=== PATIENT | female | born 1935 | race Caucasian/White ===

== ENCOUNTER 2018-11-26 12:53 | Inpatient (IN) | payer MEDICARE, OTHER ==
--- NOTE | 2018-11-26 13:36 | ED ---
General Adult HPI - General Source: patient, EMS, RN notes reviewed Mode of arrival: EMS Limitations: no limitations <Tomás Cohen - Last Filed: 11/26/18 17:27> <Juanito Mary - Last Filed: 11/26/18 17:36> - General Chief complaint: Fall Stated complaint: Fall, knee pain Time Seen by Provider: 11/26/18 13:15 - History of Present Illness Initial comments: 82-year-old female with a past medical history of colon cancer presents to the emergency department for a chief complaint of fall. Patient had a trip and fall earlier today. She states that she caught the right side of her foot and fell onto her right knee. States that the knee is painful and she was not able to ambulate on it. Patient called EMS to be brought to the emergency department. Patient denies any back pains. States she maybe is a little bit of right hip pain but it is not significant. Denies hitting her head. Patient has no other complaints at this time including shortness of breath, chest pain, abdominal pain, nausea or vomiting, headache, or visual changes. (Tomás Cohen) - Related Data Home Medications Medication Instructions Recorded Confirmed No Known Home Medications 11/26/18 11/26/18 Allergies Allergy/AdvReac Type Severity Reaction Status Date / Time ciprofloxacin [From Cipro] Allergy Unknown Verified 11/26/18 13:40 Penicillins Allergy Unknown Verified 11/26/18 13:40 Childhood Review of Systems ROS Other: All systems not noted in ROS Statement are negative. <Tomás Cohen - Last Filed: 11/26/18 17:27> ROS Other: All systems not noted in ROS Statement are negative. <Juanito Mary - Last Filed: 11/26/18 17:36> ROS Statement: Those systems with pertinent positive or pertinent negative responses have been documented in the HPI. Past Medical History Additional Past Medical History / Comment(s): colon ca, History of Any Multi-Drug Resistant Organisms: None Reported Past Surgical History: Appendectomy, Section Additional Past Surgical History / Comment(s): colostomy Past Psychological History: No Psychological Hx Reported Smoking Status: Never smoker Past Alcohol Use History: None Reported Past Drug Use History: None Reported <Tomás Cohen - Last Filed: 11/26/18 17:27> General Exam Limitations: no limitations General appearance: alert, in no apparent distress Head exam: Present: atraumatic, normocephalic, normal inspection Eye exam: Present: normal appearance, PERRL, EOMI. Absent: scleral icterus, conjunctival injection, periorbital swelling ENT exam: Present: normal exam, mucous membranes moist Neck exam: Present: normal inspection, full ROM. Absent: tenderness, meningismus, lymphadenopathy Respiratory exam: Present: normal lung sounds bilaterally. Absent: respiratory distress, wheezes, rales, rhonchi, stridor Cardiovascular Exam: Present: regular rate, normal rhythm, normal heart sounds. Absent: systolic murmur, diastolic murmur, rubs, gallop, clicks Extremities exam: Present: tenderness (Generalized anterior right knee tenderness.), normal capillary refill (Capillary refill less than, DP pulse 2+ in the right lower extremities.), joint swelling (Edema present of the right anterior knee.). Absent: full ROM (Patient has limited range of motion of the right knee secondary to pain but can flex to about 90.), pedal edema, calf tenderness Neurological exam: Present: alert <Tomás Cohen - Last Filed: 11/26/18 17:27> Course <Tomás Cohen - Last Filed: 11/26/18 17:27> Vital Signs 11/26/18 11/26/18 11/26/18 12:58 14:47 16:21 Temperature 97.0 F L Pulse Rate 89 86 87 Respiratory 16 16 16 Rate Blood Pressure 129/91 130/84 108/61 O2 Sat by Pulse 93 L 96 95 Oximetry 11/26/18 17:11 Temperature Pulse Rate 63 Respiratory 16 Rate Blood Pressure 105/67 O2 Sat by Pulse 99 Oximetry - Reevaluation(s) Reevaluation #1: 11/26/18 13:36 Refused pain medications (Tomás Cohen) Medical Decision Making - Lab Data Result diagrams: 11/26/18 17:00 <Tomás Cohen - Last Filed: 11/26/18 17:27> - Lab Data Result diagrams: 11/26/18 17:00 11/26/18 17:00 <Juanito Mary - Last Filed: 11/26/18 17:36> - Medical Decision Making 82-year-old female presents to the emergency department for a chief complaint of right knee pain. Patient had a fall earlier today. His was mechanical. Patient did not hit her head. On exam patient has significant edema noted of the right knee. Patient is able to flex the knee to 30. No significant pain in the right hip however fracture was obtained which was negative. X-ray of the right knee shows a moderate joint effusion without fractures. However given degree of swelling and pain CT was obtained which showed a vague area of cortical disruption lateral tibial plateau anteriorly. Nondisplaced, nondepressed. I did correlate with point tenderness and patient is tender in this area. Case Discussed with Abbe FRANCOIS orthopedics. States patient can go home however if she is unable to go home socially to put her in a knee immobilizer and admitted to medicine, consult orthopedics. I did talk with patient as well as Dr. Mary. At this time patient cannot remain nonweightbearing on the right knee. Patient will be kept in the hospital for orthopedic evaluation and possible placement. (Tomás Cohen) The patient was seen and examined. All diagnostics are reviewed. The case is discussed with ALESSANDRO and I agree with findings as documented. The case will be discussed with internal medicine and patient will be admitted for further treatment with orthopedic's to consult. (Juanito Mary) - Lab Data Lab Results 11/26/18 11/26/18 Range/Units 17:00 17:00 WBC 10.2 (3.8-10.6) k/uL RBC 3.61 L (3.80-5.40) m/uL Hgb 11.4 (11.4-16.0) gm/dL Hct 32.6 L (34.0-46.0) % MCV 90.5 (80.0-100.0) fL MCH 31.5 (25.0-35.0) pg MCHC 34.8 (31.0-37.0) g/dL RDW 12.3 (11.5-15.5) % Plt Count 203 (150-450) k/uL Neutrophils % 83 % Lymphocytes % 7 % Monocytes % 6 % Eosinophils % 0 % Basophils % 0 % Neutrophils # 8.5 H (1.3-7.7) k/uL Lymphocytes # 0.7 L (1.0-4.8) k/uL Monocytes # 0.6 (0-1.0) k/uL Eosinophils # 0.0 (0-0.7) k/uL Basophils # 0.0 (0-0.2) k/uL Sodium 138 (137-145) mmol/L Potassium 4.1 (3.5-5.1) mmol/L Chloride 106 (98-107) mmol/L Carbon Dioxide 25 (22-30) mmol/L Anion Gap 7 mmol/L BUN 22 H (7-17) mg/dL Creatinine 0.77 (0.52-1.04) mg/dL Est GFR (CKD-EPI)AfAm 83 (>60 ml/min/1.73 sqM) Est GFR (CKD-EPI)NonAf 72 (>60 ml/min/1.73 sqM) Glucose 117 H (74-99) mg/dL Calcium 9.3 (8.4-10.2) mg/dL Total Bilirubin 1.8 H (0.2-1.3) mg/dL AST 36 (14-36) U/L ALT 32 (9-52) U/L Alkaline Phosphatase 70 (38-126) U/L Total Protein 6.0 L (6.3-8.2) g/dL Albumin 3.5 (3.5-5.0) g/dL Disposition Is patient prescribed a controlled substance at d/c from ED?: No Time of Disposition: 17:27 <Tomás Cohen - Last Filed: 11/26/18 17:27> <Juanito Mary - Last Filed: 11/26/18 17:36> Clinical Impression: Tibial plateau fracture, Inability to bear weight Disposition: ADMITTED IP TO THIS HOSP Condition: Fair Referrals: Harish Nuñez MD [Primary Care Provider] - 1-2 days
--- NOTE | 2018-11-26 14:33 | XR ---
EXAMINATION TYPE: XR knee 4V RT DATE OF EXAM: 11/26/2018 COMPARISON: None HISTORY: Fall, pain TECHNIQUE: 4 view right knee FINDINGS: Medial and lateral joint space spurring is noted. Tibial plateau and femoral condylar spurr ing is present. Patellofemoral joint space degenerative changes are present. Moderate joint effusion is evident. There may be calcification within the distal medial quadriceps tendon. IMPRESSION: 1. Moderate joint effusion. 2. No acute fractures. 3. Moderate degenerative changes greatest within the patellofemoral joint space.
--- NOTE | 2018-11-26 14:34 | XR ---
EXAMINATION TYPE: XR Hip RT and AP Pelvis DATE OF EXAM: 11/26/2018 COMPARISON: None HISTORY: Fall, pain TECHNIQUE: Single AP pelvis FINDINGS: Femoral heads articulate with the acetabulum. Symphysis pubis is normal. Sacroiliac joints are normal. Normal bowel gas is present. Multiple surgical clips are present. Exam is supplemented with 2 views of the right hip. No acute fractures or dislocations are evident. IMPRESSION: 1. Normal right hip and pelvis
[2018-11-26] MEDS ORDERED: MORPHINE SULFATE 4 MG/ML SYRINGE IVP STA ×2 (14:42→16:23)
--- NOTE | 2018-11-26 16:00 | CT ---
EXAMINATION TYPE: CT knee RT wo con DATE OF EXAM: 11/26/2018 COMPARISON: None HISTORY: Right knee pain post fall CT DLP: 160.6 mGycm Automated exposure control for dose reduction was used. Unenhanced CT of the right knee was performed in the axial coronal and sagittal planes. Bone and soft tissue window settings are reviewed. FINDINGS: Extremely vague area of cortical disruption suggested lateral tibial plateau anteriorly seen best on the sagittal data set image 30 of 75 series 203. Nondisplaced nondepressed fracture is difficult to e xclude. Correlate clinically with point tenderness. No additional fracture suspected. Moderate joint effusion identified. Moderate degenerative joint space narrowing medial and lateral tibial femoral elo int spaces as well as severe degenerative narrowing of the patellofemoral joint space. Associated cho ndromalacia patella. Spur formation noted throughout. No soft tissue masses identified. Loose body no aidee within suprapatellar joint effusion measuring 1.7 cm. IMPRESSION: 1.Extremely vague area of cortical disruption suggested lateral tibial plateau anteriorly seen best o n the sagittal data set image 30 of 75 series 203. Nondisplaced nondepressed fracture is difficult to exclude. Correlate clinically with point tenderness.
[2018-11-26] MEDS ORDERED: HYDROcodone/APAP 5-325MG 1 EACH TAB PO STA (16:34)
[2018-11-26] MEDS ORDERED: SODIUM CHLORIDE 0.9% 500 ML 500 ML IV STA (16:40)
[2018-11-26 17:18] LABS: Basophils % (A) 0 %; Eosinophils % (A) 0 %; HCT 32.6 % (34.0-46.0); HGB 11.4 gm/dL (11.4-16.0); Lymphocytes # (A) 0.7 k/uL (1.0-4.8); Lymphocytes % (A) 7 %; MCH 31.5 pg (25.0-35.0); MCHC 34.8 g/dL (31.0-37.0); MCV 90.5 fL (80.0-100.0); Mean Platelet Volume 5.8; Monocytes # (A) 0.6 k/uL (0-1.0); Monocytes % (A) 6 %; Neutrophils # (A) 8.5 k/uL (1.3-7.7); Neutrophils % (A) 83 %; Platelet Count 203 k/uL (150-450); RBC 3.61 m/uL (3.80-5.40); RDW 12.3 % (11.5-15.5); WBC 10.2 k/uL (3.8-10.6)
[2018-11-26] MEDS ORDERED: NALOXONE 0.4 MG/ML 1 ML VIAL IV PRN (17:24)
[2018-11-26 17:28] LABS: Albumin 3.5 g/dL (3.5-5.0); Calcium 9.3 mg/dL (8.4-10.2); Potassium 4.1 mmol/L (3.5-5.1); Total Bilirubin 1.8 mg/dL (0.2-1.3)
[2018-11-26 17:35] LABS: INR 1.1 (<1.2); Partial Thromboplastin Time 22.3 sec (22.0-30.0); Prothrombin Time 11.4 sec (9.0-12.0)
[2018-11-26] MEDS: SODIUM CHLORIDE 0.9% 1,000 ML IV SCH (19:45)
[2018-11-26 21:09] VITALS: BMI 25.2
[2018-11-26] MEDS: HYDROcodone/APAP 5-325MG 1 EACH TAB PO PRN (21:13)
[2018-11-27] MEDS: HYDROcodone/APAP 5-325MG 1 EACH TAB PO PRN ×4 (03:26→20:42)
[2018-11-27] MEDS: SODIUM CHLORIDE 0.9% 1,000 ML IV SCH ×2 (07:19→20:41)
--- NOTE | 2018-11-27 10:11 | P.HPIM ---
History of Present Illness H&P Date: 11/27/18 Chief Complaint: Fall with right knee pain This is an 82-year-old female patient of Dr. Nuñez. Patient presented after sustaining a fall at home. Patient reports that she was changing the cat litter when she tripped and fell over her purse on the floor landing on her right leg. Patient was unable to bear weight on her right leg and called EMS for assistance. Patient has a known past medical history of colon cancer in 1993 appendectomy and . Knee x-ray completed showing moderate joint effusion no acute fractures moderate degenerative changes greatest within the patellofemoral joint space. Right hip x-ray completed showing normal right hip and pelvis. CT the remaining completed showing extremely vague area of cortical disruption suggested lateral tibial plateau [id number] seen best on the sagittal data set image 30 of 75 series 203 nondisplaced non-depressed fracture is difficult to exclude. Orthopedic services have been consulted. [place] and morphine for pain control. Heparin for DVT prophylaxis. PT OT consult placed. Patient denies any significant cardiac history. Patient denies history of heart attacks congestive heart failure or pulmonary embolism. At this time patient denies chest pain or shortness of breath. Patient denies nausea vomiting or diarrhea. Patient denies any urinary burning or frequency. Review of Systems Please refer to HPI otherwise unremarkable Past Medical History Past Medical History: Deep Vein Thrombosis (DVT) Additional Past Medical History / Comment(s): colon cancer (1991 diagnosed), slip disc in back History of Any Multi-Drug Resistant Organisms: None Reported Past Surgical History: Appendectomy, Section Additional Past Surgical History / Comment(s): ileostomy Past Anesthesia/Blood Transfusion Reactions: No Reported Reaction Past Psychological History: No Psychological Hx Reported Smoking Status: Never smoker Past Alcohol Use History: None Reported Past Drug Use History: None Reported - Past Family History Father Family Medical History: CVA/TIA Mother Family Medical History: CVA/TIA Medications and Allergies Home Medications Medication Instructions Recorded Confirmed Type No Known Home Medications 11/26/18 11/26/18 History Allergies Allergy/AdvReac Type Severity Reaction Status Date / Time ciprofloxacin [From Cipro] Allergy Unknown Verified 11/26/18 13:40 Penicillins Allergy Unknown Verified 11/26/18 13:40 Childhood Physical Exam Vitals: Vital Signs Temp Pulse Pulse Resp BP BP Pulse Ox 11/27/18 07:16 98.3 F 70 16 111/67 92 L 11/27/18 01:46 99.1 F 75 14 107/67 92 L 11/26/18 19:31 98.0 F 83 20 135/76 92 L 11/26/18 17:11 63 16 105/67 99 11/26/18 16:21 87 16 108/61 95 11/26/18 14:47 86 16 130/84 96 11/26/18 12:58 97.0 F L 89 16 129/91 93 L Intake and Output 11/26/18 11/27/18 11/27/18 22:59 06:59 14:59 Output Total 100 Balance -100 Output: Stool 100 Other: Voiding Method Bedpan Bedpan # Voids 1 1 Head normocephalic Neck supple Lungs clear to auscultation bilaterally no wheezing or crackles Heart regular rate and rhythm S1-S2, no rub or gallop Abdomen is soft nontender nondistended positive bowel sounds no hepatosplenomegaly Extremities no edema Neuro alert and orientated to 3 Results CBC & Chem 7: 11/26/18 17:00 11/26/18 17:00 Labs: Abnormal Lab Results - Last 24 Hours (Table) 11/26/18 11/26/18 Range/Units 17:00 17:00 RBC 3.61 L (3.80-5.40) m/uL Hct 32.6 L (34.0-46.0) % Neutrophils # 8.5 H (1.3-7.7) k/uL Lymphocytes # 0.7 L (1.0-4.8) k/uL BUN 22 H (7-17) mg/dL Glucose 117 H (74-99) mg/dL Total Bilirubin 1.8 H (0.2-1.3) mg/dL Total Protein 6.0 L (6.3-8.2) g/dL Thrombosis Risk Factor Assmnt - Choose All That Apply Each Factor Represents 1 point: Obesity (BMI >25), Varicose veins Each Risk Factor Represents 3 Points: Age 75 years or older Thrombosis Risk Factor Assessment Total Risk Factor Score: 5 Thrombosis Risk Factor Assessment Level: High Risk Assessment and Plan Assessment: 1. Right leg pain status post fall possible tibial plateau fracture. Hip x-ray completed showing normal right hip and pelvis. Technique completed showing extremely vague area of cortical disruption suggested lateral tibial plateau anteriorly seen best on the sagittal data set image 30 of 75 series 203 nondisplaced nondepressed fracture is difficult to exclude. Orthopedic services have been consulted. [place] and morphine for pain control. 2. History of colon cancer in 1993 3. History of appendectomy 4. History of 5. History of DVT in 1993 after prolonged hospitalization DVT prophylaxis heparin. GI prophylaxis Pepcid PT OT consult placed Time with Patient: Greater than 30 (Greater than 60% of the total time spent in counseling and coordination of care. I performed an examination of the patient and discussed their management with the Nurse Practitioner. I have reviewed the Nurse Practitioner's notes and agree with the documented findings and plan of care)
[2018-11-27] MEDS ORDERED: ACETAMINOPHEN TAB 325 MG TAB PO PRN (11:22)
[2018-11-27] MEDS ORDERED: ONDANSETRON 4 MG/2 ML VIAL IVP PRN (11:22)
--- NOTE | 2018-11-27 17:58 | P.CNOR ---
History of Present Illness - [facility] Consult date: 11/27/18 Requesting physician: Arnoldo Deshpande Consult reason: joint pain History of present illness: Patient is a 82-year-old female seen at bedside this afternoon in consultation for right knee pain. She was admitted through the emergency department yesterday 11/26/2018 after a fall at home resulted in knee pain. She states that she caught the right side of her foot and fell onto her right knee. States that the knee is painful and she was not able to ambulate on it. Patient called EMS to be brought to the emergency department. Patient denies any back pains. States she maybe is a little bit of right hip pain but it is not significant. Denies hitting her head. Patient has no other complaints at this time including shortness of breath, chest pain, abdominal pain, nausea or vomiting, headache, or visual changes. Review of Systems All systems: negative Constitutional: Denies chills, Denies fever Eyes: denies blurred vision, denies pain Ears, nose, mouth and throat: Denies headache, Denies sore throat Cardiovascular: Denies chest pain, Denies shortness of breath Respiratory: Denies cough Gastrointestinal: Denies abdominal pain, Denies diarrhea, Denies nausea, Denies vomiting Genitourinary: Denies dysuria, Denies hematuria Musculoskeletal: Denies myalgias Integumentary: Denies pruritus, Denies rash Neurological: Denies numbness, Denies weakness Psychiatric: Denies anxiety, Denies depression Endocrine: Denies fatigue, Denies weight change Past Medical History Past Medical History: Deep Vein Thrombosis (DVT) Additional Past Medical History / Comment(s): colon cancer (1992 diagnosed), slip disc in back History of Any Multi-Drug Resistant Organisms: None Reported Past Surgical History: Appendectomy, Section Additional Past Surgical History / Comment(s): ileostomy Past Anesthesia/Blood Transfusion Reactions: No Reported Reaction Past Psychological History: No Psychological Hx Reported Smoking Status: Never smoker Past Alcohol Use History: None Reported Past Drug Use History: None Reported - Past Family History Father Family Medical History: CVA/TIA Mother Family Medical History: CVA/TIA Medications and Allergies Home Medications Medication Instructions Recorded Confirmed Type No Known Home Medications 11/26/18 11/26/18 History Allergies Allergy/AdvReac Type Severity Reaction Status Date / Time ciprofloxacin [From Cipro] Allergy Unknown Verified 11/26/18 13:40 Penicillins Allergy Unknown Verified 11/26/18 13:40 Childhood Physical Examination Inspection of the right knee shows no deformity. There is no erythema. There are no wounds. She is tender at the lateral joint line. She has pain with passive range of motion of flexion to 90. She has full extension. The knee is ligamentously stable. It is not hot to touch. There is mild patellar apprehension. There is mild effusion. The calf is soft and nontender. 2+ dorsalis pedis pulses present and less than 2 second capillary refill is present. Motor and sensation are grossly intact throughout the right lower extremity. Results CT of the right knee shows possible subtle tibial plateau fracture with minimal depression. There is also degenerative joint disease and osteoarthritis as expected. - Labs Labs: H & H 11/26/18 Range/Units 17:00 Hgb 11.4 (11.4-16.0) gm/dL Hct 32.6 L (34.0-46.0) % Coagulation 11/26/18 Range/Units 17:00 INR 1.1 (<1.2) Result Diagrams: 11/26/18 17:00 11/26/18 17:00 - Diagnostic results Knee x-ray: report reviewed, image reviewed Knee CT: report reviewed, image reviewed Assessment and Plan (1) Tibial plateau fracture Narrative/Plan: There is no immediate plans for surgical intervention. We have recommended further conservative measures including utilizing a knee immobilizer and be nonweightbearing with the right lower extremity. She'll need assistance with crutches or walker. She may also utilize ice when necessary. Would recommend pain management per primary team. She may follow-up as an outpatient in 1 week for repeat x-rays and further recommendations. Current Visit: Yes Status: Acute Code(s): S82.143A - DISPLACED BICONDYLAR FRACTURE OF UNSP TIBIA, INIT SNOMED Code(s): 844875799 Time with Patient: Less than 30
[2018-11-27] MEDS: HEPARIN SODIUM,PORCINE 5,000 UNIT/ML 1 ML VIAL SQ SCH (20:40)
[2018-11-28 08:40] LABS: ALT 22 U/L (9-52); AST 27 U/L (14-36); African American GFR (CKD) >90 (>60 ml/min/1.73 sqM); Alkaline Phosphatase 53 U/L (38-126); Anion Gap 3 mmol/L; Blood Urea Nitrogen 18 mg/dL (7-17); Calcium 8.3 mg/dL (8.4-10.2); Carbon Dioxide 25 mmol/L (22-30); Chloride 107 mmol/L (98-107); Glucose 95 mg/dL (74-99); Potassium 3.8 mmol/L (3.5-5.1); Sodium 135 mmol/L (137-145); Total Bilirubin 2.3 mg/dL (0.2-1.3); Total Protein 5.4 g/dL (6.3-8.2)
[2018-11-28 08:49] LABS: HCT 30.9 % (34.0-46.0); HGB 10.6 gm/dL (11.4-16.0); MCHC 34.2 g/dL (31.0-37.0); MCV 93.6 fL (80.0-100.0); Mean Platelet Volume 6.1; Platelet Count 163 k/uL (150-450); RDW 12.6 % (11.5-15.5); WBC 5.6 k/uL (3.8-10.6)
[2018-11-28] MEDS: FAMOTIDINE 20 MG TAB PO SCH (09:29)
[2018-11-28] MEDS: HYDROcodone/APAP 5-325MG 1 EACH TAB PO PRN ×2 (09:29→18:09)
[2018-11-28] MEDS: HEPARIN SODIUM,PORCINE 5,000 UNIT/ML 1 ML VIAL SQ SCH ×2 (09:29→20:18)
[2018-11-28 09:47] LABS: Band Neutrophils % 1 %; Basophils # (M) 0.06 k/uL (0-0.2); Lymphocytes # (M) 0.45 k/uL (1.0-4.8); Monocytes # (M) 0.67 k/uL (0-1.0); Neutrophils % (M) 78 %; Nucleated Red Blood Cells 0 /100 WBC (0-0); Poikilocytosis (M) Present; Total Cells Counted 100
--- NOTE | 2018-11-28 12:44 | ECHOF ---
Referral Reason:abdnormal EKG MEASUREMENTS -------- HEIGHT: 160.0 cm WEIGHT: 64.4 kg BP: 111/67 RVIDd: 3.8 cm (< 3.3) IVSd: 1.3 cm (0.6 - 1.1) LVIDd: 3.8 cm (3.9 - 5.3) LVPWd: 1.5 cm (0.6 - 1.1) IVSs: 1.9 cm LVIDs: 2.6 cm LVPWs: 1.5 cm LAESV Index (A-L): 40.57 ml/m Ao Diam: 3.1 cm (2.0 - 3.7) AV Cusp: 2.0 cm (1.5 - 2.6) LA Diam: 3.3 cm (2.7 - 3.8) TAPSE: 3.5 cm EPSS: 0.5 cm MV E John: 0.96 m/s MV DecT: 162 ms MV A John: 1.43 m/s MV E/A Ratio: 0.67 RAP: 15.00 mmHg RVSP: 47.08 mmHg MV EF SLOPE: 106.82 mm/s (70 - 150) MV EXCURSION: 1.76 cm (> 18.000) FINDINGS -------- Sinus rhythm. The left ventricular size is normal. There is mild concentric left ventricular hypertrophy. Overa ll left ventricular systolic function is normal with, an EF between 55 - 60 %. Mitral Doppler inflo w pattern suggests diastolic filling abnormality. Grade II. The right ventricle is moderately enlarged. Left atrium is severely dilated by volume. The right atrial size is normal. Interatrial and interventricular septum intact. The aortic valve is trileaflet and appears structurally normal. There is no evidence of aortic regu rgitation. There is no evidence of aortic stenosis. Mild mitral annular calcification present. [id number] mitral regurgitation is present. Mild tricuspid regurgitation present. There is mild pulmonary hypertension. The right ventricular systolic pressure, as measured by Doppler, is 47.08mmHg. Trace/mild (physiologic) pulmonic regurgitation. The aortic root size is normal. The inferior vena cava is dilated with poor inspiratory collapse which is consistent with estimated r ight atrial pressure of 20 mmHg. There is no pericardial effusion. CONCLUSIONS -------- 1. Sinus rhythm. 2. The left ventricular size is normal. 3. There is mild concentric left ventricular hypertrophy. 4. Overall left ventricular systolic function is normal with, an EF between 55 - 60 %. 5. Mitral Doppler inflow pattern suggests diastolic filling abnormality. Grade II. 6. The right ventricle is moderately enlarged. 7. Left atrium is severely dilated by volume. 8. The right atrial size is normal. 9. Interatrial and interventricular septum intact. 10. The aortic valve is trileaflet and appears structurally normal. 11. There is no evidence of aortic regurgitation. 12. There is no evidence of aortic stenosis. 13. Mild mitral annular calcification present. 14. [id number] mitral regurgitation is present. 15. Mild tricuspid regurgitation present. 16. There is mild pulmonary hypertension. 17. The right ventricular systolic pressure, as measured by Doppler, is 47.08mmHg. 18. Trace/mild (physiologic) pulmonic regurgitation. 19. The aortic root size is normal. 20. The inferior vena cava is dilated with poor inspiratory collapse which is consistent with estimat ed right atrial pressure of 20 mmHg. 21. There is no pericardial effusion. MISSILEMAN: Ilana Razo RDCS
--- NOTE | 2018-11-28 15:06 | P.PN ---
Subjective Progress Note Date: 11/28/18 This is an 82-year-old female patient of Dr. Nuñez. Patient presented after sustaining a fall at home. Patient reports that she was changing the cat litter when she tripped and fell over her purse on the floor landing on her right leg. Patient was unable to bear weight on her right leg and called EMS for assistance. Patient has a known past medical history of colon cancer in 1993 appendectomy and . Knee x-ray completed showing moderate joint effusion no acute fractures moderate degenerative changes greatest within the patellofemoral joint space. Right hip x-ray completed showing normal right hip and pelvis. CT the remaining completed showing extremely vague area of cortical disruption suggested lateral tibial plateau [id number] seen best on the sagittal data set image 30 of 75 series 203 nondisplaced non-depressed fracture is difficult to exclude. Orthopedic services have been consulted. [place] and morphine for pain control. Heparin for DVT prophylaxis. PT OT consult placed. Patient denies any significant cardiac history. Patient denies history of heart attacks congestive heart failure or pulmonary embolism. At this time patient denies chest pain or shortness of breath. Patient denies nausea vomiting or diarrhea. Patient denies any urinary burning or frequency. On 11/28/2018 patient alert and oriented 3. Patient is having increased pain to right knee. Patient was evaluated by orthopedic services no plans for surgical intervention at this time. PT OT recommending rehab. Patient denies chest pain or shortness of breath. Patient denies nausea vomiting or diarrhea. Patient denies any urinary burning or frequency Objective - Vital Signs Vital signs: Vital Signs Temp 98.8 F 11/28/18 07:00 Pulse 76 11/28/18 07:00 Resp 16 11/28/18 07:00 BP 130/73 11/28/18 07:00 Pulse Ox 90 L 11/28/18 07:00 Intake & Output 11/27/18 11/28/18 11/28/18 18:59 06:59 18:59 Intake Total 600 10 Output Total 200 Balance 600 -190 Intake: IV 600 Sodium Chloride 0.9% 1, 600 000 ml @ 75 mls/hr IV . [id number] [facility] Rx#:[id number] Oral 10 Output: Stool 200 Other: Voiding Method Bedpan # Voids 1 1 - Exam Head normocephalic Neck supple Lungs clear to auscultation bilaterally no wheezing or crackles Heart regular rate and rhythm S1-S2, no rub or gallop Abdomen is soft nontender nondistended positive bowel sounds no hepatosplenomegaly Extremities no edema Neuro alert and orientated to 3 - Labs CBC & Chem 7: 11/28/18 07:21 11/28/18 07:21 Labs: Abnormal Lab Results - Last 24 Hours (Table) 11/28/18 11/28/18 Range/Units 07:21 07:21 RBC 3.30 L (3.80-5.40) m/uL Hgb 10.6 L (11.4-16.0) gm/dL Hct 30.9 L (34.0-46.0) % Lymphocytes # (Manual) 0.45 L (1.0-4.8) k/uL Sodium 135 L (137-145) mmol/L BUN 18 H (7-17) mg/dL Calcium 8.3 L (8.4-10.2) mg/dL Total Bilirubin 2.3 H (0.2-1.3) mg/dL Total Protein 5.4 L (6.3-8.2) g/dL Albumin 3.0 L (3.5-5.0) g/dL Assessment and Plan Assessment: 1. Right leg pain status post fall possible tibial plateau fracture. Hip x-ray completed showing normal right hip and pelvis. Technique completed showing extremely vague area of cortical disruption suggested lateral tibial plateau anteriorly seen best on the sagittal data set image 30 of 75 series 203 nondisplaced nondepressed fracture is difficult to exclude. [place] and morphine for pain control. Per orthopedic services no immediate plans for surgical intervention recommend conservative measures including utilizing knee immobilizer and nonweightbearing with right lower extremity. Patient follow-up in one week for repeat x-rays and further recommendations. PTOT recommending rehab 2. History of colon cancer in 1993 3. History of appendectomy 4. History of 5. History of DVT in 1993 after prolonged hospitalization 6. Abnormal EKG. EKG completed showing normal sinus rhythm possible left atrial enlargement left anterior fascicular block left ventricular hypertrophy with QRS widening. 2-D echo completed showing EF of 55-60%. No further workup at this time DVT prophylaxis heparin. GI prophylaxis Pepcid PT OT consult placed Recommendations for rehab. Possible discharge Keagan to rehab [facility] I performed an examination of the patient and discussed their management with the Nurse Practitioner. I have reviewed the Nurse Practitioner's notes and agree with the documented findings and plan of care
[2018-11-29] MEDS: HYDROcodone/APAP 5-325MG 1 EACH TAB PO PRN ×3 (04:38→21:22)
[2018-11-29 06:36] LABS: Albumin 2.9 g/dL (3.5-5.0); Calcium 8.7 mg/dL (8.4-10.2); Potassium 3.6 mmol/L (3.5-5.1); Total Bilirubin 1.5 mg/dL (0.2-1.3); Total Protein 5.3 g/dL (6.3-8.2)
[2018-11-29 06:41] LABS: HCT 31.9 % (34.0-46.0); HGB 10.6 gm/dL (11.4-16.0); MCH 32.4 pg (25.0-35.0); MCHC 33.2 g/dL (31.0-37.0); MCV 97.5 fL (80.0-100.0); Mean Platelet Volume 6.8; Platelet Count 146 k/uL (150-450); RBC 3.27 m/uL (3.80-5.40); RDW 12.9 % (11.5-15.5); WBC 5.1 k/uL (3.8-10.6)
[2018-11-29 07:06] LABS: Basophils # (M) 0.05 k/uL (0-0.2); Eosinophils # (M) 0.26 k/uL (0-0.7); Lymphocytes # (M) 0.77 k/uL (1.0-4.8); Monocytes # (M) 0.71 k/uL (0-1.0); Neutrophils % (M) 65 %; Nucleated Red Blood Cells 0 /100 WBC (0-0); Total Cells Counted 100
[2018-11-29 07:07] LABS: Anisocytosis (M) Present
[2018-11-29 07:09] LABS: Polychromasia Present
[2018-11-29] MEDS: HEPARIN SODIUM,PORCINE 5,000 UNIT/ML 1 ML VIAL SQ SCH ×2 (08:31→20:13)
[2018-11-29] MEDS: FAMOTIDINE 20 MG TAB PO SCH (08:31)
[2018-11-29] MEDS ORDERED: INFLUENZA VACCINE (6 MOS+) 60 MCG/0.5 ML SYRINGE IM ONE (09:27)
--- NOTE | 2018-11-29 13:01 | P.PN ---
Subjective Progress Note Date: 11/29/18 This is an 82-year-old female patient of Dr. Nuñez. Patient presented after sustaining a fall at home. Patient reports that she was changing the cat litter when she tripped and fell over her purse on the floor landing on her right leg. Patient was unable to bear weight on her right leg and called EMS for assistance. Patient has a known past medical history of colon cancer in 1993 appendectomy and . Knee x-ray completed showing moderate joint effusion no acute fractures moderate degenerative changes greatest within the patellofemoral joint space. Right hip x-ray completed showing normal right hip and pelvis. CT the remaining completed showing extremely vague area of cortical disruption suggested lateral tibial plateau [id number] seen best on the sagittal data set image 30 of 75 series 203 nondisplaced non-depressed fracture is difficult to exclude. Orthopedic services have been consulted. [place] and morphine for pain control. Heparin for DVT prophylaxis. PT OT consult placed. Patient denies any significant cardiac history. Patient denies history of heart attacks congestive heart failure or pulmonary embolism. At this time patient denies chest pain or shortness of breath. Patient denies nausea vomiting or diarrhea. Patient denies any urinary burning or frequency. On 11/28/2018 patient alert and oriented 3. Patient is having increased pain to right knee. Patient was evaluated by orthopedic services no plans for surgical intervention at this time. PT OT recommending rehab. Patient denies chest pain or shortness of breath. Patient denies nausea vomiting or diarrhea. Patient denies any urinary burning or frequency 11/29/2018 patient's pain is controlled. She has been working with physical therapy. In the plan is for her to be discharged to [facility] on Sunday. Patient is requesting flu shot and this will be administered today. Hemoglobin has dropped to 10.6 and iron studies have been ordered. She denies any chest pain or shortness of breath, nausea or vomiting, bowel movement changes or urinary symptoms. She has ileostomy the stool is brown no evidence of any bleeding per patient. Objective - Vital Signs Vital signs: Vital Signs Temp 98.2 F 11/29/18 07:00 Pulse 75 11/29/18 07:00 Resp 16 11/29/18 07:00 BP 142/90 11/29/18 07:00 Pulse Ox 93 L 11/29/18 07:00 Intake & Output 11/28/18 11/29/18 11/29/18 18:59 06:59 18:59 Intake Total 600 Output Total 200 100 Balance 400 -100 Intake: IV 600 Sodium Chloride 0.9% 1, 600 000 ml @ 75 mls/hr IV . [id number] [facility] Rx#:[id number] Output: Stool 200 100 Other: Voiding Method Bedpan # Voids 2 1 1 - Exam Head normocephalic Neck supple Lungs clear to auscultation bilaterally no wheezing or crackles Heart regular rate and rhythm S1-S2, no rub or gallop Abdomen is soft nontender nondistended positive bowel sounds no hepatosplenomegaly Extremities no edema right leg is in a brace Neuro alert and orientated to 3 - Labs CBC & Chem 7: 11/29/18 05:58 11/29/18 05:58 Labs: Abnormal Lab Results - Last 24 Hours (Table) 11/29/18 11/29/18 Range/Units 05:58 05:58 RBC 3.27 L (3.80-5.40) m/uL Hgb 10.6 L (11.4-16.0) gm/dL Hct 31.9 L (34.0-46.0) % Plt Count 146 L (150-450) k/uL Lymphocytes # (Manual) 0.77 L (1.0-4.8) k/uL BUN 19 H (7-17) mg/dL Total Bilirubin 1.5 H (0.2-1.3) mg/dL Total Protein 5.3 L (6.3-8.2) g/dL Albumin 2.9 L (3.5-5.0) g/dL Assessment and Plan Assessment: 1. Right leg pain status post fall possible tibial plateau fracture. Hip x-ray completed showing normal right hip and pelvis. CT completed showing extremely vague area of cortical disruption suggested lateral tibial plateau anteriorly seen best on the sagittal data set image 30 of 75 series 203 nondisplaced nondepressed fracture is difficult to exclude. [place] and morphine for pain control. Per orthopedic services no immediate plans for surgical intervention recommend conservative measures including utilizing knee immobilizer and nonweightbearing with right lower extremity. Patient follow-up in one week for repeat x-rays and further recommendations. PTOT recommending rehab 2. History of colon cancer in 1993 3. History of appendectomy 4. History of 5. History of DVT in 1993 after prolonged hospitalization 6. Abnormal EKG. EKG completed showing normal sinus rhythm possible left atrial enlargement left anterior fascicular block left ventricular hypertrophy with QRS widening. 2-D echo completed showing EF of 55-60%. No further workup at this time 7. Flu shot administered during this admission DVT prophylaxis heparin. GI prophylaxis Pepcid Anticipating discharge to [facility] on Sunday I performed an examination of the patient and discussed their management with the physician Endoscopy Registered Nurse. I have reviewed the Physician Endoscopy Registered Nurse's notes and agree with the documented findings and plan of care
[2018-11-29 17:54] LABS: Ferritin 81.4 ng/mL (10.0-291.0)
[2018-11-29 18:20] LABS: Iron Saturation 6.54 (12.00-45.00)
[2018-11-30] MEDS: HYDROcodone/APAP 5-325MG 1 EACH TAB PO PRN ×4 (04:38→22:01)
[2018-11-30 07:25] LABS: HCT 32.5 % (34.0-46.0); HGB 10.2 gm/dL (11.4-16.0); MCH 30.9 pg (25.0-35.0); MCHC 31.5 g/dL (31.0-37.0); MCV 97.9 fL (80.0-100.0); Mean Platelet Volume 6.9; Platelet Count 159 k/uL (150-450); RBC 3.32 m/uL (3.80-5.40); RDW 13.1 % (11.5-15.5); WBC 4.9 k/uL (3.8-10.6)
[2018-11-30 07:42] LABS: ALT 20 U/L (9-52); AST 25 U/L (14-36); African American GFR (CKD) >90 (>60 ml/min/1.73 sqM); Alkaline Phosphatase 51 U/L (38-126); Anion Gap 4 mmol/L; Blood Urea Nitrogen 19 mg/dL (7-17); Calcium 8.8 mg/dL (8.4-10.2); Carbon Dioxide 26 mmol/L (22-30); Chloride 106 mmol/L (98-107); Glucose 96 mg/dL (74-99); Potassium 3.8 mmol/L (3.5-5.1); Sodium 136 mmol/L (137-145); Total Bilirubin 1.6 mg/dL (0.2-1.3); Total Protein 5.3 g/dL (6.3-8.2)
[2018-11-30] MEDS: FAMOTIDINE 20 MG TAB PO SCH (08:25)
[2018-11-30] MEDS: HEPARIN SODIUM,PORCINE 5,000 UNIT/ML 1 ML VIAL SQ SCH ×2 (08:25→21:57)
[2018-11-30 08:53] LABS: Lymphocytes # (M) 1.23 k/uL (1.0-4.8); Myelocytes # (M) 0.05 k/uL (0); Myelocytes % 1 %; Nucleated Red Blood Cells 0 /100 WBC (0-0)
[2018-11-30 08:55] LABS: Band Neutrophils % 1 %; Eosinophils # (M) 0.29 k/uL (0-0.7); Monocytes # (M) 0.74 k/uL (0-1.0); Neutrophils % (M) 53 %; Poikilocytosis (M) Present; Total Cells Counted 200
--- NOTE | 2018-11-30 14:36 | P.PN ---
Subjective Progress Note Date: 11/30/18 This is an 82-year-old female patient of Dr. Nuñez. Patient presented after sustaining a fall at home. Patient reports that she was changing the cat litter when she tripped and fell over her purse on the floor landing on her right leg. Patient was unable to bear weight on her right leg and called EMS for assistance. Patient has a known past medical history of colon cancer in 1993 appendectomy and . Knee x-ray completed showing moderate joint effusion no acute fractures moderate degenerative changes greatest within the patellofemoral joint space. Right hip x-ray completed showing normal right hip and pelvis. CT the remaining completed showing extremely vague area of cortical disruption suggested lateral tibial plateau [id number] seen best on the sagittal data set image 30 of 75 series 203 nondisplaced non-depressed fracture is difficult to exclude. Orthopedic services have been consulted. [place] and morphine for pain control. Heparin for DVT prophylaxis. PT OT consult placed. Patient denies any significant cardiac history. Patient denies history of heart attacks congestive heart failure or pulmonary embolism. At this time patient denies chest pain or shortness of breath. Patient denies nausea vomiting or diarrhea. Patient denies any urinary burning or frequency. On 11/28/2018 patient alert and oriented 3. Patient is having increased pain to right knee. Patient was evaluated by orthopedic services no plans for surgical intervention at this time. PT OT recommending rehab. Patient denies chest pain or shortness of breath. Patient denies nausea vomiting or diarrhea. Patient denies any urinary burning or frequency 11/29/2018 patient's pain is controlled. She has been working with physical therapy. In the plan is for her to be discharged to [facility] on Sunday. Patient is requesting flu shot and this will be administered today. Hemoglobin has dropped to 10.6 and iron studies have been ordered. She denies any chest pain or shortness of breath, nausea or vomiting, bowel movement changes or urinary symptoms. She has ileostomy the stool is brown no evidence of any bleeding per patient. On 11/30/2018 patient was seen and examined on the medical floor she is alert and oriented 3 she is complaining of lower extremity pain with activity otherwise she denies any complaints there is no fever or chills no headache or dizziness no chest pain no shortness of breath no cough no nausea or vomiting no abdominal pain no diarrhea and no urinary symptoms Objective - Vital Signs Vital signs: Vital Signs Temp 98.4 F 11/30/18 14:28 Pulse 70 11/30/18 14:28 Resp 16 11/30/18 14:28 BP 134/65 11/30/18 14:28 Pulse Ox 94 L 11/30/18 14:28 Intake & Output 11/29/18 11/30/18 11/30/18 18:59 06:59 18:59 Intake Total 540 592 Output Total 201 Balance -201 540 592 Intake: Oral 540 592 Output: Urine 1 Stool 200 Other: Voiding Method Bedpan Bedpan # Voids 1 2 # Bowel Movements 1 - Exam In general patient is alert and oriented in no apparent distress HEENT head normocephalic and atraumatic Neck is supple no JVD no goiter no lymphadenopathy Chest exam reveals a few scattered rhonchi no wheezing Cardiac exam reveals regular heart sounds no gallops no murmurs Abdomen is soft nontender no organomegaly Extremity exam reveals no edema no cyanosis or clubbing - Labs CBC & Chem 7: 11/30/18 06:52 11/30/18 06:52 Labs: Abnormal Lab Results - Last 24 Hours (Table) 11/29/18 11/30/18 11/30/18 Range/Units 05:58 06:52 06:52 RBC 3.32 L (3.80-5.40) m/uL Hgb 10.2 L (11.4-16.0) gm/dL Hct 32.5 L (34.0-46.0) % Myelocytes # (Manual) 0.05 H (0) k/uL Sodium 136 L (137-145) mmol/L BUN 19 H (7-17) mg/dL Iron 20 L (50-170) ug/dL Iron Saturation 6.54 L (12.00-45.00) Total Bilirubin 1.6 H (0.2-1.3) mg/dL Total Protein 5.3 L (6.3-8.2) g/dL Albumin 3.0 L (3.5-5.0) g/dL Assessment and Plan Plan: 1. Right leg pain status post fall possible tibial plateau fracture. Hip x-ray completed showing normal right hip and pelvis. CT completed showing extremely vague area of cortical disruption suggested lateral tibial plateau anteriorly seen best on the sagittal data set image 30 of 75 series 203 nondisplaced nondepressed fracture is difficult to exclude. [place] and morphine for pain control. Per orthopedic services no immediate plans for surgical intervention recommend conservative measures including utilizing knee immobilizer and nonweightbearing with right lower extremity. Patient follow-up in one week for repeat x-rays and further recommendations. PTOT recommending rehab 2. History of colon cancer in 1993 3. History of appendectomy 4. History of 5. History of DVT in 1993 after prolonged hospitalization 6. Abnormal EKG. EKG completed showing normal sinus rhythm possible left atrial enlargement left anterior fascicular block left ventricular hypertrophy with QRS widening. 2-D echo completed showing EF of 55-60%. No further workup at this time 7. Flu shot administered during this admission DVT prophylaxis heparin. GI prophylaxis Pepcid Anticipating discharge to [facility] on Sunday
[2018-12-01] MEDS: FAMOTIDINE 20 MG TAB PO SCH (08:05)
[2018-12-01] MEDS: HEPARIN SODIUM,PORCINE 5,000 UNIT/ML 1 ML VIAL SQ SCH ×2 (08:05→21:43)
[2018-12-01] MEDS: HYDROcodone/APAP 5-325MG 1 EACH TAB PO PRN ×2 (08:05→14:26)
--- NOTE | 2018-12-01 14:17 | P.PN ---
Subjective Progress Note Date: 12/01/18 This is an 82-year-old female patient of Dr. Nuñez. Patient presented after sustaining a fall at home. Patient reports that she was changing the cat litter when she tripped and fell over her purse on the floor landing on her right leg. Patient was unable to bear weight on her right leg and called EMS for assistance. Patient has a known past medical history of colon cancer in 1993 appendectomy and . Knee x-ray completed showing moderate joint effusion no acute fractures moderate degenerative changes greatest within the patellofemoral joint space. Right hip x-ray completed showing normal right hip and pelvis. CT the remaining completed showing extremely vague area of cortical disruption suggested lateral tibial plateau [id number] seen best on the sagittal data set image 30 of 75 series 203 nondisplaced non-depressed fracture is difficult to exclude. Orthopedic services have been consulted. [place] and morphine for pain control. Heparin for DVT prophylaxis. PT OT consult placed. Patient denies any significant cardiac history. Patient denies history of heart attacks congestive heart failure or pulmonary embolism. At this time patient denies chest pain or shortness of breath. Patient denies nausea vomiting or diarrhea. Patient denies any urinary burning or frequency. On 11/28/2018 patient alert and oriented 3. Patient is having increased pain to right knee. Patient was evaluated by orthopedic services no plans for surgical intervention at this time. PT OT recommending rehab. Patient denies chest pain or shortness of breath. Patient denies nausea vomiting or diarrhea. Patient denies any urinary burning or frequency 11/29/2018 patient's pain is controlled. She has been working with physical therapy. In the plan is for her to be discharged to [facility] on Sunday. Patient is requesting flu shot and this will be administered today. Hemoglobin has dropped to 10.6 and iron studies have been ordered. She denies any chest pain or shortness of breath, nausea or vomiting, bowel movement changes or urinary symptoms. She has ileostomy the stool is brown no evidence of any bleeding per patient. On 11/30/2018 patient was seen and examined on the medical floor she is alert and oriented 3 she is complaining of lower extremity pain with activity otherwise she denies any complaints there is no fever or chills no headache or dizziness no chest pain no shortness of breath no cough no nausea or vomiting no abdominal pain no diarrhea and no urinary symptoms. On 12/01/2018 patient is alert and oriented 3 pain is well-controlled otherwise she denies any complaints there is no fever or chills no headache or dizziness no chest pain no shortness of breath no cough no nausea or vomiting no abdominal pain no diarrhea and no urinary symptoms plan to discharge tomorrow to a rehab facility Objective - Vital Signs Vital signs: Vital Signs Temp 98.5 F 12/01/18 07:00 Pulse 77 12/01/18 08:00 Resp 16 12/01/18 08:00 BP 150/78 12/01/18 07:00 Pulse Ox 91 L 12/01/18 07:00 Intake & Output 11/30/18 12/01/18 12/01/18 18:59 06:59 18:59 Intake Total 1328 Balance 1328 Intake: Oral 1328 Other: Voiding Method Bedpan Bedpan Bedpan # Voids 1 - Exam In general patient is alert and oriented in no apparent distress HEENT head normocephalic and atraumatic Neck is supple no JVD no goiter no lymphadenopathy Chest exam reveals a few scattered rhonchi no wheezing Cardiac exam reveals regular heart sounds no gallops no murmurs Abdomen is soft nontender no organomegaly Extremity exam reveals no edema no cyanosis or clubbing - Labs CBC & Chem 7: 11/30/18 06:52 11/30/18 06:52 Assessment and Plan Plan: 1. Right leg pain status post fall possible tibial plateau fracture. Hip x-ray completed showing normal right hip and pelvis. CT completed showing extremely vague area of cortical disruption suggested lateral tibial plateau anteriorly seen best on the sagittal data set image 30 of 75 series 203 nondisplaced nondepressed fracture is difficult to exclude. [place] and morphine for pain control. Per orthopedic services no immediate plans for surgical intervention recommend conservative measures including utilizing knee immobilizer and nonweightbearing with right lower extremity. Patient follow-up in one week for repeat x-rays and further recommendations. PTOT recommending rehab 2. History of colon cancer in 1993 3. History of appendectomy 4. History of 5. History of DVT in 1993 after prolonged hospitalization 6. Abnormal EKG. EKG completed showing normal sinus rhythm possible left atrial enlargement left anterior fascicular block left ventricular hypertrophy with QRS widening. 2-D echo completed showing EF of 55-60%. No further workup at this time 7. Flu shot administered during this admission DVT prophylaxis heparin. GI prophylaxis Pepcid Anticipating discharge to [facility] on Sunday
[2018-12-02] MEDS: HYDROcodone/APAP 5-325MG 1 EACH TAB PO PRN ×2 (00:47→10:46)
[2018-12-02] MEDS: HEPARIN SODIUM,PORCINE 5,000 UNIT/ML 1 ML VIAL SQ SCH (07:29)
[2018-12-02] MEDS: FAMOTIDINE 20 MG TAB PO SCH (07:29)
[2018-12-02 07:32] VITALS: BP 136/79; PULSE 70; RESP 18; TEMP 98.4
[2018-12-02 07:47] LABS: ALT 20 U/L (9-52); AST 30 U/L (14-36); African American GFR (CKD) >90 (>60 ml/min/1.73 sqM); Albumin 3.1 g/dL (3.5-5.0); Alkaline Phosphatase 52 U/L (38-126); Anion Gap 4 mmol/L; Blood Urea Nitrogen 19 mg/dL (7-17); Calcium 8.8 mg/dL (8.4-10.2); Carbon Dioxide 29 mmol/L (22-30); Chloride 102 mmol/L (98-107); Glucose 92 mg/dL (74-99); Sodium 135 mmol/L (137-145); Total Bilirubin 1.5 mg/dL (0.2-1.3); Total Protein 5.6 g/dL (6.3-8.2)
[2018-12-02 07:50] LABS: Potassium 4.3 mmol/L (3.5-5.1)
[2018-12-02 07:54] LABS: HCT 33.2 % (34.0-46.0); MCH 31.9 pg (25.0-35.0); MCHC 33.3 g/dL (31.0-37.0); MCV 95.9 fL (80.0-100.0); Mean Platelet Volume 6.4; Platelet Count 179 k/uL (150-450); RBC 3.46 m/uL (3.80-5.40); RDW 12.8 % (11.5-15.5); WBC 5.5 k/uL (3.8-10.6)
[2018-12-02 08:34] LABS: Basophils # (M) 0.06 k/uL (0-0.2); Eosinophils # (M) 0.22 k/uL (0-0.7); Lymphocytes # (M) 1.27 k/uL (1.0-4.8); Monocytes # (M) 0.88 k/uL (0-1.0); Neutrophils % (M) 56 %; Nucleated Red Blood Cells 0 /100 WBC (0-0); Total Cells Counted 100
[2018-12-02 08:35] LABS: Poikilocytosis (M) Present
--- NOTE | 2018-12-02 09:38 | P.DS ---
Providers Date of admission: 11/28/18 15:02 Expected date of discharge: 12/02/18 Attending physician: Jarvis Limon Primary care physician: Harish Nuñez Hospital Course: Discharge diagnosis 1. Right leg pain status post fall possible tibial plateau fracture. Hip x-ray completed showing normal right hip and pelvis. CT completed showing extremely vague area of cortical disruption suggested lateral tibial plateau anteriorly seen best on the sagittal data set image 30 of 75 series 203 nondisplaced nondepressed fracture is difficult to exclude. [place] and morphine for pain control. Per orthopedic services no immediate plans for surgical intervention recommend conservative measures including utilizing knee immobilizer and nonweightbearing with right lower extremity. Patient follow-up in one week for repeat x-rays and further recommendations. PTOT recommending rehab 2. History of colon cancer in 1993 with ileostomy placement 3. History of appendectomy 4. History of 5. History of DVT in 1993 after prolonged hospitalization 6. Abnormal EKG. EKG completed showing normal sinus rhythm possible left atrial enlargement left anterior fascicular block left ventricular hypertrophy with QRS widening. 2-D echo completed showing EF of 55-60%. No further workup at this time 7. Flu shot administered during this admission Hospital course This is an 82-year-old female patient of Dr. Nuñez. Patient presented after sustaining a fall at home. Patient reports that she was changing the cat litter when she tripped and fell over her purse on the floor landing on her right leg. Patient was unable to bear weight on her right leg and called EMS for assistance. Patient has a known past medical history of colon cancer in 1993 appendectomy and . Knee x-ray completed showing moderate joint effusion no acute fractures moderate degenerative changes greatest within the patellofemoral joint space. Right hip x-ray completed showing normal right hip and pelvis. CT the remaining completed showing extremely vague area of cortical disruption suggested lateral tibial plateau [id number] seen best on the sagittal data set image 30 of 75 series 203 nondisplaced non-depressed fracture is difficult to exclude. Orthopedic services have been consulted. [place] and morphine for pain control. Heparin for DVT prophylaxis. PT OT consult placed. Patient denies any significant cardiac history. Patient denies history of heart attacks congestive heart failure or pulmonary embolism. At this time patient denies chest pain or shortness of breath. Patient denies nausea vomiting or diarrhea. Patient denies any urinary burning or frequency. On 11/28/2018 patient alert and oriented 3. Patient is having increased pain to right knee. Patient was evaluated by orthopedic services no plans for surgical intervention at this time. PT OT recommending rehab. Patient denies chest pain or shortness of breath. Patient denies nausea vomiting or diarrhea. Patient denies any urinary burning or frequency 11/29/2018 patient's pain is controlled. She has been working with physical therapy. In the plan is for her to be discharged to [facility] on Sunday. Patient is requesting flu shot and this will be administered today. Hemoglobin has dropped to 10.6 and iron studies have been ordered. She denies any chest pain or shortness of breath, nausea or vomiting, bowel movement changes or urinary symptoms. She has ileostomy the stool is brown no evidence of any bleeding per patient. On 11/30/2018 patient was seen and examined on the medical floor she is alert and oriented 3 she is complaining of lower extremity pain with activity otherwise she denies any complaints there is no fever or chills no headache or dizziness no chest pain no shortness of breath no cough no nausea or vomiting no abdominal pain no diarrhea and no urinary symptoms. On 12/01/2018 patient is alert and oriented 3 pain is well-controlled otherwise she denies any complaints there is no fever or chills no headache or dizziness no chest pain no shortness of breath no cough no nausea or vomiting no abdominal pain no diarrhea and no urinary symptoms plan to discharge tomorrow to a rehab facility On 12/02/2018 patient's alert and oriented 3. Patient will be discharged to [facility] today for rehab. Patient is nonweightbearing to right lower extremity. Patient to follow-up with orthopedic services. Patient will be DC'd on aspirin 81 mg twice a day for DVT prophylaxis. Patient denies chest pain or shortness of breath. Patient denies nausea vomiting or diarrhea. Patient denies any urinary burning or frequency I performed an examination of the patient and discussed their management with the Nurse Practitioner. I have reviewed the Nurse Practitioner's notes and agree with the documented findings and plan of care Patient Condition at Discharge: Stable Plan - Discharge Summary Discharge Rx Participant: Yes New Discharge Prescriptions: New Aspirin 81 mg PO BID 30 Days #60 chewable HYDROcodone/APAP 5-325MG [[place] 5-325] 1 each PO Q6HR PRN 30 Days #120 tab PRN Reason: Moderate Pain Acetaminophen Tab [Tylenol] 650 mg PO Q6HR PRN tab PRN Reason: Fever and/ or Mild Pain Discharge Medication List Acetaminophen Tab [Tylenol] 650 mg PO Q6HR PRN tab 12/02/18 [Rx] Aspirin 81 mg PO BID 30 Days #60 chewable 12/02/18 [Rx] HYDROcodone/APAP 5-325MG [[place] 5-325] 1 each PO Q6HR PRN 30 Days #120 tab 12/02/18 [Rx] Follow up Appointment(s)/Referral(s): Harish Nuñez MD [Primary Care Provider] - 1-2 days [facility] [address], [NON-STAFF] - As Needed Arnoldo Deshpande MD [STAFF PHYSICIAN] - 1 Week Activity/Diet/Wound Care/Special Instructions: Nonweightbearing right lower extremity Maintain knee immobilizer and crutches or walker Follow-up in office in [address] Deshpande Discharge Disposition: TRANSFER TO SNF/ECF
== END 2018-12-02 11:30 | DRG 563 ==
LOC: EC 12:53 → 4SSUR 17:36 → OBSVTOIN 11-28 15:02
PROVIDERS: ADMIT Internal Medicine; ATTEND Internal Medicine
DX: S82.144A Nondisplaced bicondylar fracture of right tibia, initial encounter for closed fracture (principal); I44.4 Left anterior fascicular block; I51.7 Cardiomegaly; Z85.038 Personal history of other malignant neoplasm of large intestine; Z86.718 Personal history of other venous thrombosis and embolism; Z90.49 Acquired absence of other specified parts of digestive tract; Z93.3 Colostomy status; Z88.1 Allergy status to other antibiotic agents; Z88.0 Allergy status to penicillin; Z23 Encounter for immunization; W01.0XXA Fall on same level from slipping, tripping and stumbling without subsequent striking against object, initial encounter; Y92.009 Unspecified place in unspecified non-institutional (private) residence as the place of occurrence of the external cause
CPT/HCPCS: 36415; 73502; 80053; 82728; 83540; 83550; 85025; 85610; 85730; 90686; 93005; 93306; 96361; 96374; 99285

== ENCOUNTER 2019-07-14 11:47 | Inpatient (IN) | payer MEDICARE, OTHER ==
[2019-07-14] MEDS ORDERED: HYDROmorphone 0.5 MG/0.5 ML SYRINGE IVP STA ×2 (12:07→12:54)
--- NOTE | 2019-07-14 12:10 | ED ---
General Adult HPI - General Source: patient, EMS, RN notes reviewed Mode of arrival: EMS Limitations: physical limitation <Tomás Cohen - Last Filed: 07/14/19 13:23> <Azeem Henriquez - Last Filed: 07/14/19 14:10> - General Chief complaint: Fall Stated complaint: fall Time Seen by Provider: 07/14/19 11:50 - History of Present Illness Initial comments: 83-year-old female with a past medical history of DVT, remote history of colon cancer presents to the emergency department for a chief complaint of left leg p ain. Patient states her cat ran between her legs and tripped her and she fell on her left leg. Per EMS left leg was very disfigured and they did stabilize it. Patient has sustained DP pulses 2+ throughout this ordeal. Patient is a Sikh. She did not hit her head. She did not sustain any other injuries. Patient has no other complaints at this time including shortness of breath, chest pain, abdominal pain, nausea or vomiting, headache, or visual changes. (Tomás Cohen) - Related Data Previous Rx's Medication Instructions Recorded Acetaminophen Tab [Tylenol] 650 mg PO Q6HR PRN tab 12/02/18 Aspirin 81 mg PO BID 30 Days #60 chewable 12/02/18 HYDROcodone/APAP 5-325MG [[place] 1 each PO Q6HR PRN 30 Days #120 tab 12/02/18 5-325] Allergies Allergy/AdvReac Type Severity Reaction Status Date / Time ciprofloxacin [From Cipro] Allergy Unknown Verified 07/14/19 13:43 Penicillins Allergy Unknown Verified 07/14/19 13:43 Childhood Review of Systems ROS Other: All systems not noted in ROS Statement are negative. <Tomás Cohen - Last Filed: 07/14/19 13:23> ROS Other: All systems not noted in ROS Statement are negative. <Azeem Henriquez - Last Filed: 07/14/19 14:10> ROS Statement: Those systems with pertinent positive or pertinent negative responses have been documented in the HPI. Past Medical History Past Medical History: Deep Vein Thrombosis (DVT) Additional Past Medical History / Comment(s): colon cancer (1992 diagnosed), slip disc in back History of Any Multi-Drug Resistant Organisms: None Reported Past Surgical History: Appendectomy, Section Additional Past Surgical History / Comment(s): ileostomy Past Anesthesia/Blood Transfusion Reactions: No Reported Reaction Past Psychological History: No Psychological Hx Reported Smoking Status: Never smoker Past Alcohol Use History: None Reported Past Drug Use History: None Reported - Past Family History Father Family Medical History: CVA/TIA Mother Family Medical History: CVA/TIA <Tomás Cohen - Last Filed: 07/14/19 13:23> General Exam Limitations: physical limitation General appearance: alert, in no apparent distress Head exam: Present: atraumatic, normocephalic, normal inspection Eye exam: Present: normal appearance, PERRL, EOMI. Absent: scleral icterus, co njunctival injection ENT exam: Present: normal exam, mucous membranes moist Neck exam: Present: normal inspection, full ROM. Absent: tenderness, meni ngismus, lymphadenopathy Respiratory exam: Present: normal lung sounds bilaterally. Absent: respiratory distress, wheezes, rales, rhonchi, stridor Cardiovascular Exam: Present: regular rate, normal rhythm, normal heart sounds. Absent: systolic murmur, diastolic murmur, rubs, gallop, clicks Extremities exam: Present: tenderness (Tenderness noted to the distal fever), normal capillary refill (Capillary refill less than 2 seconds in the left lower extremity, DP pulse 2+.), other (Sensation is intact in the left lower ext remity.). Absent: normal inspection (Patient does have disfigurement noted of the distal femur of the left leg. There is no skin tenting. Skin is intact.), full ROM, pedal edema, joint swelling, calf tenderness <Tomás Cohen P - Last Filed: 07/14/19 13:23> Course Vital Signs 07/14/19 07/14/19 07/14/19 11:49 13:02 14:00 Temperature 98.4 F Pulse Rate 73 65 70 Respiratory 18 18 18 Rate Blood Pressure 128/72 125/70 113/65 O2 Sat by Pulse 97 97 98 Oximetry 07/14/19 14:05 Temperature Pulse Rate 17 L Respiratory 18 Rate Blood Pressure 104/57 O2 Sat by Pulse 98 Oximetry EKG Findings - EKG Comments: EKG Findings:: Normal sinus rhythm, ventricular rate 71, GA interval 184, QTC 432 <Tomás Cohen - Last Filed: 07/14/19 13:23> Procedures - Orthopedic Fracture Reduction Fracture #1 Consent Obtained: verbal consent Side: left Fracture Reduction Location: femur Technique: traction/counter-traction Post Reduction X-rays Demonstrate: acceptable reduction Post-Reduction Neuro Exam: intact Post-Reduction Vascular Exam: intact Splint Applied: Yes (Knee immobilizer plus Stafford's traction) Patient Tolerated Procedure: well - Procedural Sedation Procedural Sedation Start Time: 14:00 Procedural Sedation Stop Time: 14:25 ASA Class: II Mallampati Airway Score: 1 Preparation: pvc monitor applied, pulse oximeter, supplemental O2 applied IV Etomidate Dose (mgs): 10 Complications: none Patient Tolerated Procedure: well <Azeem Henriquez - Last Filed: 07/14/19 14:10> Medical Decision Making - Lab Data Result diagrams: 07/14/19 12:05 07/14/19 12:05 <Tomás Cohen - Last Filed: 07/14/19 13:23> - Lab Data Result diagrams: 07/14/19 12:05 07/14/19 12:05 <Azeem Henriquez - Last Filed: 07/14/19 14:10> - Medical Decision Making Physical exam does reveal neurovascular status intact in the left lower external he however disfigurement is noted. There is no tenting. Skin exam is intact. There is a complete displaced fracture with overriding fracture component involving the middle one third of the left femur. Nondisplaced hairline component extends into the distal one third of the left femoral diaphysis and terminates at the diametaphyseal. There is angulation at the fracture site. CBC CMP is unremarkable and these were ordered for preop purposes. EKG also ordered for preoperative purposes which is a normal sinus rhythm, ventricular rate 71. Chest x-ray shows chronic changes without acute pulmonary process. Dr. Henriquez discussed this case immediately with Dr. Vazquez who recommends admission. He also discussed this with Dr. Limon for medical consult. Pain medications are ordered. Patient was kept nothing by mouth. Last ate around 10 AM this morning. (Tomás Cohen) - Lab Data Lab Results 07/14/19 07/14/19 Range/Units 12:05 12:05 WBC 6.7 (3.8-10.6) k/uL RBC 3.56 L (3.80-5.40) m/uL Hgb 11.4 (11.4-16.0) gm/dL Hct 34.9 (34.0-46.0) % MCV 98.0 (80.0-100.0) fL MCH 32.1 (25.0-35.0) pg MCHC 32.7 (31.0-37.0) g/dL RDW 12.5 (11.5-15.5) % Plt Count 203 (150-450) k/uL Neutrophils % (Manual) 57 % Lymphocytes % (Manual) 25 % Monocytes % (Manual) 14 % Eosinophils % (Manual) 2 % Basophils % (Manual) 2 % Neutrophils # (Manual) 3.82 (1.3-7.7) k/uL Lymphocytes # (Manual) 1.68 (1.0-4.8) k/uL Monocytes # (Manual) 0.94 (0-1.0) k/uL Eosinophils # (Manual) 0.13 (0-0.7) k/uL Basophils # (Manual) 0.13 (0-0.2) k/uL Nucleated RBCs 0 (0-0) /100 WBC Manual Slide Review Performed Sodium 135 L (137-145) mmol/L Potassium 3.8 (3.5-5.1) mmol/L Chloride 105 (98-107) mmol/L Carbon Dioxide 22 (22-30) mmol/L Anion Gap 8 mmol/L BUN 18 H (7-17) mg/dL Creatinine 0.81 (0.52-1.04) mg/dL Est GFR (CKD-EPI)AfAm 78 (>60 ml/min/1.73 sqM) Est GFR (CKD-EPI)NonAf 68 (>60 ml/min/1.73 sqM) Glucose 152 H (74-99) mg/dL Calcium 9.0 (8.4-10.2) mg/dL Total Bilirubin 2.0 H (0.2-1.3) mg/dL AST 41 H (14-36) U/L ALT 22 (4-34) U/L Alkaline Phosphatase 59 (38-126) U/L Total Protein 6.2 L (6.3-8.2) g/dL Albumin 3.7 (3.5-5.0) g/dL Disposition Is patient prescribed a controlled substance at d/c from ED?: No Time of Disposition: 13:24 <Tomás Cohen - Last Filed: 07/14/19 13:23> <Azeem Henriquez - Last Filed: 07/14/19 14:10> Clinical Impression: Femur fracture, left Disposition: ADMITTED IP TO THIS HOSP
[2019-07-14 12:22] LABS: HCT 34.9 % (34.0-46.0); HGB 11.4 gm/dL (11.4-16.0); MCH 32.1 pg (25.0-35.0); MCHC 32.7 g/dL (31.0-37.0); Platelet Count 203 k/uL (150-450); RBC 3.56 m/uL (3.80-5.40); RDW 12.5 % (11.5-15.5); WBC 6.7 k/uL (3.8-10.6)
--- NOTE | 2019-07-14 12:35 | XR ---
EXAMINATION TYPE: XR femur LT DATE OF EXAM: 07/14/2019 CLINICAL HISTORY: pain TECHNIQUE: Two views of the left femur are obtained. COMPARISON: None. FINDINGS: There is complete displaced fracture with overriding fracture component involving the middl e one third of the left femur. Nondisplaced hairline component extends into the distal one third of t he left femoral diaphysis and terminates at the diametaphyseal region. There is angulation at the fra cture site degenerative changes about the left lung. IMPRESSION: Fracture as noted above.
[2019-07-14 12:41] LABS: Albumin 3.7 g/dL (3.5-5.0); Potassium 3.8 mmol/L (3.5-5.1); Total Protein 6.2 g/dL (6.3-8.2)
[2019-07-14 12:49] LABS: Basophils # (M) 0.13 k/uL (0-0.2); Eosinophils # (M) 0.13 k/uL (0-0.7); Lymphocytes # (M) 1.68 k/uL (1.0-4.8); Monocytes # (M) 0.94 k/uL (0-1.0); Neutrophils # (M) 3.82 k/uL (1.3-7.7); Neutrophils % (M) 57 %; Nucleated Red Blood Cells 0 /100 WBC (0-0); Total Cells Counted 100
--- NOTE | 2019-07-14 13:06 | XR ---
EXAMINATION TYPE: XR chest 1V portable DATE OF EXAM: 07/14/2019 COMPARISON: NONE HISTORY: Presurgical study. TECHNIQUE: Single AP portable frontal supine view of the chest is obtained. FINDINGS: There is elevated left hemidiaphragm. There is chronic parenchymal change bilaterally witho ut suspicious focal focal air space opacity, pleural effusion, or pneumothorax seen. The cardiac dixie houette size is upper limits of normal. The osseous structures are demineralized. IMPRESSION: Chronic changes without acute pulmonary process.
[2019-07-14] MEDS ORDERED: NALOXONE 0.4 MG/ML 1 ML VIAL IV PRN (13:18)
[2019-07-14] MEDS ORDERED: MORPHINE SULFATE 2 MG/ML SYRINGE IV PRN (13:18)
[2019-07-14] MEDS ORDERED: ETOMIDATE 2 MG/ML 10 ML VIAL IVP STA (13:36)
[2019-07-14] MEDS: HYDROmorphone 0.5 MG/0.5 ML SYRINGE IVP PRN ×2 (13:44→18:30)
--- NOTE | 2019-07-14 14:21 | XR ---
EXAMINATION TYPE: XR femur LT DATE OF EXAM: 07/14/2019 CLINICAL HISTORY: Postreduction left femur TECHNIQUE: Two views of the left femur are obtained. COMPARISON: From earlier in the day FINDINGS: Previously described femoral fracture is redemonstrated. Alignment is improved. IMPRESSION: As above
[2019-07-14] MEDS ORDERED: LIDOCAINE URO-JET JELLY 2% 5 ML KIT URETHRAL ONE (14:43)
[2019-07-14] MEDS: SODIUM CHLORIDE 0.9% 1,000 ML IV SCH (15:46)
[2019-07-14 17:11] LABS: Prothrombin Time 10.8 sec (9.0-12.0)
[2019-07-14 17:19] LABS: Partial Thromboplastin Time 18.2 sec (22.0-30.0)
--- NOTE | 2019-07-14 17:25 | P.HPOR ---
History of Present Illness H&P Date: 07/14/19 This patient is an 83-year-old female with past medical history of DVT in 1993 and colon cancer and ileostomy that presented to [facility] ER today via EMS after falling in the home. The patient states she tripped over her cat and fell onto the left lower extremity. She states she experienced immediate pain, EMS was called and deformity of the left thigh was noted. The left lower extremity was stabilized by EMS. Upon arrival to the emergency department, x- rays were taken of the left femur and revealed a completely displaced left femur fracture. Patient was placed into traction in the emergency department. Patient was admitted under the care of Dr. Vazquez for surgical intervention, with a consult placed to internal medicine for medical clearance. At the time of my exam, the patient states she is currently comfortable and her pain is well-controlled. She states her pain increases with any movement of the left lower extremity. She states she is not experiencing any pain in her bilateral upper extremities, her right lower extremity. She denies back pain. She denies numbness or tingling of the left lower extremity. She has no additional complaints at the time exam. She denies chest pain, shortness breath, nausea, vomiting, fevers, chills. Vital signs stable. Past Medical History Past Medical History: Deep Vein Thrombosis (DVT) Additional Past Medical History / Comment(s): colon cancer (1991 diagnosed), slip disc in back History of Any Multi-Drug Resistant Organisms: None Reported Past Surgical History: Appendectomy, Section Additional Past Surgical History / Comment(s): ileostomy Past Anesthesia/Blood Transfusion Reactions: No Reported Reaction Past Psychological History: No Psychological Hx Reported Smoking Status: Never smoker Past Alcohol Use History: None Reported Past Drug Use History: None Reported - Past Family History Father Family Medical History: CVA/TIA Mother Family Medical History: CVA/TIA Medications and Allergies Home Medications Medication Instructions Recorded Confirmed Type L.acidoph,Paracasei, B.lactis 1 cap PO DAILY 07/14/19 07/14/19 History [Probiotic] Unknown Blood Pressure Medication 0.5 tab PO DAILY PRN 07/14/19 07/14/19 History Allergies Allergy/AdvReac Type Severity Reaction Status Date / Time ciprofloxacin [From Cipro] Allergy Unknown Verified 07/14/19 13:43 Penicillins Allergy Unknown Verified 07/14/19 13:43 Childhood Physical Examination On examination, the patient is lying in bed in no apparent distress. She is alert and oriented 3. Nasal cannula in place. Her head appears normocephalic and atraumatic. Her breathing appears nonlabored. On inspection of her bilateral upper extremities, there is no obvious deformity or signs of trauma. On inspection of her right lower extremity there is no obvious deformity or signs of trauma. On inspection of her left lower extremity, there is a Stafford's traction device and knee immobilizer in place. This is not removed for exam, as the patient is currently comfortable and she experiences significant pain with any movement of the extremity. The visible portion of the left lower leg is warm and well perfused, dorsalis pedis pulse is +2. Sensation is intact to light touch of the left dorsal and plantar foot, as well as the first dorsal webspace. Neurovascular is intact of the left lower extremity. Patient is able to wiggle toes and dorsiflex and plantar flex ankle without issue. Results - Labs Labs: Abnormal Lab Results - Last 24 Hours (Table) 07/14/19 07/14/19 Range/Units 12:05 12:05 RBC 3.56 L (3.80-5.40) m/uL Sodium 135 L (137-145) mmol/L BUN 18 H (7-17) mg/dL Glucose 152 H (74-99) mg/dL Total Bilirubin 2.0 H (0.2-1.3) mg/dL AST 41 H (14-36) U/L Total Protein 6.2 L (6.3-8.2) g/dL H & H 07/14/19 Range/Units 12:05 Hgb 11.4 (11.4-16.0) gm/dL Hct 34.9 (34.0-46.0) % Result Diagrams: 07/14/19 12:05 07/14/19 12:05 Assessment and Plan Assessment: Displaced left femur fracture Plan: - The clinical and imaging findings were discussed with the patient. The patient was discussed extensively with Dr. Vazquez. Operative fixation of the left femur fracture is recommended. - We will plan for intramedullary nailing of the left femur fracture tomorrow with Dr. Vazquez, pending medical clearance. - Patient will be made NPO at midnight. - Pain management as needed. - Keep current knee immobilizer and traction in place. - Internal medicine consult for medical clearance.
--- NOTE | 2019-07-14 18:01 | P.HPIM ---
History of Present Illness H&P Date: 07/14/19 Jamee Baldwin is an 83 -year-old female patient of Dr. Nuñez who presented to [facility] emergency room after tripping and falling at home and complaining of severe pain in the left thigh area. Patient stated that she tripped over her cat she denies any dizziness or loss of consciousness, she was having severe pain in the left thigh she was unable to stand or walk, she was b rought into the hospital by EMS, x-ray in the emergency room revealed evidence of complete displaced fracture of the left femur. Orthopedic consultation was requested patient is admitted to medical floor. In the emergency room patient had closed reduction of the fracture with traction by Dr. Henriquez. Patient has a known history of DVT in 1993, she has history of colon cancer was colostomy placement, otherwise she denies any past medical history, there is no history of coronary artery disease or congestive heart failure, no history of asthma or COPD per patient. On review of system patient is complaining of pain in her left lower extremity, otherwise she denies any complaints there is no fever or chills no headache or dizziness no chest pain no shortness of breath no cough no nausea or vomiting no abdominal pain no diarrhea no burning was urination no frequency or urgency and no hematuria. Past Medical History Past Medical History: Deep Vein Thrombosis (DVT) Additional Past Medical History / Comment(s): colon cancer (1991 diagnosed), slip disc in back History of Any Multi-Drug Resistant Organisms: None Reported Past Surgical History: Appendectomy, Section Additional Past Surgical History / Comment(s): ileostomy Past Anesthesia/Blood Transfusion Reactions: No Reported Reaction Past Psychological History: No Psychological Hx Reported Smoking Status: Never smoker Past Alcohol Use History: None Reported Past Drug Use History: None Reported - Past Family History Father Family Medical History: CVA/TIA Mother Family Medical History: CVA/TIA Medications and Allergies Home Medications Medication Instructions Recorded Confirmed Type L.acidoph,Paracasei, B.lactis 1 cap PO DAILY 07/14/19 07/14/19 History [Probiotic] Unknown Blood Pressure Medication 0.5 tab PO DAILY PRN 07/14/19 07/14/19 History Allergies Allergy/AdvReac Type Severity Reaction Status Date / Time ciprofloxacin [From Cipro] Allergy Unknown Verified 07/14/19 13:43 Penicillins Allergy Unknown Verified 07/14/19 13:43 Childhood Physical Exam Vitals: Vital Signs Temp Pulse Resp BP Pulse Ox 07/14/19 17:18 98 F 84 18 110/64 94 L 07/14/19 16:15 75 18 90/53 94 L 07/14/19 16:02 75 18 90/53 94 L 07/14/19 15:45 77 18 83/53 94 L 07/14/19 15:15 84 18 99/62 93 L 07/14/19 15:00 70 16 120/67 98 07/14/19 14:45 70 16 120/67 98 07/14/19 14:30 71 16 120/67 98 07/14/19 14:15 81 18 120/67 97 07/14/19 14:01 70 18 104/57 98 07/14/19 14:00 70 18 113/65 98 07/14/19 13:02 65 18 125/70 97 07/14/19 11:49 98.4 F 73 18 128/72 97 Intake and Output 07/14/19 07/14/19 07/14/19 06:59 14:59 22:59 Other: Weight 58.967 kg In general patient is alert and oriented in no apparent distress HEENT head normocephalic and atraumatic Neck is supple no JVD no goiter no lymphadenopathy Chest exam reveals a few scattered crackles no wheezing Cardiac exam reveals regular heart sounds no gallops no murmurs Abdomen is soft nontender no organomegaly with normal bowel sounds Extremity exam reveals no edema with palpable peripheral pulses, left lower extremity is stabilized with traction. Neurological examination reveals no gross focal deficit Results CBC & Chem 7: 07/14/19 12:05 07/14/19 12:05 Labs: Abnormal Lab Results - Last 24 Hours (Table) 07/14/19 07/14/19 07/14/19 Range/Units 12:05 12:05 12:05 RBC 3.56 L (3.80-5.40) m/uL APTT 18.2 L (22.0-30.0) sec Sodium 135 L (137-145) mmol/L BUN 18 H (7-17) mg/dL Glucose 152 H (74-99) mg/dL Total Bilirubin 2.0 H (0.2-1.3) mg/dL AST 41 H (14-36) U/L Total Protein 6.2 L (6.3-8.2) g/dL Assessment and Plan Plan: 1. Fall was left femur fracture, orthopedic consultation requested patient will have surgery in the next 1-2 days 2. No previous history of cardiac disease, no symptoms suggestive of angina or congestive heart failure, EKG and chest x-ray are reviewed, there is no medical contraindication for surgery, patient is at increased risk due to her age. 3. No evidence of any infectious process at this time, white blood count is normal at 6.7, will check urine analysis, chest x-ray is within normal limits. 4. Underlying history of colon cancer was colostomy placement 5. Remote history of DVT patient is not on any blood thinners at this time 6. History of hypertension blood pressure is on the low side at this time, will hold off any medications and monitor closely Will follow during this admission for medical management
[2019-07-15] MEDS: HYDROmorphone 0.5 MG/0.5 ML SYRINGE IVP PRN ×4 (02:06→13:58)
[2019-07-15 02:11] LABS: Amorphous Sediment,Urine Rare /hpf; Bacteria,Urine Occasional /hpf; Calcium Oxalate Crystals,Urine Occasional /hpf; Hyaline Casts,Urine 61 /lpf (0-2); Mucus,Urine Few /hpf; RBC,Urine 173 /hpf (0-5); Squamous Epithelial Cell,Urine <1 /hpf (0-4); WBC,Urine 15 /hpf (0-5)
[2019-07-15 02:12] LABS: Appearance,Urine Slightly Cloudy (Clear); Color,Urine Dark Orange
[2019-07-15] MEDS: SODIUM CHLORIDE 0.9% 1,000 ML IV SCH ×2 (04:45→17:20)
[2019-07-15 07:52] LABS: Calcium 8.3 mg/dL (8.4-10.2); Potassium 4.4 mmol/L (3.5-5.1); Total Bilirubin 2.3 mg/dL (0.2-1.3); Total Protein 5.4 g/dL (6.3-8.2)
[2019-07-15 08:13] LABS: HCT 28.4 % (34.0-46.0); MCH 32.1 pg (25.0-35.0); MCHC 32.5 g/dL (31.0-37.0); MCV 98.5 fL (80.0-100.0); Mean Platelet Volume 7.2; Platelet Count 173 k/uL (150-450); RBC 2.89 m/uL (3.80-5.40); RDW 12.6 % (11.5-15.5); WBC 9.2 k/uL (3.8-10.6)
[2019-07-15 08:15] LABS: HGB 9.3 gm/dL (11.4-16.0)
[2019-07-15 09:57] LABS: Basophils # (M) 0.09 k/uL (0-0.2); Lymphocytes # (M) 1.29 k/uL (1.0-4.8); Monocytes # (M) 1.47 k/uL (0-1.0); Neutrophils # (M) 6.35 k/uL (1.3-7.7); Neutrophils % (M) 69 %; Nucleated Red Blood Cells 0 /100 WBC (0-0); Total Cells Counted 100
--- NOTE | 2019-07-15 10:49 | ECHOF ---
Referral Reason:pre op MEASUREMENTS -------- HEIGHT: 165.1 cm WEIGHT: 59.0 kg BP: RVIDd: 3.4 cm (< 3.3) IVSd: 1.2 cm (0.6 - 1.1) LVIDd: 2.9 cm (3.9 - 5.3) LVPWd: 1.3 cm (0.6 - 1.1) IVSs: 1.7 cm LVIDs: 1.9 cm LVPWs: 1.5 cm Ao Diam: 3.5 cm (2.0 - 3.7) AV Cusp: 2.3 cm (1.5 - 2.6) LA Diam: 3.5 cm (2.7 - 3.8) MV EXCURSION: 10.759 mm (> 18.000) MV EF SLOPE: 59 mm/s (70 - 150) EPSS: 0.3 cm MV E John: 0.90 m/s MV DecT: 231 ms MV A John: 1.30 m/s MV E/A Ratio: 0.69 AR PHT: 334 ms RAP: 5.00 mmHg RVSP: 18.36 mmHg FINDINGS -------- Sinus rhythm. This was a technically good study. The left ventricular size is normal. There is mild concentric left ventricular hypertrophy. Overa ll left ventricular systolic function is normal with, an EF between 55 - 60 %. The right ventricle is mildly enlarged. The left atrial size is normal. The right atrial size is normal. Interatrial and interventricular septum intact. The aortic valve is trileaflet and appears structurally normal. Trace amount of aortic regurgitatio n. The mitral valve is normal. The mitral valve leaflets are mildly thickened. Mild mitral regurgita tion is present. The tricuspid valve appears structurally normal. Mild tricuspid regurgitation present. Right vent ricular systolic pressure is normal at < 35 mmHg. There is no pulmonic regurgitation present. The aortic root size is normal. Normal inferior vena cava with normal inspiratory collapse consistent with estimated right atrial pre ssure of 5 mmHg. There is a small generalized pericardial effusion present. CONCLUSIONS -------- 1. Sinus rhythm. 2. This was a technically good study. 3. The left ventricular size is normal. 4. There is mild concentric left ventricular hypertrophy. 5. Overall left ventricular systolic function is normal with, an EF between 55 - 60 %. 6. The right ventricle is mildly enlarged. 7. The left atrial size is normal. 8. The right atrial size is normal. 9. Interatrial and interventricular septum intact. 10. The aortic valve is trileaflet and appears structurally normal. 11. Trace amount of aortic regurgitation. 12. The mitral valve is normal. 13. The mitral valve leaflets are mildly thickened. 14. Mild mitral regurgitation is present. 15. The tricuspid valve appears structurally normal. 16. Mild tricuspid regurgitation present. 17. Right ventricular systolic pressure is normal at < 35 mmHg. 18. There is no pulmonic regurgitation present. 19. The aortic root size is normal. 20. Normal inferior vena cava with normal inspiratory collapse consistent with estimated right atrial pressure of 5 mmHg. 21. There is a small, generalized pericardial effusion present. GRAZING EXAMINER: Isadora Faulkner RDCS
[2019-07-15] MEDS ORDERED: TRANEXAMIC ACID 1,000 MG in SODIUM CHLORIDE 0.9% 100 ML IVPB ONE ×2 (11:28→11:38)
[2019-07-15] MEDS ORDERED: TRANEXAMIC ACID 1,000 MG/10 ML VIAL IRRIGATION ONE (11:40)
--- NOTE | 2019-07-15 12:02 | P.PN ---
Subjective Progress Note Date: 07/15/19 Patient is examined bedside this morning. She is being followed for a displaced left femur fracture. Left lower extremity currently remains in knee immobilizer and traction. She states she is experiencing pain in the left lower extremity, although it is currently with pain medication. She has no new complaints this morning. She denies chest pain, shortness of breath, nausea, vomiting, fevers, chills. Vital signs stable. Objective - Vital Signs Vital signs: Vital Signs Temp 99.0 F 07/15/19 07:00 Pulse 96 07/15/19 09:52 Resp 18 07/15/19 07:00 BP 110/58 07/15/19 09:52 Pulse Ox 92 L 07/15/19 07:00 Intake & Output 07/14/19 07/15/19 07/15/19 18:59 06:59 18:59 Intake Total 450 Output Total 300 Balance 150 Weight 58.967 kg Intake: Oral 450 Output: Urine 300 Other: Voiding Method Indwelling Catheter Indwelling Catheter - Exam On examination, the patient is lying in bed in no apparent distress. She is alert and orientated 3. On inspection of the left lower extremity, knee immobilizer and Stafford's traction currently in place. The visible portion of the left lower extremity is warm and well perfused with brisk capillary refill. Dorsalis pedis pulse +2. Patient able to wiggle toes without issue or pain. Neurovascular is intact left lower extremity. - Labs CBC & Chem 7: 07/15/19 07:06 07/15/19 07:06 Labs: Abnormal Lab Results - Last 24 Hours (Table) 07/14/19 07/14/19 07/14/19 Range/Units 12:05 12:05 12:05 RBC 3.56 L (3.80-5.40) m/uL Hgb (11.4-16.0) gm/dL Hct (34.0-46.0) % Monocytes # (Manual) (0-1.0) k/uL APTT 18.2 L (22.0-30.0) sec Sodium 135 L (137-145) mmol/L BUN 18 H (7-17) mg/dL Glucose 152 H (74-99) mg/dL Calcium (8.4-10.2) mg/dL Total Bilirubin 2.0 H (0.2-1.3) mg/dL AST 41 H (14-36) U/L Total Protein 6.2 L (6.3-8.2) g/dL Albumin (3.5-5.0) g/dL Urine Appearance (Clear) Urine RBC (0-5) /hpf Urine WBC (0-5) /hpf Urine WBC Clumps (None) /hpf Calcium Oxalate Crystal (None) /hpf Amorphous Sediment (None) /hpf Urine Bacteria (None) /hpf Hyaline Casts (0-2) /lpf Urine Mucus (None) /hpf 07/15/19 07/15/19 07/15/19 Range/Units 07:06 07:06 Unknown RBC 2.89 L (3.80-5.40) m/uL Hgb 9.3 L D (11.4-16.0) gm/dL Hct 28.4 L (34.0-46.0) % Monocytes # (Manual) 1.47 H (0-1.0) k/uL APTT (22.0-30.0) sec Sodium 135 L (137-145) mmol/L BUN 20 H (7-17) mg/dL Glucose 127 H (74-99) mg/dL Calcium 8.3 L (8.4-10.2) mg/dL Total Bilirubin 2.3 H (0.2-1.3) mg/dL AST 55 H (14-36) U/L Total Protein 5.4 L (6.3-8.2) g/dL Albumin 3.0 L (3.5-5.0) g/dL Urine Appearance Slightly Cloudy H (Clear) Urine RBC 173 H (0-5) /hpf Urine WBC 15 H (0-5) /hpf Urine WBC Clumps Moderate H (None) /hpf Calcium Oxalate Crystal Occasional H (None) /hpf Amorphous Sediment Rare H (None) /hpf Urine Bacteria Occasional H (None) /hpf Hyaline Casts 61 H (0-2) /lpf Urine Mucus Few H (None) /hpf Microbiology - Last 24 Hours (Table) 07/15/19 Unknown Urine Culture - Preliminary Urine,Voided Assessment and Plan Assessment: Displaced left femur fracture Plan: - We will plan for intramedullary nailing of the left femur fracture this afternoon with Dr. Vazquez, Dr Limon has cleared patient medically for surgery. - NPO diet. - Pain management as needed. - Keep current knee immobilizer and traction in place. - Internal medicine for perioperative medical management. Patient discussed with Dr. Vazquez.
[2019-07-15] MEDS ORDERED: IV FLUID CONTINUATION 1,000 ML IV ONE (15:00)
[2019-07-15] MEDS ORDERED: ePHEDrine SULFATE/0.9% NACL/PF 50 MG/5 ML SYRINGE IV ONE (15:30)
[2019-07-15] MEDS ORDERED: PHENYLEPHRINE-0.9% NACL SYG 1 MG/10 ML SYRINGE ONE (15:30)
[2019-07-15] MEDS ORDERED: MIDAZOLAM 2 MG/2 ML VIAL ONE (15:30)
[2019-07-15] MEDS ORDERED: SODIUM CHLORIDE 0.9% 100 ML BAG ONE (15:30)
[2019-07-15] MEDS ORDERED: PROPOFOL 10 MG/ML 20 ML VIAL IV ONE (15:30)
[2019-07-15] MEDS ORDERED: fentaNYL (PF) 50 MCG/ML 2 ML AMP ONE (15:30)
[2019-07-15] MEDS ORDERED: TRANEXAMIC ACID 1,000 MG/10 ML VIAL ONE (15:30)
[2019-07-15] MEDS ORDERED: SUCCINYLCHOLINE CHLORIDE 100 MG/5 ML SYR IV ONE (15:30)
[2019-07-15] MEDS ORDERED: SODIUM CHLORIDE 0.9% 100 ML with ceFAZolin 1,000 MG IV ONE ×2 (15:34)
[2019-07-15] MEDS ORDERED: LACTATED RINGERS 1,000 ML IV ONE (16:25)
--- NOTE | 2019-07-15 17:51 | FL ---
EXAMINATION TYPE: FL guidance operating room, XR femur LT DATE OF EXAM: 07/15/2019 CLINICAL HISTORY: Left femur fracture. TECHNIQUE: Fluoroscopy. Intraoperative 2 views left femur. COMPARISON: Left femur x-ray from yesterday. FINDINGS: Fluoroscopic guidance was provided during open reduction and internal fixation procedure p erformed by Dr. Vazquez. A total of 5 minutes 25 seconds of fluoroscopic time was utilized during t he procedure and 6 spot intraoperative images are acquired. Images acquired show placement of large intramedullary kailey with 4 distal transverse fixating screws a nd single proximal fixating screw through oblique displaced fracture distal diaphysis left femur. Imp roved alignment is seen after reduction and fixation on intraoperative images obtained. IMPRESSION: As Above.
[2019-07-15] MEDS ORDERED: HYDROmorphone 0.5 MG/0.5 ML SYRINGE IVP PRN ×3 (17:57)
--- NOTE | 2019-07-15 18:08 | P.OP ---
Date of Procedure: 07/15/19 Preoperative Diagnosis: 1. Left distal third femur fracture 2. History of colon cancer with colostomy bag 3. History of DVT 4. Osteoporosis 5. Preoperative anemia Postoperative Diagnosis: Same Procedure(s) Performed: Operative fixation of left femoral shaft fracture with retrograde intramedullary nail Anesthesia: ANKUR Surgeon: Humphrey Vazquez Patrol Agent #1: Shira Natarajan Estimated Blood Loss (ml): 50 IV fluids (ml): 1,200 Pathology: none sent Condition: stable Disposition: PACU Indications for Procedure: The patient is a very pleasant previously healthy 83-year-old female with a medical history significant for osteoporosis and colon cancer who was admitted under my care after sustaining a ground-level fall resulting in a displaced distal third femur fracture. The patient underwent closed reduction to improve alignment and the ER and was placed in traction with a knee immobilizer. I met with the patient preoperatively to discuss treatment and recommended operative stabilization with a retrograde intramedullary nail. She was cleared for surgery by internal medicine. We discussed the potential risks and complications of surgery including but not limited to risk of anesthesia, infection, damage to local blood vessels or nerves, nonunion of her fracture, malunion of her fracture, knee pain, progression of knee arthritis, stiffness in her knee, periprosthetic fracture, DVT, PE, and inability to regain preinjury level of function, and possibly . The patient is a [employer] and will not accept blood products. Preoperatively her hemoglobin dropped to 9. We discussed use of Tranexamic acid to which she agreed. She also acknowledges that other less common complications are possible. She provided her verbal and written consent to go forward with surgery. Description of Procedure: The patient was identified in the operative holding and the correct left leg was marked with my initials. I reviewed the consent form with the patient and her son. All their questions were answered. The patient was then brought back to the operating room by anesthesia. She was positioned on the OR table where general anesthetic and preoperative antibiotics were given. She was also given a dose of TXA prior to skin incision. All bony prominences well-padded. The left leg was then prepped and draped from the iliac crest distally to the foot. Prior to starting surgery timeout was performed identifying the correct patient, operative extremity, and procedure. I began by flexing the knee over a reversed radiolucent triangle. Fluoroscopy was used to verify reduction. A longitudinal incision was then made with a 10 blade scalpel directly over the anterior aspect of the patellar tendon. Dissection was carried down to the subcutaneous tissue and the peritenon and tendon were incised longitudinally in line with the skin incision. There was a large hemarthrosis which was evacuated. 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 A large osteophyte at the distal pole of the patella blocked initial access to the intercondylar notch and was subsequently removed. Once I had adequate exposure a guidepin was placed centered on the AP view and at the apex of the Blumensaat's line on the lateral view. The guidepin was driven into the distal metaphysis of the femur and its position was verified with fluoroscopy. An opening reamer was used up to the fracture site. A ball- tipped guidewire with a bend at the end was then advanced up to the fracture site. I manipulated the fracture site using a bump of towels proximally and laterally directed pressure distally in the guidepin was advanced past the fracture and into the proximal shaft. The guide pin was verified with orthogonal fluoroscopic images. It was measured and a 420 mm nail was chosen. I then passed reamers by hand up to a 15-1/2 mm reamer all of which had minimal purchase. I elected to use a 14 mm diameter nail which is the largest and the set elbow. A 420 mm x 14 mm retrograde nail was dispensed and hooked up to the targeting arm. I verified the targeting arm matched up with the slots in the nail. The nail was then gently tapped up to the fracture. The fracture was held reduced and the nail was gently tapped across the fracture site under direct fluoroscopic guidance. Due to significant arthritis in the patellofemoral joint there was a slight extension deformity at the fracture site but given the patient's age and concern for blood loss this was accepted. The nail was then advanced proximally until the nail was fully seated at the knee. The final length the nail was well proximal to the lesser trochanter was completely intraosseous of this was accepted. 4 distal locking screws were placed the targeting arm. The distal targeting arm was removed and the proximal interlocking screw was placed using the freehand technique and "perfect circles." Final fluoroscopic images were taken. All wounds were thoroughly irrigated and closed in layers. Sterile dressing consisting of Adaptic, 4 x 4, and medium Tegaderm was applied. I verified that all instrument, sponge, and sharp counts were correct. An Jose wrap was applied to the leg followed by a knee immobilizer. The patient was then transferred from the OR table to a gurney and brought to recovery having tolerated the procedure well. At the end of the procedure a second dose of TXA was given. Shira Natarajan PA-C was required as a skilled assistant customer service manager for patient positioning, surgical exposure, retraction, placement of hardware, closure of wound, and application of dressing Plan: The patient is going to be toe-touch weightbearing on her operative extremity. She'll be treated with Lovenox for 4 weeks for DVT prophylaxis. She had several superficial abrasions on the left buttock and pretibial area and a wound consultation was placed. She received 2 doses of postoperative antibiotics. Internal medicine for perioperative medical management.
--- NOTE | 2019-07-15 19:11 | P.PN ---
Subjective Progress Note Date: 07/15/19 Jamee Baldwin is an 83 -year-old female patient of Dr. Nuñez who presented to [facility] emergency room after tripping and falling at home and complaining of severe pain in the left thigh area. Patient stated that she tripped over her cat she denies any dizziness or loss of consciousness, she was having severe pain in the left thigh she was unable to stand or walk, she was brought into the hospital by EMS, x-ray in the emergency room revealed evidence of complete displaced fracture of the left femur. Orthopedic consultation was requested patient is admitted to medical floor. In the emergency room patient had closed reduction of the fracture with traction by Dr. Henriquez. Patient has a known history of DVT in 1993, she has history of colon cancer was colostomy placement, otherwise she denies any past medical history, there is no history of coronary artery disease or congestive heart failure, no history of asthma or COPD per patient. On 07/15/2019 patient was seen and examined on the medical floor, she is status post operative fixation of the left femoral shaft fracture with retrograde intramedullary nail placement, patient is alert and oriented 3 in no apparent distress, there is no fever or chills no headache or dizziness no chest pain no shortness of breath no cough no nausea or vomiting no abdominal pain no diarrhea no burning was urination no frequency or urgency and no hematuria. Echocardiogram was done and revealed normal left ventricular ejection fraction. Objective - Vital Signs Vital signs: Vital Signs Temp 98.4 F 07/15/19 17:55 Pulse 87 07/15/19 18:15 Resp 18 07/15/19 18:15 BP 123/60 07/15/19 18:15 Pulse Ox 98 07/15/19 18:15 Intake & Output 07/15/19 07/15/19 07/16/19 06:59 18:59 06:59 Intake Total 450 1000 Output Total 300 270 Balance 150 730 Intake: IV 1000 Oral 450 Output: Urine 300 220 Estimated Blood Loss 50 Other: Voiding Method Indwelling Catheter Indwelling Catheter - Exam In general patient is alert and oriented in no apparent distress HEENT head normocephalic and atraumatic Neck is supple no JVD no goiter no lymphadenopathy Chest exam reveals a few scattered crackles no wheezing Cardiac exam reveals regular heart sounds no gallops no murmurs Abdomen is soft nontender no organomegaly with normal bowel sounds Extremity exam reveals no edema with palpable peripheral pulses, left lower extremity is stabilized with traction. Neurological examination reveals no gross focal deficit - Labs CBC & Chem 7: 07/15/19 07:06 07/15/19 07:06 Labs: Abnormal Lab Results - Last 24 Hours (Table) 07/15/19 07/15/19 07/15/19 Range/Units 07:06 07:06 Unknown RBC 2.89 L (3.80-5.40) m/uL Hgb 9.3 L D (11.4-16.0) gm/dL Hct 28.4 L (34.0-46.0) % Monocytes # (Manual) 1.47 H (0-1.0) k/uL Sodium 135 L (137-145) mmol/L BUN 20 H (7-17) mg/dL Glucose 127 H (74-99) mg/dL Calcium 8.3 L (8.4-10.2) mg/dL Total Bilirubin 2.3 H (0.2-1.3) mg/dL AST 55 H (14-36) U/L Total Protein 5.4 L (6.3-8.2) g/dL Albumin 3.0 L (3.5-5.0) g/dL Urine Appearance Slightly Cloudy H (Clear) Urine RBC 173 H (0-5) /hpf Urine WBC 15 H (0-5) /hpf Urine WBC Clumps Moderate H (None) /hpf Calcium Oxalate Crystal Occasional H (None) /hpf Amorphous Sediment Rare H (None) /hpf Urine Bacteria Occasional H (None) /hpf Hyaline Casts 61 H (0-2) /lpf Urine Mucus Few H (None) /hpf Microbiology - Last 24 Hours (Table) 07/15/19 Unknown Urine Culture - Preliminary Urine,Voided Assessment and Plan Plan: 1. Fall was left femur fracture, orthopedic consultation requested patient will have surgery in the next 1-2 days 2. No previous history of cardiac disease, no symptoms suggestive of angina or congestive heart failure, EKG and chest x-ray are reviewed, there is no medical contraindication for surgery, patient is at increased risk due to her age. 3. No evidence of any infectious process at this time, white blood count is normal at 6.7, will check urine analysis, chest x-ray is within normal limits. 4. Underlying history of colon cancer was colostomy placement 5. Remote history of DVT patient is not on any blood thinners at this time 6. History of hypertension blood pressure is on the low side at this time, will hold off any medications and monitor closely Will follow during this admission for medical management
[2019-07-15 20:03] LABS: Basophils % (A) 0 %; Eosinophils % (A) 0 %; HCT 27.4 % (34.0-46.0); HGB 9.2 gm/dL (11.4-16.0); Lymphocytes # (A) 0.6 k/uL (1.0-4.8); Lymphocytes % (A) 5 %; MCH 33.4 pg (25.0-35.0); MCHC 33.5 g/dL (31.0-37.0); MCV 99.7 fL (80.0-100.0); Mean Platelet Volume 7.3; Monocytes # (A) 0.8 k/uL (0-1.0); Monocytes % (A) 7 %; Neutrophils # (A) 9.6 k/uL (1.3-7.7); Neutrophils % (A) 84 %; Platelet Count 139 k/uL (150-450); RBC 2.75 m/uL (3.80-5.40); RDW 12.8 % (11.5-15.5); WBC 11.4 k/uL (3.8-10.6)
[2019-07-15] MEDS: HYDROcodone/APAP 5-325MG 1 EACH TAB PO PRN (21:09)
[2019-07-15] MEDS: LACTATED RINGERS 1,000 ML IV SCH (21:09)
[2019-07-15] MEDS: SENNOSIDES-DOCUSATE SODIUM 1 EACH TAB PO SCH (21:09)
[2019-07-15] MEDS: guaiFENesin 600 MG TABLET.ER PO SCH (23:22)
[2019-07-16] MEDS: LACTATED RINGERS 1,000 ML IV SCH ×3 (05:07→23:28)
[2019-07-16 06:36] LABS: HCT 23.1 % (34.0-46.0); MCH 32.4 pg (25.0-35.0); MCHC 32.8 g/dL (31.0-37.0); Mean Platelet Volume 7.1; Platelet Count 125 k/uL (150-450); RBC 2.33 m/uL (3.80-5.40); WBC 9.5 k/uL (3.8-10.6)
[2019-07-16 06:37] LABS: HGB 7.6 gm/dL (11.4-16.0)
[2019-07-16 07:03] LABS: Albumin 2.4 g/dL (3.5-5.0); Total Bilirubin 2.2 mg/dL (0.2-1.3); Total Protein 4.5 g/dL (6.3-8.2)
[2019-07-16] MEDS: SODIUM CHLORIDE 0.9% 1,000 ML IV SCH ×2 (07:19→17:05)
[2019-07-16] MEDS: HYDROcodone/APAP 5-325MG 1 EACH TAB PO PRN ×2 (07:45→13:42)
[2019-07-16] MEDS: ENOXAPARIN 40 MG/0.4 ML SYRINGE SQ SCH (07:45)
[2019-07-16] MEDS: guaiFENesin 600 MG TABLET.ER PO SCH ×2 (07:45→20:27)
[2019-07-16 08:37] LABS: Lymphocytes # (M) 1.05 k/uL (1.0-4.8); Monocytes # (M) 0.29 k/uL (0-1.0); Neutrophils # (M) 8.17 k/uL (1.3-7.7); Neutrophils % (M) 86 %; Nucleated Red Blood Cells 0 /100 WBC (0-0); Total Cells Counted 100
--- NOTE | 2019-07-16 12:16 | P.CONS ---
History of Present Illness - Reason for Consult Consult date: 07/16/19 Wound care - History of Present Illness This is an 83-year-old pleasant female being seen on 4 S. for ulcerations to the left buttocks. With a past medical history significant For osteoporosis, colon cancer. She sustained a ground-level fall resulting in a displaced distal third femur fracture. Patient was placed in traction with a knee immobilizer. Patient had surgery on 07/15/2019 for a left distal third femur fracture. Patient had operative fixation of the left femoral shaft fracture with retrograde intramedullary nail. It is believed during traction her legs slipped causing abrasions to the left gluteus. The left gluteal abrasions are cluster of 3 Limited to skin breakdown with granulation seen throughout to the wound beds. No tunneling or undermining. No ecchymosis maceration or excoriation noted to the periwound. Review of Systems Review Of Systems: Constitutional: No fever, no chills, no night sweats. No weight change. No weakness, fatigue or lethargy. No daytime sleepiness. Integumentary:reports wounds, no lesions. No rash or pruritus. No unusual bruising. No change in hair or nails. Past Medical History Past Medical History: Deep Vein Thrombosis (DVT) Additional Past Medical History / Comment(s): colon cancer (1991 diagnosed), slip disc in back History of Any Multi-Drug Resistant Organisms: None Reported Past Surgical History: Appendectomy, Section Additional Past Surgical History / Comment(s): ileostomy Past Anesthesia/Blood Transfusion Reactions: No Reported Reaction Past Psychological History: No Psychological Hx Reported Smoking Status: Never smoker Past Alcohol Use History: None Reported Past Drug Use History: None Reported - Past Family History Father Family Medical History: CVA/TIA Mother Family Medical History: CVA/TIA Medications and Allergies Home Medications Medication Instructions Recorded Confirmed Type L.acidoph,Paracasei, B.lactis 1 cap PO DAILY 07/14/19 07/14/19 History [Probiotic] Unknown Blood Pressure Medication 0.5 tab PO DAILY PRN 07/14/19 07/14/19 History Allergies Allergy/AdvReac Type Severity Reaction Status Date / Time ciprofloxacin [From Cipro] Allergy Unknown Verified 07/14/19 13:43 Penicillins Allergy Unknown Verified 07/14/19 13:43 Childhood Physical Exam Vitals: Vital Signs Temp Pulse Resp BP Pulse Ox 07/16/19 07:43 98.3 F 07/16/19 07:09 101 H 18 103/65 94 L 07/16/19 02:28 99.2 F 100 18 106/59 92 L 07/15/19 21:04 94 109/71 88 L 07/15/19 20:49 93 116/72 95 07/15/19 20:34 91 113/73 92 L 07/15/19 20:19 92 114/73 92 L 07/15/19 20:05 93 L 07/15/19 20:04 89 118/76 93 L 07/15/19 19:49 88 107/66 95 07/15/19 19:34 87 110/67 97 07/15/19 19:19 87 116/71 95 07/15/19 19:04 84 118/69 95 07/15/19 18:49 74 115/71 94 L 07/15/19 18:35 97.5 F L 118 H 109/60 82 L 07/15/19 18:15 87 18 123/60 98 07/15/19 17:55 98.4 F 84 14 107/51 95 07/15/19 15:11 97.2 F L 98 106/58 96 Intake and Output 07/15/19 07/16/19 07/16/19 22:59 06:59 14:59 Intake Total 1000 450 Output Total 270 225 Balance 730 -225 450 Intake: IV 1000 Oral 450 Output: Urine 220 225 Estimated Blood Loss 50 Other: Voiding Method Indwelling Catheter Physical exam: General Appearance: Alert, cooperative, no distress, appears stated age. Skin: See HPI all other Skin color, texture, tugor normal, no rashes or lesions. Neurologic: Alert oriented x3 Results CBC & Chem 7: 07/16/19 05:53 07/16/19 05:53 Labs: Abnormal Lab Results - Last 24 Hours (Table) 07/15/19 07/16/19 07/16/19 Range/Units 19:54 05:53 05:53 WBC 11.4 H (3.8-10.6) k/uL RBC 2.75 L 2.33 L (3.80-5.40) m/uL Hgb 9.2 L 7.6 L D (11.4-16.0) gm/dL Hct 27.4 L 23.1 L (34.0-46.0) % Plt Count 139 L 125 L (150-450) k/uL Neutrophils # 9.6 H (1.3-7.7) k/uL Neutrophils # (Manual) 8.17 H (1.3-7.7) k/uL Lymphocytes # 0.6 L (1.0-4.8) k/uL Sodium 133 L (137-145) mmol/L BUN 20 H (7-17) mg/dL Glucose 132 H (74-99) mg/dL Calcium 8.0 L (8.4-10.2) mg/dL Total Bilirubin 2.2 H (0.2-1.3) mg/dL AST 48 H (14-36) U/L Total Protein 4.5 L (6.3-8.2) g/dL Albumin 2.4 L (3.5-5.0) g/dL Microbiology - Last 24 Hours (Table) 07/15/19 Unknown Urine Culture - Preliminary Urine,Voided Assessment and Plan (1) Abrasion hip/leg Current Visit: Yes Status: Acute Code(s): S80.819A - ABRASION, UNSPECIFIED LOWER LEG, INITIAL ENCOUNTER SNOMED Code(s): 647307226 Plan: Applied zinc barrier cream to the ulcerations daily. Wash with warm soapy water as needed. If the ulcerations decline contact the wound care center for further interventions. Patient may continue the zinc barrier cream upon discharge until the ulcerations are healed. She'll verbalize understanding. Questions were answered. Thank you kindly for the consultation. Any questions please contact the wound care center DNP note has been reviewed and discussed with Dr. Baldwin and the impression and plan of care has been directed as dictated.
--- NOTE | 2019-07-16 13:25 | P.PN ---
Subjective Progress Note Date: 07/16/19 This patient is an 83- year old female that is status-post operative fixation of a left femoral shaft fracture with retrograde intramedullary nail on 07/15/[address] Vazquez. Today is postoperative day #1. The patient is examined bedside this morning. She states she is overall feeling well. She states the pain in her left hip is currently manageable. She has been up with physical therapy, and transferred to the chair. Patient denies chest pain, shortness breath, nausea, vomiting, fevers, chills. She denies numbness or tingling of the left lower extremity. Vital signs stable. Objective - Vital Signs Vital signs: Vital Signs Temp 98.3 F 07/16/19 07:43 Pulse 101 H 07/16/19 07:09 Resp 18 07/16/19 07:09 BP 103/65 07/16/19 07:09 Pulse Ox 94 L 07/16/19 07:09 Intake & Output 07/15/19 07/16/19 07/16/19 18:59 06:59 18:59 Intake Total 1000 450 Output Total 270 225 Balance 730 -225 450 Intake: IV 1000 Oral 450 Output: Urine 220 225 Estimated Blood Loss 50 Other: Voiding Method Indwelling Catheter Indwelling Catheter - Exam On examination, the patient is sitting up in a bedside chair in no apparent distress. She is alert and oriented 3. Nasal cannula in place. On inspection of the left lower extremity, there is a knee immobilizer and Jose wrap in place. The visible portion of the left lower leg is warm and well perfused with brisk capillary refill distally, dorsalis pedis pulse +2. Patient has good strength and range of motion of her left ankle. Motor and sensory function intact of the left lower extremity. - Labs CBC & Chem 7: 07/16/19 05:53 07/16/19 05:53 Labs: Abnormal Lab Results - Last 24 Hours (Table) 07/15/19 07/16/19 07/16/19 Range/Units 19:54 05:53 05:53 WBC 11.4 H (3.8-10.6) k/uL RBC 2.75 L 2.33 L (3.80-5.40) m/uL Hgb 9.2 L 7.6 L D (11.4-16.0) gm/dL Hct 27.4 L 23.1 L (34.0-46.0) % Plt Count 139 L 125 L (150-450) k/uL Neutrophils # 9.6 H (1.3-7.7) k/uL Neutrophils # (Manual) 8.17 H (1.3-7.7) k/uL Lymphocytes # 0.6 L (1.0-4.8) k/uL Sodium 133 L (137-145) mmol/L BUN 20 H (7-17) mg/dL Glucose 132 H (74-99) mg/dL Calcium 8.0 L (8.4-10.2) mg/dL Total Bilirubin 2.2 H (0.2-1.3) mg/dL AST 48 H (14-36) U/L Total Protein 4.5 L (6.3-8.2) g/dL Albumin 2.4 L (3.5-5.0) g/dL Microbiology - Last 24 Hours (Table) 07/15/19 Unknown Urine Culture - Final Urine,Voided Assessment and Plan Assessment: Status-post operative fixation of left femoral shaft fracture with retrograde intramedullary nail on 07/15/[address] Vazquez. Post-operative day #1. Plan: - Toe-touch weightbearing on the operative extremity. Keep knee immobilizer in place. - Physical therapy for gait and balance training. - 2 doses of postoperative antibiotics are complete. - [place] and Dilaudid as needed for pain control. - Will follow wound care recommendations in regards to superficial ulcerations to posterior left hip. - Lovenox for DVT prophylaxis. - Internal medicine consult for perioperative medical management. - Anticipate discharge to rehab in next 24-48 hours pending medical clearance. Patient discussed with Dr. Vazquez.
--- NOTE | 2019-07-16 17:59 | P.PN ---
Subjective Progress Note Date: 07/16/19 Jamee Baldwin is an 83 -year-old female patient of Dr. Nuñez who presented to [facility] emergency room after tripping and falling at home and complaining of severe pain in the left thigh area. Patient stated that she tripped over her cat she denies any dizziness or loss of consciousness, she was having severe pain in the left thigh she was unable to stand or walk, she was brought into the hospital by EMS, x-ray in the emergency room revealed evidence of complete displaced fracture of the left femur. Orthopedic consultation was requested patient is admitted to medical floor. In the emergency room patient had closed reduction of the fracture with traction by Dr. Henriquez. Patient has a known history of DVT in 1993, she has history of colon cancer was colostomy placement, otherwise she denies any past medical history, there is no history of coronary artery disease or congestive heart failure, no history of asthma or COPD per patient. On 07/15/2019 patient was seen and examined on the medical floor, she is status post operative fixation of the left femoral shaft fracture with retrograde intramedullary nail placement, patient is alert and oriented 3 in no apparent distress, there is no fever or chills no headache or dizziness no chest pain no shortness of breath no cough no nausea or vomiting no abdominal pain no diarrhea no burning was urination no frequency or urgency and no hematuria. Echocardiogram was done and revealed normal left ventricular ejection fraction. On 07/16/2019 patient was seen and examined on the medical floor she is alert and oriented 3 in no apparent distress there is no fever or chills no headache or dizziness no chest pain no shortness of breath no cough no nausea or vomiting no abdominal pain no diarrhea ileostomy has normal amount of stool in the bag, no burning was urination no frequency or urgency and no hematuria, pain in her lower extremity is well-controlled. Objective - Vital Signs Vital signs: Vital Signs Temp 98.6 F 07/16/19 14:09 Pulse 89 07/16/19 14:09 Resp 16 07/16/19 14:09 BP 102/62 07/16/19 14:09 Pulse Ox 99 07/16/19 14:09 Intake & Output 07/15/19 07/16/19 07/16/19 18:59 06:59 18:59 Intake Total 1000 900 Output Total 270 225 Balance 730 -225 900 Intake: IV 1000 Oral 900 Output: Urine 220 225 Estimated Blood Loss 50 Other: Voiding Method Indwelling Catheter Indwelling Catheter # Voids 3 - Exam In general patient is alert and oriented in no apparent distress HEENT head normocephalic and atraumatic Neck is supple no JVD no goiter no lymphadenopathy Chest exam reveals a few scattered crackles no wheezing Cardiac exam reveals regular heart sounds no gallops no murmurs Abdomen is soft nontender no organomegaly with normal bowel sounds Extremity exam reveals no edema with palpable peripheral pulses, left lower extremity is stabilized with traction. Neurological examination reveals no gross focal deficit - Labs CBC & Chem 7: 07/16/19 05:53 07/16/19 05:53 Labs: Abnormal Lab Results - Last 24 Hours (Table) 07/15/19 07/16/19 07/16/19 Range/Units 19:54 05:53 05:53 WBC 11.4 H (3.8-10.6) k/uL RBC 2.75 L 2.33 L (3.80-5.40) m/uL Hgb 9.2 L 7.6 L D (11.4-16.0) gm/dL Hct 27.4 L 23.1 L (34.0-46.0) % Plt Count 139 L 125 L (150-450) k/uL Neutrophils # 9.6 H (1.3-7.7) k/uL Neutrophils # (Manual) 8.17 H (1.3-7.7) k/uL Lymphocytes # 0.6 L (1.0-4.8) k/uL Sodium 133 L (137-145) mmol/L BUN 20 H (7-17) mg/dL Glucose 132 H (74-99) mg/dL Calcium 8.0 L (8.4-10.2) mg/dL Total Bilirubin 2.2 H (0.2-1.3) mg/dL AST 48 H (14-36) U/L Total Protein 4.5 L (6.3-8.2) g/dL Albumin 2.4 L (3.5-5.0) g/dL Microbiology - Last 24 Hours (Table) 07/15/19 Unknown Urine Culture - Final Urine,Voided Assessment and Plan Plan: 1. Fall was left femur fracture, orthopedic consultation requested patient will have surgery in the next 1-2 days 2. No previous history of cardiac disease, no symptoms suggestive of angina or congestive heart failure, EKG and chest x-ray are reviewed, there is no medical contraindication for surgery, patient is at increased risk due to her age. 3. No evidence of any infectious process at this time, white blood count is normal at 6.7, will check urine analysis, chest x-ray is within normal limits. 4. Underlying history of colon cancer was colostomy placement 5. Remote history of DVT patient is not on any blood thinners at this time 6. History of hypertension blood pressure is on the low side at this time, will hold off any medications and monitor closely 7. Anemia will add IV iron will follow labs in a.m. Will follow during this admission for medical management
[2019-07-16] MEDS: SODIUM FERRIC GLUCONAT-SUCROSE 125 MG in SODIUM CHLORIDE 0.9% 100 ML IVPB SCH (18:19)
[2019-07-16] MEDS: SENNOSIDES-DOCUSATE SODIUM 1 EACH TAB PO SCH (20:27)
[2019-07-17] MEDS: HYDROcodone/APAP 5-325MG 1 EACH TAB PO PRN ×2 (07:47→17:59)
[2019-07-17] MEDS: guaiFENesin 600 MG TABLET.ER PO SCH ×2 (07:48→20:44)
[2019-07-17] MEDS: ENOXAPARIN 40 MG/0.4 ML SYRINGE SQ SCH (07:49)
[2019-07-17] MEDS: SODIUM CHLORIDE 0.9% 1,000 ML IV SCH ×3 (07:49→20:44)
[2019-07-17 08:18] LABS: Albumin 2.5 g/dL (3.5-5.0); Calcium 8.1 mg/dL (8.4-10.2); Potassium 4.1 mmol/L (3.5-5.1); Total Bilirubin 2.1 mg/dL (0.2-1.3); Total Protein 4.8 g/dL (6.3-8.2)
[2019-07-17] MEDS: SODIUM FERRIC GLUCONAT-SUCROSE 125 MG in SODIUM CHLORIDE 0.9% 100 ML IVPB SCH (08:45)
[2019-07-17 08:59] LABS: HCT 23.2 % (34.0-46.0); HGB 7.4 gm/dL (11.4-16.0); MCH 31.4 pg (25.0-35.0); MCV 98.3 fL (80.0-100.0); Mean Platelet Volume 7.4; Platelet Count 138 k/uL (150-450); RBC 2.37 m/uL (3.80-5.40); RDW 12.8 % (11.5-15.5)
[2019-07-17] MEDS: LACTATED RINGERS 1,000 ML IV SCH ×2 (09:29→20:44)
--- NOTE | 2019-07-17 11:46 | P.PN ---
Progress Note - Text Progress Note Date: 07/17/19 Orthopedics: History of present illness: Patient is a very pleasant 83-year-old female who is seen and examined at bedside for follow-up evaluation for her left lower extremity. She is status post operative fixation of a left femoral shaft fracture with retrograde intramedullary nailing performed on 07/15/[address] Vazquez. She continues to have some pain at the fracture site the feels her pain has been fairly well controlled. She is currently sitting in a bedside chair. Her Zhang catheter continues to remain intact. She has been using her incentive spirometer. She doesn't have much of an appetite but has been eating. She continues to be anemic with her hemoglobin this morning at 7.4. Patient is currently receiving sodium ferric gluconate sucrose via IV. Patient is planned for discharge to a rehabilitation facility as early as tomorrow, 07/18/2019, to [facility]. She continues to keep her knee immobilizer intact to the left lower extremity. She is toe-touch weightbearing on left lower extremity. She has no complaints of the superficial wound over the left hip. Superficial wound is being treated by wound care. She feels she is progressing well. Physical Exam: Patient is awake, alert, and oriented 3 Vital signs stable Good chest excursion with deep inspiration and expiration No signs or symptoms of DVT; no calf pain Pleasant intact her left lower extremity Knee immobilizer is opened and dressing is examined Dressing over the left femur extending to the calf is clean, dry, and intact except for a little bit of dried sodium ferric gluconate sucrose that came out of her IV The immobilizer is reapplied during physical examination He is able to wiggle toes the left lower extremity without difficulty Neurovascular intact left lower extremity Assessment: Status post operational fixation of a left femoral shaft fracture with retrograde intramedullary nailing Left femur pain Superficial ulceration left posterior hip Anemia Plan: 1. Patient will continue postoperative care in regards to her left femur. She is toe-touch weightbearing on the left lower extremity. She should keep her knee immobilizer intact at all times. She is encouraged to continue working with physical therapy to increase mobility and ambulation. 2. Continue pain control with [place] and Dilaudid as prescribed as needed for control of her symptoms MAPS has been reviewed today, 07/17/2019, with an Overall Overdose Risk Score of 190. An "Opiod Start Talking" Form has been signed by the patient and myself in place in the patient's chart. A prescription has been written forNorco 5 mg/325 mg 1-2 tabs every 6 hours as needed for pain, dispensed #56. Prescription is placed in the patient's chart. Patient should avoid other narcotic medications while taking this prescribed medication. 3. Patient will continue with wound care recommendations for the superficial ulcerations of the left posterior hip 4. We discussed we'll plan to discontinue her Zhang catheter once patient is able to increase her mobility 5. Continue with Lovenox for DVT prophylaxisas prescribed 6. Patient will continue to be seen and examined by medicine for further treatment evaluation of her other medical diagnoses including anemia
[2019-07-17 13:47] LABS: Lymphocytes # (M) 0.54 k/uL (1.0-4.8); Monocytes # (M) 0.54 k/uL (0-1.0); Neutrophils # (M) 7.92 k/uL (1.3-7.7); Neutrophils % (M) 88 %; Nucleated Red Blood Cells 0 /100 WBC (0-0); Total Cells Counted 100
--- NOTE | 2019-07-17 16:26 | P.PN ---
Subjective Progress Note Date: 07/17/19 Jamee Baldwin is an 83 -year-old female patient of Dr. Nuñez who presented to [facility] emergency room after tripping and falling at home and complaining of severe pain in the left thigh area. Patient stated that she tripped over her cat she denies any dizziness or loss of consciousness, she was having severe pain in the left thigh she was unable to stand or walk, she was brought into the hospital by EMS, x-ray in the emergency room revealed evidence of complete displaced fracture of the left femur. Orthopedic consultation was requested patient is admitted to medical floor. In the emergency room patient had closed reduction of the fracture with traction by Dr. Henriquez. Patient has a known history of DVT in 1993, she has history of colon cancer was colostomy placement, otherwise she denies any past medical history, there is no history of coronary artery disease or congestive heart failure, no history of asthma or COPD per patient. On 07/15/2019 patient was seen and examined on the medical floor, she is status post operative fixation of the left femoral shaft fracture with retrograde intramedullary nail placement, patient is alert and oriented 3 in no apparent distress, there is no fever or chills no headache or dizziness no chest pain no shortness of breath no cough no nausea or vomiting no abdominal pain no diarrhea no burning was urination no frequency or urgency and no hematuria. Echocardiogram was done and revealed normal left ventricular ejection fraction. On 07/16/2019 patient was seen and examined on the medical floor she is alert and oriented 3 in no apparent distress there is no fever or chills no headache or dizziness no chest pain no shortness of breath no cough no nausea or vomiting no abdominal pain no diarrhea ileostomy has normal amount of stool in the bag, no burning was urination no frequency or urgency and no hematuria, pain in her lower extremity is well-controlled. On 07/17/2019 patient was seen and examined on the medical floor she is alert and oriented 3 in no apparent distress, there is no fever or chills no headache or dizziness no chest pain no shortness of breath no cough no nausea or vomiting no abdominal pain no diarrhea and no urinary symptoms, hemoglobin is down to 7.4 patient is receiving IV iron no clinical evidence of gastrointestinal bleeding will check stools for Hemoccult Objective - Vital Signs Vital signs: Vital Signs Temp 98.4 F 07/17/19 15:01 Pulse 85 07/17/19 15:01 Resp 17 07/17/19 15:01 BP 99/57 07/17/19 15:01 Pulse Ox 99 07/17/19 15:01 Intake & Output 07/16/19 07/17/19 07/17/19 18:59 06:59 18:59 Intake Total 900 Output Total 225 200 Balance 900 -225 -200 Intake: Oral 900 Output: Urine 225 Stool 200 Other: Voiding Method Indwelling Catheter Indwelling Catheter # Voids 3 - Exam In general patient is alert and oriented in no apparent distress HEENT head normocephalic and atraumatic Neck is supple no JVD no goiter no lymphadenopathy Chest exam reveals a few scattered crackles no wheezing Cardiac exam reveals regular heart sounds no gallops no murmurs Abdomen is soft nontender no organomegaly with normal bowel sounds Extremity exam reveals no edema with palpable peripheral pulses, left lower e xtremity is stabilized with traction. Neurological examination reveals no gross focal deficit - Labs CBC & Chem 7: 07/17/19 07:23 07/17/19 07:23 Labs: Abnormal Lab Results - Last 24 Hours (Table) 07/17/19 07/17/19 Range/Units 07:23 07:23 RBC 2.37 L (3.80-5.40) m/uL Hgb 7.4 L (11.4-16.0) gm/dL Hct 23.2 L (34.0-46.0) % Plt Count 138 L (150-450) k/uL Neutrophils # (Manual) 7.92 H (1.3-7.7) k/uL Lymphocytes # (Manual) 0.54 L (1.0-4.8) k/uL Sodium 132 L (137-145) mmol/L BUN 18 H (7-17) mg/dL Glucose 103 H (74-99) mg/dL Calcium 8.1 L (8.4-10.2) mg/dL Total Bilirubin 2.1 H (0.2-1.3) mg/dL AST 37 H (14-36) U/L Total Protein 4.8 L (6.3-8.2) g/dL Albumin 2.5 L (3.5-5.0) g/dL Microbiology - Last 24 Hours (Table) 07/15/19 Unknown Urine Culture - Final Urine,Voided Assessment and Plan Plan: 1. Fall was left femur fracture, orthopedic consultation requested patient will have surgery in the next 1-2 days 2. No previous history of cardiac disease, no symptoms suggestive of angina or congestive heart failure, EKG and chest x-ray are reviewed, there is no medical contraindication for surgery, patient is at increased risk due to her age. 3. No evidence of any infectious process at this time, white blood count is normal at 6.7, will check urine analysis, chest x-ray is within normal limits. 4. Underlying history of colon cancer was colostomy placement 5. Remote history of DVT patient is not on any blood thinners at this time 6. History of hypertension blood pressure is on the low side at this time, will hold off any medications and monitor closely 7. Anemia will add IV iron will follow labs in a.m. Will follow during this admission for medical management
[2019-07-17 18:44] LABS: HCT 25.1 % (34.0-46.0); HGB 8.1 gm/dL (11.4-16.0); Hypochromasia Slight; MCH 32.8 pg (25.0-35.0); MCHC 32.1 g/dL (31.0-37.0); Macrocytosis Slight; Mean Platelet Volume 7.4; RBC 2.46 m/uL (3.80-5.40); RDW 13.3 % (11.5-15.5); WBC 9.8 k/uL (3.8-10.6)
[2019-07-17 19:53] LABS: Lymphocytes # (M) 1.18 k/uL (1.0-4.8); Monocytes # (M) 1.08 k/uL (0-1.0); Neutrophils # (M) 7.55 k/uL (1.3-7.7); Neutrophils % (M) 77 %; Nucleated Red Blood Cells 0 /100 WBC (0-0); Total Cells Counted 100
[2019-07-17 19:54] LABS: Platelet Count 181 k/uL (150-450)
[2019-07-17] MEDS: SENNOSIDES-DOCUSATE SODIUM 1 EACH TAB PO SCH (20:44)
[2019-07-18] MEDS: HYDROcodone/APAP 5-325MG 1 EACH TAB PO PRN ×4 (00:10→23:06)
[2019-07-18] MEDS: LACTATED RINGERS 1,000 ML IV SCH ×2 (02:10→17:52)
[2019-07-18] MEDS: SODIUM CHLORIDE 0.9% 1,000 ML IV SCH (04:23)
[2019-07-18] MEDS: ENOXAPARIN 40 MG/0.4 ML SYRINGE SQ SCH (07:40)
[2019-07-18] MEDS: guaiFENesin 600 MG TABLET.ER PO SCH ×2 (07:40→22:01)
--- NOTE | 2019-07-18 08:57 | P.PN ---
Subjective Progress Note Date: 07/18/19 Principal diagnosis: Left femur fracture Patient is seen at bedside this morning. She is postop day #3 from intramedullary nail fixation of left femur fracture.. She has pain at the surgical site as expected but denies any new complaints. She denies numbness, tingling or calf pain. Review of systems is negative for fever, chills, chest pain, shortness of breath or other Objective - Vital Signs Vital signs: Vital Signs Temp 98.7 F 07/18/19 07:00 Pulse 81 07/18/19 07:00 Resp 16 07/18/19 07:00 BP 107/66 07/18/19 07:00 Pulse Ox 94 L 07/18/19 07:00 Intake & Output 07/17/19 07/18/19 07/18/19 18:59 06:59 18:59 Intake Total 800 Output Total 1100 520 Balance -1100 280 Intake: Intake, IV Titration 800 Amount Sodium Chloride 0.9% 100 800 ml @ 0 mls/hr IV .STK-MED ONE with ceFAZolin 1,000 mg Rx#:[id number] Output: Urine 320 Stool 1100 200 Other: Voiding Method Indwelling Catheter - Exam Inspection shows knee immobilizer and bandage in place. There are benign surgical wounds with renetta in place. There is no active bleeding or drainage. Neurovascular status is intact throughout the lower extremity with motor and s ensation fully intact. Calf is soft and nontender. 2+ dorsalis pedis pulse and less than 2 second cap refill is present. - Constitutional General appearance: Present: no acute distress - Labs CBC & Chem 7: 07/17/19 18:30 07/17/19 07:23 Labs: Abnormal Lab Results - Last 24 Hours (Table) 07/17/19 07/17/19 07/17/19 Range/Units 07:23 07:23 18:30 RBC 2.37 L 2.46 L (3.80-5.40) m/uL Hgb 7.4 L 8.1 L (11.4-16.0) gm/dL Hct 23.2 L 25.1 L (34.0-46.0) % MCV 102.0 H (80.0-100.0) fL Plt Count 138 L (150-450) k/uL Neutrophils # (Manual) 7.92 H (1.3-7.7) k/uL Lymphocytes # (Manual) 0.54 L (1.0-4.8) k/uL Monocytes # (Manual) 1.08 H (0-1.0) k/uL Vitamin D 25-Hydroxy 19.9 L (30.0-100.0) ng/mL Assessment and Plan (1) Femur fracture, left Narrative/Plan: She will continue with routine postop orthopedic protocol including pain management, wound care, PT, DVT prophylaxis and medical management. Expect her to transfer to [facility] in next few days. Discharge plan including weight bearing status, wound care as described. Current Visit: Yes Status: Acute Priority: Medium Code(s): S72.92XA - UNSP FRACTURE OF LEFT FEMUR, INIT ENCNTR FOR CLOSED FRACTURE SNOMED Code(s): 34787632 Time with Patient: Less than 30
--- NOTE | 2019-07-18 09:29 | CDI ---
Documentation Clarification Form Date: 07/18/2019 09:02:09 AM From: Radha Delgadillo RN CCDS Admit Date: 07/14/2019 01:08:00 PM Patient Name: Jamee Baldwin Visit Number: [id number] Discharge Date: ATTENTION: The Clinical Documentation Specialists (CDI) and [facility] Coding Staff appreciate your assistance in clarifying documentation. Please respond to the clarification below the line at the bottom and electronically sign. The CDI & [facility] Coding staff will review the response and follow-up if needed. Please note: Queries are made part of the Legal Health Record. If you have any questions, please contact the author of this message via ITS. Dr. Baldwin Conflicting documentation has been found in the medical record: 07/15 Wound Care Consult Abrasion hip/leg 07/15, 07/16 Ortho Progress Note Superficial ulceration left posterior hip History/Risk Factors: 83-year-old female presents to ED after a fall sustaining a left displaced femur fracture. Medical history DVT and colon cancer with colostomy placement. Clinical Indicators: 07/15 [id number] 89 98.6 16 99% 2L nasal cannula 07/15 Wound Care Consult The left gluteal abrasions are cluster of 3 limited to skin breakdown with granulation seen throughout the wound beds. Treatment:07/15 Zinc barrier cream daily and wash with warm soapy water as needed. In your opinion, what is the most clinically appropriate diagnosis for this patient? Ulceration meaning abrasion Other explanation of clinical findings Unable to determine (no explanation for clinical findings) Answered in addendum on consult " Ulceration in dictation refers to the abrasion. " (Last Revision: May 2017) MTDD
[2019-07-18] MEDS: SODIUM FERRIC GLUCONAT-SUCROSE 125 MG in SODIUM CHLORIDE 0.9% 100 ML IVPB SCH (09:49)
[2019-07-18 12:34] LABS: ALT 12 U/L (4-34); AST 31 U/L (14-36); African American GFR (CKD) >90 (>60 ml/min/1.73 sqM); Albumin 2.8 g/dL (3.5-5.0); Alkaline Phosphatase 51 U/L (38-126); Anion Gap 7 mmol/L; Blood Urea Nitrogen 20 mg/dL (7-17); Calcium 8.3 mg/dL (8.4-10.2); Carbon Dioxide 25 mmol/L (22-30); Chloride 100 mmol/L (98-107); Glucose 93 mg/dL (74-99); Non-African American GFR(CKD) 82 (>60 ml/min/1.73 sqM); Potassium 3.9 mmol/L (3.5-5.1); Sodium 132 mmol/L (137-145); Total Bilirubin 1.8 mg/dL (0.2-1.3); Total Protein 5.2 g/dL (6.3-8.2)
[2019-07-18 12:43] LABS: HCT 24.3 % (34.0-46.0); HGB 7.8 gm/dL (11.4-16.0); Hypochromasia Slight; MCH 32.6 pg (25.0-35.0); MCHC 32.3 g/dL (31.0-37.0); MCV 100.6 fL (80.0-100.0); Macrocytosis Slight; Mean Platelet Volume 8.1; Platelet Count 207 k/uL (150-450); RBC 2.41 m/uL (3.80-5.40); RDW 13.5 % (11.5-15.5); WBC 8.5 k/uL (3.8-10.6)
--- NOTE | 2019-07-18 14:37 | P.PN ---
Subjective Progress Note Date: 07/18/19 Jamee Baldwin is an 83 -year-old female patient of Dr. Nuñez who presented to [facility] emergency room after tripping and falling at home and complaining of severe pain in the left thigh area. Patient stated that she tripped over her cat she denies any dizziness or loss of consciousness, she was having severe pain in the left thigh she was unable to stand or walk, she was brought into the hospital by EMS, x-ray in the emergency room revealed evidence of complete displaced fracture of the left femur. Orthopedic consultation was requested patient is admitted to medical floor. In the emergency room patient had closed reduction of the fracture with traction by Dr. Henriquez. Patient has a known history of DVT in 1993, she has history of colon cancer was colostomy placement, otherwise she denies any past medical history, there is no history of coronary artery disease or congestive heart failure, no history of asthma or COPD per patient. On 07/15/2019 patient was seen and examined on the medical floor, she is status post operative fixation of the left femoral shaft fracture with retrograde intramedullary nail placement, patient is alert and oriented 3 in no apparent distress, there is no fever or chills no headache or dizziness no chest pain no shortness of breath no cough no nausea or vomiting no abdominal pain no diarrhea no burning was urination no frequency or urgency and no hematuria. Echocardiogram was done and revealed normal left ventricular ejection fraction. On 07/16/2019 patient was seen and examined on the medical floor she is alert and oriented 3 in no apparent distress there is no fever or chills no headache or dizziness no chest pain no shortness of breath no cough no nausea or vomiting no abdominal pain no diarrhea ileostomy has normal amount of stool in the bag, no burning was urination no frequency or urgency and no hematuria, pain in her lower extremity is well-controlled. On 07/17/2019 patient was seen and examined on the medical floor she is alert and oriented 3 in no apparent distress, there is no fever or chills no headache or dizziness no chest pain no shortness of breath no cough no nausea or vomiting no abdominal pain no diarrhea and no urinary symptoms, hemoglobin is down to 7.4 patient is receiving IV iron no clinical evidence of gastrointestinal bleeding will check stools for Hemoccult on 07/18/2019 patient was seen and examined on the medical floor, she is still complaining of weakness and pain in her left lower extremity, otherwise she denies any complaints there is no fever or chills no headache or dizziness no chest pain no shortness of breath no cough no nausea or vomiting no abdominal pain no diarrhea and no urinary symptoms. Her UA from 2 days ago was abnormal and repeat urine analysis requested, patient is still having significant anemia she is receiving IV iron, stool was Hemoccult ordered. Objective - Vital Signs Vital signs: Vital Signs Temp 98.7 F 07/18/19 07:00 Pulse 81 07/18/19 07:00 Resp 16 07/18/19 07:00 BP 107/66 07/18/19 07:00 Pulse Ox 94 L 07/18/19 07:00 Intake & Output 07/17/19 07/18/19 07/18/19 18:59 06:59 18:59 Intake Total 800 Output Total 1100 520 Balance -1100 280 Intake: Intake, IV Titration 800 Amount Sodium Chloride 0.9% 100 800 ml @ 0 mls/hr IV .STK-MED ONE with ceFAZolin 1,000 mg Rx#:[id number] Output: Urine 320 Stool 1100 200 Other: Voiding Method Indwelling Catheter - Exam In general patient is alert and oriented in no apparent distress HEENT head normocephalic and atraumatic Neck is supple no JVD no goiter no lymphadenopathy Chest exam reveals a few scattered crackles no wheezing Cardiac exam reveals regular heart sounds no gallops no murmurs Abdomen is soft nontender no organomegaly with normal bowel sounds Extremity exam reveals no edema with palpable peripheral pulses, left lower extremity is stabilized with traction. Neurological examination reveals no gross focal deficit - Labs CBC & Chem 7: 07/18/19 10:46 07/18/19 10:46 Labs: Abnormal Lab Results - Last 24 Hours (Table) 07/17/19 07/17/19 07/18/19 Range/Units 07:23 18:30 10:46 RBC 2.46 L 2.41 L (3.80-5.40) m/uL Hgb 8.1 L 7.8 L (11.4-16.0) gm/dL Hct 25.1 L 24.3 L (34.0-46.0) % MCV 102.0 H 100.6 H (80.0-100.0) fL Monocytes # (Manual) 1.08 H (0-1.0) k/uL Sodium (137-145) mmol/L BUN (7-17) mg/dL Calcium (8.4-10.2) mg/dL Total Bilirubin (0.2-1.3) mg/dL Total Protein (6.3-8.2) g/dL Albumin (3.5-5.0) g/dL Vitamin D 25-Hydroxy 19.9 L (30.0-100.0) ng/mL 07/18/19 Range/Units 10:46 RBC (3.80-5.40) m/uL Hgb (11.4-16.0) gm/dL Hct (34.0-46.0) % MCV (80.0-100.0) fL Monocytes # (Manual) (0-1.0) k/uL Sodium 132 L (137-145) mmol/L BUN 20 H (7-17) mg/dL Calcium 8.3 L (8.4-10.2) mg/dL Total Bilirubin 1.8 H (0.2-1.3) mg/dL Total Protein 5.2 L (6.3-8.2) g/dL Albumin 2.8 L (3.5-5.0) g/dL Vitamin D 25-Hydroxy (30.0-100.0) ng/mL Assessment and Plan Plan: 1. Fall was left femur fracture, orthopedic consultation requested patient will have surgery in the next 1-2 days 2. No previous history of cardiac disease, no symptoms suggestive of angina or congestive heart failure, EKG and chest x-ray are reviewed, there is no medical contraindication for surgery, patient is at increased risk due to her age. 3. No evidence of any infectious process at this time, white blood count is normal at 6.7, will check urine analysis, chest x-ray is within normal limits. 4. Underlying history of colon cancer was colostomy placement 5. Remote history of DVT patient is not on any blood thinners at this time 6. History of hypertension blood pressure is on the low side at this time, will hold off any medications and monitor closely 7. Anemia will add IV iron will follow labs in a.m. Will follow during this admission for medical management
[2019-07-18 14:46] LABS: Eosinophils # (M) 0.17 k/uL (0-0.7); Lymphocytes # (M) 0.68 k/uL (1.0-4.8); Monocytes # (M) 0.85 k/uL (0-1.0); Neutrophils % (M) 80 %; Nucleated Red Blood Cells 0 /100 WBC (0-0); Total Cells Counted 100
[2019-07-18] MEDS: SENNOSIDES-DOCUSATE SODIUM 1 EACH TAB PO SCH (22:01)
[2019-07-19] MEDS: SODIUM CHLORIDE 0.9% 1,000 ML IV SCH ×2 (01:29→15:00)
[2019-07-19] MEDS: LACTATED RINGERS 1,000 ML IV SCH ×3 (01:30→20:31)
[2019-07-19] MEDS: SODIUM FERRIC GLUCONAT-SUCROSE 125 MG in SODIUM CHLORIDE 0.9% 100 ML IVPB SCH (08:00)
[2019-07-19] MEDS: ENOXAPARIN 40 MG/0.4 ML SYRINGE SQ SCH (08:00)
[2019-07-19] MEDS: guaiFENesin 600 MG TABLET.ER PO SCH ×2 (08:00→20:31)
[2019-07-19 09:37] VITALS: BMI 21.6
[2019-07-19] MEDS: HYDROcodone/APAP 5-325MG 1 EACH TAB PO PRN ×2 (10:26→19:17)
--- NOTE | 2019-07-19 11:14 | P.PN ---
Subjective Progress Note Date: 07/19/19 Jamee Baldwin is an 83 -year-old female patient of Dr. Nuñez who presented to [facility] emergency room after tripping and falling at home and complaining of severe pain in the left thigh area. Patient stated that she tripped over her cat she denies any dizziness or loss of consciousness, she was having severe pain in the left thigh she was unable to stand or walk, she was brought into the hospital by EMS, x-ray in the emergency room revealed evidence of complete displaced fracture of the left femur. Orthopedic consultation was requested patient is admitted to medical floor. In the emergency room patient had closed reduction of the fracture with traction by Dr. Henriquez. Patient has a known history of DVT in 1993, she has history of colon cancer was colostomy placement, otherwise she denies any past medical history, there is no history of coronary artery disease or congestive heart failure, no history of asthma or COPD per patient. On 07/15/2019 patient was seen and examined on the medical floor, she is status post operative fixation of the left femoral shaft fracture with retrograde intramedullary nail placement, patient is alert and oriented 3 in no apparent distress, there is no fever or chills no headache or dizziness no chest pain no shortness of breath no cough no nausea or vomiting no abdominal pain no diarrhea no burning was urination no frequency or urgency and no hematuria. Echocardiogram was done and revealed normal left ventricular ejection fraction. On 07/16/2019 patient was seen and examined on the medical floor she is alert and oriented 3 in no apparent distress there is no fever or chills no headache or dizziness no chest pain no shortness of breath no cough no nausea or vomiting no abdominal pain no diarrhea ileostomy has normal amount of stool in the bag, no burning was urination no frequency or urgency and no hematuria, pain in her lower extremity is well-controlled. On 07/17/2019 patient was seen and examined on the medical floor she is alert and oriented 3 in no apparent distress, there is no fever or chills no headache or dizziness no chest pain no shortness of breath no cough no nausea or vomiting no abdominal pain no diarrhea and no urinary symptoms, hemoglobin is down to 7.4 patient is receiving IV iron no clinical evidence of gastrointestinal bleeding will check stools for Hemoccult on 07/18/2019 patient was seen and examined on the medical floor, she is still complaining of weakness and pain in her left lower extremity, otherwise she denies any complaints there is no fever or chills no headache or dizziness no chest pain no shortness of breath no cough no nausea or vomiting no abdominal pain no diarrhea and no urinary symptoms. Her UA from 2 days ago was abnormal and repeat urine analysis requested, patient is still having significant anemia she is receiving IV iron, stool was Hemoccult ordered. On 07/19/2019 patient was seen and examined on the medical floor she is still complaining of pain and weakness otherwise she denies any complaints she is and able to stand up or walk at this point there is no fever or chills no headache or dizziness no chest pain no shortness of breath no cough no nausea or vomiting no abdominal pain no diarrhea and no urinary symptoms patient still has anemia hemoglobin is down to 7.8 she is receiving IV iron will continue with current management will follow in a.m. Objective - Vital Signs Vital signs: Vital Signs Temp 98.9 F 07/19/19 07:00 Pulse 82 07/19/19 07:00 Resp 15 07/19/19 07:00 BP 128/63 07/19/19 07:00 Pulse Ox 94 L 07/19/19 07:00 Intake & Output 07/18/19 07/19/19 07/19/19 18:59 06:59 18:59 Intake Total 50 Output Total 100 Balance -100 50 Weight 58.967 kg Intake: Oral 50 Output: Stool 100 Other: Voiding Method Bedpan Bedpan # Voids 1 1 # Bowel Movements 1 - Exam In general patient is alert and oriented in no apparent distress HEENT head normocephalic and atraumatic Neck is supple no JVD no goiter no lymphadenopathy Chest exam reveals a few scattered crackles no wheezing Cardiac exam reveals regular heart sounds no gallops no murmurs Abdomen is soft nontender no organomegaly with normal bowel sounds Extremity exam reveals no edema with palpable peripheral pulses, left lower extremity is stabilized with traction. Neurological examination reveals no gross focal deficit - Labs CBC & Chem 7: 07/18/19 10:46 07/18/19 10:46 Labs: Abnormal Lab Results - Last 24 Hours (Table) 07/18/19 07/18/19 Range/Units 10:46 10:46 RBC 2.41 L (3.80-5.40) m/uL Hgb 7.8 L (11.4-16.0) gm/dL Hct 24.3 L (34.0-46.0) % MCV 100.6 H (80.0-100.0) fL Lymphocytes # (Manual) 0.68 L (1.0-4.8) k/uL Sodium 132 L (137-145) mmol/L BUN 20 H (7-17) mg/dL Calcium 8.3 L (8.4-10.2) mg/dL Total Bilirubin 1.8 H (0.2-1.3) mg/dL Total Protein 5.2 L (6.3-8.2) g/dL Albumin 2.8 L (3.5-5.0) g/dL Assessment and Plan Plan: 1. Fall was left femur fracture, orthopedic consultation requested patient will have surgery in the next 1-2 days 2. No previous history of cardiac disease, no symptoms suggestive of angina or congestive heart failure, EKG and chest x-ray are reviewed, there is no medical contraindication for surgery, patient is at increased risk due to her age. 3. No evidence of any infectious process at this time, white blood count is normal at 6.7, will check urine analysis, chest x-ray is within normal limits. 4. Underlying history of colon cancer was colostomy placement 5. Remote history of DVT patient is not on any blood thinners at this time 6. History of hypertension blood pressure is on the low side at this time, will hold off any medications and monitor closely 7. Anemia will add IV iron will follow labs in a.m. Will follow during this admission for medical management
--- NOTE | 2019-07-19 11:41 | P.PN ---
Subjective Progress Note Date: 07/19/19 Principal diagnosis: Left femur fracture Patient is seen at bedside this morning. She is postop day #4 from intramedullary nail fixation of left femur fracture.. She has pain at the surgical site as expected but denies any new complaints. She denies numbness, tingling or calf pain. Review of systems is negative for fever, chills, chest pain, shortness of breath or other Objective - Vital Signs Vital signs: Vital Signs Temp 98.9 F 07/19/19 07:00 Pulse 82 07/19/19 07:00 Resp 15 07/19/19 07:00 BP 128/63 07/19/19 07:00 Pulse Ox 94 L 07/19/19 07:00 Intake & Output 07/18/19 07/19/19 07/19/19 18:59 06:59 18:59 Intake Total 50 Output Total 100 Balance -100 50 Weight 58.967 kg Intake: Oral 50 Output: Stool 100 Other: Voiding Method Bedpan Bedpan # Voids 1 1 # Bowel Movements 1 - Exam Inspection shows knee immobilizer and bandage in place. There are benign surgical wounds with renetta in place. There is no active bleeding or drainage. Neurovascular status is intact throughout the lower extremity with motor and sensation fully intact. Calf is soft and nontender. 2+ dorsalis pedis pulse and less than 2 second cap refill is present. - Constitutional General appearance: Present: no acute distress - Labs CBC & Chem 7: 07/18/19 10:46 07/18/19 10:46 Labs: Abnormal Lab Results - Last 24 Hours (Table) 07/18/19 07/18/19 Range/Units 10:46 10:46 RBC 2.41 L (3.80-5.40) m/uL Hgb 7.8 L (11.4-16.0) gm/dL Hct 24.3 L (34.0-46.0) % MCV 100.6 H (80.0-100.0) fL Lymphocytes # (Manual) 0.68 L (1.0-4.8) k/uL Sodium 132 L (137-145) mmol/L BUN 20 H (7-17) mg/dL Calcium 8.3 L (8.4-10.2) mg/dL Total Bilirubin 1.8 H (0.2-1.3) mg/dL Total Protein 5.2 L (6.3-8.2) g/dL Albumin 2.8 L (3.5-5.0) g/dL Assessment and Plan (1) Femur fracture, left Narrative/Plan: She will continue with routine postop orthopedic protocol including pain management, wound care, PT, DVT prophylaxis and medical management. Expect her to transfer to [facility] in next few days. Discharge plan including weight bearing status, wound care as described. Current Visit: Yes Status: Acute Priority: Medium Code(s): S72.92XA - UNSP FRACTURE OF LEFT FEMUR, INIT ENCNTR FOR CLOSED FRACTURE SNOMED Code(s): 38317146 Time with Patient: Less than 30
[2019-07-19] MEDS: SENNOSIDES-DOCUSATE SODIUM 1 EACH TAB PO SCH (20:31)
[2019-07-20] MEDS: SODIUM CHLORIDE 0.9% 1,000 ML IV SCH ×2 (00:38→17:42)
[2019-07-20] MEDS: HYDROcodone/APAP 5-325MG 1 EACH TAB PO PRN ×3 (04:05→20:02)
[2019-07-20] MEDS: guaiFENesin 600 MG TABLET.ER PO SCH ×2 (07:51→20:02)
[2019-07-20] MEDS: ENOXAPARIN 40 MG/0.4 ML SYRINGE SQ SCH (07:51)
[2019-07-20 08:40] LABS: HCT 23.7 % (34.0-46.0); HGB 7.6 gm/dL (11.4-16.0); Hypochromasia Slight; MCH 31.9 pg (25.0-35.0); MCHC 31.9 g/dL (31.0-37.0); MCV 99.7 fL (80.0-100.0); Macrocytosis Slight; Mean Platelet Volume 7.4; Platelet Count 251 k/uL (150-450); RBC 2.38 m/uL (3.80-5.40); RDW 15.3 % (11.5-15.5); WBC 7.9 k/uL (3.8-10.6)
[2019-07-20 08:53] LABS: ALT 12 U/L (4-34); AST 29 U/L (14-36); African American GFR (CKD) >90 (>60 ml/min/1.73 sqM); Albumin 2.7 g/dL (3.5-5.0); Alkaline Phosphatase 54 U/L (38-126); Anion Gap 7 mmol/L; Blood Urea Nitrogen 19 mg/dL (7-17); Calcium 8.3 mg/dL (8.4-10.2); Carbon Dioxide 27 mmol/L (22-30); Chloride 99 mmol/L (98-107); Glucose 125 mg/dL (74-99); Non-African American GFR(CKD) 83 (>60 ml/min/1.73 sqM); Potassium 4.1 mmol/L (3.5-5.1); Sodium 133 mmol/L (137-145); Total Bilirubin 1.9 mg/dL (0.2-1.3)
[2019-07-20] MEDS: SODIUM FERRIC GLUCONAT-SUCROSE 125 MG in SODIUM CHLORIDE 0.9% 100 ML IVPB SCH (08:59)
[2019-07-20 09:28] LABS: Eosinophils # (M) 0.55 k/uL (0-0.7); Lymphocytes # (M) 1.66 k/uL (1.0-4.8); Monocytes # (M) 0.63 k/uL (0-1.0); Neutrophils # (M) 5.06 k/uL (1.3-7.7); Neutrophils % (M) 64 %; Nucleated Red Blood Cells 0 /100 WBC (0-0); Total Cells Counted 100
[2019-07-20] MEDS: LACTATED RINGERS 1,000 ML IV SCH (09:49)
--- NOTE | 2019-07-20 11:17 | P.PN ---
Subjective Progress Note Date: 07/20/19 Principal diagnosis: Left femur fracture Patient is seen at bedside this morning. She is postop day #5 from intramedullary nail fixation of left femur fracture.. She has pain at the surgical site as expected but denies any new complaints. She denies numbness, tingling or calf pain. Review of systems is negative for fever, chills, chest pain, shortness of breath or other Objective - Vital Signs Vital signs: Vital Signs Temp 98.1 F 07/20/19 07:00 Pulse 84 07/20/19 07:00 Resp 16 07/20/19 07:00 BP 118/69 07/20/19 07:00 Pulse Ox 96 07/20/19 07:00 Intake & Output 07/19/19 07/20/19 07/20/19 18:59 06:59 18:59 Intake Total 350 Output Total 900 650 Balance -900 -300 Weight 58.967 kg Intake: Intake, IV Titration 0 Amount Lactated Ringers 1,000 ml 0 @ 100 mls/hr IV .Q10H BLANCA Rx#:[id number] Sodium Chloride 0.9% 1, 0 000 ml @ 75 mls/hr IV . [id number] BLANCA Rx#:[id number] Oral 350 Output: Urine 350 Stool 900 150 Urine/Stool Mix 150 Other: Voiding Method Bedpan Bedpan # Voids 3 1 - Exam Inspection shows knee immobilizer and bandage in place. There are benign surgical wounds with renetta in place. There is no active bleeding or drainage. Neurovascular status is intact throughout the lower extremity with motor and sensation fully intact. Calf is soft and nontender. 2+ dorsalis pedis pulse and less than 2 second cap refill is present. - Constitutional General appearance: Present: no acute distress - Labs CBC & Chem 7: 07/20/19 07:58 07/20/19 07:58 Labs: Abnormal Lab Results - Last 24 Hours (Table) 07/20/19 07/20/19 Range/Units 07:58 07:58 RBC 2.38 L (3.80-5.40) m/uL Hgb 7.6 L (11.4-16.0) gm/dL Hct 23.7 L (34.0-46.0) % Sodium 133 L (137-145) mmol/L BUN 19 H (7-17) mg/dL Glucose 125 H (74-99) mg/dL Calcium 8.3 L (8.4-10.2) mg/dL Total Bilirubin 1.9 H (0.2-1.3) mg/dL Total Protein 5.0 L (6.3-8.2) g/dL Albumin 2.7 L (3.5-5.0) g/dL Assessment and Plan (1) Femur fracture, left Narrative/Plan: She will continue with routine postop orthopedic protocol including pain management, wound care, PT, DVT prophylaxis and medical management. Expect her to transfer to [facility] in next 1-2 days. Discharge plan including weight bearing st atus, wound care as described. Current Visit: Yes Status: Acute Priority: Medium Code(s): S72.92XA - UNSP FRACTURE OF LEFT FEMUR, INIT ENCNTR FOR CLOSED FRACTURE SNOMED Code(s): 52118258 Time with Patient: Less than 30
--- NOTE | 2019-07-20 12:49 | P.PN ---
Subjective Progress Note Date: 07/20/19 Jamee Baldwin is an 83 -year-old female patient of Dr. Nuñez who presented to [facility] emergency room after tripping and falling at home and complaining of severe pain in the left thigh area. Patient stated that she tripped over her cat she denies any dizziness or loss of consciousness, she was having severe pain in the left thigh she was unable to stand or walk, she was brought into the hospital by EMS, x-ray in the emergency room revealed evidence of complete displaced fracture of the left femur. Orthopedic consultation was requested patient is admitted to medical floor. In the emergency room patient had closed reduction of the fracture with traction by Dr. Henriquez. Patient has a known history of DVT in 1993, she has history of colon cancer was colostomy placement, otherwise she denies any past medical history, there is no history of coronary artery disease or congestive heart failure, no history of asthma or COPD per patient. On 07/15/2019 patient was seen and examined on the medical floor, she is status post operative fixation of the left femoral shaft fracture with retrograde intramedullary nail placement, patient is alert and oriented 3 in no apparent distress, there is no fever or chills no headache or dizziness no chest pain no shortness of breath no cough no nausea or vomiting no abdominal pain no diarrhea no burning was urination no frequency or urgency and no hematuria. Echocardiogram was done and revealed normal left ventricular ejection fraction. On 07/16/2019 patient was seen and examined on the medical floor she is alert and oriented 3 in no apparent distress there is no fever or chills no headache or dizziness no chest pain no shortness of breath no cough no nausea or vomiting no abdominal pain no diarrhea ileostomy has normal amount of stool in the bag, no burning was urination no frequency or urgency and no hematuria, pain in her lower extremity is well-controlled. On 07/17/2019 patient was seen and examined on the medical floor she is alert and oriented 3 in no apparent distress, there is no fever or chills no headache or dizziness no chest pain no shortness of breath no cough no nausea or vomiting no abdominal pain no diarrhea and no urinary symptoms, hemoglobin is down to 7.4 patient is receiving IV iron no clinical evidence of gastrointestinal bleeding will check stools for Hemoccult on 07/18/2019 patient was seen and examined on the medical floor, she is still complaining of weakness and pain in her left lower extremity, otherwise she denies any complaints there is no fever or chills no headache or dizziness no chest pain no shortness of breath no cough no nausea or vomiting no abdominal pain no diarrhea and no urinary symptoms. Her UA from 2 days ago was abnormal and repeat urine analysis requested, patient is still having significant anemia she is receiving IV iron, stool was Hemoccult ordered. On 07/19/2019 patient was seen and examined on the medical floor she is still complaining of pain and weakness otherwise she denies any complaints she is and able to stand up or walk at this point there is no fever or chills no headache or dizziness no chest pain no shortness of breath no cough no nausea or vomiting no abdominal pain no diarrhea and no urinary symptoms patient still has anemia hemoglobin is down to 7.8 she is receiving IV iron will continue with current management will follow in a.m. On 07/20/2019 patient was seen and examined on the medical floor she is alert and oriented 3 in no distress she is still complaining of pain in her left lower extremity and generalized weakness otherwise she denies any complaints there is no fever or chills no headache or dizziness no chest pain no shortness of breath no cough no nausea or vomiting no abdominal pain no diarrhea and no ur inary symptoms Objective - Vital Signs Vital signs: Vital Signs Temp 98.1 F 07/20/19 07:00 Pulse 84 07/20/19 07:00 Resp 16 07/20/19 07:00 BP 118/69 07/20/19 07:00 Pulse Ox 96 07/20/19 07:00 Intake & Output 07/19/19 07/20/19 07/20/19 18:59 06:59 18:59 Intake Total 350 Output Total 900 650 Balance -900 -300 Weight 58.967 kg Intake: Intake, IV Titration 0 Amount Lactated Ringers 1,000 ml 0 @ 100 mls/hr IV .Q10H [facility] Rx#:[id number] Sodium Chloride 0.9% 1, 0 000 ml @ 75 mls/hr IV . [id number] [facility] Rx#:[id number] Oral 350 Output: Urine 350 Stool 900 150 Urine/Stool Mix 150 Other: Voiding Method Bedpan Bedpan Bedpan # Voids 3 1 - Exam In general patient is alert and oriented in no apparent distress HEENT head normocephalic and atraumatic Neck is supple no JVD no goiter no lymphadenopathy Chest exam reveals a few scattered crackles no wheezing Cardiac exam reveals regular heart sounds no gallops no murmurs Abdomen is soft nontender no organomegaly with normal bowel sounds Extremity exam reveals no edema with palpable peripheral pulses, left lower extremity is stabilized with traction. Neurological examination reveals no gross focal deficit - Labs CBC & Chem 7: 07/20/19 07:58 07/20/19 07:58 Labs: Abnormal Lab Results - Last 24 Hours (Table) 07/20/19 07/20/19 Range/Units 07:58 07:58 RBC 2.38 L (3.80-5.40) m/uL Hgb 7.6 L (11.4-16.0) gm/dL Hct 23.7 L (34.0-46.0) % Sodium 133 L (137-145) mmol/L BUN 19 H (7-17) mg/dL Glucose 125 H (74-99) mg/dL Calcium 8.3 L (8.4-10.2) mg/dL Total Bilirubin 1.9 H (0.2-1.3) mg/dL Total Protein 5.0 L (6.3-8.2) g/dL Albumin 2.7 L (3.5-5.0) g/dL Assessment and Plan Plan: 1. Fall was left femur fracture, orthopedic consultation requested patient will have surgery in the next 1-2 days 2. No previous history of cardiac disease, no symptoms suggestive of angina or congestive heart failure, EKG and chest x-ray are reviewed, there is no medical contraindication for surgery, patient is at increased risk due to her age. 3. No evidence of any infectious process at this time, white blood count is normal at 6.7, will check urine analysis, chest x-ray is within normal limits. 4. Underlying history of colon cancer was colostomy placement 5. Remote history of DVT patient is not on any blood thinners at this time 6. History of hypertension blood pressure is on the low side at this time, will hold off any medications and monitor closely 7. Anemia will add IV iron will follow labs in a.m. 8. UTI patient is maintained on IV Rocephin Will follow during this admission for medical management
[2019-07-20] MEDS: SENNOSIDES-DOCUSATE SODIUM 1 EACH TAB PO SCH ×2 (20:02→20:04)
[2019-07-21] MEDS: SODIUM CHLORIDE 0.9% 1,000 ML IV SCH (04:22)
[2019-07-21] MEDS: HYDROcodone/APAP 5-325MG 1 EACH TAB PO PRN ×3 (04:22→18:00)
[2019-07-21] MEDS: ENOXAPARIN 40 MG/0.4 ML SYRINGE SQ SCH (07:16)
[2019-07-21] MEDS: guaiFENesin 600 MG TABLET.ER PO SCH ×2 (07:16→20:17)
[2019-07-21] MEDS: SODIUM FERRIC GLUCONAT-SUCROSE 125 MG in SODIUM CHLORIDE 0.9% 100 ML IVPB SCH (09:58)
--- NOTE | 2019-07-21 11:28 | P.PN ---
Subjective Progress Note Date: 07/21/19 Principal diagnosis: Left femur fracture Patient is seen at bedside this morning. She is postop day #6 from intramedullary nail fixation of left femur fracture.. She has pain at the surgical site as expected but denies any new complaints. She denies numbness, tingling or calf pain. Review of systems is negative for fever, chills, chest pain, shortness of breath or other Objective - Vital Signs Vital signs: Vital Signs Temp 98.2 F 07/21/19 07:00 Pulse 74 07/21/19 07:00 Resp 17 07/21/19 07:00 BP 117/69 07/21/19 07:00 Pulse Ox 97 07/21/19 07:00 Intake & Output 07/20/19 07/21/19 07/21/19 18:59 06:59 18:59 Intake Total 375 Output Total 200 Balance 175 Intake: Intake, IV Titration 375 Amount Sodium Chloride 0.9% 1, 375 000 ml @ 75 mls/hr IV . [id number] [facility] Rx#:[id number] Output: Stool 200 Other: Voiding Method Bedpan Bedpan # Voids 4 3 # Bowel Movements 250 - Exam Inspection shows knee immobilizer and bandage in place. There are benign surgical wounds with renetta in place. There is no active bleeding or drainage. Neurovascular status is intact throughout the lower extremity with motor and sensation fully intact. Calf is soft and nontender. 2+ dorsalis pedis pulse and less than 2 second cap refill is present. - Constitutional General appearance: Present: no acute distress - Labs CBC & Chem 7: 07/20/19 07:58 07/20/19 07:58 Assessment and Plan (1) Femur fracture, left Narrative/Plan: She will continue with routine postop orthopedic protocol including pain management, wound care, PT, DVT prophylaxis and medical management. Expect her to transfer to [facility] tomorrow Sunday. Discharge plan including weight bearing status, wound care as described. Current Visit: Yes Status: Acute Priority: Medium Code(s): S72.92XA - UNSP FRACTURE OF LEFT FEMUR, INIT ENCNTR FOR CLOSED FRACTURE SNOMED Code(s): 38771598 Time with Patient: Less than 30
--- NOTE | 2019-07-21 14:10 | P.PN ---
Subjective Progress Note Date: 07/21/19 Jamee Baldwin is an 83 -year-old female patient of Dr. Nuñez who presented to [facility] emergency room after tripping and falling at home and complaining of severe pain in the left thigh area. Patient stated that she tripped over her cat she denies any dizziness or loss of consciousness, she was having severe pain in the left thigh she was unable to stand or walk, she was brought into the hospital by EMS, x-ray in the emergency room revealed evidence of complete displaced fracture of the left femur. Orthopedic consultation was requested patient is admitted to medical floor. In the emergency room patient had closed reduction of the fracture with traction by Dr. Henriquez. Patient has a known history of DVT in 1993, she has history of colon cancer was colostomy placement, otherwise she denies any past medical history, there is no history of coronary artery disease or congestive heart failure, no history of asthma or COPD per patient. On 07/15/2019 patient was seen and examined on the medical floor, she is status post operative fixation of the left femoral shaft fracture with retrograde intramedullary nail placement, patient is alert and oriented 3 in no apparent distress, there is no fever or chills no headache or dizziness no chest pain no shortness of breath no cough no nausea or vomiting no abdominal pain no diarrhea no burning was urination no frequency or urgency and no hematuria. Echocardiogram was done and revealed normal left ventricular ejection fraction. On 07/16/2019 patient was seen and examined on the medical floor she is alert and oriented 3 in no apparent distress there is no fever or chills no headache or dizziness no chest pain no shortness of breath no cough no nausea or vomiting no abdominal pain no diarrhea ileostomy has normal amount of stool in the bag, no burning was urination no frequency or urgency and no hematuria, pain in her lower extremity is well-controlled. On 07/17/2019 patient was seen and examined on the medical floor she is alert and oriented 3 in no apparent distress, there is no fever or chills no headache or dizziness no chest pain no shortness of breath no cough no nausea or vomiting no abdominal pain no diarrhea and no urinary symptoms, hemoglobin is down to 7.4 patient is receiving IV iron no clinical evidence of gastrointestinal bleeding will check stools for Hemoccult on 07/18/2019 patient was seen and examined on the medical floor, she is still complaining of weakness and pain in her left lower extremity, otherwise she denies any complaints there is no fever or chills no headache or dizziness no chest pain no shortness of breath no cough no nausea or vomiting no abdominal pain no diarrhea and no urinary symptoms. Her UA from 2 days ago was abnormal and repeat urine analysis requested, patient is still having significant anemia she is receiving IV iron, stool was Hemoccult ordered. On 07/19/2019 patient was seen and examined on the medical floor she is still complaining of pain and weakness otherwise she denies any complaints she is and able to stand up or walk at this point there is no fever or chills no headache or dizziness no chest pain no shortness of breath no cough no nausea or vomiting no abdominal pain no diarrhea and no urinary symptoms patient still has anemia hemoglobin is down to 7.8 she is receiving IV iron will continue with current management will follow in a.m. On 07/20/2019 patient was seen and examined on the medical floor she is alert and oriented 3 in no distress she is still complaining of pain in her left lower extremity and generalized weakness otherwise she denies any complaints there is no fever or chills no headache or dizziness no chest pain no shortness of breath no cough no nausea or vomiting no abdominal pain no diarrhea and no ur inary symptoms. On 07/21/2019 patient was seen and examined on the medical floor she is alert and oriented in no distress she is complaining of some discomfort at the IV site in the left upper extremity with evidence of some infiltration she is complaining of lower extremity pain otherwise she denies any complaints there is no fever or chills no headache or dizziness no chest pain no shortness of breath no cough no nausea or vomiting no abdominal pain no diarrhea no burning was urination no frequency or urgency and no hematuria Objective - Vital Signs Vital signs: Vital Signs Temp 98.2 F 07/21/19 07:00 Pulse 74 07/21/19 07:00 Resp 17 07/21/19 07:00 BP 117/69 07/21/19 07:00 Pulse Ox 97 07/21/19 07:00 Intake & Output 07/20/19 07/21/19 07/21/19 18:59 06:59 18:59 Intake Total 375 Output Total 200 Balance 175 Intake: Intake, IV Titration 375 Amount Sodium Chloride 0.9% 1, 375 000 ml @ 75 mls/hr IV . [id number] [facility] Rx#:[id number] Output: Stool 200 Other: Voiding Method Bedpan Bedpan # Voids 4 3 # Bowel Movements 250 - Exam In general patient is alert and oriented in no apparent distress HEENT head normocephalic and atraumatic Neck is supple no JVD no goiter no lymphadenopathy Chest exam reveals a few scattered crackles no wheezing Cardiac exam reveals regular heart sounds no gallops no murmurs Abdomen is soft nontender no organomegaly with normal bowel sounds Extremity exam reveals no edema with palpable peripheral pulses, left lower extremity is stabilized with traction. Neurological examination reveals no gross focal deficit - Labs CBC & Chem 7: 07/20/19 07:58 07/20/19 07:58 Assessment and Plan Plan: 1. Fall was left femur fracture, orthopedic consultation requested patient will have surgery in the next 1-2 days 2. No previous history of cardiac disease, no symptoms suggestive of angina or congestive heart failure, EKG and chest x-ray are reviewed, there is no medical contraindication for surgery, patient is at increased risk due to her age. 3. No evidence of any infectious process at this time, white blood count is normal at 6.7, will check urine analysis, chest x-ray is within normal limits. 4. Underlying history of colon cancer was colostomy placement 5. Remote history of DVT patient is not on any blood thinners at this time 6. History of hypertension blood pressure is on the low side at this time, will hold off any medications and monitor closely 7. Anemia will add IV iron will follow labs in a.m. 8. UTI patient is maintained on IV Rocephin Will follow during this admission for medical management
[2019-07-21 16:41] LABS: Amorphous Sediment,Urine Rare /hpf; Appearance,Urine Clear (Clear); Bilirubin,Urine Negative (Negative); Blood,Urine Negative (Negative); Budding Yeast,Urine Rare /hpf; Color,Urine Yellow; Glucose,Urine (UA) Negative (Negative); Ketones,Urine Negative (Negative); Leukocyte Esterase,Urine Large (Negative); Mucus,Urine Occasional /hpf; Nitrite,Urine Negative (Negative); PH, Urine 5.5 (5.0-8.0); Protein,Urine Trace (Negative); RBC,Urine 2 /hpf (0-5); Specific Gravity,Urine 1.028 (1.001-1.035); Squamous Epithelial Cell,Urine 1 /hpf (0-4); Urobilinogen,Urine <2.0 mg/dL (<2.0); WBC,Urine 27 /hpf (0-5)
[2019-07-21] MEDS: FERROUS SULFATE 325 MG TAB PO SCH (17:58)
[2019-07-21] MEDS: SENNOSIDES-DOCUSATE SODIUM 1 EACH TAB PO SCH (20:12)
[2019-07-22 02:59] VITALS: RESP 18
[2019-07-22] MEDS: FERROUS SULFATE 325 MG TAB PO SCH (07:16)
[2019-07-22] MEDS: guaiFENesin 600 MG TABLET.ER PO SCH (07:17)
[2019-07-22] MEDS: ENOXAPARIN 40 MG/0.4 ML SYRINGE SQ SCH (07:17)
[2019-07-22 08:09] LABS: ALT 12 U/L (4-34); AST 28 U/L (14-36); African American GFR (CKD) >90 (>60 ml/min/1.73 sqM); Albumin 2.5 g/dL (3.5-5.0); Alkaline Phosphatase 59 U/L (38-126); Anion Gap 3 mmol/L; Blood Urea Nitrogen 17 mg/dL (7-17); Calcium 8.3 mg/dL (8.4-10.2); Carbon Dioxide 30 mmol/L (22-30); Chloride 99 mmol/L (98-107); Glucose 97 mg/dL (74-99); Non-African American GFR(CKD) 85 (>60 ml/min/1.73 sqM); Potassium 4.2 mmol/L (3.5-5.1); Sodium 132 mmol/L (137-145); Total Protein 4.7 g/dL (6.3-8.2)
[2019-07-22 08:23] LABS: Anisocytosis Slight; HCT 24.8 % (34.0-46.0); HGB 7.8 gm/dL (11.4-16.0); Hypochromasia Slight; MCHC 31.4 g/dL (31.0-37.0); MCV 101.8 fL (80.0-100.0); Macrocytosis Slight; Mean Platelet Volume 7.1; Platelet Count 275 k/uL (150-450); RBC 2.43 m/uL (3.80-5.40); RDW 16.4 % (11.5-15.5); WBC 9.5 k/uL (3.8-10.6)
[2019-07-22 08:42] VITALS: BP 120/64; PULSE 94; TEMP 98.4
[2019-07-22 08:56] LABS: Eosinophils # (M) 0.19 k/uL (0-0.7); Lymphocytes # (M) 0.95 k/uL (1.0-4.8); Monocytes # (M) 0.86 k/uL (0-1.0); Neutrophils # (M) 7.51 k/uL (1.3-7.7); Neutrophils % (M) 79 %; Nucleated Red Blood Cells 0 /100 WBC (0-0); Total Cells Counted 100
[2019-07-22 08:57] LABS: Polychromasia Present
[2019-07-22] MEDS ORDERED: CEFDINIR 300 MG CAP PO SCH (09:00)
--- NOTE | 2019-07-22 09:04 | P.DS ---
Providers Date of admission: 07/14/19 13:08 Expected date of discharge: 07/22/19 Attending physician: Humphrey Vazquez Consults: 07/14/19 13:19 Consult Physician Routine Consulting Provider: Jarvis Limon Consult Reason/Comments: medical consult - medical clearance for surgery tomorrow Do you want consulting provider notified?: Yes Primary care physician: Harish Gaston [facility] Course: The patient is a very pleasant 83-year-old female who sustained a distal third diaphyseal femur fracture. She was admitted under my care and cleared for surgery. She underwent an uncomplicated surgery. She had postoperative anemia that was relatively asymptomatic. She is mobilized with physical therapy and and done well. Internal medicine is managed for perioperative medical issues. She has been cleared to discharge him a likely leave today to [facility]. Patient Condition at Discharge: Good Plan - Discharge Summary Discharge Rx Participant: No New Discharge Prescriptions: New Enoxaparin [Lovenox] 40 mg SQ DAILY #28 syringe Hydrocodone/Acetaminophen [[place] 5-325] 1 - 2 each PO Q6HR PRN #56 tab PRN Reason: Pain No Action Unknown Blood Pressure Medication 0.5 tab PO DAILY PRN PRN Reason: Blood Pressure - High L.acidoph,Paracasei, B.lactis [Probiotic] 1 cap PO DAILY Discharge Medication List L.acidoph,Paracasei, B.lactis [Probiotic] 1 cap PO DAILY 07/14/19 [History] Unknown Blood Pressure Medication 0.5 tab PO DAILY PRN 07/14/19 [History] Enoxaparin [Lovenox] 40 mg SQ DAILY #28 syringe 07/16/19 [Rx] Hydrocodone/Acetaminophen [[place] 5-325] 1 - 2 each PO Q6HR PRN #56 tab 07/17/19 [Rx] Follow up Appointment(s)/Referral(s): Harish Nuñez MD [Primary Care Provider] - 1-2 days Humphrey Vazquez MD [Medical Doctor] - 2 Weeks Activity/Diet/Wound Care/Special Instructions: Toe-touch weightbearing on operative extremity. Up with assistance, with a walker. Lovenox for 4 weeks for DVT prophylaxis. Pain medications as prescribed. Daily dressing changes to incision sites. Follow-up appointment in the office with Dr. Vazquez in 2 weeks. Call the office with any questions or concerns Discharge Disposition: TRANSFER TO SNF/ECF
[2019-07-22] MEDS: HYDROcodone/APAP 5-325MG 1 EACH TAB PO PRN (11:14)
--- NOTE | 2019-07-22 12:28 | P.PN ---
Subjective Progress Note Date: 07/22/19 Jamee Baldwin is an 83 -year-old female patient of Dr. Nuñez who presented to [facility] emergency room after tripping and falling at home and complaining of severe pain in the left thigh area. Patient stated that she tripped over her cat she denies any dizziness or loss of consciousness, she was having severe pain in the left thigh she was unable to stand or walk, she was brought into the hospital by EMS, x-ray in the emergency room revealed evidence of complete displaced fracture of the left femur. Orthopedic consultation was requested patient is admitted to medical floor. In the emergency room patient had closed reduction of the fracture with traction by Dr. Henriquez. Patient has a known history of DVT in 1993, she has history of colon cancer was colostomy placement, otherwise she denies any past medical history, there is no history of coronary artery disease or congestive heart failure, no history of asthma or COPD per patient. On 07/15/2019 patient was seen and examined on the medical floor, she is status post operative fixation of the left femoral shaft fracture with retrograde intramedullary nail placement, patient is alert and oriented 3 in no apparent distress, there is no fever or chills no headache or dizziness no chest pain no shortness of breath no cough no nausea or vomiting no abdominal pain no diarrhea no burning was urination no frequency or urgency and no hematuria. Echocardiogram was done and revealed normal left ventricular ejection fraction. On 07/16/2019 patient was seen and examined on the medical floor she is alert and oriented 3 in no apparent distress there is no fever or chills no headache or dizziness no chest pain no shortness of breath no cough no nausea or vomiting no abdominal pain no diarrhea ileostomy has normal amount of stool in the bag, no burning was urination no frequency or urgency and no hematuria, pain in her lower extremity is well-controlled. On 07/17/2019 patient was seen and examined on the medical floor she is alert and oriented 3 in no apparent distress, there is no fever or chills no headache or dizziness no chest pain no shortness of breath no cough no nausea or vomiting no abdominal pain no diarrhea and no urinary symptoms, hemoglobin is down to 7.4 patient is receiving IV iron no clinical evidence of gastrointestinal bleeding will check stools for Hemoccult on 07/18/2019 patient was seen and examined on the medical floor, she is still complaining of weakness and pain in her left lower extremity, otherwise she denies any complaints there is no fever or chills no headache or dizziness no chest pain no shortness of breath no cough no nausea or vomiting no abdominal pain no diarrhea and no urinary symptoms. Her UA from 2 days ago was abnormal and repeat urine analysis requested, patient is still having significant anemia she is receiving IV iron, stool was Hemoccult ordered. On 07/19/2019 patient was seen and examined on the medical floor she is still complaining of pain and weakness otherwise she denies any complaints she is and able to stand up or walk at this point there is no fever or chills no headache or dizziness no chest pain no shortness of breath no cough no nausea or vomiting no abdominal pain no diarrhea and no urinary symptoms patient still has anemia hemoglobin is down to 7.8 she is receiving IV iron will continue with current management will follow in a.m. On 07/20/2019 patient was seen and examined on the medical floor she is alert and oriented 3 in no distress she is still complaining of pain in her left lower extremity and generalized weakness otherwise she denies any complaints there is no fever or chills no headache or dizziness no chest pain no shortness of breath no cough no nausea or vomiting no abdominal pain no diarrhea and no ur inary symptoms. On 07/21/2019 patient was seen and examined on the medical floor she is alert and oriented in no distress she is complaining of some discomfort at the IV site in the left upper extremity with evidence of some infiltration she is complaining of lower extremity pain otherwise she denies any complaints there is no fever or chills no headache or dizziness no chest pain no shortness of breath no cough no nausea or vomiting no abdominal pain no diarrhea no burning was urination no frequency or urgency and no hematuria On 07/22/2019 patient was seen and examined on the medical floor, she is alert and oriented 3 in no apparent distress there is no fever or chills no headache or dizziness no chest pain no shortness of breath no cough no nausea or vomiting no abdominal pain no diarrhea no burning with urination no frequency or urgency and no hematuria, patient is still having evidence of urinary tract infection on repeat urine analysis, she was given a course of Ceftin ER 300 mg twice daily for 7 days, she was cleared for discharge by orthopedic surgery and should be transferred to detention today, he should continue on iron sulfate 325 mg twice daily, her hemoglobin today is 7.8, she should also continue on Lovenox 40 mg subcu once daily for 28 days, she was given a prescription for [place] 06/28/2024 one every 6 hours when necessary , I Will follow [facility] at the [facility]. Objective - Vital Signs Vital signs: Vital Signs Temp 98.4 F 07/22/19 07:00 Pulse 94 07/22/19 07:00 Resp 18 07/22/19 07:15 BP 120/64 07/22/19 07:00 Pulse Ox 97 07/22/19 07:00 Intake & Output 07/21/19 07/22/19 07/22/19 18:59 06:59 18:59 Intake Total 540 Balance 540 Intake: Oral 540 Other: Voiding Method Bedpan # Voids 3 3 # Bowel Movements 2 1 - Exam In general patient is alert and oriented in no apparent distress HEENT head normocephalic and atraumatic Neck is supple no JVD no goiter no lymphadenopathy Chest exam reveals a few scattered crackles no wheezing Cardiac exam reveals regular heart sounds no gallops no murmurs Abdomen is soft nontender no organomegaly with normal bowel sounds Extremity exam reveals no edema with palpable peripheral pulses, left lower extremity is stabilized with traction. Neurological examination reveals no gross focal deficit - Labs CBC & Chem 7: 07/22/19 07:14 07/22/19 07:14 Labs: Abnormal Lab Results - Last 24 Hours (Table) 07/21/19 07/22/19 07/22/19 Range/Units 15:40 07:14 07:14 RBC 2.43 L (3.80-5.40) m/uL Hgb 7.8 L (11.4-16.0) gm/dL Hct 24.8 L (34.0-46.0) % MCV 101.8 H (80.0-100.0) fL RDW 16.4 H (11.5-15.5) % Lymphocytes # (Manual) 0.95 L (1.0-4.8) k/uL Sodium 132 L (137-145) mmol/L Calcium 8.3 L (8.4-10.2) mg/dL Total Bilirubin 2.0 H (0.2-1.3) mg/dL Total Protein 4.7 L (6.3-8.2) g/dL Albumin 2.5 L (3.5-5.0) g/dL Urine Protein Trace H (Negative) Ur Leukocyte Esterase Large H (Negative) Urine WBC 27 H (0-5) /hpf Amorphous Sediment Rare H (None) /hpf Urine Mucus Occasional H (None) /hpf Urine Yeast (Budding) Rare H (None) /hpf Assessment and Plan Plan: 1. Fall was left femur fracture, orthopedic consultation requested patient will have surgery in the next 1-2 days 2. No previous history of cardiac disease, no symptoms suggestive of angina or congestive heart failure, EKG and chest x-ray are reviewed, there is no medical contraindication for surgery, patient is at increased risk due to her age. 3. No evidence of any infectious process at this time, white blood count is normal at 6.7, will check urine analysis, chest x-ray is within normal limits. 4. Underlying history of colon cancer was colostomy placement 5. Remote history of DVT patient is not on any blood thinners at this time 6. History of hypertension blood pressure is on the low side at this time, will hold off any medications and monitor closely 7. Anemia will add IV iron will follow labs in a.m. 8. UTI patient is maintained on IV Rocephin Will follow during this admission for medical management
--- NOTE | 2019-07-24 07:20 | CDI ---
Documentation Clarification Form Date: 07/24/19 From: Shbanam Villegas Phone: If you have a question about this query, please contact Ondina Muhammad Stationary Engineer at [phone] between 8am and 5pm. Admit Date: 07/14/19 Discharge Date:04/23/19 Patient Name: Jamee Baldwin Visit Number: [id number] ATTENTION: The Clinical Documentation Specialists (CDI) and [facility] Coding Staff appreciate your assistance in clarifying documentation. Please respond to the clarification below the line at the bottom and electronically sign. The CDI & [facility] Coding staff will review the response and follow-up if needed. Please note: Queries are made part of the Legal Health Record. If you have any questions, please contact the author of this message via ITS. Dear Dr. Vazquez Patient has been diagnosed with a fracture of the left femoral shaft. History/Risk Factors: Osteoporosis, history of colon cancer, fall involving tripping over her cat Clinical Indications: Left leg pain and disfigurement X-Ray Results: Fracture of the left femur Treatment: Intramedullary nail. In your professional opinion, please specify the following: Etiology of fracture: Traumatic Pathological (specify cause): Neoplastic disease Osteoporosis Other (please specify): Unable to determine Also, indicate any associated diagnosis/conditions related to the Fracture in your documentation. Traumatic MTDD
--- NOTE | 2019-07-24 07:37 | CDI ---
Documentation Clarification Form Date: 07/24/19 From: Shabnam Villegas Phone: If you have a question about this query, please contact Ondina Muhammad Stem Maker at [phone] between 8am and 5pm. Admit Date: 07/14/19 Discharge Date:07/22/19 Patient Name: Jamee Baldwin Visit Number: [id number] ATTENTION: The Clinical Documentation Specialists (CDI) and [facility] Coding Staff appreciate your assistance in clarifying documentation. Please respond to the clarification below the line at the bottom and electronically sign. The CDI & [facility] Coding staff will review the response and follow-up if needed. Please note: Queries are made part of the Legal Health Record. If you have any questions, please contact the author of this message via ITS. Dear Dr. Limon Preoperative anemia is documented in the procedure note postoperative anemia is documented in the discharge summary. Anemia is documented in your progress notes. History/Risk Factors: Fracture of left femure, osteoporosis, elderly female Clinical indicators: Decreased hgb Hemoglobin: 11.4 on admit, 07/14 - 9.3 preop, 9.2 postop, 07/15 7/6, 07/16 - 7.4, 8.1, 07/17 - 7.8, Hematocrit: 34.9 on admit, 07/14 - 28.4 preop, 27.4 postop, 07/15 23.1, 07/16 - 23.2, 25.1, 07/17 - 24.3 Treatment: IV Iron In order to capture the severity of condition, please clarify the type of anemia and etiology if known:. Acute blood loss anemia Acute on chronic blood loss anemia Chronic blood loss anemia Iron deficiency anemia Nutritional anemia Unable to determine Other, please specify Acute on chronic blood loss anemia MTDD
== END 2019-07-22 15:44 | DRG 481 ==
LOC: EC 11:47 → 4SSUR 13:08
PROVIDERS: ADMIT Orthopaedic Surgery; ATTEND Orthopaedic Surgery
PROC: 0QS9XZZ Reposition Left Femoral Shaft, External Approach (ICD-10-PCS; 2019-07-14)
PROC: 2W6RX0Z Traction of Left Lower Leg using Traction Apparatus (ICD-10-PCS; 2019-07-14)
PROC: 0QS906Z Reposition Left Femoral Shaft with Intramedullary Internal Fixation Device, Open Approach (ICD-10-PCS; principal; 2019-07-15 15:15)
DX: S72.302A Unspecified fracture of shaft of left femur, initial encounter for closed fracture (principal); N39.0 Urinary tract infection, site not specified; D62 Acute posthemorrhagic anemia; I10 Essential (primary) hypertension; M17.12 Unilateral primary osteoarthritis, left knee; Z11.59 Encounter for screening for other viral diseases; Z79.82 Long term (current) use of aspirin; Z85.038 Personal history of other malignant neoplasm of large intestine; Z86.718 Personal history of other venous thrombosis and embolism; Z93.3 Colostomy status; Z88.1 Allergy status to other antibiotic agents; Z88.0 Allergy status to penicillin; Z90.49 Acquired absence of other specified parts of digestive tract; Z82.3 Family history of stroke; W01.0XXA Fall on same level from slipping, tripping and stumbling without subsequent striking against object, initial encounter; Y92.009 Unspecified place in unspecified non-institutional (private) residence as the place of occurrence of the external cause
CPT/HCPCS: 27502; 36415; 71045; 80053; 81001; 82306; 85025; 85610; 85730; 87086; 87635; 93005; 93306; 96374; 96375; 96376; 99152; 99153; 99285

== ENCOUNTER 2021-02-20 23:09 | Inpatient (IN) | payer MEDICARE, OTHER ==
[2021-02-20] MEDS ORDERED: SODIUM CHLORIDE 0.9% 1,000 ML IV STA (23:17)
[2021-02-20] MEDS ORDERED: MORPHINE SULFATE 4 MG/ML SYRINGE IV STA (23:17)
[2021-02-21 01:18] LABS: Basophils % (A) 0 %; Eosinophils % (A) 0 %; HCT 39.5 % (34.0-46.0); Lymphocytes # (A) 0.5 k/uL (1.0-4.8); Lymphocytes % (A) 3 %; MCH 33.8 pg (25.0-35.0); MCHC 32.8 g/dL (31.0-37.0); MCV 103.1 fL (80.0-100.0); Macrocytosis Slight; Monocytes # (A) 0.6 k/uL (0-1.0); Monocytes % (A) 4 %; Neutrophils # (A) 16.5 k/uL (1.3-7.7); Neutrophils % (A) 93 %; Platelet Count 243 k/uL (150-450); RBC 3.84 m/uL (3.80-5.40); RDW 12.5 % (11.5-15.5); WBC 17.8 k/uL (3.8-10.6)
[2021-02-21 01:34] LABS: Potassium 4.7 mmol/L (3.5-5.1); Total Bilirubin 1.7 mg/dL (0.2-1.3); Total Protein 6.7 g/dL (6.3-8.2)
--- NOTE | 2021-02-21 03:32 | XR ---
EXAMINATION TYPE: XR knee limited bilateral DATE OF EXAM: 02/21/2021 COMPARISON: NONE HISTORY: Fall. Pain TECHNIQUE: 2 views each knee FINDINGS: There is intramedullary kailey and transverse views in the left femur. This is fixing an old f racture of the midshaft of the femur. There is osteopenia. There is some vascular calcification. The right knee appears anatomic. There is bilateral narrowing of the patellofemoral joint spaces. There i s mild spurring of the femoral and tibial condyles. 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 No acute fracture seen. Osteopenia.
[2021-02-21] MEDS ORDERED: metroNIDAZOLE-NS PMX 500 MG in SALINE 1 100ML.BAG IVPB STA (03:50)
[2021-02-21] MEDS ORDERED: NALOXONE 0.4 MG/ML 1 ML VIAL IV PRN (03:55)
[2021-02-21] MEDS ORDERED: MORPHINE SULFATE 4 MG/ML SYRINGE IV PRN (03:55)
--- NOTE | 2021-02-21 03:55 | CT ---
EXAMINATION TYPE: CT abdomen pelvis wo con DATE OF EXAM: 02/21/2021 COMPARISON: None HISTORY: abdominal pain. no prior on PACS CT DLP: 378.3 mGycm Automated exposure control for dose reduction was used. Images obtained from the diaphragm to the floor of the pelvis without contrast. There are some linear interstitial densities and atelectasis at the lung bases. Heart is slightly enlarged. There is no si gnificant pleural fluid. There is no significant pericardial effusion. Liver and spleen appear intact. The bile ducts are nondilated. Gallbladder is large and measures 4.8 cm. There is no evidence of pancreatic mass. There is no adrenal mass. Right kidney shows moderate hydronephrosis and hydroureter. Bladder distend s smoothly. Left kidney shows no sign of obstruction. There is no retroperitoneal adenopathy. Abdomin al aorta is atheromatous. Bladder distends smoothly. There are multiple uterine calcifications. There is small amount of free fluid in the pelvis. There is a ileostomy in the left lower quadrant. There are multiple dilated air and fluid-filled smal l bowel loops in the mid abdomen. Small bowel dilated up to 3.6 cm. 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 There is osteopenia and biconcave deformity of multiple lumbar vertebra with up to 50% loss of height . There is severe spinal stenosis at multiple levels of the lower lumbar spine. There is intramedulla ry kailey in the left femur. The hip joints are intact. IMPRESSION: There is right-sided hydronephrosis and hydroureter with ureter dilated down to the distal ureter and the nature of an obstruction is not clear. No evidence of renal obstruction on the left side. Multiple dilated small bowel loops suggestive of mechanical small bowel obstruction that appears to b e at the level of the ileostomy. Fibrotic changes and subsegmental atelectasis at the lung bases.
[2021-02-21] MEDS ORDERED: CEFEPIME 2 GM in SODIUM CHLORIDE 0.9% 100 ML IVPB SCH (04:00)
[2021-02-21] MEDS ORDERED: SODIUM CHLORIDE 0.9% 1,000 ML IV SCH (04:00)
--- NOTE | 2021-02-21 04:02 | ED ---
Abdominal Pain HPI - General Chief Complaint: Abdominal Pain Stated Complaint: Fall, Abdominal Pain Time Seen by Provider: 02/20/21 23:11 Source: patient, RN notes reviewed Mode of arrival: EMS - History of Present Illness Initial Comments: Patient is an 85-year-old female that presents to the emergency department complaining of abdominal pain. She notes that she is also having bilateral knee pain after she actually fell out of her son's truck. EMS notes that she does have some abrasions to her knees. She was complaining of left knee pain the most out of the tube. She notes that she did have a replacement done on that leg. She notes she does have an ostomy that she has had for many years. She notes that her stomach is been hurting all day today around 10 PM last night and got too bad so she came emergently. She denied any chest pain shortness of breath headache diarrhea constipation fever fatigue chills. - Related Data Home Medications Medication Instructions Recorded Confirmed L.acidoph,Paracasei, B.lactis 1 cap PO DAILY 07/14/19 07/14/19 [Probiotic] Previous Rx's Medication Instructions Recorded Enoxaparin [Lovenox] 40 mg SQ DAILY #28 syringe 07/16/19 Hydrocodone/Acetaminophen [Max 1 - 2 each PO Q6HR PRN #56 tab 07/17/19 5-325] Cefdinir [Omnicef] 300 mg PO BID 7 Days #14 cap 07/22/19 Enoxaparin [Lovenox] 40 mg SQ DAILY 28 Days #28 syringe 07/22/19 Ferrous Sulfate [Iron (65 MG 325 mg PO BID-W/MEALS tab 07/22/19 Elemental)] HYDROcodone/APAP 5-325MG [Max 1 each PO Q6HR PRN tab 07/22/19 5-325] Allergies Allergy/AdvReac Type Severity Reaction Status Date / Time ciprofloxacin [From Cipro] Allergy Unknown Verified 07/14/19 13:43 Penicillins Allergy Unknown Verified 07/14/19 13:43 Childhood Review of Systems ROS Statement: Those systems with pertinent positive or pertinent negative responses have been documented in the HPI. ROS Other: All systems not noted in ROS Statement are negative. Past Medical History Past Medical History: Deep Vein Thrombosis (DVT) Additional Past Medical History / Comment(s): colon cancer (1991 diagnosed), slip disc in back History of Any Multi-Drug Resistant Organisms: None Reported Past Surgical History: Appendectomy, Section Additional Past Surgical History / Comment(s): ileostomy, L Leg Andre Past Anesthesia/Blood Transfusion Reactions: No Reported Reaction Past Psychological History: No Psychological Hx Reported Past Alcohol Use History: None Reported Past Drug Use History: None Reported - Past Family History Father Family Medical History: CVA/TIA Mother Family Medical History: CVA/TIA General Exam General appearance: alert, in no apparent distress Head exam: Present: atraumatic, normocephalic, normal inspection Eye exam: Present: normal appearance, PERRL, EOMI. Absent: scleral icterus, conjunctival injection, periorbital swelling ENT exam: Present: normal exam, mucous membranes moist Neck exam: Present: normal inspection Respiratory exam: Present: normal lung sounds bilaterally. Absent: respiratory distress, wheezes, rales, rhonchi, stridor Cardiovascular Exam: Present: regular rate, normal rhythm, normal heart sounds. Absent: systolic murmur, diastolic murmur, rubs, gallop, clicks GI/Abdominal exam: Present: soft, tenderness (Generalized throughout), normal bowel sounds. Absent: distended, guarding, rebound, rigid Extremities exam: Present: normal inspection, full ROM, normal capillary refill. Absent: tenderness, pedal edema, joint swelling, calf tenderness Neurological exam: Present: alert, oriented X3 Psychiatric exam: Present: normal affect, normal mood Skin exam: Present: warm, dry, intact, normal color. Absent: rash Course Vital Signs 02/20/21 23:24 Temperature 97.9 F Pulse Rate 72 Respiratory 16 Rate Blood Pressure 117/66 O2 Sat by Pulse 96 Oximetry Medical Decision Making - Medical Decision Making 85-year-old female complaining of abdominal pain and bilateral knee pain. Labs, 1 L normal saline, 4 mg of morphine, CT of the abdomen and pelvis, bilateral x-ray of the knees. Labs show white blood cells 17.8 BU when of 39 creatinine of 1.46 consistent with acute kidney injury. X-ray of the bilateral knees shows severe osteoporosis no acute fractures or dislocations. CT of the abdomen and pelvis: There is right-sided hydronephrosis and hydroureter ureter with ureter dilated down to the distal ureter and the nature of an obstruction is not clear. No evidence of renal obstruction left side. Multiple dilated small bowel loops suggestive of mechanical small bowel obstruction that appears to be at the level of the ileostomy. Fibrotic changes and subsegmental atelectasis at the lung bases. Cefepime 2 g every 12 hours ordered. Case discussed with Dr. Vences, patient will be admitted. Dr. Stover was consulted and will accept the admit with medicine on consult. Dr. Bosch on consult - Lab Data Result diagrams: 02/21/21 01:05 02/21/21 01:05 Lab Results 02/21/21 02/21/21 Range/Units 01:05 01:05 WBC 17.8 H (3.8-10.6) k/uL RBC 3.84 (3.80-5.40) m/uL Hgb 13.0 (11.4-16.0) gm/dL Hct 39.5 (34.0-46.0) % MCV 103.1 H (80.0-100.0) fL MCH 33.8 (25.0-35.0) pg MCHC 32.8 (31.0-37.0) g/dL RDW 12.5 (11.5-15.5) % Plt Count 243 (150-450) k/uL MPV 7.0 Neutrophils % 93 % Lymphocytes % 3 % Monocytes % 4 % Eosinophils % 0 % Basophils % 0 % Neutrophils # 16.5 H (1.3-7.7) k/uL Lymphocytes # 0.5 L (1.0-4.8) k/uL Monocytes # 0.6 (0-1.0) k/uL Eosinophils # 0.0 (0-0.7) k/uL Basophils # 0.0 (0-0.2) k/uL Macrocytosis Slight Sodium 133 L (137-145) mmol/L Potassium 4.7 (3.5-5.1) mmol/L Chloride 97 L (98-107) mmol/L Carbon Dioxide 29 (22-30) mmol/L Anion Gap 7 mmol/L BUN 39 H (7-17) mg/dL Creatinine 1.46 H (0.52-1.04) mg/dL Est GFR (CKD-EPI)AfAm 38 (>60 ml/min/1.73 sqM) Est GFR (CKD-EPI)NonAf 33 (>60 ml/min/1.73 sqM) Glucose 121 H (74-99) mg/dL Calcium 10.0 (8.4-10.2) mg/dL Total Bilirubin 1.7 H (0.2-1.3) mg/dL AST 31 (14-36) U/L ALT 15 (4-34) U/L Alkaline Phosphatase 65 (38-126) U/L Total Protein 6.7 (6.3-8.2) g/dL Albumin 4.0 (3.5-5.0) g/dL Amylase 69 (30-110) U/L Lipase 52 (23-300) U/L - Radiology Data Radiology results: report reviewed, image reviewed CT of the abdomen and pelvis: There is right-sided hydronephrosis and hydroureter ureter with ureter dilated down to the distal ureter and the nature of an obstruction is not clear. No evidence of renal obstruction left side. Multiple dilated small bowel loops suggestive of mechanical small bowel obstruction that appears to be at the level of the ileostomy. Fibrotic changes and subsegmental atelectasis at the lung bases. Disposition Clinical Impression: Small bowel obstruction Disposition: ADMITTED IP TO THIS HOSP Condition: Good Is patient prescribed a controlled substance at d/c from ED?: No Referrals: Seymour Salazar MD [Primary Care Provider] - 1-2 days Time of Disposition: 04:01
[2021-02-21 05:36] LABS: Appearance,Urine Cloudy (Clear); Bacteria,Urine Rare /hpf; Bilirubin,Urine Negative (Negative); Blood,Urine Trace (Negative); Color,Urine Yellow; Glucose,Urine (UA) Negative (Negative); Ketones,Urine Negative (Negative); Leukocyte Esterase,Urine Large (Negative); Mucus,Urine Rare /hpf; Nitrite,Urine Negative (Negative); PH, Urine 5.5 (5.0-8.0); Protein,Urine 1+ (Negative); RBC,Urine 9 /hpf (0-5); Specific Gravity,Urine 1.025 (1.001-1.035); Squamous Epithelial Cell,Urine <1 /hpf (0-4); Urobilinogen,Urine <2.0 mg/dL (<2.0); WBC,Urine >182 /hpf (0-5)
[2021-02-21] MEDS ORDERED: CEFEPIME 2 GM in SODIUM CHLORIDE 0.9% 50 ML IVPB SCH (09:00)
--- NOTE | 2021-02-21 09:42 | P.GSHP ---
History of Present Illness H&P Date: 02/21/21 Chief Complaint: Abdominal pain The patient is a 85-year-old female presented to the ER with abdominal pain. She had a little discomfort in her abdomen yesterday but at bedtime it began getting severe and so she came to the emergency department. She possibly had d ecreased ileostomy output. The ileostomy output picked up overnight and her pain has since resolved. She has had some swelling near the ileostomy but for about 6 months. She has a history of a colon resection in the distant past and had quite a few postoperative complications. This resulted in ileostomy which she has had for multiple years. At that time the surgeon did not recommend reversing the ileostomy. Normally she has no issues with it. She has been otherwise feeling well. Appetite has been fine. Ileostomy appliance has been working well. No fevers, chills, nausea or vomiting. She will have some loose drainage per anus daily, may be a teaspoon. That has changed recently. Her colon resection was due to colon cancer. She has not had a colonoscopy of the remaining colon since her last surgery which was many years ago. - Review of Systems All systems: negative Past Medical History Past Medical History: Deep Vein Thrombosis (DVT) Additional Past Medical History / Comment(s): colon cancer (1991 diagnosed), slip disc in back History of Any Multi-Drug Resistant Organisms: None Reported Past Surgical History: Appendectomy, Section Additional Past Surgical History / Comment(s): ileostomy, L Leg Andre Past Anesthesia/Blood Transfusion Reactions: No Reported Reaction Past Psychological History: No Psychological Hx Reported Smoking Status: Never smoker Past Alcohol Use History: None Reported Additional Past Alcohol Use History / Comment(s): patient states she drinks about 2 glasses of wine per week. Past Drug Use History: None Reported - Past Family History Father Family Medical History: CVA/TIA Mother Family Medical History: CVA/TIA Medications and Allergies Home Medications Medication Instructions Recorded Confirmed Type Acetaminophen Tab [Tylenol Tab] 50 - 1,000 mg PO Q6HR PRN 02/21/21 02/21/21 History Acetaminophen-Codeine 300-30mg 1 tab PO Q6H PRN 02/21/21 02/21/21 History [Tylenol w/codeine #3] Bifidobacterium Infantis [Align] 4 mg PO Q48H 02/21/21 02/21/21 History Peptiva 1 tab PO Q48H 02/21/21 02/21/21 History Allergies Allergy/AdvReac Type Severity Reaction Status Date / Time ciprofloxacin [From Cipro] Allergy Unknown Verified 02/21/21 07:56 Penicillins Allergy Unknown Verified 02/21/21 07:56 Childhood Surgical - Exam Osteopathic Statement: *. No significant issues noted on an osteopathic structural exam other than those noted in the History and Physical/Consult. Vital Signs Temp Pulse Resp BP Pulse Ox 97.9 F 72 16 117/66 96 02/20/21 23:24 02/20/21 23:24 02/20/21 23:24 02/20/21 23:24 02/20/21 23:24 - General well developed, well nourished, no distress - Eyes normal ocular movement - ENT normal mucosa - Neck trachea midline - Respiratory normal expansion, clear to auscultation - Cardiovascular Rhythm: regular - Abdomen Mature ileostomy in the left lower quadrant with good output. No pain or swelling near the ileostomy. Abdomen: soft, non tender, bowel sounds Results - Labs 02/21/21 01:05 02/21/21 01:05 Abnormal Lab Results - Last 24 Hours (Table) 02/21/21 02/21/21 02/21/21 Range/Units 01:05 01:05 05:20 WBC 17.8 H (3.8-10.6) k/uL MCV 103.1 H (80.0-100.0) fL Neutrophils # 16.5 H (1.3-7.7) k/uL Lymphocytes # 0.5 L (1.0-4.8) k/uL Sodium 133 L (137-145) mmol/L Chloride 97 L (98-107) mmol/L BUN 39 H (7-17) mg/dL Creatinine 1.46 H (0.52-1.04) mg/dL Glucose 121 H (74-99) mg/dL Total Bilirubin 1.7 H (0.2-1.3) mg/dL Urine Appearance Cloudy H (Clear) Urine Protein 1+ H (Negative) Urine Blood Trace H (Negative) Ur Leukocyte Esterase Large H (Negative) Urine RBC 9 H (0-5) /hpf Urine WBC >182 H (0-5) /hpf Urine WBC Clumps Many H (None) /hpf Urine Bacteria Rare H (None) /hpf Urine Mucus Rare H (None) /hpf Diabetes panel 02/21/21 Range/Units 01:05 Sodium 133 L (137-145) mmol/L Potassium 4.7 (3.5-5.1) mmol/L Chloride 97 L (98-107) mmol/L Carbon Dioxide 29 (22-30) mmol/L BUN 39 H (7-17) mg/dL Creatinine 1.46 H (0.52-1.04) mg/dL Glucose 121 H (74-99) mg/dL Calcium 10.0 (8.4-10.2) mg/dL AST 31 (14-36) U/L ALT 15 (4-34) U/L Alkaline Phosphatase 65 (38-126) U/L Total Protein 6.7 (6.3-8.2) g/dL Albumin 4.0 (3.5-5.0) g/dL Calcium panel 02/21/21 Range/Units 01:05 Calcium 10.0 (8.4-10.2) mg/dL Albumin 4.0 (3.5-5.0) g/dL Pituitary panel 02/21/21 Range/Units 01:05 Sodium 133 L (137-145) mmol/L Potassium 4.7 (3.5-5.1) mmol/L Chloride 97 L (98-107) mmol/L Carbon Dioxide 29 (22-30) mmol/L BUN 39 H (7-17) mg/dL Creatinine 1.46 H (0.52-1.04) mg/dL Glucose 121 H (74-99) mg/dL Calcium 10.0 (8.4-10.2) mg/dL Adrenal panel 02/21/21 Range/Units 01:05 Sodium 133 L (137-145) mmol/L Potassium 4.7 (3.5-5.1) mmol/L Chloride 97 L (98-107) mmol/L Carbon Dioxide 29 (22-30) mmol/L BUN 39 H (7-17) mg/dL Creatinine 1.46 H (0.52-1.04) mg/dL Glucose 121 H (74-99) mg/dL Calcium 10.0 (8.4-10.2) mg/dL Total Bilirubin 1.7 H (0.2-1.3) mg/dL AST 31 (14-36) U/L ALT 15 (4-34) U/L Alkaline Phosphatase 65 (38-126) U/L Total Protein 6.7 (6.3-8.2) g/dL Albumin 4.0 (3.5-5.0) g/dL - Imaging CT scan - abdomen: report reviewed Assessment and Plan (1) Parastomal hernia Current Visit: Yes Status: Acute Code(s): K43.5 - PARASTOMAL HERNIA WITHOUT OBSTRUCTION OR GANGRENE SNOMED Code(s): 203943474 (2) History of colon cancer Current Visit: Yes Status: Acute Code(s): Z85.038 - PERSONAL HISTORY OF MALIGNANT NEOPLASM OF LARGE INTESTINE SNOMED Code(s): 769436693 (3) Small bowel obstruction Current Visit: Yes Status: Acute Code(s): K56.609 - UNSP INTESTNL OBST, UNSP TO PARTIAL VERSUS COMPLETE OBST SNOMED Code(s): 038076902 Plan: The pain has resolved and ileostomy output has increased. She will be started on a clear liquid and advanced as tolerated. I did briefly discuss colonoscopy of the remainder of the colon since there has been change in the drainage per anus and she has a history of colon cancer. She is not interested in any screening at this time. Further recommendations to follow.
[2021-02-21] MEDS: SODIUM CHLORIDE 0.9% 1,000 ML IV SCH (12:03)
[2021-02-21] MEDS: PRIMIDONE 25 MG TAB PO SCH ×3 (12:03→23:42)
[2021-02-21] MEDS: ENOXAPARIN 40 MG/0.4 ML SYRINGE SQ SCH (12:03)
[2021-02-21] MEDS ORDERED: ONDANSETRON 4 MG/2 ML VIAL IVP PRN (12:08)
--- NOTE | 2021-02-21 13:05 | P.PN ---
Progress Note - Text Progress Note Date: 02/21/21 The patient was given clear liquid diet. She promptly began having nausea and vomiting. The patient will be made n.p.o. and need to go to the OR for release of small bowel obstruction.
[2021-02-21] MEDS: CEFEPIME 1 GM in SODIUM CHLORIDE 0.9% 50 ML IVPB SCH (16:06)
[2021-02-21 17:42] LABS: Partial Thromboplastin Time 25.6 sec (22.0-30.0); Prothrombin Time 11.1 sec (9.0-12.0)
--- NOTE | 2021-02-21 19:16 | P.PN ---
Progress Note - Text Progress Note Date: 02/21/21 The patient and family are seen prior to surgery. She likely has a bowel obstruction from a parastomal hernia although could be adhesions. Recommend laparotomy. This could require lysis of adhesions, small bowel resection, reseeding of the ileostomy. We may do a parastomal hernia repair. I explained the risk and benefits of prosthetic mesh. The patient declines any blood transfusions. She would accept volume expanders iron and so forth. Questions were encouraged and answered. We'll proceed to the OR
[2021-02-21] MEDS ORDERED: NEOSTIGMINE 1 MG/ML 10 ML VIAL ONE (19:25)
[2021-02-21] MEDS ORDERED: DEXAMETHASONE SOD PHOSPHATE 10 MG/ML 1 ML VIAL ONE (19:25)
[2021-02-21] MEDS ORDERED: GLYCOPYRROLATE 0.2 MG/ML 2 ML VIAL ONE (19:25)
[2021-02-21] MEDS ORDERED: ROCURONIUM 10 MG/ML (5 ML VIAL) IV ONE (19:25)
[2021-02-21] MEDS ORDERED: fentaNYL (PF) 50 MCG/ML 2 ML AMP ONE (19:25)
[2021-02-21] MEDS ORDERED: LIDOCAINE 1% INJ 10MG/ML (20 ML MDV) ONE (19:25)
[2021-02-21] MEDS ORDERED: PROPOFOL 10 MG/ML 20 ML VIAL IV ONE (19:25)
[2021-02-21] MEDS ORDERED: SUCCINYLCHOLINE CHLORIDE 100 MG/5 ML SYR IV ONE (19:25)
[2021-02-21] MEDS ORDERED: SODIUM CHLORIDE 0.9% 500 ML IV ONE (19:25)
[2021-02-21] MEDS ORDERED: ONDANSETRON 4 MG/2 ML VIAL ONE (19:25)
[2021-02-21] MEDS ORDERED: SODIUM CHLORIDE 0.9% 50 ML with ceFAZolin 2 GM IV ONE ×2 (19:40)
[2021-02-21] MEDS ORDERED: SODIUM CHLORIDE 0.9% 1,000 ML IV ONE (21:18)
--- NOTE | 2021-02-21 21:27 | P.OP ---
Date of Procedure: 02/21/21 Preoperative Diagnosis: Small bowel obstruction, parastomal hernia Postoperative Diagnosis: Small bowel obstruction, parastomal hernia, possible uterine or bladder tumor Procedure(s) Performed: Exploratory laparotomy with lysis of adhesions and suture repair of parastomal hernia Anesthesia: ANKUR Surgeon: Melanie Stover Estimated Blood Loss (ml): 150 Pathology: none sent Condition: stable Disposition: PACU Indications for Procedure: Patient presented with signs and symptoms of small bowel obstruction. Initially she had felt better this morning however developed prompt nausea and vomiting and starting clear liquids Description of Procedure: The patient's taken the operative suite where she prepped and draped in the usual sterile manner under a general endotracheal anesthetic. The abdomen is entered through a midline incision. The fascia is incised. There is immediately encountered some dense small bowel adhesions which are tediously dissected free. Eventually we could enter free area in the left abdomen and was able to follow that down to the lower abdomen. There were a few filmy adhesions to the small bowel but there is some very dense adhesions to which were tediously taken down. She did have bowel in the peristomal hernia but this was descending colon and was able to be reduced. The small bowel was run from the ligament of Treitz to the ileostomy. There was a small enterotomy which was suture repaired with 3-0 Vicryl. The bowel was run again and noted to be unremarkable. There was decompressed colon which was unremarkable were palpated. In the pelvis the uterus was somewhat enlarged for age and was very hard and adherent to the bladder. I'm not sure if there is a uterine tumor or possibly bladder tumor in that location. No obvious lymphadenopathy. The abdomen was then irrigated and aspirated. The hernia was closed using 0 Ethibond suture. The small bowel was then allowed to lay in gentle loops. The fascia in the midline was closed with 0 PDS. The skin was closed with renetta. She tolerated the procedure without difficulty and is taken to recovery room in satisfactory condition. According to or personnel, WERE correct.
[2021-02-21] MEDS ORDERED: HYDROmorphone 0.5 MG/0.5 ML SYRINGE IVP ONE ×2 (21:40→21:45)
--- NOTE | 2021-02-21 21:49 | P.CONS ---
History of Present Illness - Reason for Consult Consult date: 02/21/21 Medical management Requesting physician: Melanie Stover - Chief Complaint Abdominal pain - History of Present Illness This is a very pleasant 85-year-old patient who follows with visiting physicians. Rather independent. Does use a walker. Chronic stable medical conditions include history of remote DVT, colon cancer in 1991 with a resultant ileostomy, arthritis in several joints. Patient to baseline uses a walker. Yesterday afternoon patient developed abdominal pain. Wanted to come to the hospital. She was trying to get into her son's truck and was using about when she fell backwards leg getting caught. She never hit the floor but her leg got caught. As she did have injury to her knees. When she came to the ER she was found to have element of bowel obstruction. Also noted in the knee. No fracture. Patient's had tremor for last 2 years slowly getting worse. Does sometimes interfere with her activity. Review of systems: GEN.: Tired EYES: None HEENT: None NECK: None RESPIRATORY: None CARDIOVASCULAR: None GASTROINTESTINAL: As above. No nausea vomiting GENITOURINARY: None MUSCULOSKELETAL: Several joint pains LYMPHATICS: None HEMATOLOGICAL: None PSYCHIATRY: None NEUROLOGICAL: Does use a walker Past medical history to include: DD, colon cancer 9091 with resultant urostomy, slipped disc in the back, osteomyelitis, uses a walker, Social history: Drinks 2 glasses of wine per week, lives alone. Does have a walker. No smoking. Family history: Stroke Physical examination: VITAL SIGNS: 98.3, 90, 18, 1 23 x 80, 93% on room air GENERAL: BMI 21.6, laying in bed, awake, slightly anxious. EYES: Pupils equal. Conjunctiva normal. HEENT: External appearance of nose and ears normal, oral cavity grossly normal. NECK: JVD not raised; masses not palpable. HEART: First and second heart sounds are normal; no edema. LUNGS: Respiratory rate normal; clear to auscultation. ABDOMEN: Soft, ileostomy bag with brown stool, minimal tenderness liver spleen not palpable, no masses palpable. MUSCULAR skeletal: Evidence of OA in several joints especially the hands and the knees PSYCH: Alert and oriented x3; mood and affect normal. NEUROLOGICAL: Cranial nerves grossly intact; no facial asymmetry, power and sensation grossly intact. LYMPHATICS: No lymph nodes palpable in the axilla and neck INVESTIGATIONS, reviewed in the clinical context: White count 17.8 hemoglobin 13 platelets 243 sodium 133 potassium 4.7 BUN 39 creatinine 1.46 UA positive for leukoesterase WBC Coronavirus [PCR]: Not detected Knee x-ray: No fracture Computed tomography scan of the abdomen pelvis: Right-sided hydronephrosis and hydroureter. Multiple dilated small bowel loops suggestive of mechanical small bowel obstruction. Some fibrotic changes in the lung bases. Assessment and plan: -Acute small bowel obstruction. Symptoms started yesterday afternoon. Patient having some stool in the ileostomy bag. 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 Primidone 25 mg 3 times a day. Discussed with the patient. -Kidney disease. Chronicity unknown. Possible obstructive. IV fluids. Repeat renal function. -Right hydroureter with hydronephrosis. This led to assess the distal ureter. Consult urology -Acute UTI with cystitis IV cefepime Patient is medically stable to proceed for surgery. No contra indications. Pat ient has limited exercise tolerance. Does not have any cardiac symptoms. Perioperative telemetry monitoring. Patient be started on primidone for tremors. IV fluids. IV cefepime. Care was discussed with the patient and son at the bedside. Questions answered. Thank you Dr. Stover Past Medical History Past Medical History: Deep Vein Thrombosis (DVT) Additional Past Medical History / Comment(s): colon cancer (1992 diagnosed), sli p disc in back History of Any Multi-Drug Resistant Organisms: None Reported Past Surgical History: Appendectomy, Section Additional Past Surgical History / Comment(s): ileostomy, L Leg Andre Past Anesthesia/Blood Transfusion Reactions: No Reported Reaction Past Psychological History: No Psychological Hx Reported Smoking Status: Never smoker Past Alcohol Use History: None Reported Additional Past Alcohol Use History / Comment(s): patient states she drinks about 2 glasses of wine per week. Past Drug Use History: None Reported - Past Family History Father Family Medical History: CVA/TIA Mother Family Medical History: CVA/TIA Medications and Allergies Home Medications Medication Instructions Recorded Confirmed Type Acetaminophen Tab [Tylenol Tab] 50 - 1,000 mg PO Q6HR PRN 02/21/21 02/21/21 History Acetaminophen-Codeine 300-30mg 1 tab PO Q6H PRN 02/21/21 02/21/21 History [Tylenol w/codeine #3] Bifidobacterium Infantis [Align] 4 mg PO Q48H 02/21/21 02/21/21 History Peptiva 1 tab PO Q48H 02/21/21 02/21/21 History Allergies Allergy/AdvReac Type Severity Reaction Status Date / Time ciprofloxacin [From Cipro] Allergy Unknown Verified 02/21/21 07:56 Penicillins Allergy Unknown Verified 02/21/21 07:56 Childhood Physical Exam Vitals: Vital Signs Temp Pulse Pulse Resp BP BP Pulse Ox 02/21/21 05:50 98.3 F 90 18 123/80 93 L 02/21/21 05:26 91 16 119/72 93 L 02/20/21 23:24 97.9 F 72 16 117/66 96 Intake and Output 02/20/21 02/21/21 02/21/21 22:59 06:59 14:59 Other: Weight 58.967 kg Results CBC & Chem 7: 02/21/21 01:05 02/21/21 01:05 Labs: Abnormal Lab Results - Last 24 Hours (Table) 02/21/21 02/21/21 02/21/21 Range/Units 01:05 01:05 05:20 WBC 17.8 H (3.8-10.6) k/uL MCV 103.1 H (80.0-100.0) fL Neutrophils # 16.5 H (1.3-7.7) k/uL Lymphocytes # 0.5 L (1.0-4.8) k/uL Sodium 133 L (137-145) mmol/L Chloride 97 L (98-107) mmol/L BUN 39 H (7-17) mg/dL Creatinine 1.46 H (0.52-1.04) mg/dL Glucose 121 H (74-99) mg/dL Total Bilirubin 1.7 H (0.2-1.3) mg/dL Urine Appearance Cloudy H (Clear) Urine Protein 1+ H (Negative) Urine Blood Trace H (Negative) Ur Leukocyte Esterase Large H (Negative) Urine RBC 9 H (0-5) /hpf Urine WBC >182 H (0-5) /hpf Urine WBC Clumps Many H (None) /hpf Urine Bacteria Rare H (None) /hpf Urine Mucus Rare H (None) /hpf
--- NOTE | 2021-02-21 22:39 | XR ---
EXAMINATION TYPE: XR chest 1V portable DATE OF EXAM: 02/21/2021 COMPARISON: 07/14/2019 HISTORY: Short of breath TECHNIQUE: Single view FINDINGS: Endotracheal tube is 4 cm from the zamzam. There is nasogastric tube with the tip overlying the distal esophagus. There is some coarsening of interstitial markings. Heart size is normal. There is no heart failure. There is no definite pleural effusion. There are chest leads. IMPRESSION: NG tube is in the distal esophagus and not in the stomach. There is mild pulmonary fibrot ic changes. No heart failure. Heart and lungs not significantly different than old exam.
[2021-02-21] MEDS: LACTOBACILLUS ACIDOPH & BULGAR 1 EACH PACKET PO SCH (23:42)
[2021-02-22] MEDS: SODIUM CHLORIDE 0.9% 1,000 ML IV SCH ×2 (01:23→16:02)
[2021-02-22] MEDS: Acetaminophen-Codeine 300-30mg TAB PO PRN (02:57)
[2021-02-22] MEDS: CEFEPIME 1 GM in SODIUM CHLORIDE 0.9% 50 ML IVPB SCH ×2 (05:48→15:57)
[2021-02-22] MEDS ORDERED: SODIUM CHLORIDE 0.9% 500 ML 500 ML IV ONE (06:09)
[2021-02-22] MEDS: PANTOPRAZOLE 40 MG/10 ML VIAL IV SCH (07:39)
[2021-02-22] MEDS: ENOXAPARIN 40 MG/0.4 ML SYRINGE SQ SCH (07:40)
[2021-02-22] MEDS: PRIMIDONE 25 MG TAB PO SCH ×3 (07:40→21:42)
[2021-02-22] MEDS: HYDROmorphone 0.5 MG/0.5 ML SYRINGE IVP PRN ×2 (07:40→13:02)
--- NOTE | 2021-02-22 09:05 | P.GSCN ---
History of Present Illness Consult date: 02/22/21 Reason for Consult: right sided hydronephrosis History of present illness: this is an 85-year-old female admitted to the hospital with bowel obstruction, she underwent exploratory laparotomy by Dr. Stover yesterday. Urology is consulted for right-sided hydronephrosis that was seen on CT scan on presentation., . Creatinine was 1.46, from a baseline of 0.6 on presentation. Denies any flank pain, She does have history of gross hematuria. No previous history of kidney stones, or any surgeries. Review of Systems - Constitutional Denies fever, Denies weight loss - Respiratory Denies cough, Denies 7 - Gastrointestinal Reports as per HPI - Genitourinary Genitourinary: Denies dysuria, Denies hematuria - Integumentary Denies rash, Denies unusual bruising - Neurological Denies headaches, Denies syncope Past Medical History Past Medical History: Deep Vein Thrombosis (DVT) Additional Past Medical History / Comment(s): colon cancer (1991 diagnosed), slip disc in back History of Any Multi-Drug Resistant Organisms: None Reported Past Surgical History: Appendectomy, Section Additional Past Surgical History / Comment(s): ileostomy, L Leg Andre Past Anesthesia/Blood Transfusion Reactions: No Reported Reaction Past Psychological History: No Psychological Hx Reported Smoking Status: Never smoker Past Alcohol Use History: None Reported Additional Past Alcohol Use History / Comment(s): patient states she drinks about 2 glasses of wine per week. Past Drug Use History: None Reported - Past Family History Father Family Medical History: CVA/TIA Mother Family Medical History: CVA/TIA Medications and Allergies Home Medications Medication Instructions Recorded Confirmed Type Acetaminophen Tab [Tylenol Tab] 50 - 1,000 mg PO Q6HR PRN 02/21/21 02/21/21 History Acetaminophen-Codeine 300-30mg 1 tab PO Q6H PRN 02/21/21 02/21/21 History [Tylenol w/codeine #3] Bifidobacterium Infantis [Align] 4 mg PO Q48H 02/21/21 02/21/21 History Peptiva 1 tab PO Q48H 02/21/21 02/21/21 History Allergies Allergy/AdvReac Type Severity Reaction Status Date / Time ciprofloxacin [From Cipro] Allergy Unknown Verified 02/21/21 07:56 Penicillins Allergy Unknown Verified 02/21/21 07:56 Childhood Surgical - Exam Vital Signs Temp Pulse Resp BP Pulse Ox 97.9 F 72 16 117/66 96 02/20/21 23:24 02/20/21 23:24 02/20/21 23:24 02/20/21 23:24 02/20/21 23:24 - General no distress, no pain - Eyes normal ocular movement, no loss of movement - ENT normal nares, normal mucosa - Respiratory normal expansion, normal respiratory effort - Abdomen Abdomen: soft, non tender - Psychiatric oriented to time, oriented to person, oriented to place Results - Labs 02/21/21 01:05 02/21/21 01:05 Microbiology - Last 24 Hours (Table) 02/21/21 05:20 Urine Culture - Preliminary Urine,Voided Assessment and Plan Assessment: this is an 85-year-old female with history of right-sided hydronephrosis, and gross hematuria. Urine today's is blood-tinged. No previous history of kidney stones, or any surgeries. Creatinine was 1.46 from a baseline of 0.6. of note She had small bowel obstruction presentation. -continue IV hydration, BMP is ordered for this morning, If creat continues to trend down, we'll plan on scheduling an outpatient cystoscopy and right retrograde pyelogram with a possible diagnostic ureteroscopy. Zhang catheter can be removed once creatinine is close to baseline
[2021-02-22 10:47] LABS: HCT 32.6 % (37.2-46.3); HGB 10.3 g/dL (12.0-15.0); MCH 33.6 pg (27.0-32.0); MCHC 31.6 g/dL (32.0-37.0); MCV 106.2 fL (80.0-97.0); Mean Platelet Volume 8.7 fL (9.5-12.2); Platelet Count 212 X 10*3/uL (140-440); RBC 3.07 X 10*6/uL (4.10-5.20); WBC 17.11 X 10*3/uL (4.50-10.00)
--- NOTE | 2021-02-22 11:38 | P.PN ---
Subjective Progress Note Date: 02/22/21 The patient's postoperative day 1, lysis of adhesions due to obstruction. She is doing fairly well. Mild pain. Denies chest pain or shortness of breath Objective - Vital Signs Vital signs: Vital Signs Temp 98.4 F 02/22/21 08:00 Pulse 78 02/22/21 08:00 Resp 16 02/22/21 08:00 BP 123/73 02/22/21 08:00 Pulse Ox 96 02/22/21 08:00 Intake & Output 02/21/21 02/22/21 02/22/21 18:59 06:59 18:59 Intake Total 1950 Output Total 250 525 Balance -250 1425 Intake: IV 1000 Intake, IV Titration 750 Amount Sodium Chloride 0.9% 1, 750 000 ml @ 75 mls/hr IV . [id number] Rx#:[id number] Oral 200 Output: Urine 425 Stool 250 Estimated Blood Loss 100 Other: Voiding Method Indwelling Catheter Indwelling Catheter # Voids 1 - Constitutional General appearance: Present: cooperative, no acute distress - Respiratory Respiratory: bilateral: CTA, diminished (At the bases) - Gastrointestinal General gastrointestinal: Present: decreased bowel sounds (Rare bowel sounds), soft Localized gastrointestinal: surgical scar: diffuse (Dressing is clean and dry, ostomy with a small amount of dark old blood) - Labs CBC & Chem 7: 02/22/21 04:40 02/21/21 01:05 Labs: Abnormal Lab Results - Last 24 Hours (Table) 02/22/21 Range/Units 04:40 WBC 17.11 H (4.50-10.00) X 10*3/uL RBC 3.07 L (4.10-5.20) X 10*6/uL Hgb 10.3 L (12.0-15.0) g/dL Hct 32.6 L (37.2-46.3) % MCV 106.2 H (80.0-97.0) fL MCH 33.6 H (27.0-32.0) pg MCHC 31.6 L (32.0-37.0) g/dL MPV 8.7 L (9.5-12.2) fL Microbiology - Last 24 Hours (Table) 02/21/21 05:20 Urine Culture - Preliminary Urine,Voided Assessment and Plan (1) Parastomal hernia Current Visit: Yes Status: Acute Code(s): K43.5 - PARASTOMAL HERNIA WITHOUT OBSTRUCTION OR GANGRENE SNOMED Code(s): 263199492 (2) History of colon cancer Current Visit: Yes Status: Acute Code(s): Z85.038 - PERSONAL HISTORY OF MALIGNANT NEOPLASM OF LARGE INTESTINE SNOMED Code(s): 770411868 (3) Small bowel obstruction Current Visit: Yes Status: Acute Code(s): K56.609 - UNSP INTESTNL OBST, UNSP TO PARTIAL VERSUS COMPLETE OBST SNOMED Code(s): 302767285 Plan: NG tube is in her esophagus and was not able to be advanced intraoperatively. It will be discontinued and she will be kept nothing by mouth. Patient is evaluated by urology. Her uterus and bladder abnormal and there may be either a bladder tumor or uterine tumor affecting the bladder. Findings discussed with patient.
[2021-02-22 12:09] LABS: Basophils # (A) 0.02 X 10*3/uL (0.00-0.10); Basophils % (A) 0.1 %; Eosinophils # (A) 0 X 10*3/uL (0.04-0.35); Eosinophils % (A) 0 %; Lymphocytes # (A) 0.45 X 10*3/uL (0.90-5.00); Lymphocytes % (A) 2.6 %; Monocytes # (A) 1.21 X 10*3/uL (0.20-1.00); Monocytes % (A) 7.1 %; Neutrophils # (A) 15.33 X 10*3/uL (1.80-7.70); Neutrophils % (A) 89.6 %
[2021-02-22 12:10] LABS: Macrocytosis (M) 2+
[2021-02-22 13:08] LABS: African American GFR (CKD) 39.6 (60.0-200.0); Anion Gap 17.4 mmol/L (10.00-18.00); BUN/Creat Ratio 20.14 Ratio (12.00-20.00); Blood Urea Nitrogen 28.2 mg/dL (9.0-27.0); Calcium 8.6 mg/dL (8.7-10.3); Carbon Dioxide 15.6 mmol/L (20.0-27.5); Non-African American GFR(CKD) 34.2 (60.0-200.0); Potassium 4.5 mmol/L (3.5-5.5)
--- NOTE | 2021-02-22 21:21 | P.PN ---
Progress Note - Text Progress Note Date: 02/22/21 - Chief Complaint Abdominal pain This is a very pleasant 85-year-old patient who follows with visiting physicians. Rather independent. Does use a walker. Chronic stable medical conditions include history of remote DVT, colon cancer in 1991 with a resultant ileostomy, arthritis in several joints. Patient to baseline uses a walker. Yesterday afternoon patient developed abdominal pain. Wanted to come to the hospital. She was trying to get into her son's truck and was using about when she fell backwards leg getting caught. She never hit the floor but her leg got caught. As she did have injury to her knees. When she came to the ER she was found to have element of bowel obstruction. Also noted in the knee. No fracture. Patient's had tremor for last 2 years slowly getting worse. Does sometimes interfere with her activity. Admitted with small bowel obstruction, underwent surgical intervention on February [address] Stover. Lysis of adhesions. February 22: NG tube to suction. Slight liquid stool in the ileostomy bag. Some abdominal pain. Laying in bed. IV fluids. Review of systems: Was done for constitutional, cardiovascular, GI, pulmonary. relevant finding as above Active Medications Acetaminophen/Codeine Phosphate (Acetaminophen-Codeine 300-30mg Tab) 1 each PO Q6H PRN PRN Reason: Pain Last Admin: 02/22/21 02:57 Dose: 1 each Documented by: Enoxaparin Sodium (Enoxaparin 30 Mg/0.3 Ml Syringe) 30 mg SQ DAILY [facility] Hydromorphone HCl (Hydromorphone 0.5 Mg/0.5 Ml Syringe) 0.5 mg IVP Q3HR PRN PRN Reason: Moderate Pain Last Admin: 02/22/21 13:02 Dose: 0.5 mg Documented by: Sodium Chloride (Saline 0.9%) 1,000 mls @ 75 mls/hr IV .[id number] [facility] Last Admin: 02/22/21 16:02 Dose: 75 mls/hr Documented by: Cefepime HCl 1 gm/ Sodium (Chloride) 50 mls @ 12.5 mls/hr IVPB Q12H [facility] Last Admin: 02/22/21 15:57 Dose: 12.5 mls/hr Documented by: Lactobacillus Acidoph/Bulgaricus (Lactobacillus Acidoph & Bulgar 1 Each Packet) 1 each PO Q48H [facility] Last Admin: 02/21/21 23:42 Dose: 1 each Documented by: Morphine Sulfate (Morphine Sulfate 4 Mg/Ml Syringe) 4 mg IV Q4HR PRN PRN Reason: Severe Pain Naloxone HCl (Naloxone 0.4 Mg/Ml 1 Ml Vial) 0.2 mg IV Q2M PRN PRN Reason: Opioid Reversal Ondansetron HCl (Ondansetron 4 Mg/2 Ml Vial) 4 mg IVP Q6HR PRN PRN Reason: Nausea And Vomiting Pantoprazole Sodium (Pantoprazole 40 Mg/10 Ml Vial) 40 mg IV DAILY [facility] Last Admin: 02/22/21 07:39 Dose: 40 mg Documented by: Primidone (Primidone 25 Mg Tab) 25 mg PO TID [facility] Last Admin: 02/22/21 15:57 Dose: 25 mg Documented by: Past medical history to include: DD, colon cancer 9091 with resultant urostomy, slipped disc in the back, osteomyelitis, uses a walker, Social history: Drinks 2 glasses of wine per week, lives alone. Does have a walker. No smoking. Family history: Stroke Physical examination: VITAL SIGNS: 98, 85, 18, 102/72, 96% on 2 L GENERAL: Laying in bed, awake, tired EYES: Pupils equal. Conjunctiva normal. HEENT: External appearance of nose and ears normal, oral cavity dry, NG tube to suction. NECK: JVD not raised; masses not palpable. HEART: First and second heart sounds are normal; no edema. LUNGS: Respiratory rate normal; clear to auscultation. ABDOMEN: Soft, ileostomy bag with liquid dark, minimal tenderness liver spleen not palpable, no masses palpable. Dressing over the mid incision site MUSCULAR skeletal: Evidence of OA in several joints especially the hands and the knees PSYCH: Alert and oriented x3; mood and affect normal. Neurological: Tremors INVESTIGATIONS, reviewed in the clinical context: February 22: White count 17.1 hemoglobin 10.3 potassium 4.5 BUN 28.2 creatinine 1.4 White count 17.8 hemoglobin 13 platelets 243 sodium 133 potassium 4.7 BUN 39 creatinine 1.46 UA positive for leukoesterase WBC Coronavirus [PCR]: Not detected Knee x-ray: No fracture Computed tomography scan of the abdomen pelvis: Right-sided hydronephrosis and hydroureter. Multiple dilated small bowel loops suggestive of mechanical small bowel obstruction. Some fibrotic changes in the lung bases. Assessment and plan: -Acute small bowel obstruction. Adhesions lysis by Dr. Stover on February 21 NG tube. 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 Primidone 25 mg 3 times a day. -Kidney disease. Chronicity unknown. Possible obstructive. IV fluids. Repeat renal function. -Right hydroureter with hydronephrosis. Patient seen by Dr. quispe. For further workup as outpatient. -Acute UTI with cystitis IV cefepime NG tube to suction. IV cefepime. Increase Normal saline. Discussed with patient. Repeat labs. Check B12. Thank you Dr. Stover
[2021-02-22] MEDS: LACTATED RINGERS 1,000 ML IV SCH (21:42)
[2021-02-23] MEDS: CEFEPIME 1 GM in SODIUM CHLORIDE 0.9% 50 ML IVPB SCH ×2 (03:39→16:18)
[2021-02-23] MEDS: HYDROmorphone 0.5 MG/0.5 ML SYRINGE IVP PRN ×3 (03:39→11:54)
[2021-02-23 06:50] LABS: Basophils % (A) 0 %; Eosinophils # (A) 0.1 k/uL (0-0.7); Eosinophils % (A) 1 %; HCT 28.9 % (34.0-46.0); Hypochromasia Slight; Lymphocytes # (A) 0.6 k/uL (1.0-4.8); Lymphocytes % (A) 6 %; MCHC 32.5 g/dL (31.0-37.0); MCV 107.8 fL (80.0-100.0); Macrocytosis Moderate; Mean Platelet Volume 7.4; Monocytes # (A) 0.7 k/uL (0-1.0); Monocytes % (A) 7 %; Neutrophils % (A) 82 %; Platelet Count 176 k/uL (150-450); RBC 2.68 m/uL (3.80-5.40); RDW 12.9 % (11.5-15.5); WBC 9.8 k/uL (3.8-10.6)
[2021-02-23 06:52] LABS: HGB 9.4 gm/dL (11.4-16.0)
[2021-02-23] MEDS: ENOXAPARIN 30 MG/0.3 ML SYRINGE SQ SCH (07:32)
[2021-02-23] MEDS: PANTOPRAZOLE 40 MG/10 ML VIAL IV SCH (07:32)
[2021-02-23] MEDS: LACTATED RINGERS 1,000 ML IV SCH ×2 (07:32→16:18)
[2021-02-23] MEDS: PRIMIDONE 25 MG TAB PO SCH ×3 (07:33→20:19)
--- NOTE | 2021-02-23 09:06 | P.PN ---
Subjective Progress Note Date: 02/23/21 Patient was complaining of bladder spasms and pelvic pressure this morning, minimal urine output in the morocho catheter. Objective - Vital Signs Vital signs: Vital Signs Temp 98.5 F 02/23/21 08:00 Pulse 80 02/23/21 08:00 Resp 16 02/23/21 08:00 BP 128/67 02/23/21 08:00 Pulse Ox 94 L 02/23/21 08:00 Intake & Output 02/22/21 02/23/21 02/23/21 18:59 06:59 18:59 Intake Total 1000 Output Total 150 330 Balance -150 670 Intake: Intake, IV Titration 1000 Amount Lactated Ringers 1,000 ml 1000 @ 100 mls/hr IV .Q10H [facility] Rx#:[id number] Output: Urine 150 100 Stool 230 Other: Voiding Method Indwelling Catheter Indwelling Catheter - Constitutional General appearance: Present: no acute distress - Gastrointestinal General gastrointestinal: Present: soft, tenderness (lower quadrant pressure ). Absent: distended - Labs CBC & Chem 7: 02/23/21 05:14 02/22/21 04:40 Labs: Abnormal Lab Results - Last 24 Hours (Table) 02/22/21 02/22/21 02/23/21 Range/Units 04:40 04:40 05:14 WBC 17.11 H (4.50-10.00) X 10*3/uL RBC 3.07 L 2.68 L (4.10-5.20) X 10*6/uL Hgb 10.3 L 9.4 L D (12.0-15.0) g/dL Hct 32.6 L 28.9 L (37.2-46.3) % MCV 106.2 H 107.8 H (80.0-97.0) fL MCH 33.6 H (27.0-32.0) pg MCHC 31.6 L (32.0-37.0) g/dL MPV 8.7 L (9.5-12.2) fL Immature Gran # 0.10 H (0.00-0.04) X 10*3/uL Neutrophils # 15.33 H 8.0 H (1.80-7.70) X 10*3/uL Lymphocytes # 0.45 L 0.6 L (0.90-5.00) X 10*3/uL Monocytes # 1.21 H (0.20-1.00) X 10*3/uL Eosinophils # 0 L (0.04-0.35) X 10*3/uL Chloride 110 H (96-109) mmol/L Carbon Dioxide 15.6 L (20.0-27.5) mmol/L BUN 28.2 H (9.0-27.0) mg/dL Est GFR (CKD-EPI)AfAm 39.6 L (60.0-200.0) Est GFR (CKD-EPI)NonAf 34.2 L (60.0-200.0) BUN/Creatinine Ratio 20.14 H (12.00-20.00) Ratio Glucose 120 H (70-110) mg/dL Calcium 8.6 L (8.7-10.3) mg/dL Microbiology - Last 24 Hours (Table) 02/21/21 05:20 Urine Culture - Final Urine,Voided Assessment and Plan Assessment: this is an 85-year-old female with history of right-sided hydronephrosis, and gross hematuria. Urine today's is blood-tinged. No previous history of kidney stones, or any surgeries. Creatinine slightly down to 1.4 from 1.46 from a baseline of 0.6. of note She had small bowel obstruction presentation. Catheter was clogged this am, bladder palpable on exam, Urine in he morocho is blood tinged -Irrigate the Morocho catheter, if unable to clear bladder debris recommend upsizi ng morocho catheter -well arrange for outpatient cystoscopy and right reterograde pyelogram,
[2021-02-23 09:56] LABS: African American GFR (CKD) 43.3 (60.0-200.0); Anion Gap 11.7 mmol/L (10.00-18.00); BUN/Creat Ratio 23.85 Ratio (12.00-20.00); Calcium 8.6 mg/dL (8.7-10.3); Carbon Dioxide 19.3 mmol/L (20.0-27.5); Non-African American GFR(CKD) 37.4 (60.0-200.0); Potassium 4.2 mmol/L (3.5-5.5)
--- NOTE | 2021-02-23 13:36 | P.PN ---
Subjective Progress Note Date: 02/23/21 Principal diagnosis: Status post lysis of adhesions for bowel obstruction The patient is postop due to lysis of adhesions for a bowel obstruction. She also had a suture repair of peristomal hernia. She is having increased ileostomy output and flatus. She was hungry so was started on clear liquids. Patient's tolerating clear liquids. Has got out of bed. Minimal incisional pain Objective - Vital Signs Vital signs: Vital Signs Temp 98.5 F 02/23/21 08:00 Pulse 80 02/23/21 08:00 Resp 16 02/23/21 08:00 BP 128/67 02/23/21 08:00 Pulse Ox 94 L 02/23/21 08:00 Intake & Output 02/22/21 02/23/21 02/23/21 18:59 06:59 18:59 Intake Total 1000 Output Total 150 330 Balance -150 670 Intake: Intake, IV Titration 1000 Amount Lactated Ringers 1,000 ml 1000 @ 100 mls/hr IV .Q10H [facility] Rx#:[id number] Output: Urine 150 100 Stool 230 Other: Voiding Method Indwelling Catheter Indwelling Catheter Indwelling Catheter - Constitutional General appearance: Present: cooperative, no acute distress - Respiratory Respiratory: bilateral: CTA, diminished (Mildly at the bases) - Gastrointestinal General gastrointestinal: Present: normal bowel sounds, soft Localized gastrointestinal: surgical scar: diffuse (Dressing is intact with some dried blood. Ileostomy is functioning) - Labs CBC & Chem 7: 02/23/21 05:14 02/23/21 05:14 Labs: Abnormal Lab Results - Last 24 Hours (Table) 02/23/21 02/23/21 Range/Units 05:14 05:14 RBC 2.68 L (3.80-5.40) m/uL Hgb 9.4 L D (11.4-16.0) gm/dL Hct 28.9 L (34.0-46.0) % MCV 107.8 H (80.0-100.0) fL Neutrophils # 8.0 H (1.3-7.7) k/uL Lymphocytes # 0.6 L (1.0-4.8) k/uL Carbon Dioxide 19.3 L (20.0-27.5) mmol/L BUN 31.0 H (9.0-27.0) mg/dL Est GFR (CKD-EPI)AfAm 43.3 L (60.0-200.0) Est GFR (CKD-EPI)NonAf 37.4 L (60.0-200.0) BUN/Creatinine Ratio 23.85 H (12.00-20.00) Ratio Calcium 8.6 L (8.7-10.3) mg/dL Microbiology - Last 24 Hours (Table) 02/21/21 05:20 Urine Culture - Final Urine,Voided Assessment and Plan (1) Parastomal hernia Current Visit: Yes Status: Acute Code(s): K43.5 - PARASTOMAL HERNIA WITHOUT OBSTRUCTION OR GANGRENE SNOMED Code(s): 647734749 (2) History of colon cancer Current Visit: Yes Status: Acute Code(s): Z85.038 - PERSONAL HISTORY OF MALIGNANT NEOPLASM OF LARGE INTESTINE SNOMED Code(s): 807770206 (3) Small bowel obstruction Current Visit: Yes Status: Acute Code(s): K56.609 - UNSP INTESTNL OBST, UNSP TO PARTIAL VERSUS COMPLETE OBST SNOMED Code(s): 040616255 Plan: Slowly increase diet as tolerated. Physical therapy to evaluate for patient safety and mobility issues. She would like to go to her own home. Zhang catheter is still bloody. Intraoperatively it felt as though there was either a uterine or bladder tumor without evidence of obvious metastatic disease. Patient's being evaluated by urology.
--- NOTE | 2021-02-23 16:28 | CDI ---
Documentation Clarification Form Date: 02/23/2021 03:59:54 PM From: Cyn Johnston RN, CCDS Admit Date: 02/21/2021 03:53:00 AM Patient Name: Jamee Baldwin Visit Number: [id number] Discharge Date: ATTENTION: The Clinical Documentation Specialists (CDI) and [facility] Coding Staff appreciate your assistance in clarifying documentation. Please respond to the clarification below the line at the bottom and electronically sign. The CDI & [facility] Coding staff will review the response and follow-up if needed. Please note: Queries are made part of the Legal Health Record. If you have any questions, please contact the author of this message via ITS. Dr. Melanie Stover A small enterotomy is documented in the operative note on 02/21/21, the patient had exploratory laparotomy with lysis of adhesions and suture repair of parastomal hernia on 02/21/21. Additional clarification is requested regarding the relationship, if any, that exists between the diagnosis and the procedure. Patients Admitting Diagnosis: Small bowel obstruction, parastomal hernia, possible uterine or bladder tumor Procedure performed: Exploratory laparotomy with lysis of adhesions and suture repair of parastomal hernia History/Risk Factors: Small bowel obstruction Clinical Indicators: 85-year-old female present with signs and symptoms of small bowel obstruction. Developed nausea and vomiting and was taken for operative repair on 02/21/21. Operative note: There were a few filmy adhesions to the small bowel but there is some very dense adhesions to which were tediously taken down. The small bowel was run from the ligament of Treitz to the ileostomy". There was a small enterotomy which was suture repaired with 3-0 Vicryl. "The bowel was run again and noted to be unremarkable. Treatment: Small enterotomy suture repaired with 3-0 Vicryl What relationship, if any, exists between the diagnosis of small enterotomy and the procedure? [ ] Small enterotomy is a complication of surgical procedure [x ] Small enterotomy is an expected outcome of the surgical procedure [ ] Small enterotomy is related to patients co-morbid condition(s) of [insert co-morbid dxs] & not a complication of the procedure [ ] Other please specify ____ [ ] Unable to determine (Template Last Revised: April 2020) MTDD
[2021-02-23] MEDS: Acetaminophen-Codeine 300-30mg TAB PO PRN (20:18)
[2021-02-23] MEDS: LACTOBACILLUS ACIDOPH & BULGAR 1 EACH PACKET PO SCH (20:19)
--- NOTE | 2021-02-23 21:46 | P.PN ---
Progress Note - Text Progress Note Date: 02/23/21 - Chief Complaint Abdominal pain This is a very pleasant 85-year-old patient who follows with visiting physicians. Rather independent. Does use a walker. Chronic stable medical conditions include history of remote DVT, colon cancer in 1991 with a resultant ileostomy, arthritis in several joints. Patient to baseline uses a walker. Yesterday afternoon patient developed abdominal pain. Wanted to come to the hospital. She was trying to get into her son's truck and was using about when she fell backwards leg getting caught. She never hit the floor but her leg got caught. As she did have injury to her knees. When she came to the ER she was found to have element of bowel obstruction. Also noted in the knee. No fracture. Patient's had tremor for last 2 years slowly getting worse. Does sometimes interfere with her activity. Admitted with small bowel obstruction, underwent surgical intervention on February [address] Stover. Lysis of adhesions. February 22: NG tube to suction. Slight liquid stool in the ileostomy bag. Some abdominal pain. Laying in bed. IV fluids. February 23: NG tube discontinued. Started on clear liquids. Sitting up in a chair. Some liquid stool in the ileostomy bag. Some abdominal discomfort. No flatus or BM. Review of systems: Was done for constitutional, cardiovascular, GI, pulmonary. relevant finding as above Active Medications Acetaminophen/Codeine Phosphate (Acetaminophen-Codeine 300-30mg Tab) 1 each PO Q6H PRN PRN Reason: Pain Last Admin: 02/23/21 20:18 Dose: 1 each Documented by: Enoxaparin Sodium (Enoxaparin 30 Mg/0.3 Ml Syringe) 30 mg SQ DAILY [facility] Last Admin: 02/23/21 07:32 Dose: 30 mg Documented by: Hydromorphone HCl (Hydromorphone 0.5 Mg/0.5 Ml Syringe) 0.5 mg IVP Q3HR PRN PRN Reason: Moderate Pain Last Admin: 02/23/21 11:54 Dose: 0.5 mg Documented by: Cefepime HCl 1 gm/ Sodium (Chloride) 50 mls @ 12.5 mls/hr IVPB Q12H [facility] Last Admin: 02/23/21 16:18 Dose: 12.5 mls/hr Documented by: Lactated Ringer's (Lactated Ringers) 1,000 mls @ 100 mls/hr IV .Q10H [facility] Last Admin: 02/23/21 16:18 Dose: 100 mls/hr Documented by: Lactobacillus Acidoph/Bulgaricus (Lactobacillus Acidoph & Bulgar 1 Each Packet) 1 each PO Q48H [facility] Last Admin: 02/23/21 20:19 Dose: 1 each Documented by: Morphine Sulfate (Morphine Sulfate 4 Mg/Ml Syringe) 4 mg IV Q4HR PRN PRN Reason: Severe Pain Naloxone HCl (Naloxone 0.4 Mg/Ml 1 Ml Vial) 0.2 mg IV Q2M PRN PRN Reason: Opioid Reversal Ondansetron HCl (Ondansetron 4 Mg/2 Ml Vial) 4 mg IVP Q6HR PRN PRN Reason: Nausea And Vomiting Pantoprazole Sodium (Pantoprazole 40 Mg/10 Ml Vial) 40 mg IV DAILY [facility] Last Admin: 02/23/21 07:32 Dose: 40 mg Documented by: Primidone (Primidone 25 Mg Tab) 25 mg PO TID [facility] Last Admin: 02/23/21 20:19 Dose: 25 mg Documented by: Past medical history to include: DD, colon cancer 9091 with resultant urostomy, slipped disc in the back, osteomyelitis, uses a walker, Social history: Drinks 2 glasses of wine per week, lives alone. Does have a walker. No smoking. Family history: Stroke Physical examination: VITAL SIGNS: 98.4, 97, 18, 107/61, 92% room air GENERAL: Sitting up in a chair, awake EYES: Pupils equal. Conjunctiva normal. HEENT: External appearance of nose and ears normal, oral cavity dry, NG tube to suction. NECK: JVD not raised; masses not palpable. HEART: First and second heart sounds are normal; no edema. LUNGS: Respiratory rate normal; clear to auscultation. ABDOMEN: Soft, ileostomy bag with liquid dark, minimal tenderness liver spleen not palpable, no masses palpable. Dressing over the mid incision site MUSCULAR skeletal: Evidence of OA in several joints especially the hands and the knees PSYCH: Alert and oriented x3; mood and affect normal. Neurological: Tremors INVESTIGATIONS, reviewed in the clinical context: February 23: White count 9.8 hemoglobin 9.4 potassium 4.2 creatinine 1.3 Vitamin B12 218 February 22: White count 17.1 hemoglobin 10.3 potassium 4.5 BUN 28.2 creatinine 1.4 White count 17.8 hemoglobin 13 platelets 243 sodium 133 potassium 4.7 BUN 39 creatinine 1.46 UA positive for leukoesterase WBC Coronavirus [PCR]: Not detected Knee x-ray: No fracture Computed tomography scan of the abdomen pelvis: Right-sided hydronephrosis and hydroureter. Multiple dilated small bowel loops suggestive of mechanical small bowel obstruction. Some fibrotic changes in the lung bases. Assessment and plan: -Acute small bowel obstruction. Adhesions lysis by Dr. Stover on February 21 NG tube-discontinued. Clear liquids -Primary osteoarthritis multiple joints bilaterally Pain control -Macrocytic anemia B12 normal -Acute postprocedure blood loss anemia, expected from surgery Follow H&H -Chronic gait dysfunction uses a walker at baseline Fall precautions -Tremors interfering with patient's ADLs. Primidone 25 mg 3 times a day. -Kidney disease. Chronicity unknown. Possible obstructive. IV fluids. Repeat renal function. -Right hydroureter with hydronephrosis. Patient seen by Dr. quispe. For further workup as outpatient. -Acute UTI with cystitis IV cefepime NG tube discontinued. Clear liquids. IV fluids. Discussed with the patient. Activity as tolerated. Thank you Dr. Stover
[2021-02-24] MEDS: CEFEPIME 1 GM in SODIUM CHLORIDE 0.9% 50 ML IVPB SCH ×2 (03:46→15:33)
[2021-02-24] MEDS: LACTATED RINGERS 1,000 ML IV SCH ×3 (03:56→14:10)
[2021-02-24] MEDS: PANTOPRAZOLE 40 MG/10 ML VIAL IV SCH (07:20)
[2021-02-24] MEDS: ENOXAPARIN 30 MG/0.3 ML SYRINGE SQ SCH (08:48)
[2021-02-24] MEDS: PRIMIDONE 25 MG TAB PO SCH ×4 (08:48→21:10)
[2021-02-24] MEDS: HYDROmorphone 0.5 MG/0.5 ML SYRINGE IVP PRN ×3 (09:07→14:14)
[2021-02-24 10:02] LABS: % Iron Saturation 27.66 (12.00-45.00)
--- NOTE | 2021-02-24 11:19 | P.PN ---
Subjective No acute overnight events, bladder spasms improved. Urine is blood-tinged, denies any flank pain. Creatinine down to 1.3 Objective - Vital Signs Vital signs: Vital Signs Temp 97.6 F 02/24/21 07:44 Pulse 79 02/24/21 07:44 Resp 16 02/24/21 07:44 BP 119/70 02/24/21 07:44 Pulse Ox 93 L 02/24/21 07:44 Intake & Output 02/23/21 02/24/21 02/24/21 18:59 06:59 18:59 Output Total 575 450 Balance -575 -450 Output: Urine 325 250 Stool 250 200 Other: Voiding Method Indwelling Catheter Indwelling Catheter Indwelling Catheter - Constitutional General appearance: Present: no acute distress - Labs CBC & Chem 7: 02/23/21 05:14 02/23/21 05:14 Labs: Abnormal Lab Results - Last 24 Hours (Table) 02/24/21 Range/Units 05:24 TIBC 220 L (228-460) ug/dL Transferrin 157.0 L (204.0-354.0) mg/dL Ferritin 802.0 H (10.0-291.0) ng/mL Assessment and Plan Assessment: this is an 85-year-old female with history of right-sided hydronephrosis, and gross hematuria. Urine today's is blood-tinged. No previous history of kidney stones, or any surgeries. Creatinine slightly down to 1.3 from 1.44 from a baseline of 0.6. of note She had small bowel obstruction presentation. Zhang draining blood-tinged urine -Irrigate the Zhang when necessary -Repeat BMP today -Discussed with her the option of doing a cystoscopy right-sided retrograde pyelogram possible stent while inpatient. Patient refused proceeding with any surgery at this time. She was agreeable to arrange this as an outpatient. well arrange for outpatient cystoscopy and right reterograde pyelogram,
[2021-02-24] MEDS: SODIUM FERRIC GLUCONAT-SUCROSE 125 MG in SODIUM CHLORIDE 0.9% 100 ML IVPB SCH (11:50)
--- NOTE | 2021-02-24 13:13 | P.PN ---
Subjective Progress Note Date: 02/24/21 Principal diagnosis: Status post lysis of adhesions for bowel obstruction Patient is seen on rounds. Tolerating clear liquids without nausea or vomiting. Wants more to eat. Objective - Vital Signs Vital signs: Vital Signs Temp 97.6 F 02/24/21 07:44 Pulse 79 02/24/21 07:44 Resp 16 02/24/21 07:44 BP 119/70 02/24/21 07:44 Pulse Ox 93 L 02/24/21 07:44 Intake & Output 02/23/21 02/24/21 02/24/21 18:59 06:59 18:59 Output Total 575 450 Balance -575 -450 Output: Urine 325 250 Stool 250 200 Other: Voiding Method Indwelling Catheter Indwelling Catheter Indwelling Catheter - Constitutional General appearance: Present: cooperative, no acute distress - Gastrointestinal General gastrointestinal: Present: normal bowel sounds, soft Localized gastrointestinal: surgical scar: diffuse (Dressing intact with some dried blood, ileostomy is functioning, urine is blood-tinged) - Labs CBC & Chem 7: 02/23/21 05:14 02/23/21 05:14 Labs: Abnormal Lab Results - Last 24 Hours (Table) 02/24/21 Range/Units 05:24 TIBC 220 L (228-460) ug/dL Transferrin 157.0 L (204.0-354.0) mg/dL Ferritin 802.0 H (10.0-291.0) ng/mL Assessment and Plan (1) Parastomal hernia Current Visit: Yes Status: Acute Code(s): K43.5 - PARASTOMAL HERNIA WITHOUT OBSTRUCTION OR GANGRENE SNOMED Code(s): 614540376 (2) History of colon cancer Current Visit: Yes Status: Acute Code(s): Z85.038 - PERSONAL HISTORY OF MALIGNANT NEOPLASM OF LARGE INTESTINE SNOMED Code(s): 584458032 (3) Small bowel obstruction Current Visit: Yes Status: Acute Code(s): K56.609 - UNSP INTESTNL OBST, UNSP TO PARTIAL VERSUS COMPLETE OBST SNOMED Code(s): 077422247 Plan: Diet will be advanced. Follow-up with urology regarding hydronephrosis and possible ureteral obstruction. Patient is agreeable to short-term rehab. From a surgical standpoint she would likely be ready in the next few days. Questions were encouraged and answered
--- NOTE | 2021-02-24 14:37 | P.PN ---
Progress Note - Text Progress Note Date: 02/24/21 - Chief Complaint Abdominal pain This is a very pleasant 85-year-old patient who follows with visiting physicians. Rather independent. Does use a walker. Chronic stable medical conditions include history of remote DVT, colon cancer in 1991 with a resultant ileostomy, arthritis in several joints. Patient to baseline uses a walker. Yesterday afternoon patient developed abdominal pain. Wanted to come to the hospital. She was trying to get into her son's truck and was using about when she fell backwards leg getting caught. She never hit the floor but her leg got caught. As she did have injury to her knees. When she came to the ER she was found to have element of bowel obstruction. Also noted in the knee. No fracture. Patient's had tremor for last 2 years slowly getting worse. Does sometimes interfere with her activity. Admitted with small bowel obstruction, underwent surgical intervention on February [address] Stover. Lysis of adhesions. February 22: NG tube to suction. Slight liquid stool in the ileostomy bag. Some abdominal pain. Laying in bed. IV fluids. February 23: NG tube discontinued. Started on clear liquids. Sitting up in a chair. Some liquid stool in the ileostomy bag. Some abdominal discomfort. No flatus or BM. February 24: Diet being advanced. Having some liquid stool in the ileostomy bag. No nausea vomiting. Patient is not sure if her tremors are better not with the primidone. Give IV Ferrlecit Review of systems: Was done for constitutional, cardiovascular, GI, pulmonary. relevant finding as above Active Medications Acetaminophen/Codeine Phosphate (Acetaminophen-Codeine 300-30mg Tab) 1 each PO Q6H PRN PRN Reason: Pain Last Admin: 02/23/21 20:18 Dose: 1 each Documented by: Enoxaparin Sodium (Enoxaparin 30 Mg/0.3 Ml Syringe) 30 mg SQ DAILY [facility] Last Admin: 02/24/21 08:48 Dose: 30 mg Documented by: Hydromorphone HCl (Hydromorphone 0.5 Mg/0.5 Ml Syringe) 0.5 mg IVP Q3HR PRN PRN Reason: Moderate Pain Last Admin: 02/24/21 14:14 Dose: 0.5 mg Documented by: Cefepime HCl 1 gm/ Sodium (Chloride) 50 mls @ 12.5 mls/hr IVPB Q12H [facility] Last Admin: 02/24/21 03:46 Dose: 12.5 mls/hr Documented by: Ferric Sodium Gluconate 125 mg (/ Sodium Chloride) 110 mls @ 100 mls/hr IVPB DAILY [facility] Stop: 02/25/21 10:05 Last Admin: 02/24/21 11:50 Dose: 100 mls/hr Documented by: Lactated Ringer's (Lactated Ringers) 1,000 mls @ 50 mls/hr IV .Q20H [facility] Last Admin: 02/24/21 14:10 Dose: 50 mls/hr Documented by: Lactobacillus Acidoph/Bulgaricus (Lactobacillus Acidoph & Bulgar 1 Each Packet) 1 each PO Q48H [facility] Last Admin: 02/23/21 20:19 Dose: 1 each Documented by: Morphine Sulfate (Morphine Sulfate 4 Mg/Ml Syringe) 4 mg IV Q4HR PRN PRN Reason: Severe Pain Naloxone HCl (Naloxone 0.4 Mg/Ml 1 Ml Vial) 0.2 mg IV Q2M PRN PRN Reason: Opioid Reversal Ondansetron HCl (Ondansetron 4 Mg/2 Ml Vial) 4 mg IVP Q6HR PRN PRN Reason: Nausea And Vomiting Pantoprazole Sodium (Pantoprazole 40 Mg/10 Ml Vial) 40 mg IV DAILY [facility] Last Admin: 02/24/21 07:20 Dose: 40 mg Documented by: Primidone (Primidone 25 Mg Tab) 25 mg PO QID [facility] Last Admin: 02/24/21 12:00 Dose: 25 mg Documented by: Past medical history to include: DD, colon cancer 9091 with resultant urostomy, slipped disc in the back, osteomyelitis, uses a walker, Social history: Drinks 2 glasses of wine per week, lives alone. Does have a walker. No smoking. Family history: Stroke Physical examination: VITAL SIGNS: 97.6, 79, 16, 119/70, 93% room air GENERAL: Reclining in bed, awake EYES: Pupils equal. Conjunctiva normal. HEENT: External appearance of nose and ears normal, oral cavity dry, NG tube to suction. NECK: JVD not raised; masses not palpable. HEART: First and second heart sounds are normal; no edema. LUNGS: Respiratory rate normal; clear to auscultation. ABDOMEN: Soft, ileostomy bag with liquid dark, minimal tenderness liver spleen not palpable, no masses palpable. Dressing over the mid incision site MUSCULAR skeletal: Evidence of OA in several joints especially the hands and the knees PSYCH: Alert and oriented x3; mood and affect normal. Neurological: Tremors INVESTIGATIONS, reviewed in the clinical context: Iron 61 TIBC 220 transferred ferritin 802 February 23: White count 9.8 hemoglobin 9.4 potassium 4.2 creatinine 1.3 Vitamin B12 218 February 22: White count 17.1 hemoglobin 10.3 potassium 4.5 BUN 28.2 creatinine 1.4 White count 17.8 hemoglobin 13 platelets 243 sodium 133 potassium 4.7 BUN 39 creatinine 1.46 UA positive for leukoesterase WBC Coronavirus [PCR]: Not detected Knee x-ray: No fracture Computed tomography scan of the abdomen pelvis: Right-sided hydronephrosis and hydroureter. Multiple dilated small bowel loops suggestive of mechanical small bowel obstruction. Some fibrotic changes in the lung bases. Assessment and plan: -Acute small bowel obstruction. Adhesions lysis by Dr. Stover on February 21 NG tube-discontinued. Tolerating liquids. Diet advanced -Primary osteoarthritis multiple joints bilaterally Pain control -Anemia of chronic disease -Acute postprocedure blood loss anemia, expected from surgery Follow H&H -Chronic gait dysfunction uses a walker at baseline Fall precautions -Tremors interfering with patient's ADLs. Primidone 25 mg 3 times a day. -CK D possibly obstructive stage III -Right hydroureter with hydronephrosis. Patient seen by Dr. quispe. For further workup as outpatient. -Acute UTI with cystitis IV cefepime Diet advanced. Cutback IV fluids. Increase activity. Discussed with patient. IV iron. Thank you Dr. Stover
[2021-02-24 15:47] LABS: African American GFR (CKD) 43.3 (60.0-200.0); Anion Gap 12.1 mmol/L (10.00-18.00); BUN/Creat Ratio 20.92 Ratio (12.00-20.00); Blood Urea Nitrogen 27.2 mg/dL (9.0-27.0); Calcium 8.4 mg/dL (8.7-10.3); Carbon Dioxide 18.9 mmol/L (20.0-27.5); Non-African American GFR(CKD) 37.4 (60.0-200.0); Potassium 3.8 mmol/L (3.5-5.5)
[2021-02-25] MEDS: CEFEPIME 1 GM in SODIUM CHLORIDE 0.9% 50 ML IVPB SCH ×3 (03:09→15:34)
[2021-02-25] MEDS: PANTOPRAZOLE 40 MG/10 ML VIAL IV SCH (07:15)
[2021-02-25] MEDS: HYDROmorphone 0.5 MG/0.5 ML SYRINGE IVP PRN ×3 (07:16→21:11)
--- NOTE | 2021-02-25 08:09 | P.PN ---
Subjective No acute overnight events, creat is still elevated at 1.3. Urine is clearing up Objective - Vital Signs Vital signs: Vital Signs Temp 98.9 F 02/25/21 07:51 Pulse 75 02/25/21 07:51 Resp 19 02/25/21 07:51 BP 128/69 02/25/21 07:51 Pulse Ox 95 02/25/21 07:51 Intake & Output 02/24/21 02/25/21 02/25/21 18:59 06:59 18:59 Intake Total 100 500 Output Total 325 Balance -225 500 Intake: Intake, IV Titration 100 500 Amount Lactated Ringers 1,000 ml 500 @ 50 mls/hr IV .Q20H [facility] Rx#:[id number] Sodium Ferric Gluconat- 100 Sucrose 125 mg In Sodium Chloride 0.9% 100 ml @ 100 mls/hr IVPB DAILY [facility] Rx#:[id number] Output: Urine 225 Stool 100 Other: Voiding Method Indwelling Catheter Indwelling Catheter - Labs CBC & Chem 7: 02/23/21 05:14 02/24/21 05:24 Labs: Abnormal Lab Results - Last 24 Hours (Table) 02/24/21 02/24/21 Range/Units 05:24 05:24 Carbon Dioxide 18.9 L (20.0-27.5) mmol/L BUN 27.2 H (9.0-27.0) mg/dL Est GFR (CKD-EPI)AfAm 43.3 L (60.0-200.0) Est GFR (CKD-EPI)NonAf 37.4 L (60.0-200.0) BUN/Creatinine Ratio 20.92 H (12.00-20.00) Ratio Calcium 8.4 L (8.7-10.3) mg/dL TIBC 220 L (228-460) ug/dL Transferrin 157.0 L (204.0-354.0) mg/dL Ferritin 802.0 H (10.0-291.0) ng/mL Assessment and Plan Assessment: this is an 85-year-old female with history of right-sided hydronephrosis, and gross hematuria. Urine today's is blood-tinged. No previous history of kidney stones, or any surgeries. Creatinine stable at 1.3, but baseline of 0.6. of note She had small bowel obstruction presentation. I rediscussed with her given her persistently elevated creating the recommendation was stent placement. She was agreeable with that plan. Discussed with her we'll plan on proceeding today with a cystoscopy, right retrograde pyelogram, possible stent placement. Discussed with her there is evidence of bladder tumor we'll proceed with a TURBT. Discussed with her the risk and benefit of procedure in detail. She was agreeable with the plan -Keep nothing by mouth -OR for cystoscopy and right reterograde pyelogram, right stent placement, possible TURBT
[2021-02-25] MEDS: LACTATED RINGERS 1,000 ML IV SCH ×2 (08:52→17:59)
[2021-02-25] MEDS: SODIUM FERRIC GLUCONAT-SUCROSE 125 MG in SODIUM CHLORIDE 0.9% 100 ML IVPB SCH (08:52)
[2021-02-25] MEDS: ENOXAPARIN 30 MG/0.3 ML SYRINGE SQ SCH (08:53)
--- NOTE | 2021-02-25 09:12 | P.PN ---
Subjective Progress Note Date: 02/25/21 Principal diagnosis: Status post lysis of adhesions for bowel obstruction Irrigation has been tolerating a diet. She was reevaluated by urology. She is agreeable to cystoscopy with stent placement and will go for that today. Otherwise she's having minimal incisional pain. Ostomy is working well Objective - Vital Signs Vital signs: Vital Signs Temp 98.9 F 02/25/21 07:51 Pulse 75 02/25/21 07:51 Resp 19 02/25/21 07:51 BP 128/69 02/25/21 07:51 Pulse Ox 95 02/25/21 07:51 Intake & Output 02/24/21 02/25/21 02/25/21 18:59 06:59 18:59 Intake Total 100 500 Output Total 325 Balance -225 500 Intake: Intake, IV Titration 100 500 Amount Lactated Ringers 1,000 ml 500 @ 50 mls/hr IV .Q20H [facility] Rx#:[id number] Sodium Ferric Gluconat- 100 Sucrose 125 mg In Sodium Chloride 0.9% 100 ml @ 100 mls/hr IVPB DAILY [facility] Rx#:[id number] Output: Urine 225 Stool 100 Other: Voiding Method Indwelling Catheter Indwelling Catheter - Constitutional General appearance: Present: cooperative, no acute distress - Gastrointestinal General gastrointestinal: Present: normal bowel sounds, soft Localized gastrointestinal: surgical scar: diffuse (Dressing is intact clean and dry, the ileostomy is pink and viable) - Labs CBC & Chem 7: 02/23/21 05:14 02/24/21 05:24 Labs: Abnormal Lab Results - Last 24 Hours (Table) 02/24/21 02/24/21 Range/Units 05:24 05:24 Carbon Dioxide 18.9 L (20.0-27.5) mmol/L BUN 27.2 H (9.0-27.0) mg/dL Est GFR (CKD-EPI)AfAm 43.3 L (60.0-200.0) Est GFR (CKD-EPI)NonAf 37.4 L (60.0-200.0) BUN/Creatinine Ratio 20.92 H (12.00-20.00) Ratio Calcium 8.4 L (8.7-10.3) mg/dL TIBC 220 L (228-460) ug/dL Transferrin 157.0 L (204.0-354.0) mg/dL Ferritin 802.0 H (10.0-291.0) ng/mL Assessment and Plan (1) Parastomal hernia Current Visit: Yes Status: Acute Code(s): K43.5 - PARASTOMAL HERNIA WITHOUT OBSTRUCTION OR GANGRENE SNOMED Code(s): 456954255 (2) History of colon cancer Current Visit: Yes Status: Acute Code(s): Z85.038 - PERSONAL HISTORY OF MALIGNANT NEOPLASM OF LARGE INTESTINE SNOMED Code(s): 533838418 (3) Small bowel obstruction Current Visit: Yes Status: Acute Code(s): K56.609 - UNSP INTESTNL OBST, UNSP TO PARTIAL VERSUS COMPLETE OBST SNOMED Code(s): 771876939 (4) Hydronephrosis Current Visit: Yes Status: Acute Code(s): N13.30 - UNSPECIFIED HYDRONEPHROSIS SNOMED Code(s): 20106572 Plan: The patient is progressing well as regards to her small bowel obstruction. She is going for cystoscopy and stent placement, possible TURBT today. Otherwise progressing well, likely ready for rehab the beginning of the week
[2021-02-25] MEDS: PRIMIDONE 25 MG TAB PO SCH ×4 (09:43→21:12)
[2021-02-25] MEDS ORDERED: IV FLUID CONTINUATION 700 ML IV ONE (13:57)
[2021-02-25] MEDS ORDERED: ONDANSETRON 4 MG/2 ML VIAL IVP ONE (14:24)
[2021-02-25] MEDS ORDERED: DEXAMETHASONE SOD PHOSPHATE 4 MG/ML 1 ML VIAL IV ONE (14:24)
[2021-02-25] MEDS ORDERED: LACTATED RINGERS 1,000 ML IV SCH (14:30)
[2021-02-25] MEDS ORDERED: MIDAZOLAM 2 MG/2 ML VIAL ONE (15:34)
[2021-02-25] MEDS ORDERED: ROCURONIUM 10 MG/ML (5 ML VIAL) IV ONE (15:34)
[2021-02-25] MEDS ORDERED: LIDOCAINE 1% INJ 10MG/ML (20 ML MDV) ONE (15:34)
[2021-02-25] MEDS ORDERED: SUCCINYLCHOLINE CHLORIDE 100 MG/5 ML SYR IV ONE (15:34)
[2021-02-25] MEDS ORDERED: fentaNYL (PF) 50 MCG/ML 2 ML AMP ONE (15:34)
[2021-02-25] MEDS ORDERED: PROPOFOL 10 MG/ML 20 ML VIAL IV ONE (15:34)
--- NOTE | 2021-02-25 15:37 | P.PN ---
Progress Note - Text Progress Note Date: 02/25/21 - Chief Complaint Abdominal pain This is a very pleasant 85-year-old patient who follows with visiting physicians. Rather independent. Does use a walker. Chronic stable medical conditions include history of remote DVT, colon cancer in 1991 with a resultant ileostomy, arthritis in several joints. Patient to baseline uses a walker. Yesterday afternoon patient developed abdominal pain. Wanted to come to the hospital. She was trying to get into her son's truck and was using about when she fell backwards leg getting caught. She never hit the floor but her leg got caught. As she did have injury to her knees. When she came to the ER she was found to have element of bowel obstruction. Also noted in the knee. No fracture. Patient's had tremor for last 2 years slowly getting worse. Does sometimes interfere with her activity. Admitted with small bowel obstruction, underwent surgical intervention on February [address] Stover. Lysis of adhesions. February 22: NG tube to suction. Slight liquid stool in the ileostomy bag. Some abdominal pain. Laying in bed. IV fluids. February 23: NG tube discontinued. Started on clear liquids. Sitting up in a chair. Some liquid stool in the ileostomy bag. Some abdominal discomfort. No flatus or BM. February 24: Diet being advanced. Having some liquid stool in the ileostomy bag. No nausea vomiting. Patient is not sure if her tremors are better not with the primidone. Give IV Ferrlecit February 25: Patient having some stool in the ileostomy bag. Has had hematuria. Going for cystoscopy this afternoon. No fever no chills. Review of systems: Was done for constitutional, cardiovascular, GI, pulmonary. relevant finding as above Active Medications Acetaminophen/Codeine Phosphate (Acetaminophen-Codeine 300-30mg Tab) 1 each PO Q6H PRN PRN Reason: Pain Last Admin: 02/23/21 20:18 Dose: 1 each Documented by: Enoxaparin Sodium (Enoxaparin 30 Mg/0.3 Ml Syringe) 30 mg SQ DAILY [facility] Last Admin: 02/25/21 08:53 Dose: Not Given Documented by: Fentanyl Citrate (Fentanyl (Pf) 50 Mcg/Ml 2 Ml Amp) 50 mcg IV Q3M PRN PRN Reason: Phase I - Pain Control Stop: 02/26/21 23:00 Hydromorphone HCl (Hydromorphone 0.5 Mg/0.5 Ml Syringe) 0.5 mg IVP Q3HR PRN PRN Reason: Moderate Pain Last Admin: 02/25/21 13:21 Dose: 0.5 mg Documented by: Cefepime HCl 1 gm/ Sodium (Chloride) 50 mls @ 12.5 mls/hr IVPB Q12H [facility] Last Admin: 02/25/21 15:32 Dose: 0 mls Documented by: Lactated Ringer's (Lactated Ringers) 1,000 mls @ 50 mls/hr IV .Q20H [facility] Last Admin: 02/25/21 08:52 Dose: 50 mls/hr Documented by: Lactated Ringer's (Lactated Ringers) 1,000 mls @ 20 mls/hr IV .Q24H [facility] Lactobacillus Acidoph/Bulgaricus (Lactobacillus Acidoph & Bulgar 1 Each Packet) 1 each PO Q48H [facility] Last Admin: 02/23/21 20:19 Dose: 1 each Documented by: Morphine Sulfate (Morphine Sulfate 4 Mg/Ml Syringe) 4 mg IV Q4HR PRN PRN Reason: Severe Pain Naloxone HCl (Naloxone 0.4 Mg/Ml 1 Ml Vial) 0.2 mg IV Q2M PRN PRN Reason: Opioid Reversal Ondansetron HCl (Ondansetron 4 Mg/2 Ml Vial) 4 mg IVP Q6HR PRN PRN Reason: Nausea And Vomiting Pantoprazole Sodium (Pantoprazole 40 Mg/10 Ml Vial) 40 mg IV DAILY [facility] Last Admin: 02/25/21 07:15 Dose: 40 mg Documented by: Primidone (Primidone 25 Mg Tab) 25 mg PO QID [facility] Last Admin: 02/25/21 13:21 Dose: Not Given Documented by: Past medical history to include: DD, colon cancer 9091 with resultant urostomy, slipped disc in the back, osteomyelitis, uses a walker, Social history: Drinks 2 glasses of wine per week, lives alone. Does have a walker. No smoking. Family history: Stroke Physical examination: VITAL SIGNS: 98.8, 77, 18, 11 11/02/1970, 96% room air GENERAL: Reclining in bed, awake EYES: Pupils equal. Conjunctiva normal. HEENT: External appearance of nose and ears normal, oral cavity dry, NG tube to suction. NECK: JVD not raised; masses not palpable. HEART: First and second heart sounds are normal; no edema. LUNGS: Respiratory rate normal; clear to auscultation. ABDOMEN: Soft, ileostomy bag with liquid dark, minimal tenderness liver spleen not palpable, no masses palpable. Dressing over the mid incision site. Zhang catheter hematuria MUSCULAR skeletal: Evidence of OA in several joints especially the hands and the knees PSYCH: Alert and oriented x3; mood and affect normal. Neurological: Tremors INVESTIGATIONS, reviewed in the clinical context: Iron 61 TIBC 220 transferred ferritin 802 February 23: White count 9.8 hemoglobin 9.4 potassium 4.2 creatinine 1.3 Vitamin B12 218 February 22: White count 17.1 hemoglobin 10.3 potassium 4.5 BUN 28.2 creatinine 1.4 White count 17.8 hemoglobin 13 platelets 243 sodium 133 potassium 4.7 BUN 39 creatinine 1.46 UA positive for leukoesterase WBC Coronavirus [PCR]: Not detected Knee x-ray: No fracture Computed tomography scan of the abdomen pelvis: Right-sided hydronephrosis and hydroureter. Multiple dilated small bowel loops suggestive of mechanical small bowel obstruction. Some fibrotic changes in the lung bases. Assessment and plan: -Acute small bowel obstruction. Adhesions lysis by Dr. Stover on February 21 NG tube-discontinued. Tolerating liquids. Diet advanced -Primary osteoarthritis multiple joints bilaterally Pain control -Anemia of chronic disease -Acute postprocedure blood loss anemia, expected from surgery Follow H&H -Chronic gait dysfunction uses a walker at baseline Fall precautions -Tremors interfering with patient's ADLs. Primidone 25 mg 3 times a day. -CK D possibly obstructive stage III -Right hydroureter with hydronephrosis. Along with hematuria. Patient seen by Dr. quispe. For cystoscopy and further intervention today. -Acute UTI with cystitis IV cefepime Patient going down for cystoscopy and further intervention today. Other medications to continue. Repeat labs. Thank you Dr. Stover
[2021-02-25] MEDS ORDERED: IOHEXOL 350 MG/ML 50 ML in EMPTY BAG 1 BAG IRRIGATION ONE (16:16)
--- NOTE | 2021-02-25 17:18 | P.OP ---
Date of Procedure: 02/25/21 Preoperative Diagnosis: Gross hematuria, right-sided hydronephrosis Postoperative Diagnosis: Same Procedure(s) Performed: Cystoscopy, TURBT (medium), right ureteroscopy, retrograde pyelogram and stent insertion Implants: 4.8 Fr X 26 cm stent in the right ureter Anesthesia: ANKUR Surgeon: Andrew Robins Estimated Blood Loss (ml): 10 Pathology: other (bladder tumor) Condition: stable Disposition: PACU Indications for Procedure: this is an 85-year-old female with history of right-sided hydronephrosis, and gross hematuria. Her creat was elevated at 1.3, with baseline of 0.6. of note She had small bowel obstruction presentation. I rediscussed with her given her persistently elevated creating the recommendation was stent placement. She was agreeable with that plan. Discussed with her we'll plan on proceeding today with a cystoscopy, right retrograde pyelogram, and stent placement. Discussed with her there is evidence of bladder tumor we'll proceed with a TURBT. Discussed with her the risk and benefit of procedure in detail. She was agree able with the plan Operative Findings: Edematous erythematous area along the right trigone around the right ureteral orifice Significant dilation of the right ureter, pinpoint narrowing at the distal ureter Description of Procedure: Patient was brought to the operating room, general anesthesia was induced. She was prepped and draped in sterile fashion and placed in dorsal lithotomy position. Resectoscope fitted with 25-Senegalese sheath was inserted per urethra, cystoscopy was performed which showed approximately 50 mL of clots which was irrigated out. Additionally there was an edematous erythematous area along the right trigone extending around the ureteral orifice, with slow defused venous oozing. Using a bipolar resectoscope that area was resected down, ureteral orifice was not resected. The left ureteral orifice was visualized and was not involved with the resection. The area of resection was thoroughly fulgurated. Repeat cystoscopy showed no additional suspicious lesions. At this time the resectoscope was withdrawn and a cystoscope fitted with a 22-Senegalese sheath was inserted. Attention was carried to the right ureteral orifice, I attempted to intubate the ureteral orifice initially with a sensor wire, but resistance was met at the distal ureter. At this time I switched to a 0.025 Glidewire, but was still meeting resistance. At this time I switched to the semirigid ureteroscope, this was advanced up the right ureteral orifice, I was able to advance approximately half a centimeter up the ureteral orifice, then the ureteral lumen appeared to be completely obliterated, I was able to visualize a pinpoint opening, and was able to advance a 0.025 Glidewire through that opening and into the renal pelvis. Of note there was significant tortuosity of the ureter. At this time a 6-Senegalese open-ended catheter was passed over the Glidewire. I was only able to advanced up a few centimeters of the ureteral orifice. Retrograde pyelogram was performed which showed significant narrowing in the first 2-3 cm of the distal ureter with significant dilation proximal to that. Of note the ureter was significantly torturous, with severe hydronephrosis. At this time the wire was readvanced through the catheter into the collecting system. Next a 4.8-Senegalese by 26 cm was passed over the wire and into the kidney. There was significant amount of urine drained from the kidney following stent placement. Repeat cystoscopy showed no evidence of bleeding. The bladder was emptied at the end of the case. 20-Senegalese Zhang was placed with the return of clear urine. Patient tolerated procedure well was taken to recovery in stable condition
[2021-02-25] MEDS: LACTOBACILLUS ACIDOPH & BULGAR 1 EACH PACKET PO SCH (21:12)
[2021-02-26] MEDS: CEFEPIME 1 GM in SODIUM CHLORIDE 0.9% 50 ML IVPB SCH ×2 (04:39→15:52)
[2021-02-26 06:01] LABS: Basophils % (A) 0 %; Eosinophils % (A) 0 %; HCT 26.9 % (34.0-46.0); HGB 9.1 gm/dL (11.4-16.0); Lymphocytes # (A) 0.6 k/uL (1.0-4.8); Lymphocytes % (A) 7 %; MCH 34.5 pg (25.0-35.0); MCHC 33.8 g/dL (31.0-37.0); Mean Platelet Volume 7.4; Monocytes # (A) 0.6 k/uL (0-1.0); Monocytes % (A) 6 %; Neutrophils # (A) 7.9 k/uL (1.3-7.7); Neutrophils % (A) 84 %; Platelet Count 227 k/uL (150-450); RBC 2.64 m/uL (3.80-5.40); RDW 12.6 % (11.5-15.5); WBC 9.4 k/uL (3.8-10.6)
[2021-02-26 06:14] LABS: Potassium 3.7 mmol/L (3.5-5.1)
[2021-02-26 06:15] LABS: African American GFR (CKD) 45 (>60 ml/min/1.73 sqM); Anion Gap 5 mmol/L; Blood Urea Nitrogen 26 mg/dL (7-17); Calcium 8.2 mg/dL (8.4-10.2); Carbon Dioxide 23 mmol/L (22-30); Chloride 101 mmol/L (98-107); Glucose 105 mg/dL (74-99); Non-African American GFR(CKD) 39 (>60 ml/min/1.73 sqM); Sodium 129 mmol/L (137-145)
--- NOTE | 2021-02-26 06:32 | FL ---
Intraoperative fluoroscopic services were provided for retrograde pyelogram/urogram. Total fluoroscop y time is 2 minutes 2 seconds with a total of 3 submitted images to PACS. Please see the operative no te for further details.
[2021-02-26] MEDS ORDERED: fentaNYL (PF) 50 MCG/ML 2 ML AMP IV PRN (07:00)
[2021-02-26] MEDS: PANTOPRAZOLE 40 MG/10 ML VIAL IV SCH (07:42)
[2021-02-26] MEDS: ENOXAPARIN 30 MG/0.3 ML SYRINGE SQ SCH (08:03)
[2021-02-26] MEDS: PRIMIDONE 25 MG TAB PO SCH ×2 (08:04→11:27)
--- NOTE | 2021-02-26 09:37 | P.PN ---
Subjective Progress Note Date: 02/26/21 Patient seen and examined at bedside. Did undergo cystoscopy with TURBT, right ureteroscopy, retrograde pyelogram and stent insertion yesterday. She is doing well and denying any significant pain. Ileostomy is functioning. Objective - Vital Signs Vital signs: Vital Signs Temp 95.5 F L 02/26/21 08:00 Pulse 69 02/26/21 08:00 Resp 18 02/26/21 08:00 BP 119/68 02/26/21 08:00 Pulse Ox 97 02/26/21 08:00 Intake & Output 02/25/21 02/26/21 02/26/21 18:59 06:59 18:59 Intake Total 701 Output Total 210 400 Balance 491 -400 Intake: IV 701 Output: Urine 200 300 Stool 100 Estimated Blood Loss 10 Other: Voiding Method Indwelling Catheter Indwelling Catheter Indwelling Catheter - Constitutional General appearance: Present: cooperative - Gastrointestinal Gastrointestinal Comment(s): Soft, nondistended, no significant tenderness, no rebound, no guarding, ileostomy is functioning and pink and patent - Musculoskeletal Musculoskeletal: Present: generalized weakness - Labs CBC & Chem 7: 02/26/21 05:25 02/26/21 05:25 Labs: Abnormal Lab Results - Last 24 Hours (Table) 02/26/21 02/26/21 Range/Units 05:25 05:25 RBC 2.64 L (3.80-5.40) m/uL Hgb 9.1 L (11.4-16.0) gm/dL Hct 26.9 L (34.0-46.0) % MCV 102.0 H D (80.0-100.0) fL Neutrophils # 7.9 H (1.3-7.7) k/uL Lymphocytes # 0.6 L (1.0-4.8) k/uL Sodium 129 L (137-145) mmol/L BUN 26 H (7-17) mg/dL Creatinine 1.27 H (0.52-1.04) mg/dL Glucose 105 H (74-99) mg/dL Calcium 8.2 L (8.4-10.2) mg/dL Assessment and Plan Plan: Patient did undergo Cystoscopy, TURBT (medium), right ureteroscopy, retrograde pyelogram and stent insertion with urology yesterday. We'll await pathology results. Currently, patient seems to be recovering well from the lysis of adhesions and small bowel obstruction release. Ileostomy is functioning well. Continue diet. Continue medical recommendations. Increase activity. Will provide patient with incentive spirometry.
--- NOTE | 2021-02-26 12:14 | P.PN ---
Subjective Underwent a TURBT with right-sided stent placement and ureteroscopy yesterday. She was doing well in the postoperative period. Creatinine is 1.27. Urine is clear, denies any flank pain Objective - Vital Signs Vital signs: Vital Signs Temp 95.5 F L 02/26/21 08:00 Pulse 69 02/26/21 08:00 Resp 18 02/26/21 08:00 BP 119/68 02/26/21 08:00 Pulse Ox 97 02/26/21 08:00 Intake & Output 02/25/21 02/26/21 02/26/21 18:59 06:59 18:59 Intake Total 701 Output Total 210 400 Balance 491 -400 Intake: IV 701 Output: Urine 200 300 Stool 100 Estimated Blood Loss 10 Other: Voiding Method Indwelling Catheter Indwelling Catheter Indwelling Catheter - Constitutional General appearance: Present: no acute distress - Gastrointestinal General gastrointestinal: Present: soft. Absent: distended - Genitourinary Genitourinary Comment(s): Urine is clear - Labs CBC & Chem 7: 02/26/21 05:25 02/26/21 05:25 Labs: Abnormal Lab Results - Last 24 Hours (Table) 02/26/21 02/26/21 Range/Units 05:25 05:25 RBC 2.64 L (3.80-5.40) m/uL Hgb 9.1 L (11.4-16.0) gm/dL Hct 26.9 L (34.0-46.0) % MCV 102.0 H D (80.0-100.0) fL Neutrophils # 7.9 H (1.3-7.7) k/uL Lymphocytes # 0.6 L (1.0-4.8) k/uL Sodium 129 L (137-145) mmol/L BUN 26 H (7-17) mg/dL Creatinine 1.27 H (0.52-1.04) mg/dL Glucose 105 H (74-99) mg/dL Calcium 8.2 L (8.4-10.2) mg/dL Assessment and Plan Assessment: this is an 85-year-old female with history of right-sided hydronephrosis, and gross hematuria. Postoperative day #1 status post right ureteroscopy, TURBT and stent placement creatinine 1.27 this a.m., baseline of 0.6. Plan to discharge to subacute rehab on Sunday -Repeat BMP tomorrow -She is okay for discharge from urology standpoint, can follow-up as an outpatient in 1 week for a catheter removal and pathology review
[2021-02-26] MEDS: Acetaminophen-Codeine 300-30mg TAB PO PRN ×2 (13:22→19:14)
--- NOTE | 2021-02-26 15:03 | P.PN ---
Progress Note - Text Progress Note Date: 02/26/21 - Chief Complaint Abdominal pain This is a very pleasant 85-year-old patient who follows with visiting physicians. Rather independent. Does use a walker. Chronic stable medical conditions include history of remote DVT, colon cancer in 1991 with a resultant ileostomy, arthritis in several joints. Patient to baseline uses a walker. Yesterday afternoon patient developed abdominal pain. Wanted to come to the hospital. She was trying to get into her son's truck and was using about when she fell backwards leg getting caught. She never hit the floor but her leg got caught. As she did have injury to her knees. When she came to the ER she was found to have element of bowel obstruction. Also noted in the knee. No fracture. Patient's had tremor for last 2 years slowly getting worse. Does sometimes interfere with her activity. Admitted with small bowel obstruction, underwent surgical intervention on February [address] Stover. Lysis of adhesions. February 22: NG tube to suction. Slight liquid stool in the ileostomy bag. Some abdominal pain. Laying in bed. IV fluids. February 23: NG tube discontinued. Started on clear liquids. Sitting up in a chair. Some liquid stool in the ileostomy bag. Some abdominal discomfort. No flatus or BM. February 24: Diet being advanced. Having some liquid stool in the ileostomy bag. No nausea vomiting. Patient is not sure if her tremors are better not with the primidone. Give IV Ferrlecit February 25: Patient having some stool in the ileostomy bag. Has had hematuria. Going for cystoscopy this afternoon. No fever no chills. February 26: Patient having some hallucinations. Visual. She is concerned about primidone causing it. We'll stop the same. Hold off Dilaudid. Encourage oral intake. [Cystoscopy performed yesterday. With stent to the right ureter. 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 area of bladder was scraped. Review of systems: Was done for constitutional, cardiovascular, GI, pulmonary. relevant finding as above Active Medications Acetaminophen/Codeine Phosphate (Acetaminophen-Codeine 300-30mg Tab) 1 each PO Q6H PRN PRN Reason: Pain Last Admin: 02/26/21 13:22 Dose: 1 each Documented by: Enoxaparin Sodium (Enoxaparin 30 Mg/0.3 Ml Syringe) 30 mg SQ DAILY [facility] Last Admin: 02/26/21 08:03 Dose: 30 mg Documented by: Fentanyl Citrate (Fentanyl (Pf) 50 Mcg/Ml 2 Ml Amp) 50 mcg IV Q3M PRN PRN Reason: Phase I - Pain Control Stop: 02/26/21 23:00 Hydromorphone HCl (Hydromorphone 0.5 Mg/0.5 Ml Syringe) 0.5 mg IVP Q3HR PRN PRN Reason: Moderate Pain Last Admin: 02/25/21 21:11 Dose: 0.5 mg Documented by: Cefepime HCl 1 gm/ Sodium (Chloride) 50 mls @ 12.5 mls/hr IVPB Q12H [facility] Last Admin: 02/26/21 04:39 Dose: 12.5 mls/hr Documented by: Lactated Ringer's (Lactated Ringers) 1,000 mls @ 50 mls/hr IV .Q20H [facility] Last Admin: 02/25/21 17:59 Dose: 0 mls Documented by: Lactobacillus Acidoph/Bulgaricus (Lactobacillus Acidoph & Bulgar 1 Each Packet) 1 each PO Q48H [facility] Last Admin: 02/25/21 21:12 Dose: 1 each Documented by: Morphine Sulfate (Morphine Sulfate 4 Mg/Ml Syringe) 4 mg IV Q4HR PRN PRN Reason: Severe Pain Naloxone HCl (Naloxone 0.4 Mg/Ml 1 Ml Vial) 0.2 mg IV Q2M PRN PRN Reason: Opioid Reversal Ondansetron HCl (Ondansetron 4 Mg/2 Ml Vial) 4 mg IVP Q6HR PRN PRN Reason: Nausea And Vomiting Pantoprazole Sodium (Pantoprazole 40 Mg/10 Ml Vial) 40 mg IV DAILY [facility] Last Admin: 02/26/21 07:42 Dose: 40 mg Documented by: Past medical history to include: DD, colon cancer 9091 with resultant urostomy, slipped disc in the back, osteomyelitis, uses a walker, Social history: Drinks 2 glasses of wine per week, lives alone. Does have a walker. No smoking. Family history: Stroke Physical examination: VITAL SIGNS: 95.5, 69, 18, 119/68, 97% on 2 L GENERAL: Reclining in bed, awake EYES: Pupils equal. Conjunctiva normal. HEENT: External appearance of nose and ears normal, oral cavity dry, NG tube to suction. NECK: JVD not raised; masses not palpable. HEART: First and second heart sounds are normal; no edema. LUNGS: Respiratory rate normal; clear to auscultation. ABDOMEN: Soft, ileostomy bag with liquid dark, minimal tenderness liver spleen not palpable, no masses palpable. Dressing over the mid incision site. Zhagn catheter hematuria MUSCULAR skeletal: Evidence of OA in several joints especially the hands and the knees PSYCH: Alert and oriented x3; mood and affect normal. Neurological: Tremors INVESTIGATIONS, reviewed in the clinical context: February 26: White count 9.4 hemoglobin 9.1 sodium 129 potassium 3.7 creatinine 1.27 Iron 61 TIBC 220 transferred ferritin 802 February 23: White count 9.8 hemoglobin 9.4 potassium 4.2 creatinine 1.3 Vitamin B12 218 February 22: White count 17.1 hemoglobin 10.3 potassium 4.5 BUN 28.2 creatinine 1.4 White count 17.8 hemoglobin 13 platelets 243 sodium 133 potassium 4.7 BUN 39 creatinine 1.46 UA positive for leukoesterase WBC Coronavirus [PCR]: Not detected Knee x-ray: No fracture Computed tomography scan of the abdomen pelvis: Right-sided hydronephrosis and hydroureter. Multiple dilated small bowel loops suggestive of mechanical small bowel obstruction. Some fibrotic changes in the lung bases. Assessment and plan: -Acute small bowel obstruction. Adhesions lysis by Dr. Stover on February 21 NG tube-discontinued. Tolerating liquids. Diet advanced -Primary osteoarthritis multiple joints bilaterally Pain control -Anemia of chronic disease -Acute postprocedure blood loss anemia, expected from surgery Follow H&H -Chronic gait dysfunction uses a walker at baseline Fall precautions -Tremors interfering with patient's ADLs. Primidone 25 mg 3 times a day. -CK D possibly obstructive stage III -Right hydroureter with hydronephrosis. Along with hematuria. February 25: Cystoscopy followed by scraping of the bladder wall, right ureter stent. Found to have a obstruction in the distal ureter. -Acute UTI with cystitis IV cefepime -Visual hallucinations likely from Dilaudid. Hold Dilaudid. Hold Dilaudid. Patient concerned about primidone causing the side effect is discontinued. Other medications to continue. Discussed with the patient and son at the bedside. Encourage oral intake. Thank you Dr. Stover
--- NOTE | 2021-02-26 15:28 | XR ---
EXAMINATION TYPE: XR chest 2V DATE OF EXAM: 02/26/2021 COMPARISON: 02/21/2021 HISTORY: Possible pulmonary fibrosis TECHNIQUE: Single view FINDINGS: There is blunting left and right costophrenic angle. Heart size is normal. There is no hear t failure. There are no hilar masses. There is osteopenia. There is a mild thoracic kyphotic deformit y with anterior wedging of T7 25%. IMPRESSION: There is left pleural effusion which is increased compared to last exam. No heart failure . Small right pleural effusion appears new compared to last exam.
[2021-02-26] MEDS ORDERED: FUROSEMIDE 10 MG/ML 2 ML VIAL IV ONE (17:59)
[2021-02-27] MEDS: Acetaminophen-Codeine 300-30mg TAB PO PRN ×2 (00:36→05:35)
[2021-02-27] MEDS: CEFEPIME 1 GM in SODIUM CHLORIDE 0.9% 50 ML IVPB SCH ×2 (03:27→17:02)
[2021-02-27] MEDS: LACTATED RINGERS 1,000 ML IV SCH (03:28)
[2021-02-27] MEDS: PANTOPRAZOLE 40 MG/10 ML VIAL IV SCH (07:59)
[2021-02-27] MEDS: ENOXAPARIN 30 MG/0.3 ML SYRINGE SQ SCH (07:59)
--- NOTE | 2021-02-27 11:04 | P.PN ---
Subjective Progress Note Date: 02/27/21 Patient seen and examined at bedside. States she is feeling better every day. Continues to have ostomy output. Zhang catheter in place. Objective - Vital Signs Vital signs: Vital Signs Temp 98.1 F 02/27/21 07:58 Pulse 67 02/27/21 07:58 Resp 18 02/27/21 07:58 BP 117/78 02/27/21 07:58 Pulse Ox 95 02/27/21 07:58 Intake & Output 02/26/21 02/27/21 02/27/21 18:59 06:59 18:59 Output Total 970 1050 Balance -970 -1050 Output: Urine 470 900 Uretheral (Zhang) 470 Stool 500 150 Other: Voiding Method Indwelling Catheter Indwelling Catheter Indwelling Catheter - Constitutional General appearance: Present: cooperative, no acute distress - Respiratory Details: No difficulty with respiration - Gastrointestinal Gastrointestinal Comment(s): Soft, nontender, midline incision site with surgical dressing, ileostomy is pink and patent with stool output - Musculoskeletal Musculoskeletal: Present: generalized weakness - Labs CBC & Chem 7: 02/26/21 05:25 02/26/21 05:25 Assessment and Plan Plan: Patient did undergo Cystoscopy, TURBT (medium), right ureteroscopy, retrograde pyelogram and stent insertion with urology. We'll await pathology results. Currently, patient seems to be recovering well from the lysis of adhesions and small bowel obstruction release. Ileostomy is functioning well. Continue diet. Continue medical recommendations. Increase activity. Continue with incentive spirometry. Discharge planning.
[2021-02-27 11:30] LABS: African American GFR (CKD) 47.7 (60.0-200.0); Anion Gap 11.2 mmol/L (10.00-18.00); BUN/Creat Ratio 19.67 Ratio (12.00-20.00); Blood Urea Nitrogen 23.6 mg/dL (9.0-27.0); Calcium 8.2 mg/dL (8.7-10.3); Carbon Dioxide 22.8 mmol/L (20.0-27.5); Non-African American GFR(CKD) 41.2 (60.0-200.0)
[2021-02-27] MEDS: PRIMIDONE 25 MG TAB PO SCH ×3 (17:03→20:59)
[2021-02-27] MEDS ORDERED: POTASSIUM CHLORIDE ER 20 MEQ TAB.ER PO STA (18:35)
--- NOTE | 2021-02-27 18:36 | P.PN ---
Progress Note - Text Progress Note Date: 02/27/21 - Chief Complaint Abdominal pain This is a very pleasant 85-year-old patient who follows with visiting physicians. Rather independent. Does use a walker. Chronic stable medical conditions include history of remote DVT, colon cancer in 1991 with a resultant ileostomy, arthritis in several joints. Patient to baseline uses a walker. Yesterday afternoon patient developed abdominal pain. Wanted to come to the hospital. She was trying to get into her son's truck and was using about when she fell backwards leg getting caught. She never hit the floor but her leg got caught. As she did have injury to her knees. When she came to the ER she was found to have element of bowel obstruction. Also noted in the knee. No fracture. Patient's had tremor for last 2 years slowly getting worse. Does sometimes interfere with her activity. Admitted with small bowel obstruction, underwent surgical intervention on February [address] Stover. Lysis of adhesions. February 22: NG tube to suction. Slight liquid stool in the ileostomy bag. Some abdominal pain. Laying in bed. IV fluids. February 23: NG tube discontinued. Started on clear liquids. Sitting up in a chair. Some liquid stool in the ileostomy bag. Some abdominal discomfort. No flatus or BM. February 24: Diet being advanced. Having some liquid stool in the ileostomy bag. No nausea vomiting. Patient is not sure if her tremors are better not with the primidone. Give IV Ferrlecit February 25: Patient having some stool in the ileostomy bag. Has had hematuria. Going for cystoscopy this afternoon. No fever no chills. February 26: Patient having some hallucinations. Visual. She is concerned about primidone causing it. We'll stop the same. Hold off Dilaudid. Encourage oral intake. [Cystoscopy performed yesterday. With stent to the right ureter. 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 area of bladder was scraped. February 27: Hallucinations resolved. Feeling better. Patient requesting for primidone to be resumed as she agrees that most likely the altered mental status was from pain medications.. Urine clear. Had about 50% of her breakfast. Review of systems: Was done for constitutional, cardiovascular, GI, pulmonary. relevant finding as above Active Medications Acetaminophen/Codeine Phosphate (Acetaminophen-Codeine 300-30mg Tab) 2 each PO Q6H PRN PRN Reason: Pain Last Admin: 02/27/21 05:35 Dose: 2 each Documented by: Enoxaparin Sodium (Enoxaparin 30 Mg/0.3 Ml Syringe) 30 mg SQ DAILY [facility] Last Admin: 02/27/21 07:59 Dose: 30 mg Documented by: Hydromorphone HCl (Hydromorphone 0.5 Mg/0.5 Ml Syringe) 0.5 mg IVP Q3HR PRN PRN Reason: Moderate Pain Last Admin: 02/25/21 21:11 Dose: 0.5 mg Documented by: Cefepime HCl 1 gm/ Sodium (Chloride) 50 mls @ 12.5 mls/hr IVPB Q12H [facility] Last Admin: 02/27/21 17:02 Dose: 12.5 mls/hr Documented by: Lactated Ringer's (Lactated Ringers) 1,000 mls @ 50 mls/hr IV .Q20H [facility] Last Admin: 02/27/21 03:28 Dose: Not Given Documented by: Lactobacillus Acidoph/Bulgaricus (Lactobacillus Acidoph & Bulgar 1 Each Packet) 1 each PO Q48H [facility] Last Admin: 02/25/21 21:12 Dose: 1 each Documented by: Morphine Sulfate (Morphine Sulfate 4 Mg/Ml Syringe) 4 mg IV Q4HR PRN PRN Reason: Severe Pain Naloxone HCl (Naloxone 0.4 Mg/Ml 1 Ml Vial) 0.2 mg IV Q2M PRN PRN Reason: Opioid Reversal Ondansetron HCl (Ondansetron 4 Mg/2 Ml Vial) 4 mg IVP Q6HR PRN PRN Reason: Nausea And Vomiting Pantoprazole Sodium (Pantoprazole 40 Mg/10 Ml Vial) 40 mg IV DAILY [facility] Last Admin: 02/27/21 07:59 Dose: 40 mg Documented by: Primidone (Primidone 25 Mg Tab) 25 mg PO TID [facility] Last Admin: 02/27/21 17:04 Dose: Not Given Documented by: Past medical history to include: DD, colon cancer 9091 with resultant urostomy, slipped disc in the back, osteomyelitis, uses a walker, Social history: Drinks 2 glasses of wine per week, lives alone. Does have a walker. No smoking. Family history: Stroke Physical examination: VITAL SIGNS: 98.1, 67, 18, 170/78, 95% on room air GENERAL: Reclining in bed, looking better EYES: Pupils equal. Conjunctiva normal. HEENT: External appearance of nose and ears normal, oral cavity dry, NG tube to suction. NECK: JVD not raised; masses not palpable. HEART: First and second heart sounds are normal; no edema. LUNGS: Respiratory rate normal; clear to auscultation. ABDOMEN: Soft, ileostomy bag with liquid dark, minimal tenderness liver spleen not palpable, no masses palpable. Dressing over the mid incision site. Zhang catheter : Yellow urine MUSCULAR skeletal: Evidence of OA in several joints especially the hands and the knees PSYCH: Alert and oriented x3; mood and affect normal. Neurological: Tremors INVESTIGATIONS, reviewed in the clinical context: February 27: Sodium 132 potassium 3 creatinine 1.2 February 26: White count 9.4 hemoglobin 9.1 sodium 129 potassium 3.7 creatinine 1.27 Iron 61 TIBC 220 transferred ferritin 802 February 23: White count 9.8 hemoglobin 9.4 potassium 4.2 creatinine 1.3 Vitamin B12 218 February 22: White count 17.1 hemoglobin 10.3 potassium 4.5 BUN 28.2 creatinine 1.4 White count 17.8 hemoglobin 13 platelets 243 sodium 133 potassium 4.7 BUN 39 creatinine 1.46 UA positive for leukoesterase WBC Coronavirus [PCR]: Not detected Knee x-ray: No fracture Computed tomography scan of the abdomen pelvis: Right-sided hydronephrosis and hydroureter. Multiple dilated small bowel loops suggestive of mechanical small bowel obstruction. Some fibrotic changes in the lung bases. Assessment and plan: -Acute small bowel obstruction. Adhesions lysis by Dr. Stover on February 21 NG tube-discontinued. Tolerating diet -Primary osteoarthritis multiple joints bilaterally Pain control -Anemia of chronic disease -Acute postprocedure blood loss anemia, expected from surgery Follow H&H -Chronic gait dysfunction uses a walker at baseline Fall precautions -Tremors interfering with patient's ADLs. Primidone 25 mg 3 times a day: Resumed. -CK D possibly obstructive stage III -Right hydroureter with hydronephrosis. Along with hematuria. February 25: Cystoscopy followed by scraping of the bladder wall, right ureter stent. Found to have a obstruction in the distal ureter. -Acute UTI with cystitis IV cefepime -Visual hallucinations likely from opioids. Improved DC Dilaudid and morphine. Per patient request primidone resumed. Replace potassium. Repeat labs. Thank you Dr. Stover
[2021-02-27] MEDS: LACTOBACILLUS ACIDOPH & BULGAR 1 EACH PACKET PO SCH (20:52)
[2021-02-28] MEDS: LACTATED RINGERS 1,000 ML IV SCH ×2 (03:30→16:55)
[2021-02-28] MEDS: CEFEPIME 1 GM in SODIUM CHLORIDE 0.9% 50 ML IVPB SCH (03:57)
[2021-02-28] MEDS: Acetaminophen-Codeine 300-30mg TAB PO PRN ×3 (05:36→20:00)
[2021-02-28 07:12] LABS: African American GFR (CKD) 57 (>60 ml/min/1.73 sqM); Anion Gap 7 mmol/L; Blood Urea Nitrogen 24 mg/dL (7-17); Calcium 8.2 mg/dL (8.4-10.2); Carbon Dioxide 25 mmol/L (22-30); Chloride 99 mmol/L (98-107); Glucose 97 mg/dL (74-99); Non-African American GFR(CKD) 49 (>60 ml/min/1.73 sqM); Potassium 3.5 mmol/L (3.5-5.1); Sodium 131 mmol/L (137-145)
[2021-02-28] MEDS: PRIMIDONE 25 MG TAB PO SCH ×4 (08:09→20:00)
[2021-02-28] MEDS: ENOXAPARIN 30 MG/0.3 ML SYRINGE SQ SCH (08:09)
--- NOTE | 2021-02-28 12:28 | P.DS ---
Providers Date of admission: 02/21/21 03:53 Expected date of discharge: 03/01/21 Attending physician: Melanie Stover Consults: 02/21/21 03:56 Consult Physician Urgent Consulting Provider: Victor Manuel Bosch Consult Reason/Comments: bowel obstruction/JAD Do you want consulting provider notified?: Yes 02/21/21 11:17 Consult Physician Routine Consulting Provider: Anderson Lopez Consult Reason/Comments: R hydronephrosis/ureter Do you want consulting provider notified?: Yes Primary care physician: Seymour Salazar - Discharge Diagnosis(es) (1) Parastomal hernia Current Visit: Yes Status: Acute (2) History of colon cancer Current Visit: Yes Status: Acute (3) Small bowel obstruction Current Visit: Yes Status: Acute (4) Hydronephrosis Current Visit: Yes Status: Acute (5) Anemia Current Visit: Yes Status: Acute (6) CKD (chronic kidney disease) stage 3, GFR 30-59 ml/min Current Visit: Yes Status: Acute (7) Hallucinations Current Visit: Yes Status: Acute Hospital Course: Irrigation is an 85-year-old female with long-standing ileostomy. She presented to the emergency department with abdominal pain and decreased ileostomy output. Computed tomography scan was suggestive of small bowel obstruction. She felt better the day after admission however had quick recurrence of symptoms with clear liquids. She was subsequently taken to the OR where she underwent lysis of adhesions due to the small bowel obstruction. She had a suture repair of the parastomal hernia. Her small bowel obstruction quickly resolved. Intraoperatively there is abnormality felt between the bladder and uterus. A computed tomography scan had showed a hydronephrosis so urology was consulted. The place to right ureteral stent and biopsied her bladder. The patient did develop confusion felt to be due to pain medication. She slowly improved. Her primidone for tremors was restarted. Medicine felt stable for discharge on March 01 to go for rehab for strengthening Patient Condition at Discharge: Good Plan - Discharge Summary Discharge Rx Participant: Yes New Discharge Prescriptions: Continue Acetaminophen-Codeine 300-30mg [Tylenol w/codeine #3] 1 tab PO Q6H PRN #20 tab PRN Reason: Pain No Action Bifidobacterium Infantis [Align] 4 mg PO Q48H Acetaminophen Tab [Tylenol Tab] 50 - 1,000 mg PO Q6HR PRN PRN Reason: Pain Peptiva 1 tab PO Q48H Discharge Medication List Acetaminophen Tab [Tylenol Tab] 50 - 1,000 mg PO Q6HR PRN 02/21/21 [History] Bifidobacterium Infantis [Align] 4 mg PO Q48H 02/21/21 [History] Peptiva 1 tab PO Q48H 02/21/21 [History] Acetaminophen-Codeine 300-30mg [Tylenol w/codeine #3] 1 tab PO Q6H PRN #20 tab 02/28/21 [Rx] Follow up Appointment(s)/Referral(s): Seymour Salazar MD [Primary Care Provider] - 1-2 days Activity/Diet/Wound Care/Special Instructions: Manoj from the abdominal incision are to be removed March 07. If any surgical issues, call the office [phone] Discharge Disposition: TRANSFER TO SNF/ECF
--- NOTE | 2021-02-28 12:57 | P.PN ---
Subjective Underwent a TURBT with right-sided stent placement and ureteroscopy on 02/25. denies any flank pain, urine blood tinged. creat down to 1.02 Objective - Vital Signs Vital signs: Vital Signs Temp 98.4 F 02/28/21 08:28 Pulse 96 02/28/21 08:28 Resp 16 02/28/21 08:28 BP 121/71 02/28/21 08:28 Pulse Ox 94 L 02/28/21 08:28 Intake & Output 02/27/21 02/28/21 02/28/21 18:59 06:59 18:59 Output Total 400 850 Balance -400 -850 Output: Urine 400 700 Stool 150 Other: Voiding Method Indwelling Catheter Indwelling Catheter Indwelling Catheter # Bowel Movements 2 - Constitutional General appearance: Present: no acute distress - Gastrointestinal General gastrointestinal: Present: soft. Absent: distended - Labs CBC & Chem 7: 02/26/21 05:25 02/28/21 05:10 Labs: Abnormal Lab Results - Last 24 Hours (Table) 02/28/21 Range/Units 05:10 Sodium 131 L (137-145) mmol/L BUN 24 H (7-17) mg/dL Calcium 8.2 L (8.4-10.2) mg/dL Assessment and Plan Assessment: this is an 85-year-old female with history of right-sided hydronephrosis, and gross hematuria. Postoperative day #3 status post right ureteroscopy, TURBT and stent placement creatinine 1.02 from 1.4 preop t, baseline of 0.6. Plan to discharge to subacute rehab tomorrow -She is okay for discharge from urology standpoint, we'll remove Zhang catheter prior to discharge -can follow-up as an outpatient in 1 week for pathology review
[2021-02-28 15:05] VITALS: BMI 21.6
--- NOTE | 2021-02-28 17:39 | P.PN ---
Progress Note - Text Progress Note Date: 02/28/21 - Chief Complaint Abdominal pain This is a very pleasant 85-year-old patient who follows with visiting physicians. Rather independent. Does use a walker. Chronic stable medical conditions include history of remote DVT, colon cancer in 1991 with a resultant ileostomy, arthritis in several joints. Patient to baseline uses a walker. Yesterday afternoon patient developed abdominal pain. Wanted to come to the hospital. She was trying to get into her son's truck and was using about when she fell backwards leg getting caught. She never hit the floor but her leg got caught. As she did have injury to her knees. When she came to the ER she was found to have element of bowel obstruction. Also noted in the knee. No fracture. Patient's had tremor for last 2 years slowly getting worse. Does sometimes interfere with her activity. Admitted with small bowel obstruction, underwent surgical intervention on February [address] Stover. Lysis of adhesions. February 22: NG tube to suction. Slight liquid stool in the ileostomy bag. Some abdominal pain. Laying in bed. IV fluids. February 23: NG tube discontinued. Started on clear liquids. Sitting up in a chair. Some liquid stool in the ileostomy bag. Some abdominal discomfort. No flatus or BM. February 24: Diet being advanced. Having some liquid stool in the ileostomy bag. No nausea vomiting. Patient is not sure if her tremors are better not with the primidone. Give IV Ferrlecit February 25: Patient having some stool in the ileostomy bag. Has had hematuria. Going for cystoscopy this afternoon. No fever no chills. February 26: Patient having some hallucinations. Visual. She is concerned about primidone causing it. We'll stop the same. Hold off Dilaudid. Encourage oral intake. [Cystoscopy performed yesterday. With stent to the right ureter. 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 area of bladder was scraped. February 27: Hallucinations resolved. Feeling better. Patient requesting for primidone to be resumed as she agrees that most likely the altered mental status was from pain medications.. Urine clear. Had about 50% of her breakfast. February 28: Patient is apologetic for having me stop the primidone she felt that was called. To her hallucinations. Which was secondary to the pain medications. Primidone increased to 25 mg 4 times a day. She'll let me know tomorrow if she is benefiting from the same. Discussed with Dr. Stover. We'll watch her tonight in terms of deciding upon the primidone. Zhang catheter has been discontinued per Dr. quispe. Antibiotics have been discontinued. Will DC IV fluids. Oral intake about 50%. On closer revealing the tremors patient seem s to have intention tremor which is worse with activity. Review of systems: Was done for constitutional, cardiovascular, GI, pulmonary. relevant finding as above Active Medications Acetaminophen/Codeine Phosphate (Acetaminophen-Codeine 300-30mg Tab) 2 each PO Q6H PRN PRN Reason: Pain Last Admin: 02/28/21 11:35 Dose: 2 each Documented by: Enoxaparin Sodium (Enoxaparin 30 Mg/0.3 Ml Syringe) 30 mg SQ DAILY [facility] Last Admin: 02/28/21 08:09 Dose: 30 mg Documented by: Lactated Ringer's (Lactated Ringers) 1,000 mls @ 50 mls/hr IV .Q20H [facility] Last Admin: 02/28/21 16:55 Dose: Not Given Documented by: Lactobacillus Acidoph/Bulgaricus (Lactobacillus Acidoph & Bulgar 1 Each Packet) 1 each PO Q48H [facility] Last Admin: 02/27/21 20:52 Dose: 1 each Documented by: Naloxone HCl (Naloxone 0.4 Mg/Ml 1 Ml Vial) 0.2 mg IV Q2M PRN PRN Reason: Opioid Reversal Ondansetron HCl (Ondansetron 4 Mg/2 Ml Vial) 4 mg IVP Q6HR PRN PRN Reason: Nausea And Vomiting Primidone (Primidone 25 Mg Tab) 25 mg PO QID [facility] Last Admin: 02/28/21 17:15 Dose: 25 mg Documented by: Past medical history to include: DD, colon cancer 9091 with resultant urostomy, slipped disc in the back, osteomyelitis, uses a walker, Social history: Drinks 2 glasses of wine per week, lives alone. Does have a walker. No smoking. Family history: Stroke Physical examination: VITAL SIGNS: 98.4, 96, 16, 03/18/1970, 94% room air GENERAL: Reclining in bed, comfortable EYES: Pupils equal. Conjunctiva normal. HEENT: External appearance of nose and ears normal, oral cavity dry, NG tube to suction. NECK: JVD not raised; masses not palpable. HEART: First and second heart sounds are normal; no edema. LUNGS: Respiratory rate normal; clear to auscultation. ABDOMEN: Soft, ileostomy bag with liquid dark, minimal tenderness liver spleen not palpable, no masses palpable. Dressing over the mid incision site. Zhang catheter : Yellow urine MUSCULAR skeletal: Evidence of OA in several joints especially the hands and the knees PSYCH: Alert and oriented x3; mood and affect normal. Neurological: Intention tremor INVESTIGATIONS, reviewed in the clinical context: February 28: Sodium 131 potassium 3.5 creatinine 1.04 February 27: Sodium 132 potassium 3 creatinine 1.2 February 26: White count 9.4 hemoglobin 9.1 sodium 129 potassium 3.7 creatinine 1.27 Iron 61 TIBC 220 transferred ferritin 802 February 23: White count 9.8 hemoglobin 9.4 potassium 4.2 creatinine 1.3 Vitamin B12 218 February 22: White count 17.1 hemoglobin 10.3 potassium 4.5 BUN 28.2 creatinine 1.4 White count 17.8 hemoglobin 13 platelets 243 sodium 133 potassium 4.7 BUN 39 creatinine 1.46 UA positive for leukoesterase WBC Coronavirus [PCR]: Not detected Knee x-ray: No fracture Computed tomography scan of the abdomen pelvis: Right-sided hydronephrosis and hydroureter. Multiple dilated small bowel loops suggestive of mechanical small bowel obstruction. Some fibrotic changes in the lung bases. Assessment and plan: -Acute small bowel obstruction. Adhesions lysis by Dr. Stover on February 21 NG tube-discontinued. Tolerating diet -Primary osteoarthritis multiple joints bilaterally Pain control -Anemia of chronic disease -Acute postprocedure blood loss anemia, expected from surgery Follow H&H -Chronic gait dysfunction uses a walker at baseline Fall precautions -Intention tremor. We will order MRI of the brain to evaluate cerebellum. On primidone -CKD possibly obstructive stage III Follow renal function -Right hydroureter with hydronephrosis. Along with hematuria. February 25: Cystoscopy followed by scraping of the bladder wall, right ureter stent. Found to have a obstruction in the distal ureter. -Acute UTI with cystitis IV cefepime -Visual hallucinations likely from opioids. Improved DC Dilaudid and morphine. We'll order MRI of the brain given the nature of the tremor which is intention. This may be of cerebrovascular origin. In that case primidone may not be much useful. Other medications to continue. Thank you Dr. Stover
[2021-02-28] MEDS: LORATADINE-PSEUDOEPH 5-120 MG 1 EACH TAB.ER.12H PO SCH (23:07)
[2021-03-01] MEDS: Acetaminophen-Codeine 300-30mg TAB PO PRN (05:21)
[2021-03-01] MEDS: ENOXAPARIN 30 MG/0.3 ML SYRINGE SQ SCH (07:32)
[2021-03-01] MEDS: LORATADINE-PSEUDOEPH 5-120 MG 1 EACH TAB.ER.12H PO SCH (07:33)
[2021-03-01] MEDS: PRIMIDONE 25 MG TAB PO SCH ×2 (07:33→14:32)
[2021-03-01 07:48] VITALS: RESP 17
[2021-03-01 13:36] VITALS: BP 104/66; PULSE 100; TEMP 98.6
--- NOTE | 2021-03-01 18:56 | MR ---
EXAMINATION TYPE: MR brain wo con DATE OF EXAM: 03/01/2021 COMPARISON: None HISTORY: Intention tremor Multiplanar multiecho imaging of the brain without contrast. There is diffuse cerebral cortical atrophy. There is thinning of the corpus callosum. Diffusion image s show no evidence of an acute infarct. There is no mass effect or midline shift. There is no evidenc e of intracranial hemorrhage. On the T2 and FLAIR images there is patchy and diffuse increased signal in the periventricular white matter. This is more concentrated in the frontal and parietal lobes. There is no evidence of orbital mass. Sella turcica appears normal. The brainstem is intact. Cerebell um is intact. IMPRESSION: Cerebral atrophy. Moderate white matter signal changes probably due to chronic small vessel ischemia. Demyelinating disease not excluded. No evidence of an acute infarct.
--- NOTE | 2021-03-01 19:52 | P.PN ---
Progress Note - Text Progress Note Date: 03/01/21 - Chief Complaint Abdominal pain This is a very pleasant 85-year-old patient who follows with visiting physicians. Rather independent. Does use a walker. Chronic stable medical conditions include history of remote DVT, colon cancer in 1991 with a resultant ileostomy, arthritis in several joints. Patient to baseline uses a walker. Yesterday afternoon patient developed abdominal pain. Wanted to come to the hospital. She was trying to get into her son's truck and was using about when she fell backwards leg getting caught. She never hit the floor but her leg got caught. As she did have injury to her knees. When she came to the ER she was found to have element of bowel obstruction. Also noted in the knee. No fracture. Patient's had tremor for last 2 years slowly getting worse. Does sometimes interfere with her activity. Admitted with small bowel obstruction, underwent surgical intervention on February [address] Stover. Lysis of adhesions. February 22: NG tube to suction. Slight liquid stool in the ileostomy bag. Some abdominal pain. Laying in bed. IV fluids. February 23: NG tube discontinued. Started on clear liquids. Sitting up in a chair. Some liquid stool in the ileostomy bag. Some abdominal discomfort. No flatus or BM. February 24: Diet being advanced. Having some liquid stool in the ileostomy bag. No nausea vomiting. Patient is not sure if her tremors are better not with the primidone. Give IV Ferrlecit February 25: Patient having some stool in the ileostomy bag. Has had hematuria. Going for cystoscopy this afternoon. No fever no chills. February 26: Patient having some hallucinations. Visual. She is concerned about primidone causing it. We'll stop the same. Hold off Dilaudid. Encourage oral intake. [Cystoscopy performed yesterday. With stent to the right ureter. 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 area of bladder was scraped. February 27: Hallucinations resolved. Feeling better. Patient requesting for primidone to be resumed as she agrees that most likely the altered mental status was from pain medications.. Urine clear. Had about 50% of her breakfast. February 28: Patient is apologetic for having me stop the primidone she felt that was called. To her hallucinations. Which was secondary to the pain medications. Primidone increased to 25 mg 4 times a day. She'll let me know tomorrow if she is benefiting from the same. Discussed with Dr. Stover. We'll watch her tonight in terms of deciding upon the primidone. Zhang catheter has been discontinued per Dr. quispe. Antibiotics have been discontinued. Will DC IV fluids. Oral intake about 50%. On closer revealing the tremors patient seem s to have intention tremor which is worse with activity. March 01: Tried primidone. Did not help much with intention tremor. Hence I'm stopping the primidone. We'll have the patient follow up with neurology as outpatient. MRI done results below. Review of systems: Was done for constitutional, cardiovascular, GI, pulmonary. relevant finding as above Current medications reviewed. Primidone discontinued Past medical history to include: DD, colon cancer 9091 with resultant urostomy, slipped disc in the back, osteomyelitis, uses a walker, Social history: Drinks 2 glasses of wine per week, lives alone. Does have a walker. No smoking. Family history: Stroke Physical examination: VITAL SIGNS: 98.6, 100, 17, 104/66, 96% room air GENERAL: Reclining in bed, comfortable EYES: Pupils equal. Conjunctiva normal. HEENT: External appearance of nose and ears normal, oral cavity dry, NG tube to suction. NECK: JVD not raised; masses not palpable. HEART: First and second heart sounds are normal; no edema. LUNGS: Respiratory rate normal; clear to auscultation. ABDOMEN: Soft, ileostomy bag with liquid dark, no tenderness liver spleen not palpable, no masses palpable. Dressing over the mid incision site. MUSCULAR skeletal: Evidence of OA in several joints especially the hands and the knees PSYCH: Alert and oriented x3; mood and affect normal. Neurological: Intention tremor INVESTIGATIONS, reviewed in the clinical context: MRI brain: Diffuse cerebral cortical atrophy. Thinning of the corpus callosum. Diffuse increased signal in the periventricular white matter. More co ncentrated in the frontal and parietal lobes. Cerebellum intact. February 28: Sodium 131 potassium 3.5 creatinine 1.04 February 27: Sodium 132 potassium 3 creatinine 1.2 February 26: White count 9.4 hemoglobin 9.1 sodium 129 potassium 3.7 creatinine 1.27 Iron 61 TIBC 220 transferred ferritin 802 February 23: White count 9.8 hemoglobin 9.4 potassium 4.2 creatinine 1.3 Vitamin B12 218 February 22: White count 17.1 hemoglobin 10.3 potassium 4.5 BUN 28.2 creatinine 1.4 White count 17.8 hemoglobin 13 platelets 243 sodium 133 potassium 4.7 BUN 39 creatinine 1.46 UA positive for leukoesterase WBC Coronavirus [PCR]: Not detected Knee x-ray: No fracture Computed tomography scan of the abdomen pelvis: Right-sided hydronephrosis and hydroureter. Multiple dilated small bowel loops suggestive of mechanical small bowel obstruction. Some fibrotic changes in the lung bases. Assessment and plan: -Acute small bowel obstruction. Adhesions lysis by Dr. Stover on February 21 NG tube-discontinued. Tolerating diet -Primary osteoarthritis multiple joints bilaterally Pain control -Anemia of chronic disease -Acute postprocedure blood loss anemia, expected from surgery Follow H&H -Chronic gait dysfunction uses a walker at baseline Fall precautions -Intention tremor. Not much help from primidone. Discontinued. Follow-up with neurology outpatient. Chronic changes in the brain noted. -CKD possibly obstructive stage III Follow renal function -Right hydroureter with hydronephrosis. Along with hematuria. February 25: Cystoscopy followed by scraping of the bladder wall, right ureter stent. Found to have a obstruction in the distal ureter. -Acute UTI with cystitis IV cefepime -Visual hallucinations likely from opioids. Improved DC Dilaudid and morphine. *Primidone discontinued. Discussed with the patient. Follow-up in neurology outpatient. Thank you Dr. Stover
== END 2021-03-01 16:43 | DRG 336 ==
LOC: EC 23:09 → 4SSUR 02-21 03:53
PROVIDERS: ADMIT Surgery; ATTEND Surgery
PROC: 0DN80ZZ Release Small Intestine, Open Approach (ICD-10-PCS; 2021-02-21)
PROC: 0DJ00ZZ Inspection of Upper Intestinal Tract, Open Approach (ICD-10-PCS; 2021-02-21)
PROC: 0WQF0ZZ Repair Abdominal Wall, Open Approach (ICD-10-PCS; principal; 2021-02-21 10:15)
PROC: 0T768DZ Dilation of Right Ureter with Intraluminal Device, Via Natural or Artificial Opening Endoscopic (ICD-10-PCS; 2021-02-25)
PROC: 0TBB8ZZ Excision of Bladder, Via Natural or Artificial Opening Endoscopic (ICD-10-PCS; 2021-02-25)
PROC: BT1D1ZZ Fluoroscopy of Right Kidney, Ureter and Bladder using Low Osmolar Contrast (ICD-10-PCS; 2021-02-25)
DX: K56.50 Intestinal adhesions [bands], unspecified as to partial versus complete obstruction (principal); C18.9 Malignant neoplasm of colon, unspecified; J98.11 Atelectasis; N13.6 Pyonephrosis; N17.9 Acute kidney failure, unspecified; W19.XXXA Unspecified fall, initial encounter; R10.9 Unspecified abdominal pain; D50.0 Iron deficiency anemia secondary to blood loss (chronic); D53.9 Nutritional anemia, unspecified; D63.8 Anemia in other chronic diseases classified elsewhere; G25.2 Other specified forms of tremor; K43.5 Parastomal hernia without obstruction or gangrene; M15.9 Polyosteoarthritis, unspecified; M19.91 Primary osteoarthritis, unspecified site; M81.0 Age-related osteoporosis without current pathological fracture; N18.30 Chronic kidney disease, stage 3 unspecified; N32.89 Other specified disorders of bladder; S80.211A Abrasion, right knee, initial encounter; S80.212A Abrasion, left knee, initial encounter; Z82.3 Family history of stroke; Z85.038 Personal history of other malignant neoplasm of large intestine; Z86.718 Personal history of other venous thrombosis and embolism; Z90.49 Acquired absence of other specified parts of digestive tract
CPT/HCPCS: 36415; 70551; 71045; 71046; 74176; 74420; 80048; 80053; 81001; 82150; 82607; 82728; 83540; 83550; 83690; 85025; 85610; 85730; 87086; 87635; 88307; 93005; 96361; 96374; 99285

== ENCOUNTER 2021-04-12 11:12 | Inpatient (IN) | payer MEDICARE, OTHER ==
[2021-04-12] MEDS ORDERED: DIPH,PERTUS(ACELL)TETVAC-LF 0.5 ML VIAL IM ONE (11:28)
[2021-04-12] MEDS ORDERED: LIDOCAINE 1% INJ 10MG/ML (20 ML MDV) SQ ONE (11:43)
--- NOTE | 2021-04-12 11:46 | ED ---
Fall HPI - General Chief Complaint: Fall Stated Complaint: Fall Time Seen by Provider: 04/12/21 11:20 Source: EMS Mode of arrival: EMS - History of Present Illness Initial Comments: Patient is an 85 year old female who presents to the emergency department due to fall. Patient has been using a wheel chair due to previously evaluated groin muscle pain. Patient was in her wheelchair today at her home when she went to stand up and fell forward, hitting her head on the fireplace stone. Patient reports she landed on her left side. She is not on blood thinners. Patient does have a wound on her forehead but denies headache or pain anywhere else in the body. She denies fever, chills, shortness of breath, chest pain, dizziness, lightheadedness, and abdominal pain. Last tetanus is unknown. Patient does mention receiving morphine in the ambulance for her groin pain. - Related Data Home Medications Medication Instructions Recorded Confirmed Bifidobacterium Infantis [Align] 4 mg PO Q48H 02/21/21 02/21/21 Peptiva 1 tab PO Q48H 02/21/21 02/21/21 Loratadine-Pseudoeph 5-120 mg 1 tab PO Q12HR PRN 04/12/21 04/12/21 [Claritin-D 12 Hour] Previous Rx's Medication Instructions Recorded Acetaminophen-Codeine 300-30mg 1 tab PO Q6H PRN #20 tab 02/28/21 [Tylenol w/codeine #3] Allergies Allergy/AdvReac Type Severity Reaction Status Date / Time ciprofloxacin [From Cipro] Allergy Unknown Verified 04/12/21 12:35 Penicillins Allergy Unknown Verified 04/12/21 12:35 Childhood Review of Systems ROS Statement: Those systems with pertinent positive or pertinent negative responses have been documented in the HPI. ROS Other: All systems not noted in ROS Statement are negative. Past Medical History Past Medical History: Deep Vein Thrombosis (DVT) Additional Past Medical History / Comment(s): colon cancer (1991 diagnosed), slip disc in back History of Any Multi-Drug Resistant Organisms: None Reported Past Surgical History: Appendectomy, Section Additional Past Surgical History / Comment(s): ileostomy, L Leg Andre Past Anesthesia/Blood Transfusion Reactions: No Reported Reaction Past Psychological History: No Psychological Hx Reported Smoking Status: Never smoker Past Alcohol Use History: None Reported Past Drug Use History: None Reported - Past Family History Father Family Medical History: CVA/TIA Mother Family Medical History: CVA/TIA General Exam Limitations: physical limitation General appearance: alert, in no apparent distress Head exam: Present: atraumatic, normocephalic, normal inspection Eye exam: Present: normal appearance, PERRL, EOMI. Absent: scleral icterus, conjunctival injection, periorbital swelling Neck exam: Present: normal inspection, full ROM. Absent: tenderness Respiratory exam: Present: normal lung sounds bilaterally. Absent: respiratory distress, wheezes, rales, rhonchi, stridor Cardiovascular Exam: Present: regular rate, normal rhythm, normal heart sounds. Absent: systolic murmur, diastolic murmur, rubs, gallop, clicks GI/Abdominal exam: Present: soft. Absent: distended, tenderness, guarding, rebound, rigid Extremities exam: Present: normal inspection. Absent: tenderness Neurological exam: Present: alert, oriented X3, CN II-XII intact Psychiatric exam: Present: normal affect, normal mood Skin exam: Present: warm, dry, intact, normal color. Absent: rash Course Vital Signs 04/12/21 11:18 Temperature 98.1 F Pulse Rate 81 Respiratory 12 Rate Blood Pressure 132/69 O2 Sat by Pulse 95 Oximetry Procedures - Laceration Laceration #1 Consent Obtained: verbal consent Indication: laceration Site: face (forehead) Size (cm): 7 Description: irregular Depth: simple, single layer Sedation/Analgesia: none Anesthetic Used: lidocaine 1% Anesthesia Technique: local infiltration Pre-repair: wound explored, irrigated extensively, deep structures intact Type of Sutures: nylon Size of Sutures: 5-0 Number of Sutures: 8 Technique: simple, interrupted Patient Tolerated Procedure: well, no complications Medical Decision Making - Medical Decision Making This is an 85-year-old female who presents to the emergency department after a fall. CT of the brain/C-spine without contrast reveals no acute fracture or dislocation evident in the cervical spine and no acute intracranial hemorrhage or midline shift. Patient was given morphine for her groin muscle pain. Wound was explored and irrigated thoroughly. It was well approximated with 8 sutures. Tetanus given. Patient instructed to return to the emergency department in 5-7 days for suture removal. Return parameters discussed. Upon discharged patient has nursed she is uncomfortable going home because she is not strong enough. She is unable to complete activities of daily living. She is scared she will fall again as she is unable to move from her wheelchair to the toilet. I did call her son who requests that she be placed in long-term nursing facility. Patient agreeable to plan. Case discussed with Dr. Bosch. Patient will be admitted for observation and placement. Orthostatics ordered and pending. Disposition Clinical Impression: Fall Disposition: [facility] Condition: Good Instructions (If sedation given, give patient instructions): Fall Prevention for Older Adults (ED) Additional Instructions: Keep the wound clean and dry. Return to the emergency department if you experience new, concerning, or worsening symptoms including but not limited to fever, chills, or increased redness, swelling, or pain around the wound. The primary care in 1-2 days. Return to the emergency department in 5-7 days for suture removal. Referrals: Seymour Salazar MD [Primary Care Provider] - 1-2 days Time of Disposition: 13:20
--- NOTE | 2021-04-12 12:18 | CT ---
EXAMINATION TYPE: CT brain cspine wo con DATE OF EXAM: 04/12/2021 COMPARISON: MRI brain March 01, 2021 HISTORY: Fall abrasion injury to left forehead and neck pain. CT DLP: 1328.6 mGycm. Automated Exposure Control for Dose Reduction was Utilized. TECHNIQUE: CT scan of the head and cervical spine are performed without contrast. FINDINGS: There is no acute intracranial hemorrhage or midline shift identified. Mild to moderate ventricular and sulcal prominence. Focal and confluent areas of low density throughout the deep and p eriventricular white matter. The globes are intact and the visualized sinuses are clear. Cervical spine is visualized in its entirety from C1 through upper thoracic levels and demonstrates s atisfactory alignment without evidence of acute fracture or dislocation. Dextroconvex scoliosis cente red in the midthoracic spine is present. Prevertebral soft tissue appears within normal limits. The C1-C2 articulation is within normal limits on the coronal images. Osseous structures are demineraliz ed. There is grade 1 anterolisthesis C4 on C5. There is severe disc space narrowing and spurring C5-C 6 levels. Posterior spurring effaces the anterior thecal sac at this level. Posterior spur disc compl ex effaces the anterior thecal sac to lesser degree at C6-C7 level. Axial images show multilevel unco vertebral facet degenerative changes bilaterally. Thyroid gland appears within normal limits. Lung ap ices show no pneumothorax. IMPRESSION: 1. There is no acute fracture or dislocation evident in the cervical spine. 2. No acute intracranial hemorrhage or midline shift is seen.
[2021-04-12] MEDS ORDERED: MORPHINE SULFATE 4 MG/ML SYRINGE IVP STA (13:16)
[2021-04-12] MEDS ORDERED: BACITRACIN OINT 1 EACH PACKET TOPICAL ONE (13:58)
[2021-04-12] MEDS ORDERED: NALOXONE 0.4 MG/ML 1 ML VIAL IV PRN (15:37)
[2021-04-12] MEDS: MORPHINE SULFATE 4 MG/ML SYRINGE IV PRN (19:57)
[2021-04-12] MEDS ORDERED: MELATONIN 3 MG TABLET PO PRN (22:10)
[2021-04-12] MEDS ORDERED: ACETAMINOPHEN TAB 325 MG TAB PO PRN (22:10)
[2021-04-12] MEDS ORDERED: LACTULOSE 20 GM/30 ML CUP PO PRN (22:10)
[2021-04-12] MEDS ORDERED: CALCIUM CARBONATE 500 MG CHEWABLE PO PRN (22:10)
[2021-04-12] MEDS ORDERED: ONDANSETRON 4 MG/2 ML VIAL IVP PRN (22:10)
[2021-04-13] MEDS: MORPHINE SULFATE 4 MG/ML SYRINGE IV PRN ×3 (10:31→19:05)
[2021-04-13 12:21] LABS: Bacteria,Urine Rare /hpf; Mucus,Urine Occasional /hpf; RBC,Urine >182 /hpf (0-5); WBC,Urine >182 /hpf (0-5)
[2021-04-13 12:25] LABS: Appearance,Urine Turbid (Clear); Color,Urine Dark Red
--- NOTE | 2021-04-13 18:36 | P.HPIM ---
History of Present Illness H&P Date: 04/13/21 Chief Complaint: Fall History of presenting complaint This is a very pleasant 85-year-old patient who follows with visiting physicians. Rather independent. Does use a walker. Chronic stable medical conditions include history of remote DVT, colon cancer in 1991 with a resultant ileostomy, arthritis in several joints.baseline uses a walker. Chronic ileostomy . 02/21/2021 Admitted with small bowel obstruction, underwent surgical intervention on February [address] Stover. Lysis of adhesions. Also patient with having gross hematuria and right-sided hydronephrosis. Dr. quispe: Cystoscopy performed With stent to the right ureter. 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 area of bladder pathology showing high-grade urothelial carcinoma involving the muscularis propria. Patient was discharged to rehab. Patient got back home 2 weeks ago from rehab. She has a high bed. When she sternal lift her right leg she felt severe pain in the right groin. Since that has been having significant pain in the area. Has been using a wheelchair. Yesterday while leading out of the wheelchair she fell forward hitting her head to the floor. Has a laceration requiring stitches in the ER. Patient was due to follow-up with urology but she has decided not to do the same as she knows to cancer treatment she does not want and does not want to be bothered with the same. She been eating fair amounts. Continues to have intermittent blood in the urine. Has been living independently in her house. Son checks on her. No fever no chills. Review of systems: GEN.: Tired EYES: None HEENT: Forehead laceration NECK: None RESPIRATORY: None CARDIOVASCULAR: None GASTROINTESTINAL: Ileostomy GENITOURINARY: None MUSCULOSKELETAL: Joint pains LYMPHATICS: None HEMATOLOGICAL: None PSYCHIATRY: Slight anxiety NEUROLOGICAL: None Past medical history to include: DjD, colon cancer 1991 with resultant ileostomy, slipped disc in the back, osteomyelitis, uses a walker, high-grade urothelial carcinoma of the bladder Social history: Drinks 2 glasses of wine per week, lives alone. Does have a walker. No smoking. Family history: Stroke Physical examination: VITAL SIGNS: 98.1, 81, 12, 132/69, 95% room air GENERAL: BMI 22.5, laying in bed awake, tired. EYES: Pupils equal. Conjunctiva normal. HEENT: External appearance of nose and ears normal, oral cavity grossly normal. Laceration of the right forehead with stitches NECK: JVD not raised; masses not palpable. HEART: First and second heart sounds are normal; no edema. LUNGS: Respiratory rate normal; clear to auscultation. ABDOMEN: Soft, nontender, liver spleen not palpable, no masses palpable ileostomy. Midline incision with a dressing. PSYCH: [Alert and oriented x3; mood and affect anxious l. MUSCULOSKELETAL:No Clubbing/cyanosis;muscles-grossly intact. Evidence of severe OA in both the hands especially. Limited range of motion right hip. NEUROLOGICAL: Cranial nerves grossly intact; no facial asymmetry, power and sensation grossly intact. LYMPHATICS: No lymph nodes palpable in the axilla and neck INVESTIGATIONS, reviewed in the clinical context: UA positive for WBC Coronavirus [PCR]: Not detected Assessment and plan: -High-grade urothelial carcinoma of the bladder with involvement of the muscul mayco papaya from biopsy. Patient is not keen to pursue any further workup. Informational visit was done for outpatient hospice today. -Right groin pain. With increasing pain of movement of right hip. For about a week X-rays and computed tomography scan of the right hip. Consult orthopedics. -Primary osteoarthritis multiple joints bilaterally Pain control -Anemia of chronic disease -Acute postprocedure blood loss anemia, expected from surgery Follow H&H -Chronic gait dysfunction uses a walker at baseline. Currently using a wheelchair Fall precautions -Intention tremor. chronic -CKD possibly obstructive stage III Follow renal function -Right hydroureter with hydronephrosis. Along with hematuria. secondary to urothelial carcinoma of the bladder February 25: Cystoscopy followed by scraping of the bladder wall, right ureter stent. obstruction in the distal ureter. -Acute UTI with cystitis By mouth Keflex care was discussed with patient length. She does not want any further treatment for the cancer no further investigations. Will get x-ray and computed tomography scan of the right hip and get orthopedic opinion. Also rule out a fracture. Care was discussed at length with patient's son over the phone. He will talk to registered nurse hh case manager to look for different options in terms of more supportive care at the assisted living or [facility] help. Informational visit was do ne for outpatient hospice. Past Medical History Past Medical History: Deep Vein Thrombosis (DVT) Additional Past Medical History / Comment(s): colon cancer (1991 diagnosed), slip disc in back History of Any Multi-Drug Resistant Organisms: None Reported Past Surgical History: Appendectomy, Section, Hernia Repair Additional Past Surgical History / Comment(s): ileostomy, L Leg Andre, hernia repair(february 2021) Past Anesthesia/Blood Transfusion Reactions: No Reported Reaction Past Psychological History: No Psychological Hx Reported Smoking Status: Never smoker Past Alcohol Use History: None Reported Past Drug Use History: None Reported - Past Family History Father Family Medical History: CVA/TIA Mother Family Medical History: CVA/TIA Medications and Allergies Home Medications Medication Instructions Recorded Confirmed Type Bifidobacterium Infantis [Align] 4 mg PO Q48H 02/21/21 04/12/21 History Peptiva 1 tab PO Q48H 02/21/21 04/12/21 History Acetaminophen-Codeine 300-30mg 1 tab PO Q6H PRN #20 tab 02/28/21 04/12/21 Rx [Tylenol w/codeine #3] Loratadine-Pseudoeph 5-120 mg 1 tab PO Q12HR PRN 04/12/21 04/12/21 History [Claritin-D 12 Hour] Allergies Allergy/AdvReac Type Severity Reaction Status Date / Time ciprofloxacin [From Cipro] Allergy Unknown Verified 04/12/21 12:35 Penicillins Allergy Unknown Verified 04/12/21 12:35 Childhood acetaminophen [From [place]] AdvReac Hallucinati Verified 04/13/21 08:50 ons hydrocodone [From [place]] AdvReac Hallucinati Verified 04/13/21 08:50 ons Physical Exam Vitals: Vital Signs Temp Pulse Pulse Resp BP BP Pulse Ox 04/13/21 03:50 97.9 F 106 H 14 113/64 93 L 04/12/21 22:29 98.7 F 108 H 16 110/69 94 L 04/12/21 21:00 98.1 F 62 16 138/77 95 04/12/21 16:18 98.1 F 57 L 14 140/72 91 L 04/12/21 11:18 98.1 F 81 12 132/69 95 Intake and Output 04/12/21 04/13/21 04/13/21 22:59 06:59 14:59 Other: Weight 59.421 kg Thrombosis Risk Factor Assmnt - Choose All That Apply Any of the Below Risk Factors Present?: No Each Risk Factor Represents 3 Points: Age 75 years or older, History of DVT/PE Other congenital or acquired thrombophilia - If yes, enter type in comment: No Thrombosis Risk Factor Assessment Total Risk Factor Score: 6 Thrombosis Risk Factor Assessment Level: High Risk
[2021-04-13 19:33] LABS: African American GFR (CKD) 76 (>60 ml/min/1.73 sqM); Anion Gap 5 mmol/L; Blood Urea Nitrogen 19 mg/dL (7-17); Calcium 8.4 mg/dL (8.4-10.2); Carbon Dioxide 29 mmol/L (22-30); Chloride 98 mmol/L (98-107); Glucose 156 mg/dL (74-99); Non-African American GFR(CKD) 66 (>60 ml/min/1.73 sqM); Potassium 4.2 mmol/L (3.5-5.1); Sodium 132 mmol/L (137-145)
[2021-04-13 19:55] LABS: Basophils % (A) 0 %; Eosinophils # (A) 0.2 k/uL (0-0.7); Eosinophils % (A) 2 %; HCT 32.9 % (34.0-46.0); HGB 10.1 gm/dL (11.4-16.0); Hypochromasia Slight; Lymphocytes # (A) 1.5 k/uL (1.0-4.8); Lymphocytes % (A) 14 %; MCH 31.8 pg (25.0-35.0); MCHC 30.6 g/dL (31.0-37.0); MCV 103.8 fL (80.0-100.0); Macrocytosis Slight; Mean Platelet Volume 7.2; Monocytes # (A) 0.8 k/uL (0-1.0); Monocytes % (A) 8 %; Neutrophils # (A) 7.5 k/uL (1.3-7.7); Neutrophils % (A) 71 %; Platelet Count 312 k/uL (150-450); RBC 3.17 m/uL (3.80-5.40); RDW 14.4 % (11.5-15.5); WBC 10.6 k/uL (3.8-10.6)
--- NOTE | 2021-04-13 20:10 | XR ---
EXAMINATION TYPE: XR Hip Limited RT DATE OF EXAM: 04/13/2021 COMPARISON: 11/26/2018 HISTORY: Hip pain TECHNIQUE: Single view FINDINGS: There is an impacted subcapital fracture right femur. There is approximate 2.5 cm of displacement. Th ere is no dislocation. There is osteopenia. Acetabulum is intact. IMPRESSION: Acute impacted displaced subcapital fracture right femur.
[2021-04-13 20:22] LABS: Band Neutrophils % 1 %; Eosinophils # (M) 0.21 k/uL (0-0.7); Lymphocytes # (M) 1.59 k/uL (1.0-4.8); Metamyelocytes # (M) 0.21 k/uL (0); Metamyelocytes % 2 %; Monocytes # (M) 0.74 k/uL (0-1.0); Neutrophils % (M) 75 %; Nucleated Red Blood Cells 0 /100 WBC (0-0); Poikilocytosis (M) Present; Polychromasia Present; Stomatocytes Present; Total Cells Counted 200
[2021-04-13] MEDS: CEPHALEXIN 500 MG CAP PO SCH (20:37)
[2021-04-14] MEDS: MORPHINE SULFATE 4 MG/ML SYRINGE IV PRN ×5 (00:37→21:06)
[2021-04-14] MEDS: CEPHALEXIN 500 MG CAP PO SCH ×4 (00:37→21:06)
--- NOTE | 2021-04-14 10:23 | CT ---
EXAMINATION TYPE: CT hip RT wo con DATE OF EXAM: 04/14/2021 COMPARISON: Radiograph 04/13/[address] 02/21/2021 HISTORY: 85-year-old female Right groin/hip pain TECHNIQUE: Contiguous axial scanning of the right hip without IV contrast. Coronal and sagittal recon structions performed. CT DLP: 129 mGycm Automated exposure control for dose reduction was used. FINDINGS: Marked osteopenia. A right ureteral stent is visualized. Prominent distention of the bladder. Prominent uterus. There is a subcapital femoral neck fracture impacted and displaced superiorly (by about 2 cm) and ang ulated medially, rotated externally. There is some softening of fracture margins and slightly scooped out appearance of the femoral head fracture margin. Some associated surrounding hematoma formation. Moderate degenerative change of the right hip. No additional acute fracture identified of the visualized right hemipelvis. IMPRESSION: 1. MARKED OSTEOPENIA. THERE IS A SUBCAPITAL FEMORAL NECK FRACTURE THAT IS IMPACTED, ANGULATED MEDIALL Y, AND ROTATED EXTERNALLY. 2. GIVEN SOME SOFTENING OF THE FRACTURE MARGINS AND SLIGHTLY SCOOPED OUT APPEARANCE OF THE FEMORAL HE AD FRACTURE MARGIN, THE INJURY MAY BE MORE SUBACUTE WITH BONY REMODELING A RESULT OF REPEATED SILVANO ON AT THE FRACTURE SITE. THE FRACTURE IS NEW COMPARED TO THE CT OF 02/21/2021. 3. PARTIALLY VISUALIZED RIGHT URETERAL STENT. PROMINENT DISTENTION OF THE URINARY BLADDER. PROMINENT APPEARANCE TO THE UTERUS. PELVIC ULTRASOUND WHEN PATIENT ABLE CAN ASSESS FOR ANY ABNORMALITY OF THE E NDOMETRIUM.
--- NOTE | 2021-04-14 10:25 | P.CNOR ---
History of Present Illness - [facility] Consult date: 04/14/21 Consult reason: fracture (Right hip fracture) History of present illness: This is a very pleasant 85-year-old female with history of right hip pain for the past couple of weeks. The patient has medical history of bladder cancer and a recent bowel obstruction. The patient states that she does not wish to treat her bladder cancer. She apparently was cleaning her legs around to get into bed a couple of weeks ago and felt immediate pain in her right hip. She had been using a wheelchair since then. She did have a recent fall in which she landed on her face. X-rays were taken of her hip on admission which revealed a displaced femoral neck fracture. She is admitted to internal medicine and we are consulted for orthopedic evaluation. Past Medical History Past Medical History: Deep Vein Thrombosis (DVT) Additional Past Medical History / Comment(s): colon cancer (1991 diagnosed), slip disc in back History of Any Multi-Drug Resistant Organisms: None Reported Past Surgical History: Appendectomy, Section, Hernia Repair Additional Past Surgical History / Comment(s): ileostomy, L Leg Andre, hernia repair(february 2021) Past Anesthesia/Blood Transfusion Reactions: No Reported Reaction Past Psychological History: No Psychological Hx Reported Smoking Status: Never smoker Past Alcohol Use History: None Reported Past Drug Use History: None Reported - Past Family History Father Family Medical History: CVA/TIA Mother Family Medical History: CVA/TIA Medications and Allergies Home Medications Medication Instructions Recorded Confirmed Type Bifidobacterium Infantis [Align] 4 mg PO Q48H 02/21/21 04/12/21 History Peptiva 1 tab PO Q48H 02/21/21 04/12/21 History Acetaminophen-Codeine 300-30mg 1 tab PO Q6H PRN #20 tab 02/28/21 04/12/21 Rx [Tylenol w/codeine #3] Loratadine-Pseudoeph 5-120 mg 1 tab PO Q12HR PRN 04/12/21 04/12/21 History [Claritin-D 12 Hour] Allergies Allergy/AdvReac Type Severity Reaction Status Date / Time ciprofloxacin [From Cipro] Allergy Unknown Verified 04/12/21 12:35 Penicillins Allergy Unknown Verified 04/12/21 12:35 Childhood acetaminophen [From [place]] AdvReac Hallucinati Verified 04/13/21 08:50 ons hydrocodone [From [place]] AdvReac Hallucinati Verified 04/13/21 08:50 ons Physical Examination This is a pleasant 85-year-old female in no acute distress. She is alert and oriented 3. Exam of the head and neck reveals a bandage on her forehead. She has full cervical spine motion without difficulty or pain. Exam the upper extremities is unremarkable. She has full shoulder, elbow, wrist and finger motion bilaterally. Exam the lower extremities reveals shortening and external rotation to the right leg. She has full foot and ankle motion bilaterally. Neurovascular status to the lower extremities is intact. Results X-rays of the pelvis and right hip reveal a displaced femoral neck fracture. The wound appears irregular. There is suspicion for a pathologic fracture. - Labs Labs: Abnormal Lab Results - Last 24 Hours (Table) 04/13/21 04/13/21 04/13/21 Range/Units 11:30 18:40 18:40 RBC 3.17 L (3.80-5.40) m/uL Hgb 10.1 L (11.4-16.0) gm/dL Hct 32.9 L (34.0-46.0) % MCV 103.8 H (80.0-100.0) fL MCHC 30.6 L (31.0-37.0) g/dL Neutrophils # (Manual) 8.00 H (1.3-7.7) k/uL Metamyelocytes # (Man) 0.21 H (0) k/uL Sodium 132 L (137-145) mmol/L BUN 19 H (7-17) mg/dL Glucose 156 H (74-99) mg/dL Urine Appearance Turbid H (Clear) Urine RBC >182 H (0-5) /hpf Urine WBC >182 H (0-5) /hpf Urine WBC Clumps Many H (None) /hpf Urine Bacteria Rare H (None) /hpf Urine Mucus Occasional H (None) /hpf Microbiology - Last 24 Hours (Table) 04/13/21 11:30 Urine Culture - Preliminary Urine,Voided H & H 04/13/21 Range/Units 18:40 Hgb 10.1 L (11.4-16.0) gm/dL Hct 32.9 L (34.0-46.0) % Result Diagrams: 04/13/21 18:40 02/16/22 18:40 Assessment and Plan (1) Displaced fracture of right femoral neck Current Visit: Yes Status: Acute Code(s): S72.001A - FRACTURE OF UNSP PART OF NECK OF RIGHT FEMUR, INIT SNOMED Code(s): 1311862 (2) Pathological fracture of right hip Current Visit: Yes Status: Acute Code(s): M84.451A - PATHOLOGICAL FRACTURE, RIGHT FEMUR, INIT ENCNTR FOR FRACTURE SNOMED Code(s): 207419631 (3) Fall Current Visit: Yes Status: Acute Code(s): W19.XXXA - UNSPECIFIED FALL, INITIAL ENCOUNTER SNOMED Code(s): 1396084 Plan: The clinical and x-ray findings are discussed with the patient and her son over the phone. It is recommended that she undergo cemented hemiarthroplasty of the right hip. The procedures discussed in detail including the possible risks and outcomes. After discussion and consideration the patient elects to proceed. We're planning surgery for tomorrow if cleared medically.
--- NOTE | 2021-04-14 18:16 | P.PN ---
Progress Note - Text Progress Note Date: 04/14/21 Chief Complaint: Fall History of presenting complaint This is a very pleasant 85-year-old patient who follows with visiting physicians. Rather independent. Does use a walker. Chronic stable medical conditions include history of remote DVT, colon cancer in 1991 with a resultant ileostomy, arthritis in several joints.baseline uses a walker. Chronic ileostomy . 02/21/2021 Admitted with small bowel obstruction, underwent surgical intervention on February [address] Stover. Lysis of adhesions. Also patient with having gross hematuria and right-sided hydronephrosis. Dr. quispe: Cystoscopy performed With stent to the right ureter. 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 area of bladder pathology showing high-grade urothelial carcinoma involving the muscularis propria. Patient was discharged to rehab. Patient got back home 2 weeks ago from rehab. She has a high bed. When she sternal lift her right leg she felt severe pain in the right groin. Since that has been having significant pain in the area. Has been using a wheelchair. Yesterday while leading out of the wheelchair she fell forward hitting her head to the floor. Has a laceration requiring stitches in the ER. Patient was due to follow-up with urology but she has decided not to do the same as she knows to cancer treatment she does not want and does not want to be bothered with the same. She been eating fair amounts. Continues to have intermittent blood in the urine. Has been living independently in her house. Son checks on her. No fever no chills. April 14: X-ray and computed tomography scan right hip confirmed a femur fracture. Orthopedic consulted. Plan for surgery tomorrow. I discussed with the patient her findings of the bladder biopsy. She is agreeable to have a urology opinion to see what options might be available. Active Medications Acetaminophen (Acetaminophen Tab 325 Mg Tab) 650 mg PO Q6HR PRN PRN Reason: Mild Pain or Fever > 100.5 Calcium Carbonate/Glycine (Calcium Carbonate 500 Mg Chewable) 1,000 mg PO Q4HR PRN PRN Reason: Dyspepsia Cephalexin (Cephalexin 500 Mg Cap) 500 mg PO TID [facility] Last Admin: 04/14/21 15:31 Dose: 500 mg Documented by: Lactulose (Lactulose 20 Gm/30 Ml Cup) 20 gm PO DAILY PRN PRN Reason: Constipation Melatonin (Melatonin 3 Mg Tablet) 3 mg PO HS PRN PRN Reason: Insomnia Morphine Sulfate (Morphine Sulfate 4 Mg/Ml Syringe) 4 mg IV Q4HR PRN PRN Reason: Severe Pain Last Admin: 04/14/21 15:32 Dose: 4 mg Documented by: Naloxone HCl (Naloxone 0.4 Mg/Ml 1 Ml Vial) 0.2 mg IV Q2M PRN PRN Reason: Opioid Reversal Ondansetron HCl (Ondansetron 4 Mg/2 Ml Vial) 4 mg IVP Q8HR PRN PRN Reason: Nausea And Vomiting Past medical history to include: DjD, colon cancer 1991 with resultant ileostomy, slipped disc in the back, osteomyelitis, uses a walker, high-grade urothelial carcinoma of the bladder Social history: Drinks 2 glasses of wine per week, lives alone. Does have a walker. No smoking. Family history: Stroke Physical examination: VITAL SIGNS: 98.3, 89, 18, 122/74, 93% room air GENERAL: laying in bed awake, tired. EYES: Pupils equal. Conjunctiva normal. HEENT: External appearance of nose and ears normal, oral cavity grossly normal. Laceration of the right forehead with stitches NECK: JVD not raised; masses not palpable. HEART: First and second heart sounds are normal; no edema. LUNGS: Respiratory rate normal; clear to auscultation. ABDOMEN: Soft, nontender, liver spleen not palpable, no masses palpable ileostomy. Midline incision with a dressing. PSYCH: [Alert and oriented x3; mood and affect anxious l. MUSCULOSKELETAL:No Clubbing/cyanosis;muscles-grossly intact. Evidence of severe OA in both the hands especially. Limited range of motion right hip. INVESTIGATIONS, reviewed in the clinical context: White count 10.60 globin 10.1 platelets 312 potassium 4.2 creatinine 0.82 Right hip x-ray and computed tomography scan: Right subcapital femur fracture UA positive for WBC Coronavirus [PCR]: Not detected Assessment and plan: -Right femur subcapital fracture. Dr. Olmstead from orthopedics, planning for surgery tomorrow. -High-grade urothelial carcinoma of the bladder with involvement of the muscularis propria from biopsy. Patient is agreeable to getting to be needed from urology to see what options available. Urology consulted -Primary osteoarthritis multiple joints bilaterally Pain control -Anemia of chronic disease -Acute postprocedure blood loss anemia, expected from recent surgery Follow H&H -Chronic gait dysfunction uses a walker at baseline. Currently using a wheelchair Fall precautions -Intention tremor. chronic -CKD possibly obstructive stage III Follow renal function -Right hydroureter with hydronephrosis. Along with hematuria. secondary to urothelial carcinoma of the bladder February 25: Cystoscopy followed by scraping of the bladder wall, right ureter stent. obstruction in the distal ureter. -Acute UTI with cystitis By mouth Keflex Patient is a moderate risk for surgery given her comorbidities and limited exercise tolerance. Patient has no active cardiac/pulmonary symptoms. Patient is medically stable to proceed for right hip surgery which is relatively bloodless surgery. Order baseline EKG. Consult urology. Other medications to continue. Discussed at length with the patient. Questions answered.
[2021-04-14] MEDS: ENOXAPARIN 40 MG/0.4 ML SYRINGE SQ SCH (20:08)
[2021-04-15] MEDS: MORPHINE SULFATE 4 MG/ML SYRINGE IV PRN ×4 (04:13→21:51)
[2021-04-15] MEDS ORDERED: TRANEXAMIC ACID 1,000 MG in SODIUM CHLORIDE 0.9% 100 ML IVPB PRN (06:00)
[2021-04-15] MEDS: ENOXAPARIN 40 MG/0.4 ML SYRINGE SQ SCH (07:39)
[2021-04-15] MEDS: CEPHALEXIN 500 MG CAP PO SCH (08:25)
[2021-04-15] MEDS ORDERED: LACTATED RINGERS 1,000 ML IV ONE (13:57)
[2021-04-15] MEDS ORDERED: SUCCINYLCHOLINE CHLORIDE 100 MG/5 ML SYR IV ONE (15:08)
[2021-04-15] MEDS ORDERED: NEOSTIGMINE 1 MG/ML 10 ML VIAL ONE (15:08)
[2021-04-15] MEDS ORDERED: TRANEXAMIC ACID 1,000 MG/10 ML VIAL ONE (15:08)
[2021-04-15] MEDS ORDERED: LIDOCAINE 1% INJ 10MG/ML (20 ML MDV) ONE (15:08)
[2021-04-15] MEDS ORDERED: SODIUM CHLORIDE 0.9% 100 ML BAG ONE (15:08)
[2021-04-15] MEDS ORDERED: PROPOFOL 10 MG/ML 20 ML VIAL IV ONE (15:08)
[2021-04-15] MEDS ORDERED: GLYCOPYRROLATE 0.2 MG/ML 2 ML VIAL ONE (15:08)
[2021-04-15] MEDS ORDERED: fentaNYL (PF) 50 MCG/ML 2 ML AMP ONE (15:08)
[2021-04-15] MEDS ORDERED: PHENYLEPHRINE-0.9% NACL SYG 1,000 MCG/10 ML SYRINGE ONE (15:08)
[2021-04-15] MEDS ORDERED: ROCURONIUM 10 MG/ML (5 ML VIAL) IV ONE (15:08)
--- NOTE | 2021-04-15 16:36 | P.OP ---
Date of Procedure: 04/15/21 Procedure(s) Performed: PREOPERATIVE DIAGNOSIS: Right hip femoral neck fracture POSTOPERATIVE DIAGNOSIS: Right hip femoral neck fracture OPERATION: Right hip cemented unipolar hemiarthroplasty. ANESTHESIA: General ESTIMATED BLOOD LOSS: 50 ml. MIX CRUSHER OPERATOR: Isadora Alexandra PA-C (assistance with: patient positioning, retraction, exposure, hemostasis, leg positioning, implantation, irrigation, closure, dressing) COMPLICATIONS: None apparent. COMPONENTS IMPLANTED: Ewa LDFx cemented femoral stem; unipolar femoral head; neck extension augments as needed. INDICATIONS: Mrs. Gómez is a 85 year old female with a history of bladder CA apparently had hip pain for about a week before falling and having acute pain and inability to ambulate. X-rays showed a displaced pathologic appearing femoral neck fracture. I have recommended surgical treatment with a cemented unipolar hemiarthroplasty. I have discussed this procedure in detail and explained the potential risks and complications as being inclusive of, but not limited to: Bleeding, infection, scarring, discomfort, blood vessel and/or nerve damage, limb length inequality, gait disturbance, blood clot, pulmonary embolism, , and other risks. The consent form has been signed. PROCEDURE: After appropriate consent was obtained, the patient was taken to the operating room and placed in supine position. General anesthetic was administered and after confirmation of adequate anesthesia, the patient was placed into the lateral decubitus position with the affected side up. Care was taken to make sure that all pressure points were adequately padded and a Sukhjinder hip positioner was utilized for positioning. The hip was prepped and draped in the usual aseptic fashion using a combination of Chloraprep and alcohol. Ioban drape was used for the case and the patient received intravenous antibiotics prior to the incision. 1 g intravenous tranexamic acid was administered around the time of the prepping and draping, and another 1 g was administered at the time of closure. The incision was created directly over the greater trochanter and carried slightly posteriorly for a posterior approach to the hip. The incision was then deepened down to subcutaneous tissue and fascia uday. Fascia uday was split in line with the incision and split proximally along the fibers of the gluteus lance. The underlying fibers of the muscle were teased apart using finger dissection and bleeding vessels were picked up and coagulated. Retractor was then placed posteriorly consisting of a blunt Mo. The short external rotators and capsule were exposed and good visualization of the attachment of the external rotators to the femur was established. The short external rotators and capsule were released using electrocautery from their femoral attachments. A hockey stick shaped incision was created in the capsule. Joint fluid and hemart hrosis was evacuated and the patient's hip was internally rotated to expose the fracture site. The femoral neck cut was created approximately 1 cm superior to the lesser trochanter using a reciprocating saw. The femoral head and neck fragment was removed and visualization and palpation of the acetabular vault showed intact hyaline cartilage with no bone exposure or significant degeneration. Attention was then directed back to the proximal femur. Retractors were placed around the proximal femur and box osteotome was used followed by canal finder and trochanteric reamer. Cylindrical reaming was performed. Progressive broaching was then performed starting with a #10 broach and progressing final size, in a position of 10-15 degrees anteversion. [place] anteversion was within 5 degrees of stem position. The final size broach had excellent fit and fill of the patient's metaphysis and diaphysis. Calcar planing was performed. Trial reduction was then performed starting with appropriately sized femoral head and various neck extensions to evaluate stability, limb length equality, and soft tissue tension. Once these parameters were satisfactory, the corresponding final components were then called for. Trial components were removed. The femoral canal was sized for the centralizer and cement plug. Once the cement plug had been inserted distal to the planned length of the femoral component, the canal was pulse lavaged and brushed to remove any unstable bone. It was then dried with a lap sponge. Cement was mixed under vacuum conditions to decrease porosity and inserted into a cement gun. Distal centralizer was placed onto the femoral component with a bit of cement. The cement was allowed to reach a slightly doughy consistency and then the canal was filled retrograde with the cement gun. Thumb pressurization was performed three times. The femoral component was then inserted with the previously determined degree of anteversion. Excess cement was removed before it hardened completely. The femoral head was then impacted onto the [place] taper. Blood and debris were removed from the acetabular socket and the hip was then reduced and checked for stability, limb length and soft tissue tension. These parameters were found to be satisfactory; the wound was then thoroughly irrigated with normal saline. Final hemostasis was obtained using electrocautery. Closure of the capsule was performed meticulously using #3 Vicryl suture. Four [id number] sutures were placed in the posterior capsule along with repair of the external rotators. The fascia uday was then repaired using combination of #3 Vicryl suture in interrupted fashion and Quill in running fashion. 2-0 Vicryl suture was used for the subcutaneous tissues and 3-0 Quill for the skin. Dermabond tape was then applied. The patient tolerated the procedure well. There were no complications and the wound bed was dry and there was no need for drain placement. Sterile dressing was then applied and the patient was carefully removed from the operating room table, placed on the stretcher and was taken to the recovery room in stable condition. Sponge and needle counts were correct.
[2021-04-15] MEDS ORDERED: HYDROmorphone 0.2 MG/1 ML SYRINGE IVP PRN (17:05)
[2021-04-15] MEDS ORDERED: HYDROmorphone 0.5 MG/0.5 ML SYRINGE IVP PRN ×2 (17:05)
[2021-04-15] MEDS ORDERED: MAGNESIUM HYDROXIDE 2,400 MG/10 ML CUP PO PRN (17:05)
[2021-04-15] MEDS ORDERED: TEMAZEPAM 15 MG CAP PO PRN (17:05)
[2021-04-15] MEDS ORDERED: NALOXONE 0.4 MG/ML 1 ML VIAL IV PRN (17:05)
[2021-04-15] MEDS ORDERED: HYDROmorphone 0.5 MG/0.5 ML SYRINGE IVP ONE (17:20)
[2021-04-15] MEDS: fentaNYL (PF) 50 MCG/ML 2 ML AMP IV ONE ×2 (17:30→17:44)
--- NOTE | 2021-04-15 17:55 | XR ---
EXAMINATION TYPE: XR Hip Limited RT DATE OF EXAM: 04/15/2021 COMPARISON: NONE HISTORY: Hip surgery TECHNIQUE: Single view FINDINGS: There is right hip prosthesis. Components are in anatomic position. There is osteopenia. IMPRESSION: Hip prosthesis appears in anatomic position.
[2021-04-15] MEDS ORDERED: HYDROmorphone 1 MG/ML 1 ML SYRINGE IVP ONE (18:00)
[2021-04-15] MEDS: LACTATED RINGERS 1,000 ML IV SCH (19:25)
--- NOTE | 2021-04-15 19:38 | P.PN ---
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 Found to have right hip fracture. Patient was found to have a displaced right femoral neck fracture. She underwent operative repair on 04/15. Patient seen and examined at bedside. No chest pain, feels confused, no shortness of breath, no lightheaded or dizziness General: non toxic, no distress, appears at stated age Derm: warm, dry Head: traumatic with bruising, normocephalic, symmetric Eyes: EOMI, no lid lag, anicteric sclera Mouth: no lip lesion, mucus membranes moist Cardiovascular: S1S2 reg, no murmur, positive posterior tibial pulse bilateral, Lungs: Decreased bs bilateral, no rhonchi, no rales , no accessory muscle use Abdominal: soft, nontender to palpation, no guarding, no appreciable organomegaly Ext: + gross muscle atrophy, no edema, no contractures Neuro: CN II-XI grossly intact, no focal neuro deficits Psych: Alert, oriented, appropriate affect 85-year-old female status post fall with right femoral neck fracture -Status post operative repair on 04/15 -PT OT -Pain control -Fall precautions UTI - rocephin -Await urine culture Hyponatremia -IV fluids -Repeat in a.m. Anemia -Improved from baseline -Follow CBC High-grade urothelial carcinoma -Outpatient urology follow-up DVT prophylaxis: per ortho Discussed with: patient Anticipated discharge: 3-[address]: [facility] A total of 25 minutes was spent on the care of this complex patient more than 50% of the time was spent in counseling and care coordination. Objective - Vital Signs Vital signs: Vital Signs Temp 100.1 F H 04/15/21 13:51 Pulse 79 04/15/21 18:18 Resp 16 04/15/21 18:18 BP 114/61 04/15/21 18:18 Pulse Ox 99 04/15/21 18:18 Intake & Output 04/14/21 04/15/21 04/15/21 18:59 06:59 18:59 Intake Total 950 Output Total 100 50 Balance -100 900 Intake: IV 950 Output: Stool 100 Estimated Blood Loss 50 Other: Voiding Method Bedpan Bedpan Bedpan Diaper Diaper Diaper # Voids 1 4 - Labs CBC & Chem 7: 04/13/21 18:40 04/13/21 18:40 Labs: Microbiology - Last 24 Hours (Table) 04/13/21 11:30 Urine Culture - Preliminary Urine,Voided Gram Neg Bacilli
[2021-04-15] MEDS: ASPIRIN 81 MG PO SCH (21:03)
[2021-04-15] MEDS: SENNOSIDES-DOCUSATE SODIUM 1 EACH TAB PO SCH (21:03)
[2021-04-16] MEDS: traMADol 50 MG TAB PO PRN ×4 (00:29→20:29)
[2021-04-16] MEDS: LACTATED RINGERS 1,000 ML IV SCH ×3 (05:24→17:01)
[2021-04-16 06:43] LABS: African American GFR (CKD) >90 (>60 ml/min/1.73 sqM); Anion Gap 3 mmol/L; Blood Urea Nitrogen 17 mg/dL (7-17); Calcium 8.6 mg/dL (8.4-10.2); Carbon Dioxide 28 mmol/L (22-30); Chloride 102 mmol/L (98-107); Glucose 132 mg/dL (74-99); Magnesium 1.5 mg/dL (1.6-2.3); Non-African American GFR(CKD) 79 (>60 ml/min/1.73 sqM); Potassium 4.5 mmol/L (3.5-5.1); Sodium 133 mmol/L (137-145)
--- NOTE | 2021-04-16 07:46 | P.GSCN ---
History of Present Illness Consult date: 04/15/21 Reason for Consult: Muscle invasive bladder cancer. Requesting physician: Victor Manuel Bosch History of present illness: The patient is an 85-year-old female admitted to the hospital in January 2021 with bowel obstruction. She underwent exploratory laparotomy by Dr. Stover. Urology was consulted for right-sided hydronephrosis that was seen on CT scan. Creatinine was 1.46, from a baseline of 0.6. She had a history of gross hematuria but denied flank pain. She denies any prior history of urolithiasis. She underwent cystoscopy, revealing a tumor on the right hemitrigone. Resection revealed high-grade, muscle invasive urothelial carcinoma. She was also found to have right distal ureteral obstruction, and underwent placement of a right ureteral stent. She failed to keep her follow-up appointment upon discharge. She presents with a 2-3 week history of right hip pain and was found to have a right femoral neck fracture, for which she underwent a unipolar hemiarthroplasty. She admits to ongoing intermittent hematuria. Review of Systems - Constitutional Denies chills, Denies fever - Genitourinary Genitourinary: Reports hematuria Past Medical History Past Medical History: Deep Vein Thrombosis (DVT) Additional Past Medical History / Comment(s): colon cancer (1991 diagnosed), slip disc in back, Bladder Cancer (Dx'd 01/2021) History of Any Multi-Drug Resistant Organisms: None Reported Past Surgical History: Appendectomy, Section, Hernia Repair Additional Past Surgical History / Comment(s): ileostomy, L Leg Ander, hernia repair(february 2021) Past Anesthesia/Blood Transfusion Reactions: No Reported Reaction Past Psychological History: No Psychological Hx Reported Smoking Status: Never smoker Past Alcohol Use History: None Reported Past Drug Use History: None Reported - Past Family History Father Family Medical History: CVA/TIA Mother Family Medical History: CVA/TIA Medications and Allergies Home Medications Medication Instructions Recorded Confirmed Type Bifidobacterium Infantis [Align] 4 mg PO Q48H 02/21/21 04/12/21 History Peptiva 1 tab PO Q48H 02/21/21 04/12/21 History Acetaminophen-Codeine 300-30mg 1 tab PO Q6H PRN #20 tab 02/28/21 04/12/21 Rx [Tylenol w/codeine #3] Loratadine-Pseudoeph 5-120 mg 1 tab PO Q12HR PRN 04/12/21 04/12/21 History [Claritin-D 12 Hour] Allergies Allergy/AdvReac Type Severity Reaction Status Date / Time ciprofloxacin [From Cipro] Allergy Unknown Verified 04/12/21 12:35 Penicillins Allergy Unknown Verified 04/12/21 12:35 Childhood acetaminophen [From [place]] AdvReac Hallucinati Verified 04/13/21 08:50 ons hydrocodone [From [place]] AdvReac Hallucinati Verified 04/13/21 08:50 ons Surgical - Exam Vital Signs Temp Pulse Resp BP Pulse Ox 98.1 F 81 12 132/69 95 04/12/21 11:18 04/12/21 11:18 04/12/21 11:18 04/12/21 11:18 04/12/21 11:18 - General well developed, well nourished, no distress - Respiratory normal respiratory effort - Abdomen Abdomen: soft, non tender, no guarding, no rigid, no rebound - Psychiatric oriented to time, oriented to person, oriented to place, speech is normal, memor y intact Results - Labs 04/13/21 18:40 04/16/21 06:06 Microbiology - Last 24 Hours (Table) 04/13/21 11:30 Urine Culture - Preliminary Urine,Voided Gram Neg Bacilli Assessment and Plan (1) Malignant neoplasm of trigone of bladder Current Visit: Yes Status: Acute Code(s): C67.0 - MALIGNANT NEOPLASM OF TRIGONE OF BLADDER SNOMED Code(s): 314989449 Plan: I had a lengthy discussion with the patient regarding her muscle invasive urothelial carcinoma of the bladder. She is inclined not to treat it. I reviewed with her the natural history of untreated urothelial carcinoma. I do not feel she is a candidate for a radical cystectomy, or even perhaps systemic chemotherapy. I did suggest she consider radiation therapy to at least achieve local control. I also discussed with her the fact that she has a ureteral stent in place to relieve ureteral obstruction. I made clear to her that the stent cannot remain in place indefinitely, as it will calcify and become occluded. If she declines all treatment, the ureteral stent should be removed, in which case she will ultimately lose right renal function. She will be due for stent change in approximately 6 weeks. I suggested to her that she could undergo that procedure, and any recurrent tumor could be resected at that time. If the stent is not calcified, she may be able to go 6-12 months between stent changes. She had a clear understanding of the discussion and will consider all options.
[2021-04-16 08:59] LABS: HCT 31.9 % (37.2-46.3); HGB 9.7 g/dL (12.0-15.0); MCHC 30.4 g/dL (32.0-37.0); MCV 101.9 fL (80.0-97.0); Mean Platelet Volume 9.1 fL (9.5-12.2); NRBC Per 100 WBC 0 /100 WBCS (0.0-0.0); Platelet Count 237 X 10*3/uL (140-440); RBC 3.13 X 10*6/uL (4.10-5.20); RDW 13.5 % (11.5-14.5); WBC 15.59 X 10*3/uL (4.50-10.00)
[2021-04-16] MEDS: ASPIRIN 81 MG PO SCH (09:00)
[2021-04-16] MEDS: ENOXAPARIN 40 MG/0.4 ML SYRINGE SQ SCH (09:00)
[2021-04-16 09:58] LABS: Basophils # (A) 0.08 X 10*3/uL (0.00-0.10); Basophils % (A) 0.5 %; Eosinophils # (A) 0.16 X 10*3/uL (0.04-0.35); Lymphocytes # (A) 0.78 X 10*3/uL (0.90-5.00); Monocytes # (A) 1.69 X 10*3/uL (0.20-1.00); Monocytes % (A) 10.8 %; Neutrophils # (A) 12.73 X 10*3/uL (1.80-7.70); Neutrophils % (A) 81.7 %
--- NOTE | 2021-04-16 09:58 | P.PN ---
Subjective Progress Note Date: 04/16/21 Principal diagnosis: Status post right hip hemiarthroplasty This is a 85 year-old female post right hip hemiarthroplasty. This is post-op day 1. The patient was evaluated at the bedside today. The patient denies nausea, vomiting, abdominal pain, shortness of breath, and chest pain this morning. She states her pain is not controlled at this time. The patient has not been up with physical therapy. Objective - Vital Signs Vital signs: Vital Signs Temp 98.3 F 04/16/21 04:34 Pulse 101 H 04/16/21 04:34 Resp 16 04/16/21 04:34 BP 115/75 04/16/21 04:34 Pulse Ox 96 04/16/21 04:34 Intake & Output 04/15/21 04/16/21 04/16/21 18:59 06:59 18:59 Intake Total 950 1200 Output Total 50 Balance 900 1200 Intake: IV 950 Intake, IV Titration 1000 Amount Lactated Ringers 1,000 ml 900 @ 100 mls/hr IV .Q10H [facility] Rx#:[id number] cefTRIAXone 1 gm In 100 Sodium Chloride 0.9% 50 ml @ 100 mls/hr IVPB Q24HR [facility] Rx#:[id number] Oral 200 Output: Estimated Blood Loss 50 Other: Voiding Method Bedpan Diaper Diaper Diaper External Catheter External Catheter # Voids 1 - Exam The patient does not appear in acute distress. Alert and orientated x2. Dressing is clean dry and intact. Incision appears fine with no erythema or active drainage. Calf is soft and nontender. Good foot and ankle motion without difficulty. Sensation and circulatory status is intact. - Labs CBC & Chem 7: 04/16/21 06:06 04/16/21 06:06 Labs: Abnormal Lab Results - Last 24 Hours (Table) 04/16/21 04/16/21 Range/Units 06:06 06:06 WBC 15.59 H (4.50-10.00) X 10*3/uL RBC 3.13 L (4.10-5.20) X 10*6/uL Hgb 9.7 L (12.0-15.0) g/dL Hct 31.9 L (37.2-46.3) % MCV 101.9 H (80.0-97.0) fL MCHC 30.4 L (32.0-37.0) g/dL MPV 9.1 L (9.5-12.2) fL Sodium 133 L (137-145) mmol/L Glucose 132 H (74-99) mg/dL Magnesium 1.5 L (1.6-2.3) mg/dL Microbiology - Last 24 Hours (Table) 04/13/21 11:30 Urine Culture - Final Urine,Voided Escherichia coli Assessment and Plan (1) Displaced fracture of right femoral neck Current Visit: Yes Status: Acute Code(s): S72.001A - FRACTURE OF UNSP PART OF NECK OF RIGHT FEMUR, INIT SNOMED Code(s): 5196169 (2) Fall Current Visit: Yes Status: Acute Code(s): W19.XXXA - UNSPECIFIED FALL, INITIAL ENCOUNTER SNOMED Code(s): 9076025 Plan: 1. Continue pain control 2. Anticoagulation with Lovenox per internal medicine 3. Start physical therapy and ambulation today. 4. Anticipate discharge to home vs. skilled rehab depending on how she does with physical therapy.
--- NOTE | 2021-04-16 12:55 | P.GSCN ---
History of Present Illness Consult date: 04/16/21 Reason for Consult: Midline incisional wound and drainage post exploratory laparotomy in January History of present illness: Patient is an 85-year-old lady admitted to the [facility] through the emergency department following mechanical fall at home and right femoral neck fracture. She was treated by Dr. Koko Stover for small bowel obstruction due to adhesions this past January yielding a diagnosis of urological malignancy with involvement of the ureter. The incision was left open and it is subsequently nearly completely healed, patient has followed with wound care for pressure sores. On admission there was some purulent drainage noted from the mid aspect of the incision, patient tells me that this has been persistent for the last month at least. She denies pain in the area. She is chosen to forego further aggressive workup or treatment for suspicion of urological malignancy. Patient underwent right hip arthroplasty yesterday afternoon and is having some issues with pain control. She appears more or less comfortable at rest. Review of Systems All systems: negative Past Medical History Past Medical History: Deep Vein Thrombosis (DVT) Additional Past Medical History / Comment(s): colon cancer (1991 diagnosed), slip disc in back, Bladder Cancer (Dx'd 01/2021) History of Any Multi-Drug Resistant Organisms: None Reported Past Surgical History: Appendectomy, Section, Hernia Repair Additional Past Surgical History / Comment(s): ileostomy, L Leg Andre, hernia repair(february 2021) Past Anesthesia/Blood Transfusion Reactions: No Reported Reaction Past Psychological History: No Psychological Hx Reported Smoking Status: Never smoker Past Alcohol Use History: None Reported Past Drug Use History: None Reported - Past Family History Father Family Medical History: CVA/TIA Mother Family Medical History: CVA/TIA Medications and Allergies Home Medications Medication Instructions Recorded Confirmed Type Bifidobacterium Infantis [Align] 4 mg PO Q48H 02/21/21 04/12/21 History Peptiva 1 tab PO Q48H 02/21/21 04/12/21 History Acetaminophen-Codeine 300-30mg 1 tab PO Q6H PRN #20 tab 02/28/21 04/12/21 Rx [Tylenol w/codeine #3] Loratadine-Pseudoeph 5-120 mg 1 tab PO Q12HR PRN 04/12/21 04/12/21 History [Claritin-D 12 Hour] Allergies Allergy/AdvReac Type Severity Reaction Status Date / Time ciprofloxacin [From Cipro] Allergy Unknown Verified 04/12/21 12:35 Penicillins Allergy Unknown Verified 04/12/21 12:35 Childhood acetaminophen [From [place]] AdvReac Hallucinati Verified 04/13/21 08:50 ons hydrocodone [From [place]] AdvReac Hallucinati Verified 04/13/21 08:50 ons Surgical - Exam Osteopathic Statement: *. No significant issues noted on an osteopathic structural exam other than those noted in the History and Physical/Consult. Vital Signs Temp Pulse Resp BP Pulse Ox 98.1 F 81 12 132/69 95 04/12/21 11:18 04/12/21 11:18 04/12/21 11:18 04/12/21 11:18 04/12/21 11:18 - General well developed, well nourished, no distress - Eyes PERRL, normal ocular movement - ENT normal pinna, normal nares, normal mucosa - Respiratory normal expansion, normal respiratory effort, clear to auscultation - Cardiovascular Rhythm: regular - Abdomen Left sided ostomy is well perfused and functional, I don't appreciate parastomal hernia. There is a 2-3 mm punctate sinus tract at the mid aspect of her healed midline laparotomy incision with some purulent appearing drainage but no tenderness to palpation, no induration no cellulitis. No evidence of incisional hernia on palpation. Abdomen is soft, nontender to palpation, no guarding rebound or distention. Abdomen: soft, non tender - Neurologic normal coordination, normal sensation - Psychiatric oriented to time, oriented to person, oriented to place, speech is normal, memory intact Results - Labs 04/16/21 06:06 04/16/21 06:06 Abnormal Lab Results - Last 24 Hours (Table) 04/16/21 04/16/21 Range/Units 06:06 06:06 WBC 15.59 H (4.50-10.00) X 10*3/uL RBC 3.13 L (4.10-5.20) X 10*6/uL Hgb 9.7 L (12.0-15.0) g/dL Hct 31.9 L (37.2-46.3) % MCV 101.9 H (80.0-97.0) fL MCHC 30.4 L (32.0-37.0) g/dL MPV 9.1 L (9.5-12.2) fL Immature Gran # 0.15 H (0.00-0.04) X 10*3/uL Neutrophils # 12.73 H (1.80-7.70) X 10*3/uL Lymphocytes # 0.78 L (0.90-5.00) X 10*3/uL Monocytes # 1.69 H (0.20-1.00) X 10*3/uL Sodium 133 L (137-145) mmol/L Glucose 132 H (74-99) mg/dL Magnesium 1.5 L (1.6-2.3) mg/dL Microbiology - Last 24 Hours (Table) 04/13/21 11:30 Urine Culture - Final Urine,Voided Escherichia coli Diabetes panel 04/16/21 Range/Units 06:06 Sodium 133 L (137-145) mmol/L Potassium 4.5 (3.5-5.1) mmol/L Chloride 102 (98-107) mmol/L Carbon Dioxide 28 (22-30) mmol/L BUN 17 (7-17) mg/dL Creatinine 0.70 (0.52-1.04) mg/dL Glucose 132 H (74-99) mg/dL Calcium 8.6 (8.4-10.2) mg/dL Calcium panel 04/16/21 Range/Units 06:06 Calcium 8.6 (8.4-10.2) mg/dL Pituitary panel 04/16/21 Range/Units 06:06 Sodium 133 L (137-145) mmol/L Potassium 4.5 (3.5-5.1) mmol/L Chloride 102 (98-107) mmol/L Carbon Dioxide 28 (22-30) mmol/L BUN 17 (7-17) mg/dL Creatinine 0.70 (0.52-1.04) mg/dL Glucose 132 H (74-99) mg/dL Calcium 8.6 (8.4-10.2) mg/dL Adrenal panel 04/16/21 Range/Units 06:06 Sodium 133 L (137-145) mmol/L Potassium 4.5 (3.5-5.1) mmol/L Chloride 102 (98-107) mmol/L Carbon Dioxide 28 (22-30) mmol/L BUN 17 (7-17) mg/dL Creatinine 0.70 (0.52-1.04) mg/dL Glucose 132 H (74-99) mg/dL Calcium 8.6 (8.4-10.2) mg/dL Assessment and Plan Assessment: A 5-year-old lady with a what appeared to be a subcutaneous sinus tract at previous midline laparotomy scar that was allowed to heal by secondary intention . I don't appreciate any evidence of acute infection, no cellulitis, no soft tissue induration. I suspect that she may have a small epidermal cyst or sequestrum metastases in draining the level of the skin. No evidence of hernia. Recent fall from standing with right hip fracture, postoperative day 1 right hip hemiarthroplasty. Chronic anemia and hematuria and suspicion of urological malignancy. Patient has chosen to forego further aggressive workup or treatment. Plan: Recommend topical Medihoney on a twice daily over the area of concern and a simple 4 x 4 gauze dressing the Be changed twice daily and as needed. She has a supply of Medihoney at home, this isn't available in the inpatient setting with bacitracin would work fine as well. No acute intervention is indicated. May follow up on an outpatient basis either with the wound care service or general surgery office within 1 week of discharge. Time with Patient: Greater than 30
--- NOTE | 2021-04-16 13:28 | P.PN ---
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 Found to have right hip fracture. Patient was found to have a displaced right femoral neck fracture. She underwent operative repair on 04/15. Patient seen and examined at bedside. No chest pain, feels confused, no shortness of breath, no lightheaded or dizziness General: non toxic, no distress, appears at stated age Derm: warm, dry Head: traumatic with bruising, normocephalic, symmetric Eyes: EOMI, no lid lag, anicteric sclera Mouth: no lip lesion, mucus membranes moist Cardiovascular: S1S2 reg, no murmur, positive posterior tibial pulse bilateral, Lungs: Decreased bs bilateral, no rhonchi, no rales , no accessory muscle use Abdominal: soft, nontender to palpation, no guarding, no appreciable organomegaly Ext: + gross muscle atrophy, no edema, no contractures Neuro: CN II-XI grossly intact, no focal neuro deficits Psych: Alert, oriented, appropriate affect 85-year-old female status post fall with right femoral neck fracture -Status post operative repair on 04/15 -PT OT -Pain control -Fall precautions UTI - rocephin -Await urine culture Hyponatremia -IV fluids -Repeat in a.m. Anemia -Improved from baseline -Follow CBC High-grade urothelial carcinoma -Outpatient urology follow-up DVT prophylaxis: per ortho Patient likely needs rehab Objective - Vital Signs Vital signs: Vital Signs Temp 98.6 F 04/16/21 13:05 Pulse 88 04/16/21 13:05 Resp 19 04/16/21 13:05 BP 118/79 04/16/21 13:05 Pulse Ox 97 04/16/21 13:05 Intake & Output 04/15/21 04/16/21 04/16/21 18:59 06:59 18:59 Intake Total 950 1200 Output Total 50 Balance 900 1200 Intake: IV 950 Intake, IV Titration 1000 Amount Lactated Ringers 1,000 ml 900 @ 100 mls/hr IV .Q10H [facility] Rx#:[id number] cefTRIAXone 1 gm In 100 Sodium Chloride 0.9% 50 ml @ 100 mls/hr IVPB Q24HR [facility] Rx#:[id number] Oral 200 Output: Estimated Blood Loss 50 Other: Voiding Method Bedpan Diaper Diaper Diaper External Catheter External Catheter # Voids 1 - Labs CBC & Chem 7: 04/16/21 06:06 04/16/21 06:06 Labs: Abnormal Lab Results - Last 24 Hours (Table) 04/16/21 04/16/21 Range/Units 06:06 06:06 WBC 15.59 H (4.50-10.00) X 10*3/uL RBC 3.13 L (4.10-5.20) X 10*6/uL Hgb 9.7 L (12.0-15.0) g/dL Hct 31.9 L (37.2-46.3) % MCV 101.9 H (80.0-97.0) fL MCHC 30.4 L (32.0-37.0) g/dL MPV 9.1 L (9.5-12.2) fL Immature Gran # 0.15 H (0.00-0.04) X 10*3/uL Neutrophils # 12.73 H (1.80-7.70) X 10*3/uL Lymphocytes # 0.78 L (0.90-5.00) X 10*3/uL Monocytes # 1.69 H (0.20-1.00) X 10*3/uL Sodium 133 L (137-145) mmol/L Glucose 132 H (74-99) mg/dL Magnesium 1.5 L (1.6-2.3) mg/dL Microbiology - Last 24 Hours (Table) 04/13/21 11:30 Urine Culture - Final Urine,Voided Escherichia coli
[2021-04-16] MEDS: SENNOSIDES-DOCUSATE SODIUM 1 EACH TAB PO SCH (20:29)
[2021-04-17] MEDS: MORPHINE SULFATE 4 MG/ML SYRINGE IV PRN ×3 (00:38→16:15)
[2021-04-17] MEDS: LACTATED RINGERS 1,000 ML IV SCH ×3 (00:40→19:06)
[2021-04-17] MEDS: traMADol 50 MG TAB PO PRN ×2 (04:49→23:38)
[2021-04-17] MEDS: ENOXAPARIN 40 MG/0.4 ML SYRINGE SQ SCH (08:57)
--- NOTE | 2021-04-17 08:59 | P.PN ---
Subjective Progress Note Date: 04/17/21 Principal diagnosis: Status post right hip hemiarthroplasty This is a 85 year-old female post right hip hemiarthroplasty. This is post-op day 2. The patient was evaluated at the bedside today. The patient denies nausea, vomiting, abdominal pain, shortness of breath, and chest pain this morning. She states her pain is controlled at this time. The patient has been up with physical therapy. Objective - Vital Signs Vital signs: Vital Signs Temp 97.9 F 04/17/21 04:44 Pulse 87 04/17/21 04:44 Resp 16 04/17/21 04:44 BP 104/67 04/17/21 04:44 Pulse Ox 95 04/17/21 04:44 Intake & Output 04/16/21 04/17/21 04/17/21 18:59 06:59 18:59 Intake Total 1200 1970 Output Total 600 Balance 1200 1370 Intake: Intake, IV Titration 1200 1200 Amount Lactated Ringers 1,000 ml 1200 1200 @ 100 mls/hr IV .Q10H [facility] Rx#:[id number] Oral 770 Output: Urine 600 Other: Voiding Method Diaper Diaper External Catheter External Catheter - Exam The patient does not appear in acute distress. Alert and orientated x2. Dressing is clean dry and intact. Incision appears fine with no erythema or active drainage. Calf is soft and nontender. Good foot and ankle motion without difficulty. Sensation and circulatory status is intact. - Labs CBC & Chem 7: 04/16/21 06:06 04/16/21 06:06 Labs: Abnormal Lab Results - Last 24 Hours (Table) 04/16/21 Range/Units 06:06 WBC 15.59 H (4.50-10.00) X 10*3/uL RBC 3.13 L (4.10-5.20) X 10*6/uL Hgb 9.7 L (12.0-15.0) g/dL Hct 31.9 L (37.2-46.3) % MCV 101.9 H (80.0-97.0) fL MCHC 30.4 L (32.0-37.0) g/dL MPV 9.1 L (9.5-12.2) fL Immature Gran # 0.15 H (0.00-0.04) X 10*3/uL Neutrophils # 12.73 H (1.80-7.70) X 10*3/uL Lymphocytes # 0.78 L (0.90-5.00) X 10*3/uL Monocytes # 1.69 H (0.20-1.00) X 10*3/uL Assessment and Plan (1) Displaced fracture of right femoral neck Current Visit: Yes Status: Acute Code(s): S72.001A - FRACTURE OF UNSP PART OF NECK OF RIGHT FEMUR, INIT SNOMED Code(s): 4838169 (2) Fall Current Visit: Yes Status: Acute Code(s): W19.XXXA - UNSPECIFIED FALL, INITIAL ENCOUNTER SNOMED Code(s): 3318981 Plan: 1. Continue pain control 2. Anticoagulation with Lovenox per internal medicine 3. Continue physical therapy and ambulation today. 4. Anticipate discharge to skilled rehab in the next 1-2 days.
[2021-04-17] MEDS: MAGNESIUM SULFATE-D5W PMX 1 GM in DEXTROSE/WATER 1 100ML.BAG IVPB SCH ×4 (14:16→18:07)
--- NOTE | 2021-04-17 14:38 | P.PN ---
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 Found to have right hip fracture. 4 Patient was found to have a displaced right femoral neck fracture. She underwent operative repair on 04/15. She was seen here in Feb 2021 and found to have a Bladder tumor and she underwent TURP, pathology came back as invasive high-grade urothelial carcinoma. She did not follow up with Dr. Robins she did not initially wanted treatment for the tumor. Patient seen and examined at bedside. Doing well. No complaints currently. Pain is well controlled. Son is present at bedside and he would like her to see oncology. Patient states she does not want aggressive chemotherapy. Initially she was hesitant but at the son's insistence she is not willing to see oncology clinic does not want any further testing done. General: non toxic, no distress, appears at stated age Derm: warm, dry Head: traumatic with bruising, normocephalic, symmetric Eyes: EOMI, no lid lag, anicteric sclera Mouth: no lip lesion, mucus membranes moist Cardiovascular: S1S2 reg, no murmur, positive posterior tibial pulse bilateral, Lungs: Decreased bs bilateral, no rhonchi, no rales , no accessory muscle use Abdominal: soft, nontender to palpation, no guarding, no appreciable organomegaly Ext: + gross muscle atrophy, no edema, no contractures Neuro: CN II-XI grossly intact, no focal neuro deficits Psych: Alert, oriented, appropriate affect 85-year-old female status post fall with right femoral neck fracture, likely pathologic -Status post operative repair on 04/15 -PT/OT -Pain control -Fall precautions E. Coli Complicated urinary tract infection - started on cefazolin - Transition to orals on discharge anticipated 10 days in total Hyponatremia -Repeat in a.m. Anemia -Improved from baseline -Follow CBC High-grade urothelial carcinoma - Urology recs: outpatient f/u in 6 weeks will need to have stent removed or changed in 6 weeks - Oncology evaluation: son wants to speak with them, patient not inclined for treatment at this time. DVT prophylaxis: per ortho Discussed with: patient Anticipated discharge: 1-[address]: A total of 25 minutes was spent on the care of this complex patient more than 50% of the time was spent in counseling and care coordination. Objective - Vital Signs Vital signs: Vital Signs Temp 98.3 F 04/17/21 13:01 Pulse 82 04/17/21 13:01 Resp 17 04/17/21 13:01 BP 121/68 04/17/21 13:01 Pulse Ox 95 04/17/21 13:01 Intake & Output 04/16/21 04/17/21 04/17/21 18:59 06:59 18:59 Intake Total 1200 1970 Output Total 600 Balance 1200 1370 Intake: Intake, IV Titration 1200 1200 Amount Lactated Ringers 1,000 ml 1200 1200 @ 100 mls/hr IV .Q10H [facility] [place] Rx#:[id number] Oral 770 Output: Urine 600 Other: Voiding Method Diaper Diaper External Catheter External Catheter - Labs CBC & Chem 7: 04/16/21 06:06 04/16/21 06:06
[2021-04-17] MEDS: SENNOSIDES-DOCUSATE SODIUM 1 EACH TAB PO SCH (19:08)
[2021-04-18] MEDS: LACTATED RINGERS 1,000 ML IV SCH ×2 (05:46→16:56)
[2021-04-18] MEDS: MORPHINE SULFATE 4 MG/ML SYRINGE IV PRN ×2 (05:49→12:12)
[2021-04-18] MEDS: traMADol 50 MG TAB PO PRN (08:11)
[2021-04-18] MEDS: ENOXAPARIN 40 MG/0.4 ML SYRINGE SQ SCH (08:11)
--- NOTE | 2021-04-18 08:32 | P.PN ---
Subjective Progress Note Date: 04/18/21 Principal diagnosis: Right hip fracture. Status post hemiarthroplasty right hip. Bladder cancer. This is a pleasant 85-year-old female who is postoperative day #3 status post hemiarthroplasty of the right hip. She is doing well from an orthopedic standpoint. She has no new complaints or concerns today. She denies nausea or vomiting. She is afebrile. Vitals and labs are stable. Objective - Vital Signs Vital signs: Vital Signs Temp 98.5 F 04/18/21 04:43 Pulse 86 04/18/21 04:43 Resp 16 04/18/21 04:43 BP 111/80 04/18/21 04:43 Pulse Ox 94 L 04/18/21 04:43 Intake & Output 04/17/21 04/18/21 04/18/21 18:59 06:59 18:59 Intake Total 2300 1790 Output Total 400 200 Balance 1900 1590 Intake: Intake, IV Titration 1000 1400 Amount Lactated Ringers 1,000 ml 1200 @ 100 mls/hr IV .Q10H [facility] Rx#:[id number] Magnesium Sulfate-D5w Pmx 900 1 gm In Dextrose/Water 1 100ml.bag @ 100 mls/hr IVPB Q1H [facility] Rx#: [id number] ceFAZolin 1,000 mg In 50 200 Sodium Chloride 0.9% 50 ml @ 100 mls/hr IVPB Q6HR [facility] Rx#:[id number] cefTRIAXone 1 gm In 50 Sodium Chloride 0.9% 50 ml @ 100 mls/hr IVPB Q24HR [facility] Rx#:[id number] Oral 1300 390 Output: Urine 400 Stool 200 Other: Voiding Method Diaper Diaper External Catheter External Catheter # Voids 2 1 - Exam This is a pleasant 85-year-old female in no acute distress. She is alert and oriented 3. Exam of the right hip reveals the dressing is clean, dry and intact. She has full foot and ankle motion without difficulty or pain. Neurovascular status to the lower extremity is intact. - Labs CBC & Chem 7: 04/16/21 06:06 04/16/21 06:06 Assessment and Plan (1) Displaced fracture of right femoral neck Current Visit: Yes Status: Acute Code(s): S72.001A - FRACTURE OF UNSP PART OF NECK OF RIGHT FEMUR, INIT SNOMED Code(s): 7680679 (2) Pathological fracture of right hip Current Visit: Yes Status: Acute Code(s): M84.451A - PATHOLOGICAL FRACTURE, RIGHT FEMUR, INIT ENCNTR FOR FRACTURE SNOMED Code(s): 547805988 (3) Fall Current Visit: Yes Status: Acute Code(s): W19.XXXA - UNSPECIFIED FALL, INITIAL ENCOUNTER SNOMED Code(s): 3409308 Plan: The clinical findings are discussed with the patient. She is doing well from orthopedic standpoint. She may be discharged to inpatient rehab when cleared medically.
[2021-04-18 10:17] LABS: Basophils # (A) 0.03 X 10*3/uL (0.00-0.10); Basophils % (A) 0.3 %; Eosinophils # (A) 0.15 X 10*3/uL (0.04-0.35); Eosinophils % (A) 1.3 %; HCT 26.8 % (37.2-46.3); HGB 8.4 g/dL (12.0-15.0); Immature Grans, Automated 1.3 %; Lymphocytes # (A) 1.13 X 10*3/uL (0.90-5.00); Lymphocytes % (A) 9.5 %; MCH 30.9 pg (27.0-32.0); MCHC 31.3 g/dL (32.0-37.0); MCV 98.5 fL (80.0-97.0); Mean Platelet Volume 9.3 fL (9.5-12.2); Monocytes # (A) 1.26 X 10*3/uL (0.20-1.00); Monocytes % (A) 10.6 %; NRBC Per 100 WBC 0 /100 WBCS (0.0-0.0); Neutrophils # (A) 9.14 X 10*3/uL (1.80-7.70); Platelet Count 259 X 10*3/uL (140-440); RBC 2.72 X 10*6/uL (4.10-5.20); RDW 13.4 % (11.5-14.5); WBC 11.87 X 10*3/uL (4.50-10.00)
[2021-04-18 10:22] LABS: African American GFR (CKD) 96.3 (60.0-200.0); Anion Gap 8.4 mmol/L (10.00-18.00); BUN/Creat Ratio 17.67 Ratio (12.00-20.00); Blood Urea Nitrogen 10.6 mg/dL (9.0-27.0); Carbon Dioxide 26.6 mmol/L (20.0-27.5); Non-African American GFR(CKD) 83.1 (60.0-200.0)
--- NOTE | 2021-04-18 11:41 | P.CONS ---
History of Present Illness - Reason for Consult Consult date: 04/18/21 new diagnosis of bladder ca Requesting physician: Jazmin Razo - Chief Complaint fall with fracture, orthopedic repair - History of Present Illness Mrs. Baldwin is a very pleasant 85-year-old female we have been asked to see due to a recent diagnosis of urothelial carcinoma. Patient has a history of colon cancer back in 1991, treated with surgery only, patient opted to defer chemotherapy. She admitted late January 2021 with complaints of abdominal pain and fall. She had a CT scan showing right hydronephrosis, ureter dilation, dilated bowel loops with suspected mechanical small bowel obstruction at the ileostomy. She had exploratory laparotomy 02/21/21 with lysis of adhesions and repair of a parastomal hernia. 02/25/21 patient had TURBT, pathology positive for invasive urothelial carcinoma, high- grade, invading the muscularis propria, favoring lymphovascular invasion also, had placement of a right ureteral stent. 03/01/21 an MRI of the brain without contrast was negative for any acute findings. 04/12/21 patient was admitted with a fall. 04/15/21 she has had a right femur fracture repair, she also had facial laceration sutured. Currently pending the pathology from the bone fragments from right femur. Patient is denying any acute symptoms postoperatively, no pain. Reports urinary symptoms of incontinence, hematuria. Review of Systems 14 point ROS is neg except as stated in HPI Past Medical History Past Medical History: Cancer, Deep Vein Thrombosis (DVT) Additional Past Medical History / Comment(s): colon cancer (1991 diagnosed), slip disc in back, Bladder Cancer (Dx'd 01/2021) History of Any Multi-Drug Resistant Organisms: None Reported Past Surgical History: Appendectomy, Section, Hernia Repair Additional Past Surgical History / Comment(s): ileostomy, L Leg Andre, hernia repair(february 2021) Past Anesthesia/Blood Transfusion Reactions: No Reported Reaction Past Psychological History: No Psychological Hx Reported Smoking Status: Never smoker Past Alcohol Use History: None Reported Past Drug Use History: None Reported - Past Family History Father Family Medical History: CVA/TIA Mother Family Medical History: CVA/TIA Medications and Allergies Home Medications Medication Instructions Recorded Confirmed Type Bifidobacterium Infantis [Align] 4 mg PO Q48H 02/21/21 04/12/21 History Peptiva 1 tab PO Q48H 02/21/21 04/12/21 History Acetaminophen-Codeine 300-30mg 1 tab PO Q6H PRN #20 tab 02/28/21 04/12/21 Rx [Tylenol w/codeine #3] Loratadine-Pseudoeph 5-120 mg 1 tab PO Q12HR PRN 04/12/21 04/12/21 History [Claritin-D 12 Hour] traMADol HCL [Ultram] 50 mg PO Q6HR PRN #28 tab 04/18/21 Rx Allergies Allergy/AdvReac Type Severity Reaction Status Date / Time ciprofloxacin [From Cipro] Allergy Unknown Verified 04/12/21 12:35 Penicillins Allergy Unknown Verified 04/12/21 12:35 Childhood acetaminophen [From [place]] AdvReac Hallucinati Verified 04/13/21 08:50 ons hydrocodone [From [place]] AdvReac Hallucinati Verified 04/13/21 08:50 ons Physical Exam Vitals: Vital Signs Temp Pulse Resp BP Pulse Ox 04/18/21 04:43 98.5 F 86 16 111/80 94 L 04/17/21 19:45 18 04/17/21 19:33 98.6 F 89 18 114/77 96 04/17/21 13:01 98.3 F 82 17 121/68 95 Intake and Output 04/17/21 04/18/21 04/18/21 22:59 06:59 14:59 Intake Total 2570 1520 Output Total 400 200 Balance 2170 1320 Intake: Intake, IV Titration 1000 1400 Amount Lactated Ringers 1,000 ml 1200 @ 100 mls/hr IV .Q10H [facility] Rx#:[id number] Magnesium Sulfate-D5w Pmx 900 1 gm In Dextrose/Water 1 100ml.bag @ 100 mls/hr IVPB Q1H [facility] Rx#: [id number] ceFAZolin 1,000 mg In 50 200 Sodium Chloride 0.9% 50 ml @ 100 mls/hr IVPB Q6HR [facility] Rx#:[id number] cefTRIAXone 1 gm In 50 Sodium Chloride 0.9% 50 ml @ 100 mls/hr IVPB Q24HR [facility] Rx#:[id number] Oral 1570 120 Output: Urine 400 Stool 200 Other: Voiding Method Diaper External Catheter # Voids 2 1 - Constitutional General appearance: average body habitus, cooperative, no acute distress - EENT laceration to forehead and some mild bruising to the face s/p fall Eyes: anicteric sclerae, EOMI ENT: hearing grossly normal - Neck Neck: no lymphadenopathy - Respiratory Respiratory: bilateral: CTA - Cardiovascular Rhythm: regular Heart sounds: normal: S1, S2 Abnormal Heart Sounds: no systolic murmur, no diastolic murmur, no rub, no S3 Gallop, no S4 Gallop, no click, no other leg Peripheral Edema: bilateral: None - Gastrointestinal left abd ostomy, light brown liquid stool General gastrointestinal: normal bowel sounds, soft - Neurologic Neurologic: CNII-XII intact - Musculoskeletal Musculoskeletal: strength equal bilaterally - Psychiatric Psychiatric: A&O x's 3, appropriate affect, intact judgment & insight Results CBC & Chem 7: 04/18/21 05:26 04/18/21 05:26 Chest x-ray: report reviewed CT scan - abdomen: report reviewed CT scan - pelvis: report reviewed Assessment and Plan (1) Malignant neoplasm of trigone of bladder Narrative/Plan: Dr. Liu discussed diagnosis of urothelial carcinoma, treatment options that are available, and prognosis with and without treatment. Patient was firm at her resolved that she does not wish to receive chemotherapy, she is also not inte rested in any further surgical intervention which would likely involve removal of the bladder as well as the right kidney and ureter. All of patient's questions were answered to her satisfaction. Patient is in no 4 with a very clear understanding of her condition. With her age and other comorbid conditions it is certainly reasonable to forego any further aggressive therapy for urothelial carcinoma. Uncertain of how her malignancy will behave but for now, no reason necessarily to involve end of life care. Palliative care would be reasonable with transition to hospice as pt condition changes over time. Current Visit: Yes Status: Acute Priority: High Code(s): C67.0 - MALIGNANT NEOPLASM OF TRIGONE OF BLADDER SNOMED Code(s): 089857368 Plan: If there are any other questions or concerns, please, feel free to contact us and we will be happy to help In regards to surgical repair of rt femur fracture, recommend, at minimum lovenox DVT prophylaxis for at least 4 weeks. Full dose anticoagulation would be optimal (high risk for DVT as she is post op, decreased mobility, active cancer) but, will let Primary determine risk vs benefit (very high fall risk). Doctor attests: I performed a history and physical examination of this patient, developed impression and plan of care, discussed with dictator. I agree with dictators note, documented as a scribe.
[2021-04-18 13:26] VITALS: BP 103/65; PULSE 60; RESP 17; TEMP 97.9
--- NOTE | 2021-04-18 14:29 | P.DS ---
Providers Date of admission: 04/12/21 16:10 Expected date of discharge: 04/18/21 Attending physician: Jazmin Razo DO Consults: 04/13/21 17:20 Consult Physician Routine Consulting Provider: Melanie Stover Consult Reason/Comments: post op wound incision Do you want consulting provider notified?: Yes 04/13/21 18:10 Consult Physician Routine Consulting Provider: Arnoldo Deshpande Consult Reason/Comments: right hip pain Do you want consulting provider notified?: Yes 04/14/21 18:06 Consult Physician Routine Consulting Provider: Andrew Robins Consult Reason/Comments: Bladder Ca-T/t options Do you want consulting provider notified?: Yes 04/17/21 14:33 Consult Physician Routine Consulting Provider: Edu Liu Consult Reason/Comments: bladder cancer, family request Do you want consulting provider notified?: Yes Primary care physician: [facility] Course: Right femoral neck fracture, likely pathologic E. 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 Found to have right hip fracture. Patient was found to have a displaced right femoral neck fracture. She underwent operative repair on 04/15. She was seen here in Feb 2021 and found to have a Bladder tumor and she underwent TURP, pathology came back as invasive high-grade urothelial carcinoma. She did not follow up with Dr. Robins she did not initially wanted treatment for the tumor. Oncology was consulted and recommended DVT PPx with lovenox for at least 4 weeks due to high risk of DVT. They also discussed prognosis of urothelial carcinoma without treatment and patient was adamantly against receiving any treatment including chemo or surgical options. PT recommended SNF, to which she was discharged for rehab. Regarding her UTI, she was treated with cefazolin inpatient and transitioned to cephalexin outpatient for total 7 day course. - Urology recs: outpatient f/u in 6 weeks will need to have stent removed or changed in 6 weeks I spent 38 minutes coordinating the discharge for this complex patient Assessment: Gen: awake, alert HEENT: normocephalic, atraumatic, good hearing acuity, moist mucous membranes Resp: good air exchange, breathing comfortably with no accessory muscle use CVS: good distal perfusion x 4, GI: soft, NTTP, ND : no SPT, no CVAT, morocho catheter not present MSK: no pitting edema, no clubbing Neuro: non-focal, moving all extremities Psych: cooperative, euthymic mood Patient Condition at Discharge: Good Plan - Discharge Summary Discharge Rx Participant: Yes New Discharge Prescriptions: New traMADol HCL [Ultram] 50 mg PO Q6HR PRN #28 tab PRN Reason: Pain Lactulose [Cephulac] 20 gm PO DAILY PRN ml PRN Reason: Constipation Cephalexin [Keflex] 500 mg PO Q12HR 5 Days #10 cap Sennosides-Docusate Sodium [Senokot-S] 2 each PO HS tab Calcium Carbonate [Tums] 1,000 mg PO Q4HR PRN PRN Reason: Dyspepsia Enoxaparin [Lovenox] 40 mg SQ DAILY each Continue Bifidobacterium Infantis [Align] 4 mg PO Q48H Peptiva 1 tab PO Q48H Acetaminophen-Codeine 300-30mg [Tylenol w/codeine #3] 1 tab PO Q6H PRN #20 tab PRN Reason: Pain Loratadine-Pseudoeph 5-120 mg [Claritin-D 12 Hour] 1 tab PO Q12HR PRN PRN Reason: Cold Symptoms Discharge Medication List Bifidobacterium Infantis [Align] 4 mg PO Q48H 02/21/21 [History] Peptiva 1 tab PO Q48H 02/21/21 [History] Acetaminophen-Codeine 300-30mg [Tylenol w/codeine #3] 1 tab PO Q6H PRN #20 tab 02/28/21 [Rx] Loratadine-Pseudoeph 5-120 mg [Claritin-D 12 Hour] 1 tab PO Q12HR PRN 04/12/21 [History] Calcium Carbonate [Tums] 1,000 mg PO Q4HR PRN 04/18/21 [Rx] Cephalexin [Keflex] 500 mg PO Q12HR 5 Days #10 cap 04/18/21 [Rx] Enoxaparin [Lovenox] 40 mg SQ DAILY each 04/18/21 [Rx] Lactulose [Cephulac] 20 gm PO DAILY PRN ml 04/18/21 [Rx] Sennosides-Docusate Sodium [Senokot-S] 2 each PO HS tab 04/18/21 [Rx] traMADol HCL [Ultram] 50 mg PO Q6HR PRN #28 tab 04/18/21 [Rx] Follow up Appointment(s)/Referral(s): Isadora Alexandra PAC [PHYSICIAN ENGINEERING PROGRAMMER] - 3 Weeks Seymour Salazar MD [Primary Care Provider] - 1-2 days Patient Instructions/Handouts: Fall Prevention for Older Adults (ED) Activity/Diet/Wound Care/Special Instructions: Keep the wound clean and dry. Return to the emergency department if you experience new, concerning, or worsening symptoms including but not limited to fever, chills, or increased redness, swelling, or pain around the wound. The primary care in 1-2 days. Return to the emergency department in 5-7 days for suture removal. May bear wt as tolerated with walker. May shower. Remove Optifoam dressing 7 days post op. Discharge Disposition: TRANSFER TO SNF/ECF
[2021-04-18 15:02] VITALS: BMI 22.4
[2021-04-18 23:53] LABS: % Iron Saturation 9.38 (12.00-45.00)
--- NOTE | 2021-04-20 09:16 | CDI ---
Documentation Clarification Form Date: 04/20/21 From: Marcie Mcnair Admit Date: 04/12/2021 04:10:00 PM Patient Name: Jamee Baldwin Visit Number: [id number] Discharge Date: 04/18/2021 04:50:00 PM ATTENTION: The Clinical Documentation Specialists (CDI) and [facility] Coding Staff appreciate your assistance in clarifying documentation. Please respond to the clarification below the line at the bottom and electronically sign. The CDI & [facility] Coding staff will review the response and follow-up if needed. Please note: Queries are made part of the Legal Health Record. If you have any questions, please contact the author of this message via ITS. Dr. Juanito Francisco, A coccyx pressure ulcer stage II is documented by Wound Care on 04/18 in the Wound Assessment. Based on this information and the findings below, is there an additional diagnosis that is clinically appropriate for this patient? History/Risk Factors: pathological right femur, hematuria, bladder cancer, UTI w hydronephrosis, hx colon ca Clinical Indicators: Per Dr Francisco's consult "The incision was left open and it is subsequently nearly completely healed, patient has followed with wound care for pressure sores." Location: coccyx Wound description: Stage II Treatment: Foam w/ Border Is there an additional diagnosis that is clinically appropriate for this patient? [ x ] Coccyx Pressure Ulcer Stage 2 [ ] Other condition, please specify [ ] Unable to determine Clinical Definitions: Stage 1 Pressure Ulcer: intact skin, non-blanching redness of local area Stage 2 Pressure Ulcer: Partial thickness, loss of dermis, pink wound bed Stage 3 Pressure Ulcer: Full thickness tissue loss Stage 4 Pressure Ulcer: Full thickness tissue loss with exposed bone, tendon, or muscle. Unstageable pressure ulcer: Full thickness tissue loss in which the base of the ulcer is covered by slough (yellow, viramontes, vallejo, green or brown) and/or eschar (viramontes, brown or black) in the wound bed. MTDD
== END 2021-04-18 16:50 | DRG 522 ==
LOC: EC 11:12 → 5NMEDONC 16:10
PROVIDERS: ADMIT Internal Medicine; ATTEND Internal Medicine
PROC: 0HQ1XZZ Repair Face Skin, External Approach (ICD-10-PCS; 2021-04-12)
PROC: 3E0234Z Introduction of Serum, Toxoid and Vaccine into Muscle, Percutaneous Approach (ICD-10-PCS; 2021-04-12)
PROC: 0SRR019 Replacement of Right Hip Joint, Femoral Surface with Metal Synthetic Substitute, Cemented, Open Approach (ICD-10-PCS; principal; 2021-04-15 14:15)
DX: M84.451A Pathological fracture, right femur, initial encounter for fracture (principal); N02.9 Recurrent and persistent hematuria with unspecified morphologic changes; N13.6 Pyonephrosis; D62 Acute posthemorrhagic anemia; E87.1 Hypo-osmolality and hyponatremia; L89.152 Pressure ulcer of sacral region, stage 2; C67.0 Malignant neoplasm of trigone of bladder; Z43.2 Encounter for attention to ileostomy; N18.30 Chronic kidney disease, stage 3 unspecified; Z23 Encounter for immunization; Z20.822 Contact with and (suspected) exposure to COVID-19; D63.0 Anemia in neoplastic disease; S01.81XA Laceration without foreign body of other part of head, initial encounter; B96.20 Unspecified Escherichia coli [E. coli] as the cause of diseases classified elsewhere; G25.2 Other specified forms of tremor; M15.9 Polyosteoarthritis, unspecified; G47.00 Insomnia, unspecified; M62.50 Muscle wasting and atrophy, not elsewhere classified, unspecified site; R26.9 Unspecified abnormalities of gait and mobility; Z79.899 Other long term (current) drug therapy; Z86.718 Personal history of other venous thrombosis and embolism; Z85.038 Personal history of other malignant neoplasm of large intestine; Z90.49 Acquired absence of other specified parts of digestive tract; Z87.19 Personal history of other diseases of the digestive system; Z98.891 History of uterine scar from previous surgery; Z87.39 Personal history of other diseases of the musculoskeletal system and connective tissue; Z60.2 Problems related to living alone; Z87.442 Personal history of urinary calculi; Z86.19 Personal history of other infectious and parasitic diseases; Z98.890 Other specified postprocedural states; Z88.1 Allergy status to other antibiotic agents; Z88.0 Allergy status to penicillin; Z88.5 Allergy status to narcotic agent; W01.198A Fall on same level from slipping, tripping and stumbling with subsequent striking against other object, initial encounter; Y92.009 Unspecified place in unspecified non-institutional (private) residence as the place of occurrence of the external cause; Z82.3 Family history of stroke
CPT/HCPCS: 12014; 70450; 72125; 73501; 80048; 81001; 82607; 82728; 82747; 83540; 83550; 83735; 84484; 85025; 87077; 87086; 87186; 87635; 88305; 88311; 90471; 90715; 93005; 96374; 99285

== ENCOUNTER 2021-05-24 02:12 | Emergency (ER) | payer MEDICARE, OTHER ==
[2021-05-24 02:21] VITALS: RESP 28; TEMP 98.6
[2021-05-24] MEDS ORDERED: SODIUM CHLORIDE 0.9% 500 ML 500 ML IV STA (02:23)
[2021-05-24] MEDS ORDERED: SODIUM CHLORIDE 0.9% 1,000 ML IV STA ×2 (02:23)
--- NOTE | 2021-05-24 02:25 | ED ---
Weakness HPI - General Chief complaint: Shortness of Breath Stated complaint: low heart rate, SOB Time Seen by Provider: 05/24/21 02:23 Source: patient, EMS, RN notes reviewed, old records reviewed Mode of arrival: EMS Limitations: no limitations - History of Present Illness Initial comments: This is an 85-year-old female to the emergency department for evaluation of weakness altered mental status and low blood pressure. On arrival to the ER patient is adamantly refusing any treatment. She denies any complaints. Patient states she is no CODE STATUS patient MD Complaint: generalized weakness (Shortness of breath) -: unknown Location: generalized Severity: severe Severity scale (1-10): 10 Consistency: constant Improves with: none Worsens with: none Context: recent illness, history of similar Associated Symptoms: shortness of breath - Related Data Home Medications Medication Instructions Recorded Confirmed Bifidobacterium Infantis [Align] 4 mg PO Q48H 02/21/21 04/12/21 Peptiva 1 tab PO Q48H 02/21/21 04/12/21 Loratadine-Pseudoeph 5-120 mg 1 tab PO Q12HR PRN 04/12/21 04/12/21 [Claritin-D 12 Hour] Previous Rx's Medication Instructions Recorded Acetaminophen-Codeine 300-30mg 1 tab PO Q6H PRN #20 tab 02/28/21 [Tylenol w/codeine #3] Calcium Carbonate [Tums] 1,000 mg PO Q4HR PRN 04/18/21 Cephalexin [Keflex] 500 mg PO Q12HR 5 Days #10 cap 04/18/21 Enoxaparin [Lovenox] 40 mg SQ DAILY each 04/18/21 Lactulose [Cephulac] 20 gm PO DAILY PRN ml 04/18/21 Sennosides-Docusate Sodium 2 each PO HS tab 04/18/21 [Senokot-S] traMADol HCL [Ultram] 50 mg PO Q6HR PRN #28 tab 04/18/21 Allergies Allergy/AdvReac Type Severity Reaction Status Date / Time ciprofloxacin [From Cipro] Allergy Unknown Verified 05/24/21 02:21 Penicillins Allergy Unknown Verified 05/24/21 02:21 Childhood acetaminophen [From [place]] AdvReac Hallucinati Verified 05/24/21 02:21 ons hydrocodone [From [place]] AdvReac Hallucinati Verified 05/24/21 02:21 ons Review of Systems ROS Statement: Those systems with pertinent positive or pertinent negative responses have been documented in the HPI. ROS Other: All systems not noted in ROS Statement are negative. Past Medical History Past Medical History: Cancer, Deep Vein Thrombosis (DVT) Additional Past Medical History / Comment(s): colon cancer (1992 diagnosed), slip disc in back, Bladder Cancer (Dx'd 01/2021) History of Any Multi-Drug Resistant Organisms: None Reported Past Surgical History: Appendectomy, Section, Hernia Repair Additional Past Surgical History / Comment(s): ileostomy, L Leg Andre, hernia repair(february 2021) Past Anesthesia/Blood Transfusion Reactions: No Reported Reaction Past Psychological History: No Psychological Hx Reported Smoking Status: Never smoker Past Alcohol Use History: None Reported Past Drug Use History: None Reported - Past Family History Father Family Medical History: CVA/TIA Mother Family Medical History: CVA/TIA General Exam Limitations: no limitations General appearance: alert, in no apparent distress, anxious Head exam: Present: atraumatic, normocephalic, normal inspection Eye exam: Present: normal appearance, PERRL, EOMI. Absent: scleral icterus, conjunctival injection, periorbital swelling ENT exam: Present: normal exam, mucous membranes dry, mucous membranes moist Neck exam: Present: normal inspection. Absent: tenderness, meningismus, lymphadenopathy Respiratory exam: Present: normal lung sounds bilaterally. Absent: respiratory distress, wheezes, rales, rhonchi, stridor Cardiovascular Exam: Present: normal rhythm, tachycardia, normal heart sounds. Absent: systolic murmur, diastolic murmur, rubs, gallop, clicks GI/Abdominal exam: Present: soft, normal bowel sounds. Absent: distended, tenderness, guarding, rebound, rigid Extremities exam: Present: normal inspection, full ROM, normal capillary refill. Absent: tenderness, pedal edema, joint swelling, calf tenderness Back exam: Present: normal inspection Neurological exam: Present: alert, oriented X3, CN II-XII intact Psychiatric exam: Present: normal affect, normal mood Skin exam: Present: warm, dry, intact, normal color. Absent: rash Course Vital Signs 05/24/21 05/24/21 02:15 02:22 Temperature 98.6 F Pulse Rate 116 H 112 H Respiratory 28 H Rate Blood Pressure 56/22 70/41 O2 Sat by Pulse 97 98 Oximetry - Reevaluation(s) Reevaluation #1: 05/24/21 02:50 Medical record is reviewed Reevaluation #2: 05/24/21 02:50 Patient continues to refuse treatment here in the ER EKG Findings - EKG Comments: EKG Findings:: EKG is sinus tachycardia 116. 164 QRS 94 QTC 364 Medical Decision Making - Medical Decision Making 85 female to the emergency department for shortness of breath. Patient refusing any treatment or evaluation. Patient will be discharged back to psychiatric care facility Disposition Clinical Impression: Shortness of breath Disposition: HOME SELF-CARE Condition: Serious Instructions (If sedation given, give patient instructions): Shortness of Breath (ED) Is patient prescribed a controlled substance at d/c from ED?: No Referrals: Jarvis Limon MD [Primary Care Provider] - 1-2 days
[2021-05-24 02:27] VITALS: BP 70/41; PULSE 112
== END 2021-05-24 03:52 | disposition home or self-care (01) ==
LOC: EC 02:12
DX: R06.02 Shortness of breath (principal)
CPT/HCPCS: 93005; 96360; 99285